=== PATIENT | female | born 1945 ===

== ENCOUNTER 2016-12-24 11:11 | Emergency (ER) | payer MEDICARE, OTHER ==
[2016-12-24 11:11] VITALS: BMI 33.9
[2016-12-24 11:44] VITALS: O2SAT 98
--- NOTE | 2016-12-24 12:55 | C.PDOC ---
History Of Present Illness 71 yr old female with PMHx of HTN, End Stage Renal Disease and is on dialysis, presents to the ER with complaints of right upper extremity pain. Patient states she fell few weeks ago but has been seen in the ED for similar complaints in October. On examination, patient is agitated and defensive resisting the exam. Patient refuses to let anyone touch her arm and is requesting XRay of the arm. Patient denies fever, chest pain, SOB, nausea, vomiting, abdominal pain, diarrhea, back pain, weakness or numbness. Time Seen by Provider: 12/24/16 12:07 Chief Complaint (Nursing): Upper Extremity Problem/Injury History Per: Patient History/Exam Limitations: no limitations Onset/Duration Of Symptoms: Days Current Symptoms Are (Timing): Still Present Past Medical History Reviewed: Historical Data, Nursing Documentation, Vital Signs Vital Signs: Last Vital Signs Temp 99.1 F 12/24/16 14:49 Pulse 75 12/24/16 14:49 Resp 18 12/24/16 14:49 BP 134/75 12/24/16 14:49 Pulse Ox 98 12/24/16 14:49 - Medical History PMH: Back Problems, CHF, Diabetes, Gastritis, HTN, Hypothyroidism, End Stage Renal Disease, Chronic Kidney Disease Surgical History: Cholecystectomy - [facility] Procedures CORONAR ARTERIOGR-2 CATH (05/28/13) HEMODIALYSIS (05/28/13) LEFT HEART CARDIAC CATH (05/28/13) LT HEART ANGIOCARDIOGRAM (05/28/13) PACKED CELL TRANSFUSION (05/28/13) VENOUS CATHETERIZATION FOR RENAL DIALYSIS (05/28/13) Family History: States: No Known Family Hx - Social History Hx Tobacco Use: No Hx Alcohol Use: No Hx Substance Use: No - Immunization History Hx Tetanus Toxoid Vaccination: Yes Hx Influenza Vaccination: Yes Hx Pneumococcal Vaccination: Yes Review Of Systems Except As Marked, All Systems Reviewed And Found Negative. Constitutional: Negative for: Fever Cardiovascular: Negative for: Chest Pain Respiratory: Negative for: Shortness of Breath Gastrointestinal: Negative for: Nausea, Vomiting, Abdominal Pain, Diarrhea Musculoskeletal: Positive for: Arm Pain (Right upper arm). Negative for: Back Pain Neurological: Negative for: Weakness, Numbness Physical Exam - Physical Exam Appears: Non-toxic, Combative, Agitated Skin: Warm, Dry, No Rash Head: Atraumatic, Normacephalic Eye(s): bilateral: Normal Inspection, PERRL, EOMI Oral Mucosa: Moist Chest: Symmetrical, No Tenderness Cardiovascular: Rhythm Regular, No Murmur Respiratory: Normal Breath Sounds, No Rales, No Rhonchi, No Stridor, No Wheezing Extremity: Tenderness (Right arm), No Deformity, No Swelling Neurological/Psych: Oriented x3, Normal Speech, Normal Motor ED Course And Treatment O2 Sat by Pulse Oximetry: 98 - Other Rad X-Ray - Right Humerus X-Ray: Viewed By Me, Read By Radiologist Interpretation: PROCEDURE: Right humerus radiographs. Right forearm radiographs. HISTORY: fall. COMPARISON: None available. FINDINGS: BONES: No acute displaced fracture or dislocation. Evidence of calcific tendinitis adjacent to the right humeral head. Acromioclavicular arthropathy. SOFT TISSUES : Unremarkable. No evidence of radiopaque foreign body. OTHER FINDINGS: None. IMPRESSION: Evidence of calcific tendinitis adjacent to the right humeral head. No acute displaced fracture, dislocation, or significant joint effusion identified. If symptoms persist, or if there is continued clinical concern, x-ray follow-up in 7-10 days should be considered. X-Ray - Right Forearm X-Ray: Viewed By Me, Read By Radiologist Interpretation: PROCEDURE: Right humerus radiographs. Right forearm radiographs. HISTORY: fall. COMPARISON: None available. FINDINGS: BONES: No acute displaced fracture or dislocation. Evidence of calcific tendinitis adjacent to the right humeral head. Acromioclavicular arthropathy. SOFT TISSUES : Unremarkable. No evidence of radiopaque foreign body. OTHER FINDINGS: None. IMPRESSION: Evidence of calcific tendinitis adjacent to the right humeral head. No acute displaced fracture, dislocation, or significant joint effusion identified. If symptoms persist, or if there is continued clinical concern, x-ray follow-up in 7-10 days should be considered. Medical Decision Making Medical Decision Making: PLAN: * X-Ray - Right Forearm, Right Humerus Disposition Counseled Patient/Family Regarding: Studies Performed, Diagnosis, Need For Followup, Rx Given - Disposition Referrals: Hugo Leija Jr., MD [Medical Doctor] - Disposition: HOME/ ROUTINE Disposition Time: 14:35 Condition: STABLE Prescriptions: traMADol/Acetaminophen [Ultracet 37.5/325 mg] 1 tab PO BID PRN #10 tab PRN Reason: pain Instructions: Musculoskeletal Pain (ED) Forms: Gen Discharge Inst Sinhala - POA Present On Arrival: None - Clinical Impression Clinical Impression: Musculoskeletal pain - Scribe Statement The provider has reviewed the documentation as recorded by the Tayaibe Odilia Petersen Provider Attestation: All medical record entries made by the Tayaibe were at my direction and personally dictated by me. I have reviewed the chart and agree that the record accurately reflects my personal performance of the history, physical exam, medical decision making, and the department course for this patient. I have also personally directed, reviewed, and agree with the discharge instructions and disposition.
--- NOTE | 2016-12-24 14:29 | RAD ---
PROCEDURE: Right humerus radiographs Right forearm radiographs HISTORY: fall COMPARISON: None available. FINDINGS: BONES: No acute displaced fracture or dislocation. Evidence of calcific tendinitis adjacent to the right humeral head. Acromioclavicular arthropathy. SOFT TISSUES: Unremarkable. No evidence of radiopaque foreign body. OTHER FINDINGS: None. IMPRESSION: Evidence of calcific tendinitis adjacent to the right humeral head. No acute displaced fracture, dislocation, or significant joint effusion identified. If symptoms persist, or if there is continued clinical concern, x-ray follow-up in 7-10 days should be considered.
[2016-12-24 14:50] VITALS: BP 134/75; PULSE 75; RESP 18; TEMP 99.1
== END 2016-12-24 14:51 | disposition home or self-care (01) ==
LOC: C.ER 11:11
DX: M79.621 Pain in right upper arm (principal)
CPT/HCPCS: 73060; 73090; 96372; 99284; J1885

== ENCOUNTER 2018-02-04 14:50 | Inpatient (IN) | payer MEDICARE, MEDICAID ==
[2018-02-04 14:50] VITALS: BMI 33.9
[2018-02-04 16:01] LABS: BASO # 0.1 K/uL (0.0-0.2); BASO % 0.6 % (0.0-2.0); EOS # 0.4 K/uL (0.0-0.7); EOS % 4.2 % (0.0-4.0); LYMPH # 0.5 K/uL (1.0-4.3); LYMPH % 4.9 % (20.0-40.0); MEAN CELL VOLUME 99.2 fL (81.0-99.0); MEAN CORPUSCULAR HEMOGLOBIN 33.9 pg (27.0-31.0); MEAN CORPUSCULAR HGB CONC 34.2 g/dL (33.0-37.0); MEAN PLATELET VOLUME 10.6 fL (7.2-11.7); MONO # 0.7 K/uL (0.0-0.8); MONO % 7.1 % (0.0-10.0); NEUT # 8.4 K/uL (1.8-7.0); NEUT % 83.2 % (50.0-75.0); NRBC % 0.1 % (0.0-2.0); RED CELL DISTRIBUTION WIDTH 17.1 % (11.5-14.5)
[2018-02-04 16:07] LABS: INR 1.3; PLATELET COUNT 69 K/uL (130-400); PROTHROMBIN TIME 14.1 SECONDS (9.7-12.2)
[2018-02-04 16:09] LABS: HEMOGLOBIN 7.8 g/dL (11.0-16.0)
[2018-02-04 16:15] LABS: ALB/GLOB RATIO 0.7 (1.0-2.1); ALBUMIN 2.6 g/dL (3.5-5.0)
[2018-02-04 16:23] LABS: CK-MB 4.34 ng/mL (0.0-3.38)
--- NOTE | 2018-02-04 16:50 | CT ---
PROCEDURE: CT brain dated by . HISTORY: AMS COMPARISON: None available. TECHNIQUE: Axial computed tomography images were obtained through the head/brain without intravenous contrast. Radiation dose: Total exam DLP = 1057.97 mGy-cm. This CT exam was performed using one or more of the following dose reduction techniques: Automated exposure control, adjustment of the mA and/or kV according to patient size, and/or use of iterative reconstruction technique. FINDINGS: HEMORRHAGE: No acute parenchymal, subarachnoid or extra-axial hemorrhage. BRAIN: Mild chronic periventricular white matter ischemic changes seen extending peripherally into the deep and subcortical white matter both cerebral hemispheres. No evidence of large acute infarct however note that the possibility of a small hyperacute infarct cannot be excluded on this exam. Mild generalized volume loss. VENTRICLES: No obstructive hydrocephalus. CALVARIUM: Unremarkable. PARANASAL SINUSES: Unremarkable as visualized. No significant inflammatory changes. MASTOID AIR CELLS: Unremarkable as visualized. No inflammatory changes. OTHER FINDINGS: Changes of bilateral cataract surgery IMPRESSION: No acute intracranial hemorrhage. Mild chronic white matter ischemic changes. Mild generalized volume loss.
--- NOTE | 2018-02-04 16:58 | RAD ---
PROCEDURE: CHEST RADIOGRAPH, 1 VIEW HISTORY: AMS COMPARISON: Portable chest 11/18/2016. FINDINGS: LUNGS: No acute pulmonary disease appreciated bilaterally. PLEURA: No pneumothorax or pleural fluid seen. CARDIOVASCULAR: Stable cardiomegaly. No pulmonary vascular congestion. A tunneled left central venous dialysis catheter and deployed terminating at the cavoatrial junction. OSSEOUS STRUCTURES: No significant abnormalities. VISUALIZED UPPER ABDOMEN: Normal. OTHER FINDINGS: None. IMPRESSION: Status post deployment of permanent left central venous dialysis catheter. Stable cardiomegaly. Exam otherwise unremarkable.
[2018-02-04 17:13] LABS: EOSINOPHIL 1 % (0-4); LYMPHOCYTE 4 % (20-40); MONOCYTE 5 % (0-10); NEUTROPHIL 90 % (50-75); TOTAL CELLS COUNTED 100
[2018-02-04 17:14] LABS: ANISOCYTOSIS SLIGHT; HYPOCHROMIC SLIGHT; PLATELET ESTIMATE DECREASED (NORMAL)
[2018-02-04 17:15] LABS: POLYCHROMIC SLIGHT
--- NOTE | 2018-02-04 17:28 | C.PDOC ---
History Of Present Illness 72-year-old female, sent from detention with complaints of restlessness and altered mental status. Upon arrival, patient is awake and alert. Patient c/o generalized weakness. Time Seen by Provider: 02/04/18 15:23 Chief Complaint (Nursing): Altered Mental Status History Per: Patient History/Exam Limitations: None Past Medical History Reviewed: Historical Data, Nursing Documentation, Vital Signs Vital Signs: Last Vital Signs Temp 98.4 F 02/04/18 15:02 Pulse 56 L 02/04/18 16:33 Resp 17 02/04/18 16:33 BP 115/57 L 02/04/18 16:33 Pulse Ox 97 02/04/18 18:07 - Medical History PMH: Back Problems, CHF, Diabetes, Gastritis, HTN, Hypothyroidism, End Stage Renal Disease, Chronic Kidney Disease Surgical History: Cholecystectomy - [facility] Procedures CORONAR ARTERIOGR-2 CATH (05/28/13) HEMODIALYSIS (05/28/13) LEFT HEART CARDIAC CATH (05/28/13) LT HEART ANGIOCARDIOGRAM (05/28/13) PACKED CELL TRANSFUSION (05/28/13) VENOUS CATHETERIZATION FOR RENAL DIALYSIS (05/28/13) Family History: States: No Known Family Hx - Social History Hx Tobacco Use: No Hx Alcohol Use: No Hx Substance Use: No - Immunization History Hx Tetanus Toxoid Vaccination: Yes Hx Influenza Vaccination: Yes Hx Pneumococcal Vaccination: Yes Review Of Systems Constitutional: Negative for: Fever, Chills, Weakness Cardiovascular: Negative for: Chest Pain, Palpitations Respiratory: Negative for: Shortness of Breath Gastrointestinal: Negative for: Nausea, Vomiting Neurological: Positive for: Altered Mental Status (as per [facility] transfer papers). Negative for: Headache, Dizziness Physical Exam - Physical Exam Appears: Non-toxic, No Acute Distress Skin: Normal Color, Warm, Dry, No Rash Head: Normacephalic Eye(s): bilateral: Normal Inspection, PERRL, EOMI Nose: Normal Oral Mucosa: Moist Lips: Normal Appearing Neck: Normal ROM Chest: Symmetrical Cardiovascular: Rhythm Regular, No Murmur Respiratory: Normal Breath Sounds, No Accessory Muscle Use Gastrointestinal/Abdominal: Soft, No Tenderness Extremity: Normal ROM, No Deformity Neurological/Psych: Oriented x3, Normal Speech ED Course And Treatment - Laboratory Results Result Diagrams: 02/04/18 15:52 02/04/18 15:52 O2 Sat by Pulse Oximetry: 97 (RA) Pulse Ox Interpretation: Normal - Other Rad CXR X-Ray: Viewed By Me, Read By Radiologist Interpretation: Accession No. : [id number]. Patient Name / ID : PAVITHRA REES / [id number]. Exam Date : 02/04/2018 15:54:15 ( Approved ). Study Comment : Sex / Age : F / 72Y. Creator : Abhishek Wade MD. Dictator : Abhishek Wade MD. Individual Pension Adviser : [employer] : Abhishek Wade MD. Approver2 : Report Date : 02/04/2018 16:57:05. My Comment : . PROCEDURE: CHEST RADIOGRAPH, 1 VIEW. HISTORY: AMS. COMPARISON: Portable chest 2016. FINDINGS: LUNGS: No acute pulmonary disease appreciated bilaterally. PLEURA: No pneumothorax or pleural fluid seen. CARDIOVASCULAR: Stable cardiomegaly. No pulmonary vascular congestion. A tunneled left central venous dialysis catheter and deployed terminating at the cavoatrial junction. OSSEOUS STRUCTURES: No significant abnormalities. VISUALIZED UPPER ABDOMEN: Normal. OTHER FINDINGS: None. IMPRESSION: Status post deployment of permanent left central venous dialysis catheter. Stable cardiomegaly. Exam otherwise unremarkable. - CT Scan/US Head CT Other Rad Studies (CT/US): Read By Radiologist, Radiology Report Reviewed CT/US Interpretation: Accession No. : [id number]. Patient Name / ID : PAVITHRA REES / [id number]. Exam Date : 02/04/2018 16:06:35 ( Approved ). Study Comment : Sex / Age : F / 72Y. Creator : Treva Mills. Dictator : Individual Pension Adviser : [employer]visor [employer] : Don Sanders MD. Approver2 : Report Date : 16:24:36. My Comment : . PROCEDURE: CT brain dated by . HISTORY: AMS. COMPARISON: None available. TECHNIQUE: Axial computed tomography images were obtained through the head/brain without intravenous contrast. Radiation dose: Total exam DLP = 1057.97 mGy-cm. This CT exam was performed using one or more of the following dose reduction techniques: Automated exposure control, adjustment of the mA and/or kV according to patient size, and/or use of iterative reconstruction technique. FINDINGS: HEMORRHAGE: No acute parenchymal, subarachnoid or extra-axial hemorrhage. BRAIN: Mild chronic periventricular white matter ischemic changes seen extending peripherally into the deep and subcortical white matter both cerebral hemispheres. No evidence of large acute infarct however note that the possibility of a small hyperacute infarct cannot be excluded on this exam. Mild generalized volume loss. VENTRICLES: No obstructive hydrocephalus. CALVARIUM: Unremarkable. PARANASAL SINUSES: Unremarkable as visualized. No significant inflammatory changes. MASTOID AIR CELLS: Unremarkable as visualized. No inflammatory changes. OTHER FINDINGS: Changes of bilateral cataract surgery. IMPRESSION: No acute intracranial hemorrhage. Mild chronic white matter ischemic changes. Mild generalized volume loss. Progress Note: CT Head, bloodwork and Chest XR ordered and reviewed. Patient evaluated by Dr Toledo in ER, will admit patient to his service for observation. Disposition - Disposition Disposition: HOSPITALIZED Disposition Time: 17:30 Condition: FAIR - Clinical Impression Clinical Impression: ESRD (end stage renal disease) on dialysis, Altered mental status - Scribe Statement The provider has reviewed the documentation as recorded by the Scribe (Bradley Weathers) All medical record entries made by the Scribe were at my direction and personally dictated by me. I have reviewed the chart and agree that the record accurately reflects my personal performance of the history, physical exam, medical decision making, and the department course for this patient. I have also personally directed, reviewed, and agree with the discharge instructions and disposition. Decision To Admit - Pt Status Changed To: Hospital Disposition Of: Observation - . Bed Request Type: Telemetry Admitting Physician: Sonny Toledo Patient Diagnosis: ESRD (end stage renal disease) on dialysis, Altered mental status
[2018-02-04] MEDS ORDERED: Benzocaine/Menthol (Cepacol) Lozenge PO PRN (18:53)
[2018-02-04] MEDS ORDERED: Albuterol HFA 90 mcg/actuation (8 g) IH PRN (18:53)
[2018-02-04] MEDS ORDERED: Ergocalciferol 50,000 Intl Units Cap PO SCH (19:00)
--- NOTE | 2018-02-04 19:43 | CP.PCM.HP ---
Present on Admission - Present on Admission Any Indicators Present on Admission: No Past Patient History - Past Social History Smoking Status: Never Smoked - CARDIAC Hx Congestive Heart Failure: Yes Hx Hypertension: Yes - RENAL Hx Chronic Kidney Disease: Yes - ENDOCRINE/METABOLIC Hx Hypothyroidism: Yes - GASTROINTESTINAL Hx Gastritis: Yes - PSYCHIATRIC Hx Substance Use: No - SURGICAL HISTORY Hx Cholecystectomy: Yes - ANESTHESIA Hx Anesthesia: Yes Hx Anesthesia Reactions: No Meds Allergies/Adverse Reactions: Allergies Allergy/AdvReac Type Severity Reaction Status Date / Time No Known Allergies Allergy Verified 12/24/16 11:40 Physical Exam - Constitutional Appears: Well - Head Exam Head Exam: ATRAUMATIC, NORMAL INSPECTION - Eye Exam Eye Exam: Normal appearance - ENT Exam ENT Exam: Mucous Membranes Moist - Neck Exam Neck exam: Positive for: Normal Inspection - Respiratory Exam Respiratory Exam: Decreased Breath Sounds - Cardiovascular Exam Cardiovascular Exam: REGULAR RHYTHM, +S1, +S2 - GI/Abdominal Exam GI & Abdominal Exam: Diminished Bowel Sounds - Rectal Exam Rectal Exam: Deferred Results - Vital Signs Recent Vital Signs: Last Vital Signs Temp 98.4 F 02/04/18 15:02 Pulse 55 L 02/04/18 19:35 Resp 17 02/04/18 19:35 BP 103/43 L 02/04/18 19:35 Pulse Ox 97 02/04/18 19:35 - Labs Result Diagrams: 02/04/18 15:52 02/04/18 15:52 Labs: Laboratory Results - last 24 hr 02/04/18 02/04/18 02/04/18 15:52 15:52 15:52 WBC 10.0 D RBC 2.30 L Hgb 7.8 L D Hct 22.8 L MCV 99.2 H D MCH 33.9 H MCHC 34.2 RDW 17.1 H Plt Count 69 L D MPV 10.6 Neut % (Auto) 83.2 H Lymph % (Auto) 4.9 L [place] % (Auto) 7.1 Eos % (Auto) 4.2 H Baso % (Auto) 0.6 Neut # (Auto) 8.4 H Lymph # (Auto) 0.5 L [place] # (Auto) 0.7 Eos # (Auto) 0.4 Baso # (Auto) 0.1 Neutrophils % (Manual) 90 H Lymphocytes % (Manual) 4 L Monocytes % (Manual) 5 Eosinophils % (Manual) 1 Platelet Estimate Decreased L Polychromasia Slight Hypochromasia (manual) Slight Anisocytosis (manual) Slight Macrocytosis (manual) Slight PT 14.1 H INR 1.3 APTT 34 Sodium 139 Potassium 3.7 Chloride 98 Carbon Dioxide 27 Anion Gap 18 BUN 44 H Creatinine 5.4 H Est GFR ( Amer) 9 Est GFR (Non-Af Amer) 8 Random Glucose 172 H Calcium 9.0 Total Bilirubin 1.7 H AST 51 H ALT 40 Alkaline Phosphatase 274 H Total Creatine Kinase 83 CK-MB (Mass) 4.34 H Total Protein 6.4 Albumin 2.6 L D Globulin 3.8 Albumin/Globulin Ratio 0.7 L Assessment & Plan (1) Altered mental status Status: Acute (2) ESRD (end stage renal disease) on dialysis Status: Acute (3) Gastritis Status: Acute (4) Musculoskeletal pain Status: Acute (5) Rib contusion Status: Acute
[2018-02-04] MEDS: Pantoprazole 40 mg EC Tab PO SCH (22:19)
[2018-02-04] MEDS ORDERED: Pantoprazole 40 mg EC Tab PO ONE (22:21)
[2018-02-04] MEDS ORDERED: DiphenhydrAMINE 50 mg/ml Inj ONE (22:49)
[2018-02-04] MEDS ORDERED: DiphenhydrAMINE 50 mg/ml Inj IVP STA (22:49)
[2018-02-05] MEDS: Levothyroxine 200 MCG TAB PO SCH (06:45)
[2018-02-05] MEDS ORDERED: Enoxaparin 40 mg Syringe SC SCH (10:00)
--- NOTE | 2018-02-05 11:11 | MRI ---
PROCEDURE: MRI BRAIN WITHOUT CONTRAST HISTORY: change of mental status COMPARISON: None. TECHNIQUE: Multiplanar, multisequence MR images of the brain were obtained without intravenous contrast enhancement. FINDINGS: There is excessive motion artifact across all sequences severely limiting this examination. No mass effect, prominent intracranial hemorrhage or definite acute or subacute brain infarction is identified. Diffuse cerebral atrophy chronic microangiopathy are appreciated. No prominent cortical edema is identified with posterior fossa contents grossly unremarkable appearing. Left basal ganglia chronic lacune is are in question. OTHER FINDINGS: None. IMPRESSION: Limited exam due to excessive motion artifacts throughout all sequences. No mass effect, intracranial hemorrhage or acute/subacute brain infarction identified. Age-related neuro degenerative findings are appreciated as discussed above. Repeat MRI is available as clinically required the patient is able to properly position.
[2018-02-05] MEDS: Epoetin Alfa 10,000 unit/ml Dialysis IV SCH (11:50)
[2018-02-05] MEDS: Bacitracin Ointment 30 GM TUBE TOP SCH (12:09)
[2018-02-05] MEDS: Omega-3-Acid Ethyl Esters 1 GM Cap PO SCH ×2 (12:09→18:06)
--- NOTE | 2018-02-05 13:33 | CP.PCM.PN ---
Subjective - Date & Time of Evaluation Date of Evaluation: 02/05/18 Time of Evaluation: 12:40 - Subjective Subjective: clinically same Objective - Vital Signs/Intake and Output Vital Signs (last 24 hours): Temp Pulse Resp BP Pulse Ox 97.3 F L 55 L 17 116/41 L 96 02/05/18 11:10 02/05/18 13:23 02/05/18 13:23 02/05/18 13:23 02/05/18 11:10 Intake and Output: 02/05/18 02/05/18 06:59 18:59 Intake Total 120 Output Total 0 Balance 120 - Medications Medications: Current Medications Acetaminophen (Tylenol 325mg Tab) 650 mg PO Q6 PRN PRN Reason: Pain, moderate (4-7) Albuterol (Ventolin Hfa 90 Mcg/Actuation (8 G)) 90 puff IH RQ4 PRN PRN Reason: sob Amlodipine Besylate (Norvasc) 10 mg PO DAILY [facility] Aspirin (Ecotrin) 81 mg PO DAILY [facility] Last Admin: 02/05/18 09:56 Dose: 81 mg Bacitracin (Bacitracin) 0 gm TOP DAILY [facility] Last Admin: 02/05/18 12:09 Dose: 1 applic Benzocaine/Menthol (Cepacol Sore Throat) 1 naomi PO Q2 PRN PRN Reason: Sore Throat Carvedilol (Coreg) 25 mg PO Q12 [facility] Last Admin: 02/04/18 22:26 Dose: 25 mg Docusate Sodium (Colace) 100 mg PO DAILY [facility] Last Admin: 02/05/18 09:56 Dose: 100 mg Epoetin Yvon (Procrit) 10,000 unit IV MWF [facility] Last Admin: 02/05/18 11:50 Dose: 10,000 unit Ergocalciferol (Drisdol 50,000 Intl Units Cap) 1 cap PO QD7 [facility] Heparin Sodium (Porcine) (Heparin) 5,000 units SC Q12H [facility] Hydralazine HCl (Apresoline) 50 mg PO TID [facility] Last Admin: 02/05/18 09:47 Dose: Not Given Lactulose (Enulose) 20 gm PO DAILY PRN PRN Reason: constipation Levothyroxine Sodium (Synthroid) 200 mcg PO DAILY@0630 [facility] Last Admin: 02/05/18 06:45 Dose: 200 mcg Losartan Potassium (Cozaar) 100 mg PO DAILY [facility] Pbygm-5-Rhek Ethyl Esters (Lovaza) 2 gm PO BID [facility] Last Admin: 02/05/18 12:09 Dose: 2 gm Pantoprazole Sodium (Protonix Ec Tab) 40 mg PO HS [facility] Last Admin: 02/04/18 22:19 Dose: 40 mg - Labs Labs: 02/04/18 15:52 02/04/18 15:52 PT 14.1 SECONDS (9.7-12.2) H 02/04/18 15:52 INR 1.3 02/04/18 15:52 APTT 34 SECONDS (21-34) 02/04/18 15:52 - Constitutional Appears: Well - Head Exam Head Exam: ATRAUMATIC, NORMAL INSPECTION, NORMOCEPHALIC - Eye Exam Eye Exam: EOMI, Normal appearance, PERRL Pupil Exam: NORMAL ACCOMODATION, PERRL - ENT Exam ENT Exam: Mucous Membranes Moist, Normal Exam - Neck Exam Neck Exam: Full ROM, Normal Inspection. absent: Lymphadenopathy - Respiratory Exam Respiratory Exam: Decreased Breath Sounds - Cardiovascular Exam Cardiovascular Exam: REGULAR RHYTHM, +S1, +S2 - GI/Abdominal Exam GI & Abdominal Exam: Soft, Diminished Bowel Sounds - Rectal Exam Rectal Exam: Deferred Assessment and Plan (1) Altered mental status Status: Acute (2) ESRD (end stage renal disease) on dialysis Status: Acute (3) Gastritis Status: Acute (4) Musculoskeletal pain Status: Acute (5) Rib contusion Status: Acute (6) Toxic metabolic encephalopathy Status: Acute
--- NOTE | 2018-02-05 17:37 | CP.PCM.CON ---
History of Present Illness - History of Present Illness History of Present Illness: 72 yr old patient who is here from halfway, who presented with confusion , and change in mental status for several hours. 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 He is a poor historian so history is obtained from the chart. PMH/PSH: as per chart FH/SH:lives in halfway All: nkda. on exam: neurological exam is only significant for decreased memory, does not know year or date, and can identify simple objects poor attention, but follows commands 2/3 cannot do calculations motor: normal strength sensory exam is not accurate gait not tested, with symmetric reflexes Past Patient History - Past Medical History & Family History Past Medical History?: Yes - Past Social History Smoking Status: Unknown If Ever Smoked - CARDIAC Hx Congestive Heart Failure: Yes Hx Hypertension: Yes - PULMONARY Hx Respiratory Disorders: No - NEUROLOGICAL Hx Neurological Disorder: No - HEENT Hx HEENT Problems: No - RENAL Hx Chronic Kidney Disease: Yes Type of Dialysis Access: Lt subclavian HD cath Date of Last Dialysis Treatment: 02/03/18 - ENDOCRINE/METABOLIC Hx Endocrine Disorders: Yes Hx Hypothyroidism: Yes - HEMATOLOGICAL/ONCOLOGICAL Hx Blood Disorders: No - INTEGUMENTARY Hx Dermatological Problems: No - MUSCULOSKELETAL/RHEUMATOLOGICAL Hx Musculoskeletal Disorders: Yes Hx Falls: Yes - GASTROINTESTINAL Hx Gastrointestinal Disorders: Yes Hx Gastritis: Yes - GENITOURINARY/GYNECOLOGICAL Hx Genitourinary Disorders: No - PSYCHIATRIC Hx Psychophysiologic Disorder: No Hx Substance Use: No - SURGICAL HISTORY Hx Surgeries: Yes Hx Cholecystectomy: Yes - ANESTHESIA Hx Anesthesia: Yes Hx Anesthesia Reactions: No Hx Malignant Hyperthermia: No Has any member of the family had a problem w/ anesthesia?: No Meds Allergies/Adverse Reactions: Allergies Allergy/AdvReac Type Severity Reaction Status Date / Time No Known Allergies Allergy Verified 12/24/16 11:40 - Medications Medications: Current Medications Acetaminophen (Tylenol 325mg Tab) 650 mg PO Q6 PRN PRN Reason: Pain, moderate (4-7) Last Admin: 02/05/18 16:18 Dose: 650 mg Albuterol (Ventolin Hfa 90 Mcg/Actuation (8 G)) 90 puff IH RQ4 PRN PRN Reason: sob Amlodipine Besylate (Norvasc) 10 mg PO DAILY [facility] Last Admin: 02/05/18 16:17 Dose: 10 mg Aspirin (Ecotrin) 81 mg PO DAILY [facility] Last Admin: 02/05/18 09:56 Dose: 81 mg Bacitracin (Bacitracin) 0 gm TOP DAILY [facility] Last Admin: 02/05/18 12:09 Dose: 1 applic Benzocaine/Menthol (Cepacol Sore Throat) 1 naomi PO Q2 PRN PRN Reason: Sore Throat Carvedilol (Coreg) 25 mg PO Q12 [facility] Last Admin: 02/05/18 10:00 Dose: Not Given Docusate Sodium (Colace) 100 mg PO DAILY [facility] Last Admin: 02/05/18 09:56 Dose: 100 mg Epoetin Yvon (Procrit) 10,000 unit IV MWF [facility] Last Admin: 02/05/18 11:50 Dose: 10,000 unit Ergocalciferol (Drisdol 50,000 Intl Units Cap) 1 cap PO QD7 [facility] Heparin Sodium (Porcine) (Heparin) 5,000 units SC Q12H [facility] Hydralazine HCl (Apresoline) 50 mg PO TID [facility] Last Admin: 02/05/18 13:45 Dose: Not Given Lactulose (Enulose) 20 gm PO DAILY PRN PRN Reason: constipation Levothyroxine Sodium (Synthroid) 200 mcg PO DAILY@0630 [facility] Last Admin: 02/05/18 06:45 Dose: 200 mcg Losartan Potassium (Cozaar) 100 mg PO DAILY [facility] Last Admin: 02/05/18 16:18 Dose: 100 mg [id number]-[id number] Ethyl Esters (Lovaza) 2 gm PO BID [facility] Last Admin: 02/05/18 12:09 Dose: 2 gm Pantoprazole Sodium (Protonix Ec Tab) 40 mg PO HS [facility] Last Admin: 02/04/18 22:19 Dose: 40 mg Results - Vital Signs Recent Vital Signs: Last Vital Signs Temp 96.7 F L 02/05/18 14:10 Pulse 57 L 02/05/18 14:10 Resp 16 02/05/18 14:10 BP 119/38 L 02/05/18 14:10 Pulse Ox 96 02/05/18 14:10 - Labs Result Diagrams: 02/04/18 15:52 02/04/18 15:52 - Imaging and Cardiology CT scan - head Status: Image reviewed by me, Report reviewed by me (normal ct head age related atrophy) Assessment & Plan - Assessment and Plan (Free Text) Assessment: MRI Brain normal A/P: 72 yr old male with dementia, and confusion that may be seizure or more likely encephalopathy due to renal disease and anemia. Plan: 1. EEG am 2. ammonia level 3. blood cultures 4. b12, tsh Thank you our team will follow dr dasilva
[2018-02-05] MEDS: Pantoprazole 40 mg EC Tab PO SCH (21:48)
[2018-02-06] MEDS: Levothyroxine 200 MCG TAB PO SCH (06:18)
[2018-02-06 06:36] LABS: ABG ALLEN TEST POS; ARTERIAL BLOOD GAS HCO3 28.5 mmol/L (21-28); ARTERIAL BLOOD GAS HEMOGLOBIN 8.9 g/dL (11.7-17.4); ARTERIAL BLOOD GAS O2 SAT 98.8 % (95-98); ARTERIAL BLOOD GAS PCO2 43 mm/Hg (35-45); ARTERIAL BLOOD GAS PH 7.44 (7.35-7.45); ARTERIAL BLOOD GAS PO2 156 mm/Hg (80-100); ARTERIAL BLOOD GAS TCO2 30.5 mmol/L (22-28)
--- NOTE | 2018-02-06 06:39 | CP.PCM.PN ---
Subjective - Date & Time of Evaluation Date of Evaluation: 02/06/18 Time of Evaluation: 06:34 - Subjective Subjective: Ms. Dorsey was seen and examined at the bedside in ICU. She is confused, unable to answer any questions but keeps on yelling "agua". Her eyes are sluggishly reactive but with downpointing to the right. She had an episode of agitation or restlessness last night which ativan was given which resulted with the desaturation and non-rebreathing mask was applied. She was not able to follow any commands with bilateral hand mittens on, moves all extremities. She is not able to swallow her morning medications with episodes of coughing. Objective - Vital Signs/Intake and Output Vital Signs (last 24 hours): Temp Pulse Resp BP Pulse Ox 96.7 F L 55 L 16 98/38 L 96 02/05/18 14:10 02/06/18 01:00 02/05/18 14:10 02/05/18 21:50 02/05/18 14:10 Intake and Output: 02/05/18 02/06/18 18:59 06:59 Intake Total 480 Output Total 0 Balance 480 - Medications Medications: Current Medications Acetaminophen (Tylenol 325mg Tab) 650 mg PO Q6 PRN PRN Reason: Pain, moderate (4-7) Last Admin: 02/05/18 16:18 Dose: 650 mg Albuterol (Ventolin Hfa 90 Mcg/Actuation (8 G)) 90 puff IH RQ4 PRN PRN Reason: sob Amlodipine Besylate (Norvasc) 10 mg PO DAILY [facility] Last Admin: 02/05/18 16:17 Dose: 10 mg Aspirin (Aspirin Supp) 300 mg SC DAILY [facility] Bacitracin (Bacitracin) 0 gm TOP DAILY [facility] Last Admin: 02/05/18 12:09 Dose: 1 applic Benzocaine/Menthol (Cepacol Sore Throat) 1 naomi PO Q2 PRN PRN Reason: Sore Throat Carvedilol (Coreg) 25 mg PO Q12 [facility] Last Admin: 02/05/18 21:50 Dose: Not Given Docusate Sodium (Colace) 100 mg PO DAILY [facility] Last Admin: 02/05/18 09:56 Dose: 100 mg Epoetin Yvon (Procrit) 10,000 unit IV MWF [facility] Last Admin: 02/05/18 11:50 Dose: 10,000 unit Ergocalciferol (Drisdol 50,000 Intl Units Cap) 1 cap PO QD7 [facility] Heparin Sodium (Porcine) (Heparin) 5,000 units SC Q12H [facility] Hydralazine HCl (Apresoline) 50 mg PO TID [facility] Last Admin: 02/05/18 18:13 Dose: Not Given Lactulose (Enulose) 20 gm PO DAILY PRN PRN Reason: constipation Levothyroxine Sodium (Synthroid) 200 mcg PO DAILY@0630 [facility] Last Admin: 02/06/18 06:18 Dose: Not Given Losartan Potassium (Cozaar) 100 mg PO DAILY [facility] Last Admin: 02/05/18 16:18 Dose: 100 mg [id number] Ethyl Esters (Lovaza) 2 gm PO BID [facility] Last Admin: 02/05/18 18:06 Dose: 2 gm Pantoprazole Sodium (Protonix Ec Tab) 40 mg PO HS [facility] Last Admin: 02/05/18 21:48 Dose: 40 mg - Labs Labs: 02/04/18 15:52 02/04/18 15:52 PT 14.1 SECONDS (9.7-12.2) H 02/04/18 15:52 INR 1.3 02/04/18 15:52 APTT 34 SECONDS (21-34) 02/04/18 15:52 - Constitutional Appears: No Acute Distress, Confused - Head Exam Head Exam: NORMAL INSPECTION - Eye Exam Pupil Exam: PERRL Additional comments: bilateral eyes downpointing to the right. - Neurological Exam Neuro motor strength exam: Left Upper Extremity: 3, Right Upper Extremity: 3, Left Lower Extremity: 2/1, Right Lower Extremity: 2/1 Additional comments: confused unable to do ROS. - Psychiatric Exam Psychiatric exam: Agitated Assessment and Plan (1) Altered mental status Assessment & Plan: Case discussed with Dr. Angela, continue all current medical regimen. Recommend to repeat CT scan of the head, EEG, CMP, ammonia, ABG, vitamin b 12, TSH. Please call the primary team if condition deteriorate. Sppech therapy to do swallowing , if recommend NGT for nutrition and medication administration. Will order depakote 500 mg IVPB to assist with patient's restlessness. Status: Acute
[2018-02-06 07:38] LABS: ALB/GLOB RATIO 0.7 (1.0-2.1); ALBUMIN 2.6 g/dL (3.5-5.0); ALT/SGPT 29 U/L (9-52); AST/SGOT 56 U/L (14-36); BLOOD UREA NITROGEN 38 mg/dL (7-17); CALCIUM 8.9 mg/dl (8.6-10.4); GFR AFRICAN-AMERICAN 13; GFR NON-AFRICAN AMERICAN 11
--- NOTE | 2018-02-06 09:47 | PCM.RRT ---
[employer] Nurses Assessment - Situation Date: 02/06/18 Time [employer] was called: 09:30 [employer] Responder Arrival Time:: 09:35 [employer] Location:: 9I ICU [employer] Reason for Call: Change in Mental Status [employer] Called By: RN - Constitutional Appears: Confused - Head Head Exam: ATRAUMATIC, NORMAL INSPECTION - Eyes Eye Exam: EOMI, Normal appearance - Respiratory Exam Respiratory Exam: NORMAL BREATHING PATTERN - Cardiovascular Exam Cardiovascular Exam: REGULAR RHYTHM, +S1, +S2 - Neurological Exam Neurological Exam: Awake. absent: Alert, Oriented x3 Additional exam: Patient did not respond to open eyes on command Plan - Assessment of Findings&Treatment Plan [employer] was called by RN for change in altered mental status. Patient was admitted for AMS however the nurse stated yesterday she was much more alert. Patient was given Ativan .5mg IV at 2am for agitation. Patient's initial vitals: B/P 118/33, HR 73; RR 12; 89% RA; Glucose 114. Patient was awake. Patient was not alert. Patient would not respond to open eyes on command. ABG shock was ordered which showed pH 7.44, CO2 43, HCO3 28.5. Lactic Acid 1.7. Pulmonology Dr. Morse was consulted. Patient was placed on a venti mask 50%. EKG was ordered CBC was ordered which showed WBC 13.4 and bands (20). Patient was given Vanco and Zosyn at renal doses. ID Dr. Adam was contacted. CT of the head was read which showed acute ischemic changes. Neurology Dr. Angela was contact and a bed side EEG was ordered stat. MRI of the head could not be done at this time due to the patient's condition. ICU consult was placed with Dr. Ludwig Toledo and he was notified of the patient's condition. A nursing communication and an adverse reaction notice was placed to not give the patient benzodiazepines. Patient's primary physician Dr. Yeison Toledo was notified.
--- NOTE | 2018-02-06 09:54 | CT ---
PROCEDURE: CT HEAD WITHOUT CONTRAST. HISTORY: change of mental status COMPARISON: CT dated 02/04/2018 TECHNIQUE: Axial computed tomography images were obtained through the head/brain without intravenous contrast. Radiation dose: Total exam DLP = 1083 mGy-cm. This CT exam was performed using one or more of the following dose reduction techniques: Automated exposure control, adjustment of the mA and/or kV according to patient size, and/or use of iterative reconstruction technique. FINDINGS: HEMORRHAGE: No intracranial hemorrhage. BRAIN: No mass effect or edema. Scattered focal lucencies in the subcortical and periventricular white matter suggestive for chronic microvascular ischemic change. . Mild generalized volume loss. Punctate hypodensity in the left basal ganglia may represent a prominent perivascular space versus punctate lacunar infarct. VENTRICLES: Unremarkable. No hydrocephalus. CALVARIUM: Unremarkable. PARANASAL SINUSES: Mucosal thickening of the ethmoid air cells. MASTOID AIR CELLS: Unremarkable as visualized. No inflammatory changes. OTHER FINDINGS: Bilateral cataract surgery. Intracranial arterial calcifications. IMPRESSION: Chronic microvascular ischemic change. Mild generalized volume loss. Punctate hypodensity in the left basal ganglia may represent a prominent perivascular space versus punctate lacunar infarct. Sinus mucosal disease. If there is persistent concern for acute ischemic change, consider further evaluation with MRI.
[2018-02-06] MEDS ORDERED: Valproate 500 MG in Sodium Chloride 0.9% 100 ML IVPB SCH (10:00)
[2018-02-06 10:49] LABS: BASO % 0.3 % (0.0-2.0); EOS # 0.6 K/uL (0.0-0.7); EOS % 4.6 % (0.0-4.0); HEMOGLOBIN 8.3 g/dL (11.0-16.0); LYMPH # 1.3 K/uL (1.0-4.3); LYMPH % 9.5 % (20.0-40.0); MEAN CELL VOLUME 98.6 fL (81.0-99.0); MEAN CORPUSCULAR HEMOGLOBIN 32.9 pg (27.0-31.0); MEAN CORPUSCULAR HGB CONC 33.4 g/dL (33.0-37.0); MEAN PLATELET VOLUME 11.2 fL (7.2-11.7); MONO # 0.4 K/uL (0.0-0.8); MONO % 3.2 % (0.0-10.0); NEUT # 11.1 K/uL (1.8-7.0); NEUT % 82.4 % (50.0-75.0); NRBC % 0.1 % (0.0-2.0); PLATELET COUNT 53 K/uL (130-400); RBC 2.53 Mil/uL (3.80-5.20); RED CELL DISTRIBUTION WIDTH 16.9 % (11.5-14.5); WHITE BLOOD COUNT 13.4 K/uL (4.8-10.8)
[2018-02-06 10:58] LABS: ALB/GLOB RATIO 0.7 (1.0-2.1); ALBUMIN 2.8 g/dL (3.5-5.0); CALCIUM 8.8 mg/dl (8.6-10.4)
[2018-02-06] MEDS ORDERED: Vancomycin 1 GM in Sodium Chloride 0.9% 200 ML IVPB ONE (11:00)
[2018-02-06] MEDS: Omega-3-Acid Ethyl Esters 1 GM Cap PO SCH ×2 (11:05→17:36)
[2018-02-06 11:32] LABS: ANISOCYTOSIS SLIGHT; BANDS 20 % (0-2); LYMPHOCYTE 2 % (20-40); MONOCYTE 3 % (0-10); NEUTROPHIL 75 % (50-75); OVALOCYTES SLIGHT; PLATELET ESTIMATE DECREASED (NORMAL); TARGET CELLS SLIGHT; TOTAL CELLS COUNTED 100
--- NOTE | 2018-02-06 11:33 | CP.PCM.CON ---
Past Patient History - Past Medical History & Family History Past Medical History?: Yes - Past Social History Smoking Status: Unknown If Ever Smoked - CARDIAC Hx Congestive Heart Failure: Yes Hx Hypertension: Yes - PULMONARY Hx Respiratory Disorders: No - NEUROLOGICAL Hx Neurological Disorder: No - HEENT Hx HEENT Problems: No - RENAL Hx Chronic Kidney Disease: Yes Type of Dialysis Access: Lt subclavian HD cath Date of Last Dialysis Treatment: 02/03/18 - ENDOCRINE/METABOLIC Hx Endocrine Disorders: Yes Hx Hypothyroidism: Yes - HEMATOLOGICAL/ONCOLOGICAL Hx Blood Disorders: No - INTEGUMENTARY Hx Dermatological Problems: No - MUSCULOSKELETAL/RHEUMATOLOGICAL Hx Musculoskeletal Disorders: Yes Hx Falls: Yes - GASTROINTESTINAL Hx Gastrointestinal Disorders: Yes Hx Gastritis: Yes - GENITOURINARY/GYNECOLOGICAL Hx Genitourinary Disorders: No - PSYCHIATRIC Hx Psychophysiologic Disorder: No Hx Substance Use: No - SURGICAL HISTORY Hx Surgeries: Yes Hx Cholecystectomy: Yes - ANESTHESIA Hx Anesthesia: Yes Hx Anesthesia Reactions: No Hx Malignant Hyperthermia: No Has any member of the family had a problem w/ anesthesia?: No Meds Allergies/Adverse Reactions: Allergies Allergy/AdvReac Type Severity Reaction Status Date / Time lorazepam [From Ativan] AdvReac SHORTNESS Verified 02/06/18 09:42 OF BREATH - Medications Medications: Current Medications Acetaminophen (Tylenol 325mg Tab) 650 mg PO Q6 PRN PRN Reason: Pain, moderate (4-7) Last Admin: 02/05/18 16:18 Dose: 650 mg Albuterol (Ventolin Hfa 90 Mcg/Actuation (8 G)) 90 puff IH RQ4 PRN PRN Reason: sob Amlodipine Besylate (Norvasc) 10 mg PO DAILY [facility] Last Admin: 02/06/18 11:06 Dose: Not Given Aspirin (Aspirin Supp) 300 mg AL DAILY [facility] Last Admin: 02/06/18 11:05 Dose: Not Given Bacitracin (Bacitracin) 0 gm TOP DAILY [facility] Last Admin: 02/05/18 12:09 Dose: 1 applic Benzocaine/Menthol (Cepacol Sore Throat) 1 naomi PO Q2 PRN PRN Reason: Sore Throat Carvedilol (Coreg) 25 mg PO Q12 [facility] Last Admin: 02/06/18 11:05 Dose: Not Given Docusate Sodium (Colace) 100 mg PO DAILY [facility] Last Admin: 05/17/18 11:05 Dose: Not Given Epoetin Yvon (Procrit) 10,000 unit IV MWF [facility] Last Admin: 02/05/18 11:50 Dose: 10,000 unit Ergocalciferol (Drisdol 50,000 Intl Units Cap) 1 cap PO QD7 [facility] Heparin Sodium (Porcine) (Heparin) 5,000 units SC Q12H [facility] Hydralazine HCl (Apresoline) 50 mg PO TID [facility] Last Admin: 02/06/18 11:05 Dose: Not Given Valproate Sodium 500 mg/ (Sodium Chloride) 105 mls @ 105 mls/hr IVPB Q12 [facility] Vancomycin HCl 1 gm/ Sodium (Chloride) 200 mls @ 166.7 mls/hr IVPB ONCE ONE PRN Reason: Protocol Stop: 02/06/18 12:11 Lactulose (Enulose) 20 gm PO DAILY PRN PRN Reason: constipation Levothyroxine Sodium (Synthroid) 200 mcg PO DAILY@0630 [facility] Last Admin: 02/06/18 06:18 Dose: Not Given Losartan Potassium (Cozaar) 100 mg PO DAILY [facility] Last Admin: 02/06/18 11:05 Dose: Not Given Pdatq-7-Doeo Ethyl Esters (Lovaza) 2 gm PO BID [facility] Last Admin: 02/06/18 11:05 Dose: Not Given Pantoprazole Sodium (Protonix Ec Tab) 40 mg PO HS [facility] Last Admin: 02/05/18 21:48 Dose: 40 mg Results - Vital Signs Recent Vital Signs: Last Vital Signs Temp 97.9 F 02/06/18 04:00 Pulse 58 L 02/06/18 10:00 Resp 16 02/06/18 00:00 BP 86/34 L 02/06/18 04:00 Pulse Ox 100 02/06/18 04:00 - Labs Result Diagrams: 02/06/18 10:35 02/06/18 10:35 Labs: Laboratory Results - last 24 hr 02/06/18 02/06/18 02/06/18 06:31 06:32 07:16 WBC RBC Hgb Hct MCV MCH MCHC RDW Plt Count MPV Neut % (Auto) Lymph % (Auto) [place] % (Auto) Eos % (Auto) Baso % (Auto) Neut # (Auto) Lymph # (Auto) [place] # (Auto) Eos # (Auto) Baso # (Auto) Neutrophils % (Manual) Band Neutrophils % Lymphocytes % (Manual) Monocytes % (Manual) Platelet Estimate Anisocytosis (manual) Target Cells Ovalocytes Puncture Site Rr pCO2 43 pO2 156 H HCO3 28.5 H ABG pH 7.44 ABG Total CO2 30.5 H ABG O2 Saturation 98.8 H ABG Base Excess 4.6 H ABG Hemoglobin 8.9 L ABG Carboxyhemoglobin 1.3 POC ABG HHb (Measured) 1.2 ABG Methemoglobin 0.4 Yrn Test Pos A-a O2 Difference 503.0 Respiratory Index 3.2 Hgb O2 Saturation 97.1 FiO2 100.0 Sodium 139 Potassium 3.9 Chloride 97 L Carbon Dioxide 29 Anion Gap 18 BUN 38 H Creatinine 4.1 H Est GFR ( Amer) 13 Est GFR (Non-Af Amer) 11 POC Glucose (mg/dL) Random Glucose 101 Lactic Acid 1.8 Calcium 8.9 Total Bilirubin 2.5 H AST 56 H ALT 29 Alkaline Phosphatase 292 H Ammonia Total Protein 6.4 Albumin 2.6 L Globulin 3.8 Albumin/Globulin Ratio 0.7 L Vitamin B12 > 1000 H TSH 3rd Generation 2.70 02/06/18 02/06/18 02/06/18 07:16 09:40 10:35 WBC 13.4 H RBC 2.53 L Hgb 8.3 L Hct 25.0 L MCV 98.6 MCH 32.9 H MCHC 33.4 RDW 16.9 H Plt Count 53 L MPV 11.2 Neut % (Auto) 82.4 H Lymph % (Auto) 9.5 L [place] % (Auto) 3.2 Eos % (Auto) 4.6 H Baso % (Auto) 0.3 Neut # (Auto) 11.1 H Lymph # (Auto) 1.3 [place] # (Auto) 0.4 Eos # (Auto) 0.6 Baso # (Auto) 0.0 Neutrophils % (Manual) 75 Band Neutrophils % 20 H* Lymphocytes % (Manual) 2 L Monocytes % (Manual) 3 Platelet Estimate Decreased L Anisocytosis (manual) Slight Target Cells Slight Ovalocytes Slight Puncture Site pCO2 pO2 HCO3 ABG pH ABG Total CO2 ABG O2 Saturation ABG Base Excess ABG Hemoglobin ABG Carboxyhemoglobin POC ABG HHb (Measured) ABG Methemoglobin Yrn Test A-a O2 Difference Respiratory Index Hgb O2 Saturation FiO2 Sodium Potassium Chloride Carbon Dioxide Anion Gap BUN Creatinine Est GFR ( Amer) Est GFR (Non-Af Amer) POC Glucose (mg/dL) 114 H Random Glucose Lactic Acid Calcium Total Bilirubin AST ALT Alkaline Phosphatase Ammonia 13 Total Protein Albumin Globulin Albumin/Globulin Ratio Vitamin B12 TSH 3rd Generation 02/06/18 02/06/18 10:35 10:35 WBC RBC Hgb Hct MCV MCH MCHC RDW Plt Count MPV Neut % (Auto) Lymph % (Auto) [place] % (Auto) Eos % (Auto) Baso % (Auto) Neut # (Auto) Lymph # (Auto) [place] # (Auto) Eos # (Auto) Baso # (Auto) Neutrophils % (Manual) Band Neutrophils % Lymphocytes % (Manual) Monocytes % (Manual) Platelet Estimate Anisocytosis (manual) Target Cells Ovalocytes Puncture Site pCO2 pO2 HCO3 ABG pH ABG Total CO2 ABG O2 Saturation ABG Base Excess ABG Hemoglobin ABG Carboxyhemoglobin POC ABG HHb (Measured) ABG Methemoglobin Yrn Test A-a O2 Difference Respiratory Index Hgb O2 Saturation FiO2 Sodium 138 Potassium 4.0 Chloride 97 L Carbon Dioxide 28 Anion Gap 17 BUN 38 H Creatinine 4.5 H Est GFR ( Amer) 12 Est GFR (Non-Af Amer) 10 POC Glucose (mg/dL) Random Glucose 101 Lactic Acid 1.7 Calcium 8.8 Total Bilirubin 2.4 H AST 54 H ALT 35 Alkaline Phosphatase 312 H Ammonia Total Protein 6.5 Albumin 2.8 L Globulin 3.7 Albumin/Globulin Ratio 0.7 L Vitamin B12 TSH 3rd Generation
[2018-02-06] MEDS: Bacitracin Ointment 30 GM TUBE TOP SCH (12:00)
[2018-02-06] MEDS ORDERED: Piperacill/Tazo 2.25gm in Dex 2.25 GM/50 ML BAG IVPB ONE (13:00)
--- NOTE | 2018-02-06 13:22 | CP.PCM.CON ---
History of Present Illness - History of Present Illness History of Present Illness: patient seen/examined. full consutl to follow currently undergoing EEG Past Patient History - Past Medical History & Family History Past Medical History?: Yes - Past Social History Smoking Status: Unknown If Ever Smoked - CARDIAC Hx Congestive Heart Failure: Yes Hx Hypertension: Yes - PULMONARY Hx Respiratory Disorders: No - NEUROLOGICAL Hx Neurological Disorder: No - HEENT Hx HEENT Problems: No - RENAL Hx Chronic Kidney Disease: Yes Type of Dialysis Access: Lt subclavian HD cath Date of Last Dialysis Treatment: 02/03/18 - ENDOCRINE/METABOLIC Hx Endocrine Disorders: Yes Hx Hypothyroidism: Yes - HEMATOLOGICAL/ONCOLOGICAL Hx Blood Disorders: No - INTEGUMENTARY Hx Dermatological Problems: No - MUSCULOSKELETAL/RHEUMATOLOGICAL Hx Musculoskeletal Disorders: Yes Hx Falls: Yes - GASTROINTESTINAL Hx Gastrointestinal Disorders: Yes Hx Gastritis: Yes - GENITOURINARY/GYNECOLOGICAL Hx Genitourinary Disorders: No - PSYCHIATRIC Hx Psychophysiologic Disorder: No Hx Substance Use: No - SURGICAL HISTORY Hx Surgeries: Yes Hx Cholecystectomy: Yes - ANESTHESIA Hx Anesthesia: Yes Hx Anesthesia Reactions: No Hx Malignant Hyperthermia: No Has any member of the family had a problem w/ anesthesia?: No Meds Allergies/Adverse Reactions: Allergies Allergy/AdvReac Type Severity Reaction Status Date / Time lorazepam [From Ativan] AdvReac SHORTNESS Verified 02/06/18 09:42 OF BREATH - Medications Medications: Current Medications Acetaminophen (Tylenol 325mg Tab) 650 mg PO Q6 PRN PRN Reason: Pain, moderate (4-7) Last Admin: 02/05/18 16:18 Dose: 650 mg Albuterol (Ventolin Hfa 90 Mcg/Actuation (8 G)) 90 puff IH RQ4 PRN PRN Reason: sob Amlodipine Besylate (Norvasc) 10 mg PO DAILY [facility] Last Admin: 02/06/18 11:06 Dose: Not Given Aspirin (Aspirin Supp) 300 mg DE DAILY [facility] Last Admin: 02/06/18 13:11 Dose: 300 mg Bacitracin (Bacitracin) 0 gm TOP DAILY [facility] Last Admin: 02/05/18 12:09 Dose: 1 applic Benzocaine/Menthol (Cepacol Sore Throat) 1 naomi PO Q2 PRN PRN Reason: Sore Throat Carvedilol (Coreg) 25 mg PO Q12 [facility] Last Admin: 05/17/18 11:05 Dose: Not Given Docusate Sodium (Colace) 100 mg PO DAILY [facility] Last Admin: 02/06/18 11:05 Dose: Not Given Epoetin Yvon (Procrit) 10,000 unit IV MWF [facility] Last Admin: 02/05/18 11:50 Dose: 10,000 unit Ergocalciferol (Drisdol 50,000 Intl Units Cap) 1 cap PO QD7 [facility] Heparin Sodium (Porcine) (Heparin) 5,000 units SC Q12H [facility] Last Admin: 02/06/18 11:59 Dose: Not Given Hydralazine HCl (Apresoline) 50 mg PO TID [facility] Last Admin: 02/06/18 11:05 Dose: Not Given Valproate Sodium 500 mg/ (Sodium Chloride) 105 mls @ 105 mls/hr IVPB Q12 [facility] Last Admin: 02/06/18 11:58 Dose: 105 mls/hr Piperacillin Sod/Tazobactam Sod (Zosyn 2.25 Gm Iv Premix) 2.25 gm in 50 mls @ 100 mls/hr IVPB ONCE ONE PRN Reason: Protocol Stop: 02/06/18 13:29 Last Admin: 02/06/18 13:00 Dose: 100 mls/hr Lactulose (Enulose) 20 gm PO DAILY PRN PRN Reason: constipation Levothyroxine Sodium (Synthroid) 200 mcg PO DAILY@0630 [facility] Last Admin: 02/06/18 06:18 Dose: Not Given Losartan Potassium (Cozaar) 100 mg PO DAILY [facility] Last Admin: 02/06/18 11:05 Dose: Not Given Anqcm-[id number] Ethyl Esters (Lovaza) 2 gm PO BID [facility] Last Admin: 02/06/18 11:05 Dose: Not Given Pantoprazole Sodium (Protonix Ec Tab) 40 mg PO HS [facility] Last Admin: 02/05/18 21:48 Dose: 40 mg Results - Vital Signs Recent Vital Signs: Last Vital Signs Temp 97.9 F 02/06/18 04:00 Pulse 58 L 02/06/18 10:00 Resp 16 02/06/18 00:00 BP 86/34 L 02/06/18 04:00 Pulse Ox 100 02/06/18 04:00 - Labs Result Diagrams: 02/06/18 10:35 02/06/18 10:35 Labs: Laboratory Results - last 24 hr 02/06/18 02/06/18 02/06/18 06:31 06:32 07:16 WBC RBC Hgb Hct MCV MCH MCHC RDW Plt Count MPV Neut % (Auto) Lymph % (Auto) [place] % (Auto) Eos % (Auto) Baso % (Auto) Neut # (Auto) Lymph # (Auto) [place] # (Auto) Eos # (Auto) Baso # (Auto) Neutrophils % (Manual) Band Neutrophils % Lymphocytes % (Manual) Monocytes % (Manual) Platelet Estimate Anisocytosis (manual) Target Cells Ovalocytes Puncture Site Rr pCO2 43 pO2 156 H HCO3 28.5 H ABG pH 7.44 ABG Total CO2 30.5 H ABG O2 Saturation 98.8 H ABG Base Excess 4.6 H ABG Hemoglobin 8.9 L ABG Carboxyhemoglobin 1.3 POC ABG HHb (Measured) 1.2 ABG Methemoglobin 0.4 Yrn Test Pos A-a O2 Difference 503.0 Respiratory Index 3.2 Hgb O2 Saturation 97.1 FiO2 100.0 Sodium 139 Potassium 3.9 Chloride 97 L Carbon Dioxide 29 Anion Gap 18 BUN 38 H Creatinine 4.1 H Est GFR ( Amer) 13 Est GFR (Non-Af Amer) 11 POC Glucose (mg/dL) Random Glucose 101 Lactic Acid 1.8 Calcium 8.9 Total Bilirubin 2.5 H AST 56 H ALT 29 Alkaline Phosphatase 292 H Ammonia Total Protein 6.4 Albumin 2.6 L Globulin 3.8 Albumin/Globulin Ratio 0.7 L Vitamin B12 > 1000 H TSH 3rd Generation 2.70 02/06/18 02/06/18 02/06/18 07:16 09:40 10:35 WBC 13.4 H RBC 2.53 L Hgb 8.3 L Hct 25.0 L MCV 98.6 MCH 32.9 H MCHC 33.4 RDW 16.9 H Plt Count 53 L MPV 11.2 Neut % (Auto) 82.4 H Lymph % (Auto) 9.5 L [place] % (Auto) 3.2 Eos % (Auto) 4.6 H Baso % (Auto) 0.3 Neut # (Auto) 11.1 H Lymph # (Auto) 1.3 [place] # (Auto) 0.4 Eos # (Auto) 0.6 Baso # (Auto) 0.0 Neutrophils % (Manual) 75 Band Neutrophils % 20 H* Lymphocytes % (Manual) 2 L Monocytes % (Manual) 3 Platelet Estimate Decreased L Anisocytosis (manual) Slight Target Cells Slight Ovalocytes Slight Puncture Site pCO2 pO2 HCO3 ABG pH ABG Total CO2 ABG O2 Saturation ABG Base Excess ABG Hemoglobin ABG Carboxyhemoglobin POC ABG HHb (Measured) ABG Methemoglobin Yrn Test A-a O2 Difference Respiratory Index Hgb O2 Saturation FiO2 Sodium Potassium Chloride Carbon Dioxide Anion Gap BUN Creatinine Est GFR ( Amer) Est GFR (Non-Af Amer) POC Glucose (mg/dL) 114 H Random Glucose Lactic Acid Calcium Total Bilirubin AST ALT Alkaline Phosphatase Ammonia 13 Total Protein Albumin Globulin Albumin/Globulin Ratio Vitamin B12 TSH 3rd Generation 02/06/18 02/06/18 10:35 10:35 WBC RBC Hgb Hct MCV MCH MCHC RDW Plt Count MPV Neut % (Auto) Lymph % (Auto) [place] % (Auto) Eos % (Auto) Baso % (Auto) Neut # (Auto) Lymph # (Auto) [place] # (Auto) Eos # (Auto) Baso # (Auto) Neutrophils % (Manual) Band Neutrophils % Lymphocytes % (Manual) Monocytes % (Manual) Platelet Estimate Anisocytosis (manual) Target Cells Ovalocytes Puncture Site pCO2 pO2 HCO3 ABG pH ABG Total CO2 ABG O2 Saturation ABG Base Excess ABG Hemoglobin ABG Carboxyhemoglobin POC ABG HHb (Measured) ABG Methemoglobin Yrn Test A-a O2 Difference Respiratory Index Hgb O2 Saturation FiO2 Sodium 138 Potassium 4.0 Chloride 97 L Carbon Dioxide 28 Anion Gap 17 BUN 38 H Creatinine 4.5 H Est GFR ( Amer) 12 Est GFR (Non-Af Amer) 10 POC Glucose (mg/dL) Random Glucose 101 Lactic Acid 1.7 Calcium 8.8 Total Bilirubin 2.4 H AST 54 H ALT 35 Alkaline Phosphatase 312 H Ammonia Total Protein 6.5 Albumin 2.8 L Globulin 3.7 Albumin/Globulin Ratio 0.7 L Vitamin B12 TSH 3rd Generation
--- NOTE | 2018-02-06 16:04 | CP.PCM.PN ---
Subjective - Date & Time of Evaluation Date of Evaluation: 02/06/18 Time of Evaluation: 12:20 - Subjective Subjective: clinically same Objective - Vital Signs/Intake and Output Vital Signs (last 24 hours): Temp Pulse Resp BP Pulse Ox 98.6 F 58 L 16 86/34 L 100 02/06/18 12:00 02/06/18 10:00 02/06/18 00:00 02/06/18 04:00 02/06/18 04:00 Intake and Output: 02/06/18 02/06/18 06:59 18:59 Intake Total 250 Balance 250 - Medications Medications: Current Medications Acetaminophen (Tylenol 325mg Tab) 650 mg PO Q6 PRN PRN Reason: Pain, moderate (4-7) Last Admin: 02/05/18 16:18 Dose: 650 mg Albuterol (Ventolin Hfa 90 Mcg/Actuation (8 G)) 90 puff IH RQ4 PRN PRN Reason: sob Amlodipine Besylate (Norvasc) 10 mg PO DAILY [facility] Last Admin: 02/06/18 11:06 Dose: Not Given Aspirin (Aspirin Supp) 300 mg ID DAILY [facility] Last Admin: 02/06/18 13:11 Dose: 300 mg Bacitracin (Bacitracin) 0 gm TOP DAILY [facility] Last Admin: 02/05/18 12:09 Dose: 1 applic Benzocaine/Menthol (Cepacol Sore Throat) 1 naomi PO Q2 PRN PRN Reason: Sore Throat Carvedilol (Coreg) 25 mg PO Q12 [facility] Last Admin: 02/06/18 11:05 Dose: Not Given Docusate Sodium (Colace) 100 mg PO DAILY [facility] Last Admin: 02/06/18 11:05 Dose: Not Given Epoetin Yvon (Procrit) 10,000 unit IV MWF [facility] Last Admin: 02/05/18 11:50 Dose: 10,000 unit Ergocalciferol (Drisdol 50,000 Intl Units Cap) 1 cap PO QD7 [facility] Heparin Sodium (Porcine) (Heparin) 5,000 units SC Q12H [facility] Last Admin: 02/06/18 11:59 Dose: Not Given Hydralazine HCl (Apresoline) 50 mg PO TID [facility] Last Admin: 02/06/18 13:28 Dose: Not Given Valproate Sodium 500 mg/ (Sodium Chloride) 105 mls @ 105 mls/hr IVPB Q12 [facility] Last Admin: 02/06/18 11:58 Dose: 105 mls/hr Lactulose (Enulose) 20 gm PO DAILY PRN PRN Reason: constipation Levothyroxine Sodium (Synthroid) 200 mcg PO DAILY@0630 [facility] Last Admin: 02/06/18 06:18 Dose: Not Given Losartan Potassium (Cozaar) 100 mg PO DAILY [facility] Last Admin: 02/06/18 11:05 Dose: Not Given Nnnlm-5-Oghe Ethyl Esters (Lovaza) 2 gm PO BID [facility] Last Admin: 02/06/18 11:05 Dose: Not Given Pantoprazole Sodium (Protonix Ec Tab) 40 mg PO HS [facility] Last Admin: 02/05/18 21:48 Dose: 40 mg - Labs Labs: 02/06/18 10:35 02/06/18 10:35 PT 14.1 SECONDS (9.7-12.2) H 02/04/18 15:52 INR 1.3 02/04/18 15:52 APTT 34 SECONDS (21-34) 02/04/18 15:52 - Constitutional Appears: Well - Head Exam Head Exam: ATRAUMATIC, NORMAL INSPECTION, NORMOCEPHALIC - Eye Exam Eye Exam: EOMI, Normal appearance, PERRL Pupil Exam: NORMAL ACCOMODATION, PERRL - ENT Exam ENT Exam: Mucous Membranes Moist, Normal Exam - Neck Exam Neck Exam: Full ROM, Normal Inspection. absent: Lymphadenopathy - Respiratory Exam Respiratory Exam: Decreased Breath Sounds - Cardiovascular Exam Cardiovascular Exam: REGULAR RHYTHM, +S1, +S2 - GI/Abdominal Exam GI & Abdominal Exam: Soft, Diminished Bowel Sounds - Rectal Exam Rectal Exam: Deferred Assessment and Plan (1) Altered mental status Status: Acute (2) ESRD (end stage renal disease) on dialysis Status: Acute (3) Gastritis Status: Acute (4) Musculoskeletal pain Status: Acute (5) Rib contusion Status: Acute (6) Toxic metabolic encephalopathy Status: Acute
--- NOTE | 2018-02-06 16:55 | CP.PCM.CON ---
History of Present Illness - History of Present Illness History of Present Illness: reason for consultation: shortness of breath 72-year-old female was transferred from sn[facility] for confusion and change in mental status. Overnight patient received Ativan for restlessness and has placed on nonrebreather mask for shortness of breath. Unable to get information as patient obtunded. Review of Systems - Review of Systems Systems not reviewed;Unavailable: Altered Mental Status Past Patient History - Past Medical History & Family History Past Medical History?: Yes - Past Social History Smoking Status: Unknown If Ever Smoked - CARDIAC Hx Congestive Heart Failure: Yes Hx Hypertension: Yes - PULMONARY Hx Respiratory Disorders: No - NEUROLOGICAL Hx Neurological Disorder: No - HEENT Hx HEENT Problems: No - RENAL Hx Chronic Kidney Disease: Yes Type of Dialysis Access: Lt subclavian HD cath Date of Last Dialysis Treatment: 02/03/18 - ENDOCRINE/METABOLIC Hx Endocrine Disorders: Yes Hx Hypothyroidism: Yes - HEMATOLOGICAL/ONCOLOGICAL Hx Blood Disorders: No - INTEGUMENTARY Hx Dermatological Problems: No - MUSCULOSKELETAL/RHEUMATOLOGICAL Hx Musculoskeletal Disorders: Yes Hx Falls: Yes - GASTROINTESTINAL Hx Gastrointestinal Disorders: Yes Hx Gastritis: Yes - GENITOURINARY/GYNECOLOGICAL Hx Genitourinary Disorders: No - PSYCHIATRIC Hx Psychophysiologic Disorder: No Hx Substance Use: No - SURGICAL HISTORY Hx Surgeries: Yes Hx Cholecystectomy: Yes - ANESTHESIA Hx Anesthesia: Yes Hx Anesthesia Reactions: No Hx Malignant Hyperthermia: No Has any member of the family had a problem w/ anesthesia?: No Meds Allergies/Adverse Reactions: Allergies Allergy/AdvReac Type Severity Reaction Status Date / Time lorazepam [From Ativan] AdvReac SHORTNESS Verified 02/06/18 09:42 OF BREATH - Medications Medications: Current Medications Acetaminophen (Tylenol 325mg Tab) 650 mg PO Q6 PRN PRN Reason: Pain, moderate (4-7) Last Admin: 02/05/18 16:18 Dose: 650 mg Albuterol (Ventolin Hfa 90 Mcg/Actuation (8 G)) 90 puff IH RQ4 PRN PRN Reason: sob Amlodipine Besylate (Norvasc) 10 mg PO DAILY [facility] Last Admin: 02/06/18 11:06 Dose: Not Given Aspirin (Aspirin Supp) 300 mg ID DAILY [facility] Last Admin: 02/06/18 13:11 Dose: 300 mg Bacitracin (Bacitracin) 0 gm TOP DAILY [facility] Last Admin: 02/05/18 12:09 Dose: 1 applic Benzocaine/Menthol (Cepacol Sore Throat) 1 naomi PO Q2 PRN PRN Reason: Sore Throat Carvedilol (Coreg) 25 mg PO Q12 [facility] Last Admin: 02/06/18 11:05 Dose: Not Given Docusate Sodium (Colace) 100 mg PO DAILY [facility] Last Admin: 02/06/18 11:05 Dose: Not Given Epoetin Yvon (Procrit) 10,000 unit IV MWF [facility] Last Admin: 02/05/18 11:50 Dose: 10,000 unit Ergocalciferol (Drisdol 50,000 Intl Units Cap) 1 cap PO QD7 [facility] Heparin Sodium (Porcine) (Heparin) 5,000 units SC Q12H [facility] Last Admin: 02/06/18 11:59 Dose: Not Given Hydralazine HCl (Apresoline) 50 mg PO TID [facility] Last Admin: 02/06/18 13:28 Dose: Not Given Valproate Sodium 500 mg/ (Sodium Chloride) 105 mls @ 105 mls/hr IVPB Q12 [facility] Last Admin: 02/06/18 11:58 Dose: 105 mls/hr Lactulose (Enulose) 20 gm PO DAILY PRN PRN Reason: constipation Levothyroxine Sodium (Synthroid) 200 mcg PO DAILY@0630 [facility] Last Admin: 02/06/18 06:18 Dose: Not Given Losartan Potassium (Cozaar) 100 mg PO DAILY [facility] Last Admin: 02/06/18 11:05 Dose: Not Given Peupk-5-Uscp Ethyl Esters (Lovaza) 2 gm PO BID [facility] Last Admin: 02/06/18 11:05 Dose: Not Given Pantoprazole Sodium (Protonix Ec Tab) 40 mg PO HS [facility] Last Admin: 02/05/18 21:48 Dose: 40 mg Physical Exam - Head Exam Head Exam: ATRAUMATIC, NORMOCEPHALIC - ENT Exam ENT Exam: Mucous Membranes Moist - Respiratory Exam Respiratory Exam: Clear to Auscultation Bilateral - Cardiovascular Exam Cardiovascular Exam: REGULAR RHYTHM Results - Vital Signs Recent Vital Signs: Last Vital Signs Temp 98.6 F 02/06/18 12:00 Pulse 81 02/06/18 16:14 Resp 16 02/06/18 00:00 BP 86/34 L 02/06/18 04:00 Pulse Ox 100 02/06/18 04:00 - Labs Result Diagrams: 02/06/18 10:35 02/06/18 10:35 Labs: Laboratory Results - last 24 hr 02/06/18 02/06/18 02/06/18 06:31 06:32 07:16 WBC RBC Hgb Hct MCV MCH MCHC RDW Plt Count MPV Neut % (Auto) Lymph % (Auto) [place] % (Auto) Eos % (Auto) Baso % (Auto) Neut # (Auto) Lymph # (Auto) [place] # (Auto) Eos # (Auto) Baso # (Auto) Neutrophils % (Manual) Band Neutrophils % Lymphocytes % (Manual) Monocytes % (Manual) Platelet Estimate Anisocytosis (manual) Target Cells Ovalocytes Puncture Site Rr pCO2 43 pO2 156 H HCO3 28.5 H ABG pH 7.44 ABG Total CO2 30.5 H ABG O2 Saturation 98.8 H ABG Base Excess 4.6 H ABG Hemoglobin 8.9 L ABG Carboxyhemoglobin 1.3 POC ABG HHb (Measured) 1.2 ABG Methemoglobin 0.4 Yrn Test Pos A-a O2 Difference 503.0 Respiratory Index 3.2 Hgb O2 Saturation 97.1 FiO2 100.0 Sodium 139 Potassium 3.9 Chloride 97 L Carbon Dioxide 29 Anion Gap 18 BUN 38 H Creatinine 4.1 H Est GFR ( Amer) 13 Est GFR (Non-Af Amer) 11 POC Glucose (mg/dL) Random Glucose 101 Lactic Acid 1.8 Calcium 8.9 Total Bilirubin 2.5 H AST 56 H ALT 29 Alkaline Phosphatase 292 H Ammonia Total Protein 6.4 Albumin 2.6 L Globulin 3.8 Albumin/Globulin Ratio 0.7 L Vitamin B12 > 1000 H TSH 3rd Generation 2.70 02/06/18 02/06/18 02/06/18 07:16 09:40 10:35 WBC 13.4 H RBC 2.53 L Hgb 8.3 L Hct 25.0 L MCV 98.6 MCH 32.9 H MCHC 33.4 RDW 16.9 H Plt Count 53 L MPV 11.2 Neut % (Auto) 82.4 H Lymph % (Auto) 9.5 L [place] % (Auto) 3.2 Eos % (Auto) 4.6 H Baso % (Auto) 0.3 Neut # (Auto) 11.1 H Lymph # (Auto) 1.3 [place] # (Auto) 0.4 Eos # (Auto) 0.6 Baso # (Auto) 0.0 Neutrophils % (Manual) 75 Band Neutrophils % 20 H* Lymphocytes % (Manual) 2 L Monocytes % (Manual) 3 Platelet Estimate Decreased L Anisocytosis (manual) Slight Target Cells Slight Ovalocytes Slight Puncture Site pCO2 pO2 HCO3 ABG pH ABG Total CO2 ABG O2 Saturation ABG Base Excess ABG Hemoglobin ABG Carboxyhemoglobin POC ABG HHb (Measured) ABG Methemoglobin Yrn Test A-a O2 Difference Respiratory Index Hgb O2 Saturation FiO2 Sodium Potassium Chloride Carbon Dioxide Anion Gap BUN Creatinine Est GFR ( Amer) Est GFR (Non-Af Amer) POC Glucose (mg/dL) 114 H Random Glucose Lactic Acid Calcium Total Bilirubin AST ALT Alkaline Phosphatase Ammonia 13 Total Protein Albumin Globulin Albumin/Globulin Ratio Vitamin B12 TSH 3rd Generation 02/06/18 02/06/18 10:35 10:35 WBC RBC Hgb Hct MCV MCH MCHC RDW Plt Count MPV Neut % (Auto) Lymph % (Auto) [place] % (Auto) Eos % (Auto) Baso % (Auto) Neut # (Auto) Lymph # (Auto) [place] # (Auto) Eos # (Auto) Baso # (Auto) Neutrophils % (Manual) Band Neutrophils % Lymphocytes % (Manual) Monocytes % (Manual) Platelet Estimate Anisocytosis (manual) Target Cells Ovalocytes Puncture Site pCO2 pO2 HCO3 ABG pH ABG Total CO2 ABG O2 Saturation ABG Base Excess ABG Hemoglobin ABG Carboxyhemoglobin POC ABG HHb (Measured) ABG Methemoglobin Yrn Test A-a O2 Difference Respiratory Index Hgb O2 Saturation FiO2 Sodium 138 Potassium 4.0 Chloride 97 L Carbon Dioxide 28 Anion Gap 17 BUN 38 H Creatinine 4.5 H Est GFR ( Amer) 12 Est GFR (Non-Af Amer) 10 POC Glucose (mg/dL) Random Glucose 101 Lactic Acid 1.7 Calcium 8.8 Total Bilirubin 2.4 H AST 54 H ALT 35 Alkaline Phosphatase 312 H Ammonia Total Protein 6.5 Albumin 2.8 L Globulin 3.7 Albumin/Globulin Ratio 0.7 L Vitamin B12 TSH 3rd Generation Assessment & Plan (1) Dyspnea Status: Acute Comment: etiology of dyspnea not clear. Patient on nonrebreather mask with no hypercapnia. Neurology workup. 50% Ventimask. Continue nebulizer (2) Altered mental status Status: Acute (3) ESRD (end stage renal disease) on dialysis Status: Acute
[2018-02-06] MEDS ORDERED: Naloxone 0.4 mg/ml Inj (Adult) IVP ONE (16:59)
[2018-02-06] MEDS ORDERED: Naloxone 0.4 mg/ml Inj (Adult) ONE (17:04)
--- NOTE | 2018-02-06 17:28 | CP.PCM.CON ---
<Ludwig Toledo Francisco - Last Filed: 02/06/18 17:23> History of Present Illness - History of Present Illness History of Present Illness: 72 y/o female with pmx of Dm, HTN, ESRD on HD, ? h/o osteomyelitits presents to [facility] with AMS. Patient is confused arousable to verbal stimuli c/o pain, but does not specify site of pain. Patient limited ROS long-term records not available. Review of Systems - Review of Systems Review of Systems: unable to obtain ROS 2nd AMS Past Patient History - Past Medical History & Family History Past Medical History?: Yes - Past Social History Smoking Status: Unknown If Ever Smoked - CARDIAC Hx Congestive Heart Failure: Yes Hx Hypertension: Yes - PULMONARY Hx Respiratory Disorders: No - NEUROLOGICAL Hx Neurological Disorder: No - HEENT Hx HEENT Problems: No - RENAL Hx Chronic Kidney Disease: Yes Type of Dialysis Access: Lt subclavian HD cath Date of Last Dialysis Treatment: 02/03/18 - ENDOCRINE/METABOLIC Hx Endocrine Disorders: Yes Hx Hypothyroidism: Yes - HEMATOLOGICAL/ONCOLOGICAL Hx Blood Disorders: No - INTEGUMENTARY Hx Dermatological Problems: No - MUSCULOSKELETAL/RHEUMATOLOGICAL Hx Musculoskeletal Disorders: Yes Hx Falls: Yes - GASTROINTESTINAL Hx Gastrointestinal Disorders: Yes Hx Gastritis: Yes - GENITOURINARY/GYNECOLOGICAL Hx Genitourinary Disorders: No - PSYCHIATRIC Hx Psychophysiologic Disorder: No Hx Substance Use: No - SURGICAL HISTORY Hx Surgeries: Yes Hx Cholecystectomy: Yes - ANESTHESIA Hx Anesthesia: Yes Hx Anesthesia Reactions: No Hx Malignant Hyperthermia: No Has any member of the family had a problem w/ anesthesia?: No Meds Allergies/Adverse Reactions: Allergies Allergy/AdvReac Type Severity Reaction Status Date / Time lorazepam [From Ativan] AdvReac SHORTNESS Verified 02/06/18 09:42 OF BREATH - Medications Medications: Current Medications Acetaminophen (Tylenol 325mg Tab) 650 mg PO Q6 PRN PRN Reason: Pain, moderate (4-7) Last Admin: 02/05/18 16:18 Dose: 650 mg Albuterol/Ipratropium (Duoneb 3 Mg/0.5 Mg (3 Ml) Ud) 3 ml INH RQ6 [facility] Amlodipine Besylate (Norvasc) 10 mg PO DAILY [facility] Last Admin: 02/06/18 11:06 Dose: Not Given Aspirin (Aspirin Supp) 300 mg NM DAILY [facility] Last Admin: 02/06/18 13:11 Dose: 300 mg Bacitracin (Bacitracin) 0 gm TOP DAILY [facility] Last Admin: 02/05/18 12:09 Dose: 1 applic Benzocaine/Menthol (Cepacol Sore Throat) 1 naomi PO Q2 PRN PRN Reason: Sore Throat Carvedilol (Coreg) 25 mg PO Q12 [facility] Last Admin: 02/06/18 11:05 Dose: Not Given Docusate Sodium (Colace) 100 mg PO DAILY [facility] Last Admin: 02/06/18 11:05 Dose: Not Given Epoetin Yvon (Procrit) 10,000 unit IV MWF [facility] Last Admin: 02/05/18 11:50 Dose: 10,000 unit Ergocalciferol (Drisdol 50,000 Intl Units Cap) 1 cap PO QD7 [facility] Heparin Sodium (Porcine) (Heparin) 5,000 units SC Q12H [facility] Last Admin: 02/06/18 11:59 Dose: Not Given Hydralazine HCl (Apresoline) 50 mg PO TID [facility] Last Admin: 02/06/18 13:28 Dose: Not Given Valproate Sodium 500 mg/ (Sodium Chloride) 105 mls @ 105 mls/hr IVPB Q12 [facility] Last Admin: 02/06/18 11:58 Dose: 105 mls/hr Lactulose (Enulose) 20 gm PO DAILY PRN PRN Reason: constipation Levothyroxine Sodium (Synthroid) 200 mcg PO DAILY@0630 [facility] Last Admin: 02/06/18 06:18 Dose: Not Given Losartan Potassium (Cozaar) 100 mg PO DAILY [facility] Last Admin: 02/06/18 11:05 Dose: Not Given Beazh-4-Txle Ethyl Esters (Lovaza) 2 gm PO BID [facility] Last Admin: 02/06/18 11:05 Dose: Not Given Pantoprazole Sodium (Protonix Ec Tab) 40 mg PO HS [facility] Last Admin: 02/05/18 21:48 Dose: 40 mg Physical Exam - Constitutional Appears: Non-toxic - Head Exam Head Exam: ATRAUMATIC, NORMAL INSPECTION, NORMOCEPHALIC - Eye Exam Eye Exam: Normal appearance Pupil Exam: PERRL - ENT Exam ENT Exam: Mucous Membranes Dry - Respiratory Exam Respiratory Exam: NORMAL BREATHING PATTERN. absent: Rales, Rhonchi, Wheezes - Cardiovascular Exam Cardiovascular Exam: REGULAR RHYTHM, +S1, +S2, Systolic Murmur - GI/Abdominal Exam GI & Abdominal Exam: Normal Bowel Sounds, Soft. absent: Rebound, Rigid - Extremities Exam Extremities exam: Positive for: normal inspection - Neurological Exam Neurological exam: Alert Results - Vital Signs Recent Vital Signs: Last Vital Signs Temp 98.6 F 02/06/18 12:00 Pulse 81 02/06/18 16:14 Resp 16 02/06/18 00:00 BP 86/34 L 02/06/18 04:00 Pulse Ox 100 02/06/18 04:00 - Labs Result Diagrams: 02/06/18 10:35 02/06/18 10:35 Labs: Laboratory Results - last 24 hr 02/06/18 02/06/18 02/06/18 06:31 06:32 07:16 WBC RBC Hgb Hct MCV MCH MCHC RDW Plt Count MPV Neut % (Auto) Lymph % (Auto) [place] % (Auto) Eos % (Auto) Baso % (Auto) Neut # (Auto) Lymph # (Auto) [place] # (Auto) Eos # (Auto) Baso # (Auto) Neutrophils % (Manual) Band Neutrophils % Lymphocytes % (Manual) Monocytes % (Manual) Platelet Estimate Anisocytosis (manual) Target Cells Ovalocytes Puncture Site Rr pCO2 43 pO2 156 H HCO3 28.5 H ABG pH 7.44 ABG Total CO2 30.5 H ABG O2 Saturation 98.8 H ABG Base Excess 4.6 H ABG Hemoglobin 8.9 L ABG Carboxyhemoglobin 1.3 POC ABG HHb (Measured) 1.2 ABG Methemoglobin 0.4 Yrn Test Pos A-a O2 Difference 503.0 Respiratory Index 3.2 Hgb O2 Saturation 97.1 FiO2 100.0 Sodium 139 Potassium 3.9 Chloride 97 L Carbon Dioxide 29 Anion Gap 18 BUN 38 H Creatinine 4.1 H Est GFR ( Amer) 13 Est GFR (Non-Af Amer) 11 POC Glucose (mg/dL) Random Glucose 101 Lactic Acid 1.8 Calcium 8.9 Total Bilirubin 2.5 H AST 56 H ALT 29 Alkaline Phosphatase 292 H Ammonia Total Protein 6.4 Albumin 2.6 L Globulin 3.8 Albumin/Globulin Ratio 0.7 L Vitamin B12 > 1000 H TSH 3rd Generation 2.70 02/06/18 02/06/18 02/06/18 07:16 09:40 10:35 WBC 13.4 H RBC 2.53 L Hgb 8.3 L Hct 25.0 L MCV 98.6 MCH 32.9 H MCHC 33.4 RDW 16.9 H Plt Count 53 L MPV 11.2 Neut % (Auto) 82.4 H Lymph % (Auto) 9.5 L [place] % (Auto) 3.2 Eos % (Auto) 4.6 H Baso % (Auto) 0.3 Neut # (Auto) 11.1 H Lymph # (Auto) 1.3 [place] # (Auto) 0.4 Eos # (Auto) 0.6 Baso # (Auto) 0.0 Neutrophils % (Manual) 75 Band Neutrophils % 20 H* Lymphocytes % (Manual) 2 L Monocytes % (Manual) 3 Platelet Estimate Decreased L Anisocytosis (manual) Slight Target Cells Slight Ovalocytes Slight Puncture Site pCO2 pO2 HCO3 ABG pH ABG Total CO2 ABG O2 Saturation ABG Base Excess ABG Hemoglobin ABG Carboxyhemoglobin POC ABG HHb (Measured) ABG Methemoglobin Yrn Test A-a O2 Difference Respiratory Index Hgb O2 Saturation FiO2 Sodium Potassium Chloride Carbon Dioxide Anion Gap BUN Creatinine Est GFR ( Amer) Est GFR (Non-Af Amer) POC Glucose (mg/dL) 114 H Random Glucose Lactic Acid Calcium Total Bilirubin AST ALT Alkaline Phosphatase Ammonia 13 Total Protein Albumin Globulin Albumin/Globulin Ratio Vitamin B12 TSH 3rd Generation 18 02/06/18 10:35 10:35 WBC RBC Hgb Hct MCV MCH MCHC RDW Plt Count MPV Neut % (Auto) Lymph % (Auto) [place] % (Auto) Eos % (Auto) Baso % (Auto) Neut # (Auto) Lymph # (Auto) [place] # (Auto) Eos # (Auto) Baso # (Auto) Neutrophils % (Manual) Band Neutrophils % Lymphocytes % (Manual) Monocytes % (Manual) Platelet Estimate Anisocytosis (manual) Target Cells Ovalocytes Puncture Site pCO2 pO2 HCO3 ABG pH ABG Total CO2 ABG O2 Saturation ABG Base Excess ABG Hemoglobin ABG Carboxyhemoglobin POC ABG HHb (Measured) ABG Methemoglobin Yrn Test A-a O2 Difference Respiratory Index Hgb O2 Saturation FiO2 Sodium 138 Potassium 4.0 Chloride 97 L Carbon Dioxide 28 Anion Gap 17 BUN 38 H Creatinine 4.5 H Est GFR ( Amer) 12 Est GFR (Non-Af Amer) 10 POC Glucose (mg/dL) Random Glucose 101 Lactic Acid 1.7 Calcium 8.8 Total Bilirubin 2.4 H AST 54 H ALT 35 Alkaline Phosphatase 312 H Ammonia Total Protein 6.5 Albumin 2.8 L Globulin 3.7 Albumin/Globulin Ratio 0.7 L Vitamin B12 TSH 3rd Generation Assessment & Plan - Assessment and Plan (Free Text) Assessment: AMS: exact cause unknown, obtain neurology input regarding etiology, medications versus metabolic, check valproic acid level, ammonia 13, drug serum test -Hypoxia: able to protect airway, avoid benzo -Bp stable -Leukocytosis: empriically on ABX continue dvt/pud ppx If no seziures, consider holding valproic acid and other opoids and benzos to avoid enterohepatic circualtion. -BGM q6hrs, ISS lispro cc time 35 minutes <Mathieu Purcell - Last Filed: 02/06/18 22:51> Meds - Medications Medications: Current Medications Acetaminophen (Tylenol 325mg Tab) 650 mg PO Q6 PRN PRN Reason: Pain, moderate (4-7) Last Admin: 02/05/18 16:18 Dose: 650 mg Albuterol/Ipratropium (Duoneb 3 Mg/0.5 Mg (3 Ml) Ud) 3 ml INH RQ6 [facility] Amlodipine Besylate (Norvasc) 10 mg PO DAILY [facility] Last Admin: 02/06/18 11:06 Dose: Not Given Aspirin (Aspirin Supp) 300 mg NM DAILY [facility] Last Admin: 02/06/18 13:11 Dose: 300 mg Bacitracin (Bacitracin) 0 gm TOP DAILY [facility] Last Admin: 02/06/18 12:00 Dose: 1 applic Benzocaine/Menthol (Cepacol Sore Throat) 1 naomi PO Q2 PRN PRN Reason: Sore Throat Carvedilol (Coreg) 25 mg PO Q12 [facility] Last Admin: 02/06/18 11:05 Dose: Not Given Docusate Sodium (Colace) 100 mg PO DAILY [facility] Last Admin: 02/06/18 11:05 Dose: Not Given Epoetin Yvon (Procrit) 10,000 unit IV MWF [facility] Last Admin: 02/05/18 11:50 Dose: 10,000 unit Ergocalciferol (Drisdol 50,000 Intl Units Cap) 1 cap PO QD7 [facility] Heparin Sodium (Porcine) (Heparin) 5,000 units SC Q12H [facility] Last Admin: 02/06/18 11:59 Dose: Not Given Hydralazine HCl (Apresoline) 50 mg PO TID [facility] Last Admin: 02/06/18 17:36 Dose: Not Given Vancomycin/Sodium Chloride (Vancomycin 1 Gm/Ns 200 Ml) 1 gm in 200 mls @ 133 mls/hr IVPB MWF [facility] PRN Reason: Protocol Stop: 02/12/18 09:01 Cefepime HCl (Maxipime Iv 1 Gm Premix) 1 gm in 50 mls @ 100 mls/hr IVPB Q24H [facility] PRN Reason: Protocol Last Admin: 02/06/18 22:00 Dose: 100 mls/hr Lactulose (Enulose) 20 gm PO DAILY PRN PRN Reason: constipation Levothyroxine Sodium (Synthroid) 200 mcg PO DAILY@0630 [facility] Last Admin: 02/06/18 06:18 Dose: Not Given Losartan Potassium (Cozaar) 100 mg PO DAILY [facility] Last Admin: 02/06/18 11:05 Dose: Not Given Xrtjn-[id number] Ethyl Esters (Lovaza) 2 gm PO BID [facility] Last Admin: 02/06/18 17:36 Dose: Not Given Pantoprazole Sodium (Protonix Ec Tab) 40 mg PO HS [facility] Last Admin: 02/05/18 21:48 Dose: 40 mg Results - Vital Signs Recent Vital Signs: Last Vital Signs Temp 98.6 F 02/06/18 12:00 Pulse 58 L 02/06/18 10:00 Resp 16 02/06/18 00:00 BP 86/34 L 02/06/18 04:00 Pulse Ox 100 02/06/18 04:00 - Labs Result Diagrams: 02/06/18 10:35 02/06/18 10:35 Labs: Laboratory Results - last 24 hr 02/06/18 02/06/18 02/06/18 06:31 06:32 07:16 WBC RBC Hgb Hct MCV MCH MCHC RDW Plt Count MPV Neut % (Auto) Lymph % (Auto) [place] % (Auto) Eos % (Auto) Baso % (Auto) Neut # (Auto) Lymph # (Auto) [place] # (Auto) Eos # (Auto) Baso # (Auto) Neutrophils % (Manual) Band Neutrophils % Lymphocytes % (Manual) Monocytes % (Manual) Platelet Estimate Anisocytosis (manual) Target Cells Ovalocytes Puncture Site Rr pCO2 43 pO2 156 H HCO3 28.5 H ABG pH 7.44 ABG Total CO2 30.5 H ABG O2 Saturation 98.8 H ABG Base Excess 4.6 H ABG Hemoglobin 8.9 L ABG Carboxyhemoglobin 1.3 POC ABG HHb (Measured) 1.2 ABG Methemoglobin 0.4 Yrn Test Pos A-a O2 Difference 503.0 Respiratory Index 3.2 Hgb O2 Saturation 97.1 FiO2 100.0 Sodium 139 Potassium 3.9 Chloride 97 L Carbon Dioxide 29 Anion Gap 18 BUN 38 H Creatinine 4.1 H Est GFR ( Amer) 13 Est GFR (Non-Af Amer) 11 POC Glucose (mg/dL) Random Glucose 101 Lactic Acid 1.8 Calcium 8.9 Total Bilirubin 2.5 H AST 56 H ALT 29 Alkaline Phosphatase 292 H Ammonia Total Protein 6.4 Albumin 2.6 L Globulin 3.8 Albumin/Globulin Ratio 0.7 L Vitamin B12 > 1000 H TSH 3rd Generation 2.70 Valproic Acid 02/06/18 02/06/18 02/06/18 07:16 09:40 10:35 WBC 13.4 H RBC 2.53 L Hgb 8.3 L Hct 25.0 L MCV 98.6 MCH 32.9 H MCHC 33.4 RDW 16.9 H Plt Count 53 L MPV 11.2 Neut % (Auto) 82.4 H Lymph % (Auto) 9.5 L [place] % (Auto) 3.2 Eos % (Auto) 4.6 H Baso % (Auto) 0.3 Neut # (Auto) 11.1 H Lymph # (Auto) 1.3 [place] # (Auto) 0.4 Eos # (Auto) 0.6 Baso # (Auto) 0.0 Neutrophils % (Manual) 75 Band Neutrophils % 20 H* Lymphocytes % (Manual) 2 L Monocytes % (Manual) 3 Platelet Estimate Decreased L Anisocytosis (manual) Slight Target Cells Slight Ovalocytes Slight Puncture Site pCO2 pO2 HCO3 ABG pH ABG Total CO2 ABG O2 Saturation ABG Base Excess ABG Hemoglobin ABG Carboxyhemoglobin POC ABG HHb (Measured) ABG Methemoglobin Yrn Test A-a O2 Difference Respiratory Index Hgb O2 Saturation FiO2 Sodium Potassium Chloride Carbon Dioxide Anion Gap BUN Creatinine Est GFR ( Amer) Est GFR (Non-Af Amer) POC Glucose (mg/dL) 114 H Random Glucose Lactic Acid Calcium Total Bilirubin AST ALT Alkaline Phosphatase Ammonia 13 Total Protein Albumin Globulin Albumin/Globulin Ratio Vitamin B12 TSH 3rd Generation Valproic Acid 02/06/18 02/06/18 02/06/18 10:35 10:35 17:24 WBC RBC Hgb Hct MCV MCH MCHC RDW Plt Count MPV Neut % (Auto) Lymph % (Auto) [place] % (Auto) Eos % (Auto) Baso % (Auto) Neut # (Auto) Lymph # (Auto) [place] # (Auto) Eos # (Auto) Baso # (Auto) Neutrophils % (Manual) Band Neutrophils % Lymphocytes % (Manual) Monocytes % (Manual) Platelet Estimate Anisocytosis (manual) Target Cells Ovalocytes Puncture Site pCO2 pO2 HCO3 ABG pH ABG Total CO2 ABG O2 Saturation ABG Base Excess ABG Hemoglobin ABG Carboxyhemoglobin POC ABG HHb (Measured) ABG Methemoglobin Yrn Test A-a O2 Difference Respiratory Index Hgb O2 Saturation FiO2 Sodium 138 Potassium 4.0 Chloride 97 L Carbon Dioxide 28 Anion Gap 17 BUN 38 H Creatinine 4.5 H Est GFR ( Amer) 12 Est GFR (Non-Af Amer) 10 POC Glucose (mg/dL) Random Glucose 101 Lactic Acid 1.7 Calcium 8.8 Total Bilirubin 2.4 H AST 54 H ALT 35 Alkaline Phosphatase 312 H Ammonia Total Protein 6.5 Albumin 2.8 L Globulin 3.7 Albumin/Globulin Ratio 0.7 L Vitamin B12 TSH 3rd Generation Valproic Acid 16.2 L
--- NOTE | 2018-02-06 18:28 | CARD ---
APPROVED REPORT EXAM: Two-dimensional and M-mode echocardiogram with Doppler and color Doppler. Other Information Quality : [employer] : INDICATION Congestive Heart Failure ESRD RISK FACTORS Hypertension 2D DIMENSIONS IVSd1.3 (0.7-1.1cm)LVDd4.8 (3.9-5.9cm) PWd1.3 (0.7-1.1cm)LVDs2.7 (2.5-4.0cm) FS (%) 44.5 %LVEF (%)75.7 (>50%) M-Mode DIMENSIONS Left Atrium (MM)4.39 (2.5-4.0cm)Aortic Root3.20 (2.2-3.7cm) Aortic Cusp Exc.2.13 (1.5-2.0cm) Mitral Valve MV E Pyrmbjxv67.8cm/sMV A Ooznjhkw89.2cm/sE/A ratio1.0 TDI E/Lateral E'0.0E/Medial E'0.0 Tricuspid Valve TR Peak [id number]/sTR Peak [id number] LEFT VENTRICLE The Left Ventricle is mildly dilated. There is mild to moderate concentric left ventricular hypertrophy. The left ventricular systolic function is normal. The left ventricular ejection fraction is within the normal range. There is normal LV segmental wall motion. Moderate diastolic dysfunction. Transmitral Doppler flow pattern is Grade II-pseudonormal filling dynamics. Valsalva not available. RIGHT VENTRICLE The right ventricle is mildly dilated. The right ventricular systolic function is normal. ATRIA The left atrium is moderately dilated. The right atrium is moderately dilated. AORTIC VALVE The aortic valve is normal in structure. No aortic regurgitation is present. MITRAL VALVE The mitral valve is normal in structure. There is no mitral valve regurgitation noted. TRICUSPID VALVE The tricuspid valve is normal in structure. There is moderate tricuspid regurgitation. Right ventricular systolic pressure is estimated at - 52 mmHg. There is moderate-severe pulmonary hypertension. PULMONIC VALVE The pulmonary valve is normal in structure. There is mild pulmonic valvular regurgitation. GREAT VESSELS The aortic root is normal in size. The IVC is normal in size and collapses >50% with inspiration. PERICARDIAL EFFUSION There is a trace pericardial effusion. <Conclusion> There is mild to moderate concentric left ventricular hypertrophy. The left ventricular systolic function is normal. Moderate diastolic dysfunction. Transmitral Doppler flow pattern is Grade II-pseudonormal filling dynamics. Valsalva not available. The right ventricular systolic function is normal. Moderate bi-atrial dilatation. There is moderate tricuspid regurgitation. Right ventricular systolic pressure is estimated at - 52 mmHg compatible with moderate-severe pulmonary hypertension. There is a trace pericardial effusion.
--- NOTE | 2018-02-06 18:54 | CP.PCM.CON ---
History of Present Illness - History of Present Illness History of Present Illness: 72 yr old patient who is here from assisted, who presented with confusion, and change in mental status for several hours. 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 He is a poor historian so history is obtained from the chart. PMH/PSH: as per chart FH/SH:lives in assisted All: nkda. on exam: neurological exam is only significant for decreased memory, does not know year or date, and can identify simple objects poor attention, but follows commands 2/3 cannot do calculations motor: normal strength sensory exam is not accurate gait not tested, with symmetric reflexes Review of Systems - Review of Systems Systems not reviewed;Unavailable: Altered Mental Status All systems: reviewed and no additional remarkable complaints except - Constitutional Constitutional: As Per HPI - EENT Eyes: As Per HPI Ears: As Per HPI Nose/Mouth/Throat: absent: As Per HPI, Epistaxis, Nasal Congestion, Nasal Discharge, Nasal Obstruction, Nasal Trauma, Nose Pain, Post Nasal Drip, Sinus Pain, Sinus Pressure, Bleeding Gums, Change in Voice, Dental Pain, Dry Mouth, Dysphagia, Halitosis, Hoarsness, Lip Swelling, Mouth Lesions, Mouth Pain, Odynophagia, Sore Throat, Throat Swelling, Tongue Swelling, Facial Pain, Neck Pain, Neck Mass, Other - Breasts Breasts: absent: As Per HPI, Change in Shape, Mass, Pain, Nipple Discharge, Nipple Inversion, Skin Changes, Swelling, Other - Cardiovascular Cardiovascular: As Per HPI - Respiratory Respiratory: As Per HPI - Gastrointestinal Gastrointestinal: absent: As Per HPI, Abdominal Pain, Belching, Bloating, Change in Bowel Habits, Change in Stool Character, Coffee Ground Emesis, Constipation, Cramping, Diarrhea, Dyspepsia, Dysphagia, Early Satiety, Excessive Flatus, Fecal Incontinence, Heartburn, Hematemesis, Hematochezia, Loose Stools, Melena, Nausea, Odynophagia, Temesmus, Vomiting, Other - Genitourinary Genitourinary: absent: As Per HPI, Change in Urinary Stream, Difficulty Urinating, Dysuria, Flank Pain, Hematuria, Pyuria, Nocturia, Urinary Incontinence, Urinary Frequency, Urinary Hesitance, Urinary Urgency, Voiding Freq/Small Amts, Freq UTI, Hx Renal/Bladder Calculi, Hx /Renal Surgery, Bladder Distension, Other - Reproductive: Female Reproductive:Female: absent: As Per HPI, Amenorrhea, Amenorrhea/ Control, Currently Menstual, Cycle <21 Days, Cycle >35 Days, Cycle Variable, Menses 1-7 Days, Menses >/= 8 Days, Menses Variable, Cycle > 4 Weeks Between, No Menses for 6 Months, Heavy Menses, Light Menses, Normal Menses, Spotting Between Cycles , S/P Hysterectomy, Menopausal, Post Menopausal, Premenarche, Abnormal Vaginal Bleeding, Dysmenorrhea, Dyspareunia, Genital Lesions, Genital Pruritis, Pelvic Pain, Prolapse Symptoms, Sexual Dysfunction, Vaginal Discharge, Vaginal Dryness , Vaginal Odor, Vaginal Pruritis, Other - Menstruation Menstruation: absent: As Per HPI, Amenorrhea, Amenorrhea/ Control, Currently Menstual, Cycle <21 Days, Cycle >35 Days, Cycle Variable, Menses 1-7 Days, Menses >/= 8 Days, Menses Variable, Cycle > 4 Weeks Between, No Menses for 6 Months, Heavy Menses, Light Menses, Normal Menses, Spotting Between Cycles , S/P Hysterectomy, Menopausal, Post Menopausal, Premenarche, Abnormal Vaginal Bleeding, Dysmenorrhea, Other - Musculoskeletal Musculoskeletal: absent: As Per HPI, Abnormal Gait, Arthralgias, Atrophy, Back Pain, Deformity, Joint Swelling, Limited Range of Motion, Loss of Height, Muscle Cramps, Muscle Weakness, Myalgias, Neck Pain, Numbness, Radiating Pain into Limb, Stiffness, Tingling, Other - Integumentary Integumentary: absent: As Per HPI, Acne, Alopecia, Bleeding Lesions, Change in Hair, Change in Nails, Change in Pigmentation, Changing Lesions, Dry Skin, Erythema, Furuncle, Hirsutism, Lesions, New Lesions, Non-Healing Lesions, Photosensitivity, Pruritus, Rash, Skin Pain, Skin Ulcer, Sores, Striae, Swelling , Unusual Bruising, Wounds, Jaundice, Other - Neurological Neurological: absent: As Per HPI, Abnormal Gait, Abnormal Hearing, Abnormal Movements, Abnormal Speech, Behavioral Changes, Burning Sensations, Confusion, Convulsions, Disequilibrium, Dizziness, Numbness, Focal Weakness, Frequent Falls , Headaches, Lack of Coordination, Loss of Vision, Memory Loss, Paresthesias, Radicular Pain, Restless Legs, Sensory Deficit, Syncope, Tingling, Tremor, Vertigo, Weakness, Other Visual Disturbances, Other - Psychiatric Psychiatric: absent: As Per HPI, Abnormal Sleep Pattern, Anhedonia, Anxiety, Auditory Hallucinations, Behavioral Changes, Change in Appetite, Change in Libido, Confusion, Depression, Difficulty Concentrating, Hallucinations, Homicidal Ideation, Hopelessness, Irritability, Memory Loss, Mood Swings, Panic Attacks, Paranoia, Suicidal Ideation, Visual Hallucinations, Tactile Hallucinations, Other - Endocrine Endocrine: absent: As Per HPI, Change in Body Appearance, Change in Libido, Cold Intolorance, Deepening of Voice, Excessive Sweating, Fatigue, Flushing, Heat Intolorance, Increase in Ring/Shoe/Hat Size, Palpitations, Polydipsia, Polyphagia, Polyuria, Other - Hematologic/Lymphatic Hematologic: absent: As Per HPI, Easy Bleeding, Easy Bruising, Lymphadenopathy, Other Past Patient History - Past Medical History & Family History Past Medical History?: Yes - Past Social History Smoking Status: Unknown If Ever Smoked - CARDIAC Hx Congestive Heart Failure: Yes Hx Hypertension: Yes - PULMONARY Hx Respiratory Disorders: No - NEUROLOGICAL Hx Neurological Disorder: No - HEENT Hx HEENT Problems: No - RENAL Hx Chronic Kidney Disease: Yes Type of Dialysis Access: Lt subclavian HD cath Date of Last Dialysis Treatment: 02/03/18 - ENDOCRINE/METABOLIC Hx Endocrine Disorders: Yes Hx Hypothyroidism: Yes - HEMATOLOGICAL/ONCOLOGICAL Hx Blood Disorders: No - INTEGUMENTARY Hx Dermatological Problems: No - MUSCULOSKELETAL/RHEUMATOLOGICAL Hx Musculoskeletal Disorders: Yes Hx Falls: Yes - GASTROINTESTINAL Hx Gastrointestinal Disorders: Yes Hx Gastritis: Yes - GENITOURINARY/GYNECOLOGICAL Hx Genitourinary Disorders: No - PSYCHIATRIC Hx Psychophysiologic Disorder: No Hx Substance Use: No - SURGICAL HISTORY Hx Surgeries: Yes Hx Cholecystectomy: Yes - ANESTHESIA Hx Anesthesia: Yes Hx Anesthesia Reactions: No Hx Malignant Hyperthermia: No Has any member of the family had a problem w/ anesthesia?: No Meds Allergies/Adverse Reactions: Allergies Allergy/AdvReac Type Severity Reaction Status Date / Time lorazepam [From Ativan] AdvReac SHORTNESS Verified 02/06/18 09:42 OF BREATH - Medications Medications: Current Medications Acetaminophen (Tylenol 325mg Tab) 650 mg PO Q6 PRN PRN Reason: Pain, moderate (4-7) Last Admin: 02/05/18 16:18 Dose: 650 mg Albuterol/Ipratropium (Duoneb 3 Mg/0.5 Mg (3 Ml) Ud) 3 ml INH RQ6 [facility] Amlodipine Besylate (Norvasc) 10 mg PO DAILY [facility] Last Admin: 02/06/18 11:06 Dose: Not Given Aspirin (Aspirin Supp) 300 mg MD DAILY [facility] Last Admin: 02/06/18 13:11 Dose: 300 mg Bacitracin (Bacitracin) 0 gm TOP DAILY [facility] Last Admin: 02/06/18 12:00 Dose: 1 applic Benzocaine/Menthol (Cepacol Sore Throat) 1 naomi PO Q2 PRN PRN Reason: Sore Throat Carvedilol (Coreg) 25 mg PO Q12 [facility] Last Admin: 02/06/18 11:05 Dose: Not Given Docusate Sodium (Colace) 100 mg PO DAILY [facility] Last Admin: 02/06/18 11:05 Dose: Not Given Epoetin Yvon (Procrit) 10,000 unit IV MWF [facility] Last Admin: 02/05/18 11:50 Dose: 10,000 unit Ergocalciferol (Drisdol 50,000 Intl Units Cap) 1 cap PO QD7 [facility] Heparin Sodium (Porcine) (Heparin) 5,000 units SC Q12H [facility] Last Admin: 02/06/18 11:59 Dose: Not Given Hydralazine HCl (Apresoline) 50 mg PO TID [facility] Last Admin: 02/06/18 17:36 Dose: Not Given Valproate Sodium 500 mg/ (Sodium Chloride) 105 mls @ 105 mls/hr IVPB Q12 [facility] Last Admin: 02/06/18 11:58 Dose: 105 mls/hr Lactulose (Enulose) 20 gm PO DAILY PRN PRN Reason: constipation Levothyroxine Sodium (Synthroid) 200 mcg PO DAILY@0630 [facility] Last Admin: 02/06/18 06:18 Dose: Not Given Losartan Potassium (Cozaar) 100 mg PO DAILY [facility] Last Admin: 02/06/18 11:05 Dose: Not Given [id number] Ethyl Esters (Lovaza) 2 gm PO BID [facility] Last Admin: 02/06/18 17:36 Dose: Not Given Pantoprazole Sodium (Protonix Ec Tab) 40 mg PO [facility] Last Admin: 02/05/18 21:48 Dose: 40 mg Physical Exam - Constitutional Appears: Confused, Chronically Ill - Head Exam Head Exam: NORMOCEPHALIC - Eye Exam Eye Exam: PERRL. absent: Scleral icterus - ENT Exam ENT Exam: Mucous Membranes Dry - Neck Exam Neck exam: Negative for: Lymphadenopathy - Respiratory Exam Respiratory Exam: Decreased Breath Sounds - Cardiovascular Exam Cardiovascular Exam: REGULAR RHYTHM, +S1, +S2 - GI/Abdominal Exam GI & Abdominal Exam: Diminished Bowel Sounds, Soft. absent: Tenderness - Rectal Exam Rectal Exam: Deferred - Exam Exam: NORMAL INSPECTION - Extremities Exam Extremities exam: Positive for: pedal pulses present. Negative for: calf tenderness, pedal edema, tenderness - Back Exam Back exam: absent: CVA tenderness (L), CVA tenderness (R) - Neurological Exam Neurological exam: Altered, CN II-XII Intact - Psychiatric Exam Psychiatric exam: Normal Mood - Skin Skin Exam: Dry Results - Vital Signs Recent Vital Signs: Last Vital Signs Temp 98.6 F 02/06/18 12:00 Pulse 81 02/06/18 16:14 Resp 16 02/06/18 00:00 BP 86/34 L 02/06/18 04:00 Pulse Ox 100 02/06/18 04:00 - Labs Result Diagrams: 02/11/18 05:54 02/11/18 05:55 Labs: Laboratory Results - last 24 hr 02/06/18 02/06/18 02/06/18 06:31 06:32 07:16 WBC RBC Hgb Hct MCV MCH MCHC RDW Plt Count MPV Neut % (Auto) Lymph % (Auto) [place] % (Auto) Eos % (Auto) Baso % (Auto) Neut # (Auto) Lymph # (Auto) [place] # (Auto) Eos # (Auto) Baso # (Auto) Neutrophils % (Manual) Band Neutrophils % Lymphocytes % (Manual) Monocytes % (Manual) Platelet Estimate Anisocytosis (manual) Target Cells Ovalocytes Puncture Site Rr pCO2 43 pO2 156 H HCO3 28.5 H ABG pH 7.44 ABG Total CO2 30.5 H ABG O2 Saturation 98.8 H ABG Base Excess 4.6 H ABG Hemoglobin 8.9 L ABG Carboxyhemoglobin 1.3 POC ABG HHb (Measured) 1.2 ABG Methemoglobin 0.4 Yrn Test Pos A-a O2 Difference 503.0 Respiratory Index 3.2 Hgb O2 Saturation 97.1 FiO2 100.0 Sodium 139 Potassium 3.9 Chloride 97 L Carbon Dioxide 29 Anion Gap 18 BUN 38 H Creatinine 4.1 H Est GFR ( Amer) 13 Est GFR (Non-Af Amer) 11 POC Glucose (mg/dL) Random Glucose 101 Lactic Acid 1.8 Calcium 8.9 Total Bilirubin 2.5 H AST 56 H ALT 29 Alkaline Phosphatase 292 H Ammonia Total Protein 6.4 Albumin 2.6 L Globulin 3.8 Albumin/Globulin Ratio 0.7 L Vitamin B12 > 1000 H TSH 3rd Generation 2.70 Valproic Acid 02/06/18 02/06/18 02/06/18 07:16 09:40 10:35 WBC 13.4 H RBC 2.53 L Hgb 8.3 L Hct 25.0 L MCV 98.6 MCH 32.9 H MCHC 33.4 RDW 16.9 H Plt Count 53 L MPV 11.2 Neut % (Auto) 82.4 H Lymph % (Auto) 9.5 L [place] % (Auto) 3.2 Eos % (Auto) 4.6 H Baso % (Auto) 0.3 Neut # (Auto) 11.1 H Lymph # (Auto) 1.3 [place] # (Auto) 0.4 Eos # (Auto) 0.6 Baso # (Auto) 0.0 Neutrophils % (Manual) 75 Band Neutrophils % 20 H* Lymphocytes % (Manual) 2 L Monocytes % (Manual) 3 Platelet Estimate Decreased L Anisocytosis (manual) Slight Target Cells Slight Ovalocytes Slight Puncture Site pCO2 pO2 HCO3 ABG pH ABG Total CO2 ABG O2 Saturation ABG Base Excess ABG Hemoglobin ABG Carboxyhemoglobin POC ABG HHb (Measured) ABG Methemoglobin Yrn Test A-a O2 Difference Respiratory Index Hgb O2 Saturation FiO2 Sodium Potassium Chloride Carbon Dioxide Anion Gap BUN Creatinine Est GFR ( Amer) Est GFR (Non-Af Amer) POC Glucose (mg/dL) 114 H Random Glucose Lactic Acid Calcium Total Bilirubin AST ALT Alkaline Phosphatase Ammonia 13 Total Protein Albumin Globulin Albumin/Globulin Ratio Vitamin B12 TSH 3rd Generation Valproic Acid 02/06/18 02/06/18 02/06/18 10:35 10:35 17:24 WBC RBC Hgb Hct MCV MCH MCHC RDW Plt Count MPV Neut % (Auto) Lymph % (Auto) [place] % (Auto) Eos % (Auto) Baso % (Auto) Neut # (Auto) Lymph # (Auto) [place] # (Auto) Eos # (Auto) Baso # (Auto) Neutrophils % (Manual) Band Neutrophils % Lymphocytes % (Manual) Monocytes % (Manual) Platelet Estimate Anisocytosis (manual) Target Cells Ovalocytes Puncture Site pCO2 pO2 HCO3 ABG pH ABG Total CO2 ABG O2 Saturation ABG Base Excess ABG Hemoglobin ABG Carboxyhemoglobin POC ABG HHb (Measured) ABG Methemoglobin Yrn Test A-a O2 Difference Respiratory Index Hgb O2 Saturation FiO2 Sodium 138 Potassium 4.0 Chloride 97 L Carbon Dioxide 28 Anion Gap 17 BUN 38 H Creatinine 4.5 H Est GFR ( Amer) 12 Est GFR (Non-Af Amer) 10 POC Glucose (mg/dL) Random Glucose 101 Lactic Acid 1.7 Calcium 8.8 Total Bilirubin 2.4 H AST 54 H ALT 35 Alkaline Phosphatase 312 H Ammonia Total Protein 6.5 Albumin 2.8 L Globulin 3.7 Albumin/Globulin Ratio 0.7 L Vitamin B12 TSH 3rd Generation Valproic Acid 16.2 L Assessment & Plan (1) Altered mental status Status: Acute (2) Dyspnea Status: Acute (3) ESRD (end stage renal disease) on dialysis Status: Acute (4) Lacunar infarction Status: Acute (5) MRSA bacteremia Status: Acute (6) Sepsis Status: Acute (7) Sepsis Status: Acute (8) Staphylococcus aureus bacteremia Status: Acute (9) Toxic metabolic encephalopathy Status: Acute - Assessment and Plan (Free Text) Assessment: await cultures cont empiric rx may need removal of lines/ devices
[2018-02-06] MEDS: Cefepime IV 1 gm in Dextrose 1 GM/50 ML BAG IVPB SCH (22:00)
[2018-02-06] MEDS: Pantoprazole 40 mg EC Tab PO SCH (22:51)
[2018-02-07] MEDS: Albuterol-Ipratrop 3 mg / 0.5 (3 ml) UD INH SCH ×4 (01:24→19:49)
[2018-02-07 06:14] LABS: HEMOGLOBIN 7.9 g/dL (11.0-16.0); WHITE BLOOD COUNT 12.2 K/uL (4.8-10.8)
[2018-02-07 06:26] LABS: MEAN CELL VOLUME 98.5 fL (81.0-99.0); MEAN CORPUSCULAR HEMOGLOBIN 33.6 pg (27.0-31.0); MEAN CORPUSCULAR HGB CONC 34.1 g/dL (33.0-37.0); RBC 2.35 Mil/uL (3.80-5.20); RED CELL DISTRIBUTION WIDTH 16.6 % (11.5-14.5)
[2018-02-07 06:30] LABS: PLATELET COUNT 37 K/uL (130-400)
[2018-02-07 06:37] LABS: ALB/GLOB RATIO 0.7 (1.0-2.1); ALBUMIN 2.4 g/dL (3.5-5.0); CALCIUM 8.8 mg/dl (8.6-10.4)
--- NOTE | 2018-02-07 07:14 | CP.PCM.PN ---
Subjective - Date & Time of Evaluation Date of Evaluation: 02/07/18 Time of Evaluation: 07:14 - Subjective Subjective: Ms. Dorsey was seen and examined at the bedside in ICU. She is confused, unable to answer any questions but keeps on yelling "agua". Her eyes are sluggishly reactive. She remains with restlessness. She was not able to follow any commands with bilateral hand mittens on, moves all extremities. 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 CT scan of the head showed chronic microvascular ischemic change. Mild generalized volume loss. Punctate hypodensity in the left basal ganglia may represent a prominent perivascular space versus punctuate lacunar infarct. Sinus mucosal disease. Objective - Vital Signs/Intake and Output Vital Signs (last 24 hours): Temp Pulse Resp BP Pulse Ox 98.6 F 55 L 16 80/35 L 100 02/06/18 12:00 02/07/18 01:25 02/06/18 00:00 02/06/18 22:48 02/06/18 04:00 Intake and Output: 02/07/18 02/07/18 06:59 18:59 Intake Total 50 Output Total 0 Balance 50 - Medications Medications: Current Medications Acetaminophen (Tylenol 325mg Tab) 650 mg PO Q6 PRN PRN Reason: Pain, moderate (4-7) Last Admin: 02/05/18 16:18 Dose: 650 mg Albuterol/Ipratropium (Duoneb 3 Mg/0.5 Mg (3 Ml) Ud) 3 ml INH RQ6 [facility] Last Admin: 02/07/18 01:24 Dose: 3 ml Amlodipine Besylate (Norvasc) 10 mg PO DAILY [facility] Last Admin: 02/06/18 11:06 Dose: Not Given Aspirin (Aspirin Supp) 300 mg MT DAILY [facility] Last Admin: 02/06/18 13:11 Dose: 300 mg Bacitracin (Bacitracin) 0 gm TOP DAILY [facility] Last Admin: 02/06/18 12:00 Dose: 1 applic Benzocaine/Menthol (Cepacol Sore Throat) 1 naomi PO Q2 PRN PRN Reason: Sore Throat Carvedilol (Coreg) 25 mg PO Q12 [facility] Last Admin: 02/06/18 22:48 Dose: Not Given Docusate Sodium (Colace) 100 mg PO DAILY [facility] Last Admin: 02/06/18 11:05 Dose: Not Given Epoetin Yvon (Procrit) 10,000 unit IV MWF [facility] Last Admin: 02/05/18 11:50 Dose: 10,000 unit Ergocalciferol (Drisdol 50,000 Intl Units Cap) 1 cap PO QD7 [facility] Heparin Sodium (Porcine) (Heparin) 5,000 units SC Q12H [facility] Last Admin: 02/06/18 22:51 Dose: Not Given Hydralazine HCl (Apresoline) 50 mg PO TID [facility] Last Admin: 02/06/18 17:36 Dose: Not Given Vancomycin/Sodium Chloride (Vancomycin 1 Gm/Ns 200 Ml) 1 gm in 200 mls @ 133 mls/hr IVPB MWF [facility] PRN Reason: Protocol Stop: 02/12/18 09:01 Cefepime HCl (Maxipime Iv 1 Gm Premix) 1 gm in 50 mls @ 100 mls/hr IVPB Q24H [facility] PRN Reason: Protocol Last Admin: 02/06/18 22:00 Dose: 100 mls/hr Valproate Sodium 1,000 mg/ (Sodium Chloride) 110 mls @ 0 mls/hr IVPB ONCE ONE PRN Reason: Per Protocol Stop: 02/07/18 07:13 Lactulose (Enulose) 20 gm PO DAILY PRN PRN Reason: constipation Levothyroxine Sodium (Synthroid) 200 mcg PO DAILY@0630 [facility] Last Admin: 02/06/18 06:18 Dose: Not Given Losartan Potassium (Cozaar) 100 mg PO DAILY [facility] Last Admin: 02/06/18 11:05 Dose: Not Given [id number] Ethyl Esters (Lovaza) 2 gm PO BID [facility] Last Admin: 02/06/18 17:36 Dose: Not Given Pantoprazole Sodium (Protonix Ec Tab) 40 mg PO HS [facility] Last Admin: 02/06/18 22:51 Dose: Not Given - Labs Labs: 02/07/18 05:59 02/07/18 06:02 PT 14.1 SECONDS (9.7-12.2) H 02/04/18 15:52 INR 1.3 02/04/18 15:52 APTT 34 SECONDS (21-34) 02/04/18 15:52 - Constitutional Appears: No Acute Distress, Confused - Head Exam Head Exam: NORMAL INSPECTION - Eye Exam Pupil Exam: PERRL - Neurological Exam Neuro motor strength exam: Left Upper Extremity: 3, Right Upper Extremity: 3, Left Lower Extremity: 3, Right Lower Extremity: 3 Additional comments: patient is confused unable to follow simple commands. Assessment and Plan (1) Altered mental status Assessment & Plan: Case discussed with Dr. Angela, continue all current medical regimen. Recommend depakote 1000 mg IVPB for one dose. Recommend MRI of the brain without contrast . Please refer to primary team regarding low platelet count. May give seroquel 25 mg PO or NGT prior to MRI. EEG result pending. Will repeat valproic level eusebia post loading dose. Status: Acute
[2018-02-07 07:35] LABS: BASO % 1.2 % (0.0-2.0); EOS % 2.3 % (0.0-4.0); LYMPH % 2.2 % (20.0-40.0); MONO % 10.1 % (0.0-10.0); NEUT % 84.2 % (50.0-75.0); NRBC % 0.3 % (0.0-2.0)
[2018-02-07 07:37] LABS: BASO # 0.1 K/uL (0.0-0.2); EOS # 0.3 K/uL (0.0-0.7); LYMPH # 0.2 K/uL (1.0-4.3); MONO # 1.3 K/uL (0.0-0.8); NEUT # 10.4 K/uL (1.8-7.0)
[2018-02-07] MEDS ORDERED: Valproate 1,000 MG in Sodium Chloride 0.9% 100 ML IVPB ONE (08:00)
--- NOTE | 2018-02-07 08:07 | RAD ---
Chest x-ray single frontal view History: Effusion. Comparison: 02/04/2018 Findings: Moderate venous congestion. Patchy increased markings at the left lung base with small left pleural effusion. Upper lobe granulomatous changes with scattered nodularity. Enlarged ectatic aorta. Cardiomegaly. Left-sided central venous catheter. Degenerative changes in the spine and shoulders. Impression: Moderate venous congestion. Patchy increased markings at the left lung base with small left pleural effusion. Upper lobe granulomatous changes with scattered nodularity. Enlarged ectatic aorta. Cardiomegaly. Left-sided central venous catheter.
[2018-02-07] MEDS: Vancomycin 1 gm/NS 200 ml 1 GM/200 ML BAG IVPB SCH (09:00)
[2018-02-07] MEDS: Levothyroxine 200 MCG TAB PO SCH (09:04)
[2018-02-07 09:30] LABS: BANDS 17 % (0-2); LYMPHOCYTE 3 % (20-40); METAMYELOCYTE 1 % (0-0); MONOCYTE 6 % (0-10); NEUTROPHIL 73 % (50-75); TOTAL CELLS COUNTED 100
[2018-02-07 09:31] LABS: ANISOCYTOSIS MODERATE; HYPOCHROMIC SLIGHT; OVALOCYTES SLIGHT; PLATELET ESTIMATE MARKEDLY DECREASED (NORMAL); POIKILOCYTOSIS SLIGHT; POLYCHROMIC SLIGHT
[2018-02-07 09:32] LABS: LARGE PLATELETS PRESENT; TARGET CELLS SLIGHT; TOXIC GRANULATION PRESENT
[2018-02-07] MEDS: Omega-3-Acid Ethyl Esters 1 GM Cap PO SCH ×2 (10:00→18:41)
[2018-02-07] MEDS: Bacitracin Ointment 30 GM TUBE TOP SCH (10:20)
[2018-02-07] MEDS ORDERED: Albumin Human 25% (12.5 gm/50 ml) IV ONE (10:34)
[2018-02-07] MEDS: Epoetin Alfa 10,000 unit/ml Dialysis IV SCH (11:40)
--- NOTE | 2018-02-07 12:50 | EEG ---
DATE: DESCRIPTION: This EEG was acquired with 16 electrodes placed according to 10-[employer] Electrode System. All electrodes were referenced to A1-A2, P1-P2 respectively. Continuous seizure monitoring was done using spike detection services. BACKGROUND: There is a very slow maximal 5 Hz posterior dominant rhythm that is not reactive, symmetric, or attenuating to eye opening. In general, most of the record was occupied by 3-4 Hz theta delta activity. There are no interictal or epileptiform discharges. There are no clinical or subclinical seizures. IMPRESSION: This is an abnormal awake and drowsy electroencephalogram. The presence of diffuse generalized slowing indicates severe metabolic encephalopathy. Clinical correlation is required. There are no seizures captured on this 40-minute electroencephalogram. However, epilepsy is suspected. Repeat electroencephalogram is recommended. Andrew Angela MD
--- NOTE | 2018-02-07 13:08 | CARD ---
APPROVED REPORT EKG Measurement Heart [id number] <Conclusion> Wide QRS rhythm Right bundle branch block T wave abnormality, consider inferior ischemia Abnormal ECG
--- NOTE | 2018-02-07 16:57 | CP.PCM.PN ---
Subjective - Date & Time of Evaluation Date of Evaluation: 02/07/18 Time of Evaluation: 11:20 - Subjective Subjective: clinically same Objective - Vital Signs/Intake and Output Vital Signs (last 24 hours): Temp Pulse Resp BP Pulse Ox 96.1 F L 62 22 102/36 L 92 L 02/07/18 11:30 02/07/18 14:15 02/07/18 13:30 02/07/18 13:30 02/07/18 13:30 Intake and Output: 02/07/18 02/07/18 06:59 18:59 Intake Total 50 325 Output Total 0 0 Balance 50 325 - Medications Medications: Current Medications Acetaminophen (Tylenol 325mg Tab) 650 mg PO Q6 PRN PRN Reason: Pain, moderate (4-7) Last Admin: 02/05/18 16:18 Dose: 650 mg Albuterol/Ipratropium (Duoneb 3 Mg/0.5 Mg (3 Ml) Ud) 3 ml INH RQ6 [facility] Last Admin: 02/07/18 13:41 Dose: 3 ml Amlodipine Besylate (Norvasc) 10 mg PO DAILY [facility] Last Admin: 02/07/18 11:44 Dose: Not Given Aspirin (Aspirin Supp) 300 mg MT DAILY [facility] Last Admin: 02/07/18 09:01 Dose: Not Given Bacitracin (Bacitracin) 0 gm TOP DAILY [facility] Last Admin: 02/07/18 10:20 Dose: 1 applic Benzocaine/Menthol (Cepacol Sore Throat) 1 naomi PO Q2 PRN PRN Reason: Sore Throat Carvedilol (Coreg) 25 mg PO Q12 [facility] Last Admin: 02/07/18 10:00 Dose: Not Given Docusate Sodium (Colace) 100 mg PO DAILY [facility] Last Admin: 02/07/18 09:02 Dose: Not Given Epoetin Yvon (Procrit) 10,000 unit IV MWF [facility] Last Admin: 02/07/18 11:40 Dose: 10,000 unit Ergocalciferol (Drisdol 50,000 Intl Units Cap) 1 cap PO QD7 [facility] Heparin Sodium (Porcine) (Heparin) 5,000 units SC Q12H [facility] Last Admin: 02/07/18 09:02 Dose: Not Given Hydralazine HCl (Apresoline) 50 mg PO TID [facility] Last Admin: 02/07/18 09:01 Dose: Not Given Vancomycin/Sodium Chloride (Vancomycin 1 Gm/Ns 200 Ml) 1 gm in 200 mls @ 133 mls/hr IVPB MWF [facility] PRN Reason: Protocol Stop: 02/12/18 09:01 Last Admin: 02/07/18 09:00 Dose: 133 mls/hr Cefepime HCl (Maxipime Iv 1 Gm Premix) 1 gm in 50 mls @ 100 mls/hr IVPB Q24H [facility] PRN Reason: Protocol Last Admin: 02/06/18 22:00 Dose: 100 mls/hr Lactulose (Enulose) 20 gm PO DAILY PRN PRN Reason: constipation Levothyroxine Sodium (Synthroid) 200 mcg PO DAILY@0630 [facility] Last Admin: 02/07/18 09:04 Dose: Not Given Losartan Potassium (Cozaar) 100 mg PO DAILY [facility] Last Admin: 02/07/18 09:02 Dose: Not Given [id number] Ethyl Esters (Lovaza) 2 gm PO BID [facility] Last Admin: 02/07/18 10:00 Dose: Not Given Pantoprazole Sodium (Protonix Ec Tab) 40 mg PO HS [facility] Last Admin: 02/06/18 22:51 Dose: Not Given - Labs Labs: 02/07/18 05:59 02/07/18 06:02 PT 14.1 SECONDS (9.7-12.2) H 02/04/18 15:52 INR 1.3 02/04/18 15:52 APTT 34 SECONDS (21-34) 02/04/18 15:52 - Constitutional Appears: Well - Head Exam Head Exam: ATRAUMATIC, NORMAL INSPECTION, NORMOCEPHALIC - Eye Exam Eye Exam: EOMI, Normal appearance, PERRL Pupil Exam: NORMAL ACCOMODATION, PERRL - ENT Exam ENT Exam: Mucous Membranes Moist, Normal Exam - Neck Exam Neck Exam: Full ROM, Normal Inspection. absent: Lymphadenopathy - Respiratory Exam Respiratory Exam: Decreased Breath Sounds - Cardiovascular Exam Cardiovascular Exam: REGULAR RHYTHM, +S1, +S2 - GI/Abdominal Exam GI & Abdominal Exam: Soft, Diminished Bowel Sounds - Rectal Exam Rectal Exam: Deferred Assessment and Plan (1) Altered mental status Status: Acute (2) ESRD (end stage renal disease) on dialysis Status: Acute (3) Gastritis Status: Acute (4) Musculoskeletal pain Status: Acute (5) Rib contusion Status: Acute (6) Toxic metabolic encephalopathy Status: Acute
--- NOTE | 2018-02-07 17:08 | CARD ---
APPROVED REPORT EKG Measurement Heart [id number] <Conclusion> Sinus bradycardia Right bundle branch block Abnormal ECG
--- NOTE | 2018-02-07 17:15 | CP.CCUPN ---
<Leo Larson - Last Filed: 02/07/18 17:11> CCU Subjective - Physician Review Subjective (Free Text): Patient seen and examined at bedside. patient is currently Altered. GCS Score is 11. CCU Objective - Vital Signs / Intake & Output Vital Signs (Last 4 hours): Vital Signs Pulse Pulse Resp BP Pulse Ox 02/07/18 14:15 62 02/07/18 13:30 56 L 22 102/36 L 92 L 02/07/18 13:15 55 L 23 105/34 L 92 L Intake and Output (Last 8hrs): Intake & Output 02/07/18 02/07/18 02/07/18 06:59 14:59 22:59 Intake Total 0 325 Output Total 0 0 Balance 0 325 Intake: Intake, IV Amount 0 25 Right Forearm 0 15 Right Hand 10 Oral 300 Output: Urine 0 0 Urine, Voided 0 0 Other: # Bowel Movements 1 - Physical Exam Head: Positive for: Atraumatic, Normocephalic Pupils: Positive for: PERRL Mouth: Positive for: Dry Respiratory/Chest: Positive for: Rales (BiBasilar). Negative for: Clear to Auscultation Cardiovascular: Positive for: Regular Rate and Rhythm, Normal S1, S2 Abdomen: Positive for: Normal Bowel Sounds. Negative for: Distention, Guarding Lower Extremity: Positive for: Normal Inspection Skin: Positive for: Warm, Dry, Other (Onchomycosis B/L) Psychiatric: Positive for: Alert. Negative for: Oriented x 3 - Medications Active Medications: Active Medications Generic Name Dose Route Start Last Admin Trade Name Freq PRN Reason Stop Dose Admin Acetaminophen 650 mg 02/05/18 12:44 02/05/18 16:18 Tylenol 325mg Tab PO 650 mg Q6 PRN Administration Pain, moderate (4-7) Albuterol/Ipratropium 3 ml 02/06/18 20:00 02/07/18 13:41 Duoneb 3 Mg/0.5 Mg (3 Ml) Ud INH 3 ml RQ6 [facility] Administration Amlodipine Besylate 10 mg 02/05/18 10:00 02/07/18 11:44 Norvasc PO Not Given DAILY [facility] Aspirin 300 mg 02/06/18 10:00 02/07/18 09:01 Aspirin Supp [place] Not Given DAILY [facility] Bacitracin 0 gm 02/05/18 10:00 02/07/18 10:20 Bacitracin TOP 1 applic DAILY [facility] Administration Benzocaine/Menthol 1 naomi 02/04/18 18:53 Cepacol Sore Throat PO Q2 PRN Sore Throat Carvedilol 25 mg 02/04/18 22:00 02/07/18 10:00 Coreg PO Not Given Q12 [facility] Docusate Sodium 100 mg 02/05/18 10:00 02/07/18 09:02 Colace PO Not Given DAILY [facility] Epoetin Yvon 10,000 unit 02/05/18 09:00 02/07/18 11:40 Procrit IV 10,000 unit [place] [facility] [place] Administration Ergocalciferol 1 cap 02/04/18 19:00 Drisdol 50,000 Intl Units Cap PO QD7 [facility] Heparin Sodium (Porcine) 5,000 units 02/06/18 10:00 02/07/18 09:02 Heparin SC Not Given Q12H [facility] Hydralazine HCl 50 mg 02/05/18 10:00 02/07/18 09:01 Apresoline PO Not Given TID [facility] Vancomycin/Sodium Chloride 1 gm in 200 mls @ 133 mls/hr 02/07/18 09:00 09:00 Vancomycin 1 Gm/Ns 200 Ml IVPB 02/12/18 09:01 133 mls/hr [place] [facility] [place] Administration Protocol Cefepime HCl 1 gm in 50 mls @ 100 mls/hr 02/06/18 19:00 02/06/18 22:00 Maxipime Iv 1 Gm Premix IVPB 100 mls/hr Q24H [facility] Administration Protocol Lactulose 20 gm 02/04/18 18:53 Enulose PO DAILY PRN constipation Levothyroxine Sodium 200 mcg 02/05/18 06:30 02/07/18 09:04 Synthroid PO Not Given DAILY@0630 [facility] Losartan Potassium 100 mg 02/05/18 10:00 02/07/18 09:02 Cozaar PO Not Given DAILY [facility] Ztada-3-Uiag Ethyl Esters 2 gm 02/05/18 10:00 02/07/18 10:00 Lovaza PO Not Given BID [facility] Pantoprazole Sodium 40 mg 02/04/18 22:00 02/06/18 22:51 Protonix Ec Tab PO Not Given [facility] - Patient Studies Lab Studies: Microbiology Studies 02/06/18 10:43 Blood Culture - Preliminary Blood Staphylococcus Aureus Gram Stain - Final 02/06/18 10:43 S.aureus & Coag-Neg Staph PNA FISH - Final Blood Blood Culture - Preliminary Staphylococcus Aureus Gram Stain - Final Lab Studies 02/07/18 02/07/18 02/07/18 Range/Units 10:30 06:51 06:02 WBC (4.8-10.8) K/uL RBC (3.80-5.20) Mil/uL Hgb (11.0-16.0) g/dL Hct (34.0-47.0) % MCV (81.0-99.0) fL MCH (27.0-31.0) pg MCHC (33.0-37.0) g/dL RDW (11.5-14.5) % Plt Count (130-400) K/uL MPV (7.2-11.7) fL Neut % (Auto) (50.0-75.0) % Lymph % (Auto) (20.0-40.0) % [place] % (Auto) (0.0-10.0) % Eos % (Auto) (0.0-4.0) % Baso % (Auto) (0.0-2.0) % Neut # (Auto) (1.8-7.0) K/uL Lymph # (Auto) (1.0-4.3) K/uL [place] # (Auto) (0.0-0.8) K/uL Eos # (Auto) (0.0-0.7) K/uL Baso # (Auto) (0.0-0.2) K/uL Neutrophils % (Manual) (50-75) % Band Neutrophils % (0-2) % Lymphocytes % (Manual) (20-40) % Monocytes % (Manual) (0-10) % Metamyelocytes % (0-0) % Toxic Granulation Platelet Estimate (NORMAL) Large Platelets Polychromasia Hypochromasia (manual) Poikilocytosis (manual Anisocytosis (manual) Target Cells Ovalocytes Sodium 140 (132-148) mmol/L Potassium 4.0 (3.6-5.2) mmol/L Chloride 98 (98-107) mmol/L Carbon Dioxide 26 (22-30) mmol/L Anion Gap 20 (10-20) BUN 56 H (7-17) mg/dL Creatinine 5.7 H (0.7-1.2) mg/dL Est GFR ( Amer) 9 Est GFR (Non-Af Amer) 7 Random Glucose 124 H (65-105) mg/dL Calcium 8.8 (8.6-10.4) mg/dl Phosphorus 5.5 H (2.5-4.5) mg/dL Magnesium 2.5 H (1.6-2.3) mg/dL Total Bilirubin 2.2 H (0.2-1.3) mg/dL AST 38 H D (14-36) U/L ALT 25 (9-52) U/L Alkaline Phosphatase 246 H D (38-126) U/L Ammonia 15 (9-33) umol/L Total Protein 5.9 L (6.3-8.3) g/dL Albumin 2.4 L (3.5-5.0) g/dL Globulin 3.6 (2.2-3.9) gm/dL Albumin/Globulin Ratio 0.7 L (1.0-2.1) Valproic Acid (50.0-100.0) ug/mL Blood Type B POSITIVE Antibody Screen Positive Antibody Identification Anti E Antigen Identification E Antigen - NEGATIVE 02/07/18 02/06/18 Range/Units 05:59 17:24 WBC 12.2 H (4.8-10.8) K/uL RBC 2.35 L (3.80-5.20) Mil/uL Hgb 7.9 L (11.0-16.0) g/dL Hct 23.1 L (34.0-47.0) % MCV 98.5 (81.0-99.0) fL MCH 33.6 H (27.0-31.0) pg MCHC 34.1 (33.0-37.0) g/dL RDW 16.6 H (11.5-14.5) % Plt Count 37 L (130-400) K/uL MPV 11.0 (7.2-11.7) fL Neut % (Auto) 84.2 H (50.0-75.0) % Lymph % (Auto) 2.2 L (20.0-40.0) % [place] % (Auto) 10.1 H (0.0-10.0) % Eos % (Auto) 2.3 (0.0-4.0) % Baso % (Auto) 1.2 (0.0-2.0) % Neut # (Auto) 10.4 H (1.8-7.0) K/uL Lymph # (Auto) 0.2 L (1.0-4.3) K/uL [place] # (Auto) 1.3 H (0.0-0.8) K/uL Eos # (Auto) 0.3 (0.0-0.7) K/uL Baso # (Auto) 0.1 (0.0-0.2) K/uL Neutrophils % (Manual) 73 (50-75) % Band Neutrophils % 17 H* (0-2) % Lymphocytes % (Manual) 3 L (20-40) % Monocytes % (Manual) 6 (0-10) % Metamyelocytes % 1 H (0-0) % Toxic Granulation Present Platelet Estimate Markedly decreased L (NORMAL) Large Platelets Present Polychromasia Slight Hypochromasia (manual) Slight Poikilocytosis (manual Slight Anisocytosis (manual) Moderate Target Cells Slight Ovalocytes Slight Sodium (132-148) mmol/L Potassium (3.6-5.2) mmol/L Chloride (98-107) mmol/L Carbon Dioxide (22-30) mmol/L Anion Gap (10-20) BUN (7-17) mg/dL Creatinine (0.7-1.2) mg/dL Est GFR ( Amer) Est GFR (Non-Af Amer) Random Glucose (65-105) mg/dL Calcium (8.6-10.4) mg/dl Phosphorus (2.5-4.5) mg/dL Magnesium (1.6-2.3) mg/dL Total Bilirubin (0.2-1.3) mg/dL AST (14-36) U/L ALT (9-52) U/L Alkaline Phosphatase (38-126) U/L Ammonia (9-33) umol/L Total Protein (6.3-8.3) g/dL Albumin (3.5-5.0) g/dL Globulin (2.2-3.9) gm/dL Albumin/Globulin Ratio (1.0-2.1) Valproic Acid 16.2 L (50.0-100.0) ug/mL Blood Type Antibody Screen Antibody Identification Antigen Identification Laboratory Results - last 24 hr 02/06/18 02/07/18 02/07/18 17:24 05:59 06:02 WBC 12.2 H RBC 2.35 L Hgb 7.9 L Hct 23.1 L MCV 98.5 MCH 33.6 H MCHC 34.1 RDW 16.6 H Plt Count 37 L MPV 11.0 Neut % (Auto) 84.2 H Lymph % (Auto) 2.2 L [place] % (Auto) 10.1 H Eos % (Auto) 2.3 Baso % (Auto) 1.2 Neut # (Auto) 10.4 H Lymph # (Auto) 0.2 L [place] # (Auto) 1.3 H Eos # (Auto) 0.3 Baso # (Auto) 0.1 Neutrophils % (Manual) 73 Band Neutrophils % 17 H* Lymphocytes % (Manual) 3 L Monocytes % (Manual) 6 Metamyelocytes % 1 H Toxic Granulation Present Platelet Estimate Markedly decreased L Large Platelets Present Polychromasia Slight Hypochromasia (manual) Slight Poikilocytosis (manual Slight Anisocytosis (manual) Moderate Target Cells Slight Ovalocytes Slight Sodium 140 Potassium 4.0 Chloride 98 Carbon Dioxide 26 Anion Gap 20 BUN 56 H Creatinine 5.7 H Est GFR ( Amer) 9 Est GFR (Non-Af Amer) 7 Random Glucose 124 H Calcium 8.8 Phosphorus 5.5 H Magnesium 2.5 H Total Bilirubin 2.2 H AST 38 H D ALT 25 Alkaline Phosphatase 246 H D Ammonia Total Protein 5.9 L Albumin 2.4 L Globulin 3.6 Albumin/Globulin Ratio 0.7 L Valproic Acid 16.2 L Blood Type Antibody Screen Antibody Identification Antigen Identification 02/07/18 02/07/18 06:51 10:30 WBC RBC Hgb Hct MCV MCH MCHC RDW Plt Count MPV Neut % (Auto) Lymph % (Auto) [place] % (Auto) Eos % (Auto) Baso % (Auto) Neut # (Auto) Lymph # (Auto) [place] # (Auto) Eos # (Auto) Baso # (Auto) Neutrophils % (Manual) Band Neutrophils % Lymphocytes % (Manual) Monocytes % (Manual) Metamyelocytes % Toxic Granulation Platelet Estimate Large Platelets Polychromasia Hypochromasia (manual) Poikilocytosis (manual Anisocytosis (manual) Target Cells Ovalocytes Sodium Potassium Chloride Carbon Dioxide Anion Gap BUN Creatinine Est GFR ( Amer) Est GFR (Non-Af Amer) Random Glucose Calcium Phosphorus Magnesium Total Bilirubin AST ALT Alkaline Phosphatase Ammonia 15 Total Protein Albumin Globulin Albumin/Globulin Ratio Valproic Acid Blood Type B POSITIVE Antibody Screen Positive Antibody Identification Anti E Antigen Identification E Antigen - NEGATIVE Review of Systems - Review of Systems Systems not reviewed;Unavailable: Altered Mental Status - Constitutional Constitutional: absent: Chills Critical Care Progress Note - Nutrition Nutrition: Nutrition Category Date Time Status Pureed [Dysphagia/Modified Consistency Diet] [DIET] Diets 02/07/18 Dinner Active Assessment/Plan - Assessment and Plan (Free Text) Assessment: 72 y/o female with pmx of Dm, HTN, ESRD on HD, h/o osteomyelitits presents to [facility] with AMS. Patient is confused but arousable to verbal stimuli. Plan: Neuro A: AMS GCS: 11 Sedation: None Head CT (02/06): Shows chronic microvascular ischemic change, mild generalized volume loss. Punctate hypodensity in the left basal ganglia may represent a prominent perivascular space versus punctate lacunar infarct. Sinus mucosal disease. Consider MRI Brain MRI (02/05): Limited exam due to excessive motion artifacts throughout all sequences. No mass effect, intracranial hemorrhage or acute/subacute brain infarction identified. Age-related neuro degenerative findings are appreciated as discussed above. Repeat MRI is available as clinically required the patient is able to properly position. Repeat CT for today cancelled due to Agitation. Patient had rapid response when given 0.5 Ativan due to hypotenion. Will go for Head CT tomorrow. Cardio: A: HTN ECHO shows normal EF and Grade II pseudonormal relaxation pattern Cardiology on Consult, Recs Appreciated Continue Coreg 25 PO Q12H, ASA supp, Hyralazine, Losartain 100 Daily, Lovaza 2gm BID, Norvasc. Pulm: A: Hypoxic Res. failure Tolerating BIPAP DuoNeb Q6H GI: A: Constipation Colace, Lactulose Renal A: ESRD, Anemia, Hypothyroidism HD - MWF Cont. Procrit. ID A: Bacteremia (Staph Aureus) Cont. Vancomycin, Cefepime Endo: A: DM, Vitamin D Def. ISS, BGM q6H Ergocalciferol 50,000 IU Q7days. Cont. Levothyroxine 200mcg PO Proph Protonix Heparin Patient discussed with ICU Attending Leo Larson, PGY- 1 <Jake Morse - Last Filed: 02/07/18 18:30> CCU Objective - Vital Signs / Intake & Output Vital Signs (Last 4 hours): Vital Signs Pulse Resp BP Pulse Ox 02/07/18 18:10 62 22 99 02/07/18 18:00 67 18 93 L 02/07/18 17:57 69 17 113/58 L 02/07/18 17:50 69 14 02/07/18 17:40 61 23 100 02/07/18 17:30 65 22 97 02/07/18 17:20 64 20 100 02/07/18 17:10 66 15 02/07/18 17:00 66 20 02/07/18 16:54 62 31 H 108/33 L 100 02/07/18 16:50 62 30 H 97 02/07/18 16:49 63 33 H 97 02/07/18 16:30 66 12 02/07/18 16:28 96/36 L 02/07/18 16:25 75 18 02/07/18 16:12 65 22 02/07/18 16:00 60 27 H 100 02/07/18 15:56 59 L 32 H 96/36 L 100 02/07/18 15:50 60 22 100 02/07/18 15:42 59 L 29 H 100 Intake and Output (Last 8hrs): Intake & Output 02/07/18 02/07/18 02/07/18 06:59 14:59 22:59 Intake Total 0 325 130 Output Total 0 0 Balance 0 325 130 Intake: Intake, IV Amount 0 25 10 Right Forearm 0 15 Right Hand 10 10 Oral 300 120 Output: Urine 0 0 Urine, Voided 0 0 Other: # Bowel Movements 1 1 - Medications Active Medications: Active Medications Generic Name Dose Route Start Last Admin Trade Name Freq PRN Reason Stop Dose Admin Acetaminophen 650 mg 02/05/18 12:44 02/05/18 16:18 Tylenol 325mg Tab PO 650 mg Q6 PRN Administration Pain, moderate (4-7) Albuterol/Ipratropium 3 ml 02/06/18 20:00 02/07/18 13:41 Duoneb 3 Mg/0.5 Mg (3 Ml) Ud INH 3 ml RQ6 [facility] Administration Amlodipine Besylate 10 mg 02/05/18 10:00 02/07/18 11:44 Norvasc PO Not Given DAILY [facility] Aspirin 300 mg 02/06/18 10:00 02/07/18 09:01 Aspirin Supp [place] Not Given DAILY [facility] Bacitracin 0 gm 02/05/18 10:00 02/07/18 10:20 Bacitracin TOP 1 applic DAILY [facility] Administration Benzocaine/Menthol 1 naomi 02/04/18 18:53 Cepacol Sore Throat PO Q2 PRN Sore Throat Carvedilol 25 mg 02/04/18 22:00 02/07/18 10:00 Coreg PO Not Given Q12 [facility] Docusate Sodium 100 mg 02/05/18 10:00 02/07/18 09:02 Colace PO Not Given DAILY [facility] Epoetin Yvon 10,000 unit 02/05/18 09:00 02/07/18 11:40 Procrit IV 10,000 unit [place] [facility] [place] Administration Ergocalciferol 1 cap 02/04/18 19:00 Drisdol 50,000 Intl Units Cap PO QD7 [facility] Heparin Sodium (Porcine) 5,000 units 02/06/18 10:00 02/07/18 09:02 Heparin SC Not Given Q12H [facility] Hydralazine HCl 50 mg 02/05/18 10:00 02/07/18 09:01 Apresoline PO Not Given TID [facility] Vancomycin/Sodium Chloride 1 gm in 200 mls @ 133 mls/hr 02/07/18 09:00 09:00 Vancomycin 1 Gm/Ns 200 Ml IVPB 02/12/18 09:01 133 mls/hr F [facility] Administration Protocol Cefepime HCl 1 gm in 50 mls @ 100 mls/hr 02/06/18 19:00 02/06/18 22:00 Maxipime Iv 1 Gm Premix IVPB 100 mls/hr Q24H [facility] Administration Protocol Lactulose 20 gm 02/04/18 18:53 Enulose PO DAILY PRN constipation Levothyroxine Sodium 200 mcg 02/05/18 06:30 02/07/18 09:04 Synthroid PO Not Given DAILY@0630 [facility] Losartan Potassium 100 mg 02/05/18 10:00 02/07/18 09:02 Cozaar PO Not Given DAILY [facility] Gjsrk-[id number] Ethyl Esters 2 gm 02/05/18 10:00 02/07/18 10:00 Lovaza PO Not Given BID [facility] Pantoprazole Sodium 40 mg 02/04/18 22:00 02/06/18 22:51 Protonix Ec Tab PO Not Given HS [facility] - Patient Studies Lab Studies: Microbiology Studies 02/06/18 10:43 Blood Culture - Preliminary Blood Staphylococcus Aureus Gram Stain - Final 02/06/18 10:43 S.aureus & Coag-Neg Staph PNA FISH - Final Blood Blood Culture - Preliminary Staphylococcus Aureus Gram Stain - Final Lab Studies 02/07/18 02/07/18 02/07/18 Range/Units 10:30 06:51 06:02 WBC (4.8-10.8) K/uL RBC (3.80-5.20) Mil/uL Hgb (11.0-16.0) g/dL Hct (34.0-47.0) % MCV (81.0-99.0) fL MCH (27.0-31.0) pg MCHC (33.0-37.0) g/dL RDW (11.5-14.5) % Plt Count (130-400) K/uL MPV (7.2-11.7) fL Neut % (Auto) (50.0-75.0) % Lymph % (Auto) (20.0-40.0) % [place] % (Auto) (0.0-10.0) % Eos % (Auto) (0.0-4.0) % Baso % (Auto) (0.0-2.0) % Neut # (Auto) (1.8-7.0) K/uL Lymph # (Auto) (1.0-4.3) K/uL [place] # (Auto) (0.0-0.8) K/uL Eos # (Auto) (0.0-0.7) K/uL Baso # (Auto) (0.0-0.2) K/uL Neutrophils % (Manual) (50-75) % Band Neutrophils % (0-2) % Lymphocytes % (Manual) (20-40) % Monocytes % (Manual) (0-10) % Metamyelocytes % (0-0) % Toxic Granulation Platelet Estimate (NORMAL) Large Platelets Polychromasia Hypochromasia (manual) Poikilocytosis (manual Anisocytosis (manual) Target Cells Ovalocytes Sodium 140 (132-148) mmol/L Potassium 4.0 (3.6-5.2) mmol/L Chloride 98 (98-107) mmol/L Carbon Dioxide 26 (22-30) mmol/L Anion Gap 20 (10-20) BUN 56 H (7-17) mg/dL Creatinine 5.7 H (0.7-1.2) mg/dL Est GFR ( Amer) 9 Est GFR (Non-Af Amer) 7 Random Glucose 124 H (65-105) mg/dL Calcium 8.8 (8.6-10.4) mg/dl Phosphorus 5.5 H (2.5-4.5) mg/dL Magnesium 2.5 H (1.6-2.3) mg/dL Total Bilirubin 2.2 H (0.2-1.3) mg/dL AST 38 H D (14-36) U/L ALT 25 (9-52) U/L Alkaline Phosphatase 246 H D (38-126) U/L Ammonia 15 (9-33) umol/L Total Protein 5.9 L (6.3-8.3) g/dL Albumin 2.4 L (3.5-5.0) g/dL Globulin 3.6 (2.2-3.9) gm/dL Albumin/Globulin Ratio 0.7 L (1.0-2.1) Blood Type B POSITIVE Antibody Screen Positive Antibody Identification Anti E Antigen Identification E Antigen - NEGATIVE 02/07/18 Range/Units 05:59 WBC 12.2 H (4.8-10.8) K/uL RBC 2.35 L (3.80-5.20) Mil/uL Hgb 7.9 L (11.0-16.0) g/dL Hct 23.1 L (34.0-47.0) % MCV 98.5 (81.0-99.0) fL MCH 33.6 H (27.0-31.0) pg MCHC 34.1 (33.0-37.0) g/dL RDW 16.6 H (11.5-14.5) % Plt Count 37 L (130-400) K/uL MPV 11.0 (7.2-11.7) fL Neut % (Auto) 84.2 H (50.0-75.0) % Lymph % (Auto) 2.2 L (20.0-40.0) % [place] % (Auto) 10.1 H (0.0-10.0) % Eos % (Auto) 2.3 (0.0-4.0) % Baso % (Auto) 1.2 (0.0-2.0) % Neut # (Auto) 10.4 H (1.8-7.0) K/uL Lymph # (Auto) 0.2 L (1.0-4.3) K/uL [place] # (Auto) 1.3 H (0.0-0.8) K/uL Eos # (Auto) 0.3 (0.0-0.7) K/uL Baso # (Auto) 0.1 (0.0-0.2) K/uL Neutrophils % (Manual) 73 (50-75) % Band Neutrophils % 17 H* (0-2) % Lymphocytes % (Manual) 3 L (20-40) % Monocytes % (Manual) 6 (0-10) % Metamyelocytes % 1 H (0-0) % Toxic Granulation Present Platelet Estimate Markedly decreased L (NORMAL) Large Platelets Present Polychromasia Slight Hypochromasia (manual) Slight Poikilocytosis (manual Slight Anisocytosis (manual) Moderate Target Cells Slight Ovalocytes Slight Sodium (132-148) mmol/L Potassium (3.6-5.2) mmol/L Chloride (98-107) mmol/L Carbon Dioxide (22-30) mmol/L Anion Gap (10-20) BUN (7-17) mg/dL Creatinine (0.7-1.2) mg/dL Est GFR ( Amer) Est GFR (Non-Af Amer) Random Glucose (65-105) mg/dL Calcium (8.6-10.4) mg/dl Phosphorus (2.5-4.5) mg/dL Magnesium (1.6-2.3) mg/dL Total Bilirubin (0.2-1.3) mg/dL AST (14-36) U/L ALT (9-52) U/L Alkaline Phosphatase (38-126) U/L Ammonia (9-33) umol/L Total Protein (6.3-8.3) g/dL Albumin (3.5-5.0) g/dL Globulin (2.2-3.9) gm/dL Albumin/Globulin Ratio (1.0-2.1) Blood Type Antibody Screen Antibody Identification Antigen Identification Laboratory Results - last 24 hr 02/07/18 02/07/18 02/07/18 05:59 06:02 06:51 WBC 12.2 H RBC 2.35 L Hgb 7.9 L Hct 23.1 L MCV 98.5 MCH 33.6 H MCHC 34.1 RDW 16.6 H Plt Count 37 L MPV 11.0 Neut % (Auto) 84.2 H Lymph % (Auto) 2.2 L [place] % (Auto) 10.1 H Eos % (Auto) 2.3 Baso % (Auto) 1.2 Neut # (Auto) 10.4 H Lymph # (Auto) 0.2 L [place] # (Auto) 1.3 H Eos # (Auto) 0.3 Baso # (Auto) 0.1 Neutrophils % (Manual) 73 Band Neutrophils % 17 H* Lymphocytes % (Manual) 3 L Monocytes % (Manual) 6 Metamyelocytes % 1 H Toxic Granulation Present Platelet Estimate Markedly decreased L Large Platelets Present Polychromasia Slight Hypochromasia (manual) Slight Poikilocytosis (manual Slight Anisocytosis (manual) Moderate Target Cells Slight Ovalocytes Slight Sodium 140 Potassium 4.0 Chloride 98 Carbon Dioxide 26 Anion Gap 20 BUN 56 H Creatinine 5.7 H Est GFR ( Amer) 9 Est GFR (Non-Af Amer) 7 Random Glucose 124 H Calcium 8.8 Phosphorus 5.5 H Magnesium 2.5 H Total Bilirubin 2.2 H AST 38 H D ALT 25 Alkaline Phosphatase 246 H D Ammonia 15 Total Protein 5.9 L Albumin 2.4 L Globulin 3.6 Albumin/Globulin Ratio 0.7 L Blood Type Antibody Screen Antibody Identification Antigen Identification 02/07/18 10:30 WBC RBC Hgb Hct MCV MCH MCHC RDW Plt Count MPV Neut % (Auto) Lymph % (Auto) [place] % (Auto) Eos % (Auto) Baso % (Auto) Neut # (Auto) Lymph # (Auto) [place] # (Auto) Eos # (Auto) Baso # (Auto) Neutrophils % (Manual) Band Neutrophils % Lymphocytes % (Manual) Monocytes % (Manual) Metamyelocytes % Toxic Granulation Platelet Estimate Large Platelets Polychromasia Hypochromasia (manual) Poikilocytosis (manual Anisocytosis (manual) Target Cells Ovalocytes Sodium Potassium Chloride Carbon Dioxide Anion Gap BUN Creatinine Est GFR ( Amer) Est GFR (Non-Af Amer) Random Glucose Calcium Phosphorus Magnesium Total Bilirubin AST ALT Alkaline Phosphatase Ammonia Total Protein Albumin Globulin Albumin/Globulin Ratio Blood Type B POSITIVE Antibody Screen Positive Antibody Identification Anti E Antigen Identification E Antigen - NEGATIVE Assessment/Plan (1) Dyspnea Current Visit: Yes Status: Acute (2) Altered mental status Current Visit: Yes Status: Acute (3) ESRD (end stage renal disease) on dialysis Current Visit: Yes Status: Acute Attending/Attestation - Attestation I have personally seen and examined this patient.: Yes I have fully participated in the care of the patient.: Yes I have reviewed all pertinent clinical information: Yes Notes (Text): 02/07/18 18:26 patient seen and examined in the intensive care unit. Postdialysis patient became more short of breath and placed on BiPAP patient is confused and open eyes to stimuli Repeat CT of head in the a.m. Continue ICU observation Blood culture positive for gram-positive cocci/staph aureus catheter related blood stream infection and change dialysis catheter continue IV antibiotics
--- NOTE | 2018-02-07 18:46 | CP.PCM.PN ---
Subjective - Date & Time of Evaluation Date of Evaluation: 02/07/18 Time of Evaluation: 18:30 - Subjective Subjective: more awake today. on BiPAP. Objective - Vital Signs/Intake and Output Vital Signs (last 24 hours): Temp Pulse Resp BP Pulse Ox 96.1 F L 62 22 113/58 L 99 02/07/18 11:30 02/07/18 18:10 02/07/18 18:10 02/07/18 17:57 02/07/18 18:10 Intake and Output: 02/07/18 02/07/18 06:59 18:59 Intake Total 50 455 Output Total 0 0 Balance 50 455 - Medications Medications: Current Medications Acetaminophen (Tylenol 325mg Tab) 650 mg PO Q6 PRN PRN Reason: Pain, moderate (4-7) Last Admin: 02/05/18 16:18 Dose: 650 mg Albuterol/Ipratropium (Duoneb 3 Mg/0.5 Mg (3 Ml) Ud) 3 ml INH RQ6 [facility] Last Admin: 02/07/18 13:41 Dose: 3 ml Amlodipine Besylate (Norvasc) 10 mg PO DAILY [facility] Last Admin: 02/07/18 11:44 Dose: Not Given Aspirin (Aspirin Supp) 300 mg [place] DAILY [facility] Last Admin: 02/07/18 09:01 Dose: Not Given Bacitracin (Bacitracin) 0 gm TOP DAILY [facility] Last Admin: 02/07/18 10:20 Dose: 1 applic Benzocaine/Menthol (Cepacol Sore Throat) 1 naomi PO Q2 PRN PRN Reason: Sore Throat Carvedilol (Coreg) 25 mg PO Q12 [facility] Last Admin: 02/07/18 10:00 Dose: Not Given Docusate Sodium (Colace) 100 mg PO DAILY [facility] Last Admin: 02/07/18 09:02 Dose: Not Given Epoetin Yvon (Procrit) 10,000 unit IV MWF [facility] Last Admin: 02/07/18 11:40 Dose: 10,000 unit Ergocalciferol (Drisdol 50,000 Intl Units Cap) 1 cap PO QD7 [facility] Heparin Sodium (Porcine) (Heparin) 5,000 units SC Q12H [facility] Last Admin: 02/07/18 09:02 Dose: Not Given Hydralazine HCl (Apresoline) 50 mg PO TID [facility] Last Admin: 02/07/18 18:40 Dose: Not Given Vancomycin/Sodium Chloride (Vancomycin 1 Gm/Ns 200 Ml) 1 gm in 200 mls @ 133 mls/hr IVPB MWF [facility] PRN Reason: Protocol Stop: 02/12/18 09:01 Last Admin: 02/07/18 09:00 Dose: 133 mls/hr Cefepime HCl (Maxipime Iv 1 Gm Premix) 1 gm in 50 mls @ 100 mls/hr IVPB Q24H [facility] PRN Reason: Protocol Last Admin: 02/06/18 22:00 Dose: 100 mls/hr Lactulose (Enulose) 20 gm PO DAILY PRN PRN Reason: constipation Levothyroxine Sodium (Synthroid) 200 mcg PO DAILY@0630 [facility] Last Admin: 02/07/18 09:04 Dose: Not Given Losartan Potassium (Cozaar) 100 mg PO DAILY [facility] Last Admin: 02/07/18 09:02 Dose: Not Given Nsbhw-[id number] Ethyl Esters (Lovaza) 2 gm PO BID [facility] Last Admin: 02/07/18 18:41 Dose: Not Given Pantoprazole Sodium (Protonix Ec Tab) 40 mg PO HS [facility] Last Admin: 02/06/18 22:51 Dose: Not Given - Labs Labs: 02/07/18 05:59 02/07/18 06:02 PT 14.1 SECONDS (9.7-12.2) H 02/04/18 15:52 INR 1.3 02/04/18 15:52 APTT 34 SECONDS (21-34) 02/04/18 15:52 - Constitutional Appears: Non-toxic - Head Exam Head Exam: NORMAL INSPECTION - Eye Exam Eye Exam: Normal appearance - ENT Exam ENT Exam: Mucous Membranes Moist - Neck Exam Neck Exam: Normal Inspection - Respiratory Exam Respiratory Exam: NORMAL BREATHING PATTERN - Cardiovascular Exam Cardiovascular Exam: REGULAR RHYTHM - GI/Abdominal Exam GI & Abdominal Exam: Normal Bowel Sounds - Rectal Exam Rectal Exam: absent: Deferred - Extremities Exam Extremities Exam: absent: Pedal Edema - Back Exam Back Exam: NORMAL INSPECTION - Neurological Exam Neurological Exam: Alert - Psychiatric Exam Psychiatric exam: Normal Affect - Skin Skin Exam: Normal Color Assessment and Plan (1) Altered mental status Assessment & Plan: unclear etiology. echocardiogram reveasl perserved LV function. will continue medical therapy Status: Acute
[2018-02-07] MEDS: Cefepime IV 1 gm in Dextrose 1 GM/50 ML BAG IVPB SCH (18:47)
[2018-02-07] MEDS: Pantoprazole 40 mg EC Tab PO SCH (21:04)
--- NOTE | 2018-02-07 21:27 | CP.PCM.PN ---
Subjective - Date & Time of Evaluation Date of Evaluation: 02/07/18 Time of Evaluation: 09:00 - Subjective Subjective: sepsis with Staph in blood source unclear may need LUIZ cont iv antibiotics if OK with Dr Yeison golden Objective - Vital Signs/Intake and Output Vital Signs (last 24 hours): Temp Pulse Resp BP Pulse Ox 96.1 F L 67 13 96/56 L 96 02/07/18 11:30 02/07/18 19:57 02/07/18 19:57 02/07/18 19:57 02/07/18 19:57 Intake and Output: 02/07/18 02/08/18 18:59 06:59 Intake Total 455 Output Total 0 Balance 455 - Medications Medications: Current Medications Acetaminophen (Tylenol 325mg Tab) 650 mg PO Q6 PRN PRN Reason: Pain, moderate (4-7) Last Admin: 02/05/18 16:18 Dose: 650 mg Albuterol/Ipratropium (Duoneb 3 Mg/0.5 Mg (3 Ml) Ud) 3 ml INH RQ6 [facility] Last Admin: 02/07/18 19:49 Dose: 3 ml Amlodipine Besylate (Norvasc) 10 mg PO DAILY [facility] Last Admin: 02/07/18 11:44 Dose: Not Given Aspirin (Aspirin Supp) [address] DAILY [facility] Last Admin: 02/07/18 09:01 Dose: Not Given Bacitracin (Bacitracin) 0 gm TOP DAILY [facility] Last Admin: 02/07/18 10:20 Dose: 1 applic Benzocaine/Menthol (Cepacol Sore Throat) 1 naomi PO Q2 PRN PRN Reason: Sore Throat Carvedilol (Coreg) 25 mg PO Q12 [facility] Last Admin: 02/07/18 21:03 Dose: Not Given Docusate Sodium (Colace) 100 mg PO DAILY [facility] Last Admin: 02/07/18 09:02 Dose: Not Given Epoetin Yvon (Procrit) 10,000 unit IV MWF [facility] Last Admin: 02/07/18 11:40 Dose: 10,000 unit Ergocalciferol (Drisdol 50,000 Intl Units Cap) 1 cap PO QD7 [facility] Heparin Sodium (Porcine) (Heparin) 5,000 units SC Q12H [facility] Last Admin: 02/07/18 21:03 Dose: Not Given Hydralazine HCl (Apresoline) 50 mg PO TID [facility] Last Admin: 02/07/18 18:40 Dose: Not Given Vancomycin/Sodium Chloride (Vancomycin 1 Gm/Ns 200 Ml) 1 gm in 200 mls @ 133 mls/hr IVPB MWF [facility] PRN Reason: Protocol Stop: 02/12/18 09:01 Last Admin: 02/07/18 09:00 Dose: 133 mls/hr Cefepime HCl (Maxipime Iv 1 Gm Premix) 1 gm in 50 mls @ 100 mls/hr IVPB Q24H [facility] PRN Reason: Protocol Last Admin: 02/07/18 18:47 Dose: 100 mls/hr Lactulose (Enulose) 20 gm PO DAILY PRN PRN Reason: constipation Levothyroxine Sodium (Synthroid) 200 mcg PO DAILY@0630 [facility] Last Admin: 02/07/18 09:04 Dose: Not Given Losartan Potassium (Cozaar) 100 mg PO DAILY [facility] Last Admin: 02/07/18 09:02 Dose: Not Given Gephz-0-Flvp Ethyl Esters (Lovaza) 2 gm PO BID [facility] Last Admin: 02/07/18 18:41 Dose: Not Given Pantoprazole Sodium (Protonix Ec Tab) 40 mg PO HS [facility] Last Admin: 02/07/18 21:04 Dose: Not Given - Labs Labs: 02/07/18 05:59 02/07/18 06:02 PT 14.1 SECONDS (9.7-12.2) H 02/04/18 15:52 INR 1.3 02/04/18 15:52 APTT 34 SECONDS (21-34) 02/04/18 15:52 - Constitutional Appears: Confused, Chronically Ill - Head Exam Head Exam: NORMOCEPHALIC - Eye Exam Eye Exam: PERRL. absent: Scleral icterus - ENT Exam ENT Exam: Mucous Membranes Dry - Neck Exam Neck Exam: absent: Lymphadenopathy - Respiratory Exam Respiratory Exam: Decreased Breath Sounds - Cardiovascular Exam Cardiovascular Exam: REGULAR RHYTHM - GI/Abdominal Exam GI & Abdominal Exam: Distended, Soft - Rectal Exam Rectal Exam: Deferred - Exam Exam: NORMAL INSPECTION - Extremities Exam Extremities Exam: Pedal Edema - Back Exam Back Exam: absent: CVA tenderness (L), CVA tenderness (R) Assessment and Plan (1) Sepsis Status: Acute (2) Sepsis Status: Acute (3) ESRD (end stage renal disease) on dialysis Status: Acute - Assessment and Plan (Free Text) Assessment: cont iv rx follow up cultures Consider LUIZ
[2018-02-07] MEDS: Piperacill/Tazo 2.25gm in Dex 2.25 GM/50 ML BAG IVPB SCH (22:22)
[2018-02-08] MEDS: Albuterol-Ipratrop 3 mg / 0.5 (3 ml) UD INH SCH ×4 (01:35→19:50)
[2018-02-08] MEDS: Piperacill/Tazo 2.25gm in Dex 2.25 GM/50 ML BAG IVPB SCH ×3 (05:30→21:43)
[2018-02-08] MEDS: Levothyroxine 200 MCG TAB PO SCH (06:30)
[2018-02-08 07:18] LABS: HEMOGLOBIN 7.4 g/dL (11.0-16.0); MEAN CELL VOLUME 101.3 fL (81.0-99.0); MEAN CORPUSCULAR HEMOGLOBIN 33.5 pg (27.0-31.0); MEAN PLATELET VOLUME 12.5 fL (7.2-11.7); PLATELET COUNT 38 K/uL (130-400); RBC 2.21 Mil/uL (3.80-5.20); RED CELL DISTRIBUTION WIDTH 17.3 % (11.5-14.5); WHITE BLOOD COUNT 11.1 K/uL (4.8-10.8)
--- NOTE | 2018-02-08 07:26 | CP.PCM.PN ---
Subjective - Date & Time of Evaluation Date of Evaluation: 02/08/18 Time of Evaluation: 07:00 - Subjective Subjective: remains on BiPAP. not communicating. Objective - Vital Signs/Intake and Output Vital Signs (last 24 hours): Temp Pulse Resp BP Pulse Ox 96.1 F L 57 L 34 H 106/37 L 97 02/07/18 11:30 02/08/18 06:07 02/08/18 03:11 02/08/18 03:11 02/08/18 03:11 Intake and Output: 02/08/18 02/08/18 06:59 18:59 Intake Total 160 Balance 160 - Medications Medications: Current Medications Acetaminophen (Tylenol 325mg Tab) 650 mg PO Q6 PRN PRN Reason: Pain, moderate (4-7) Last Admin: 02/05/18 16:18 Dose: 650 mg Albuterol/Ipratropium (Duoneb 3 Mg/0.5 Mg (3 Ml) Ud) 3 ml INH RQ6 [facility] Last Admin: 02/08/18 01:35 Dose: 3 ml Amlodipine Besylate (Norvasc) 10 mg PO DAILY [facility] Last Admin: 02/07/18 11:44 Dose: Not Given Aspirin (Aspirin Supp) 300 mg [place] DAILY [facility] Last Admin: 02/07/18 09:01 Dose: Not Given Bacitracin (Bacitracin) 0 gm TOP DAILY [facility] Last Admin: 02/07/18 10:20 Dose: 1 applic Benzocaine/Menthol (Cepacol Sore Throat) 1 naomi PO Q2 PRN PRN Reason: Sore Throat Carvedilol (Coreg) 25 mg PO Q12 [facility] Last Admin: 02/07/18 21:03 Dose: Not Given Docusate Sodium (Colace) 100 mg PO DAILY [facility] Last Admin: 02/07/18 09:02 Dose: Not Given Epoetin Yvon (Procrit) 10,000 unit IV MWF [facility] Last Admin: 02/07/18 11:40 Dose: 10,000 unit Ergocalciferol (Drisdol 50,000 Intl Units Cap) 1 cap PO QD7 [facility] Heparin Sodium (Porcine) (Heparin) 5,000 units SC Q12H [facility] Last Admin: 02/07/18 21:03 Dose: Not Given Hydralazine HCl (Apresoline) 50 mg PO TID [facility] Last Admin: 02/07/18 18:40 Dose: Not Given Vancomycin/Sodium Chloride (Vancomycin 1 Gm/Ns 200 Ml) 1 gm in 200 mls @ 133 mls/hr IVPB MWF [facility] PRN Reason: Protocol Stop: 02/12/18 09:01 Last Admin: 02/07/18 09:00 Dose: 133 mls/hr Piperacillin Sod/Tazobactam Sod (Zosyn 2.25 Gm Iv Premix) 2.25 gm in 50 mls @ 100 mls/hr IVPB Q8H [facility] PRN Reason: Protocol Last Admin: 02/07/18 22:22 Dose: 100 mls/hr Lactulose (Enulose) 20 gm PO DAILY PRN PRN Reason: constipation Levothyroxine Sodium (Synthroid) 200 mcg PO DAILY@0630 [facility] Last Admin: 02/07/18 09:04 Dose: Not Given Losartan Potassium (Cozaar) 100 mg PO DAILY [facility] Last Admin: 02/07/18 09:02 Dose: Not Given Paiek-3-Tyng Ethyl Esters (Lovaza) 2 gm PO BID [facility] Last Admin: 02/07/18 18:41 Dose: Not Given Pantoprazole Sodium (Protonix Ec Tab) 40 mg PO HS [facility] Last Admin: 02/07/18 21:04 Dose: Not Given - Labs Labs: 02/07/18 05:59 02/07/18 06:02 PT 14.1 SECONDS (9.7-12.2) H 02/04/18 15:52 INR 1.3 02/04/18 15:52 APTT 34 SECONDS (21-34) 02/04/18 15:52 - Constitutional Appears: Toxic - Head Exam Head Exam: NORMAL INSPECTION - Eye Exam Eye Exam: Normal appearance - ENT Exam ENT Exam: Mucous Membranes Dry - Neck Exam Neck Exam: Normal Inspection - Respiratory Exam Respiratory Exam: Decreased Breath Sounds - Cardiovascular Exam Cardiovascular Exam: REGULAR RHYTHM - GI/Abdominal Exam GI & Abdominal Exam: Normal Bowel Sounds - Rectal Exam Rectal Exam: Deferred - Extremities Exam Extremities Exam: Pedal Edema - Back Exam Back Exam: NORMAL INSPECTION - Skin Skin Exam: Normal Color Assessment and Plan (1) Altered mental status Assessment & Plan: unclear etiology Status: Acute (2) Sepsis Assessment & Plan: staph aureus in the blood. will follow culture. Dr sanders's note seen will await improvement in respiratory status. repeat blood culture Status: Acute
[2018-02-08 07:32] LABS: ALB/GLOB RATIO 0.6 (1.0-2.1); ALBUMIN 2.4 g/dL (3.5-5.0)
[2018-02-08] MEDS: Bacitracin Ointment 30 GM TUBE TOP SCH (10:30)
[2018-02-08 10:36] LABS: LYMPH # 0.4 K/uL (1.0-4.3); MONO # 0.4 K/uL (0.0-0.8)
[2018-02-08 10:38] LABS: ANISOCYTOSIS SLIGHT; LYMPHOCYTE 4 % (20-40); MONOCYTE 5 % (0-10); NEUTROPHIL 91 % (50-75); PLATELET ESTIMATE DECREASED (NORMAL); TOTAL CELLS COUNTED 100
[2018-02-08 10:39] LABS: HYPOCHROMIC SLIGHT; POLYCHROMIC SLIGHT; TARGET CELLS SLIGHT
[2018-02-08] MEDS: Omega-3-Acid Ethyl Esters 1 GM Cap PO SCH ×2 (11:01→17:05)
--- NOTE | 2018-02-08 11:41 | CP.PCM.PN ---
Subjective - Date & Time of Evaluation Date of Evaluation: 02/08/18 Time of Evaluation: 13:20 - Subjective Subjective: clinically same Objective - Vital Signs/Intake and Output Vital Signs (last 24 hours): Temp Pulse Resp BP Pulse Ox 97.0 F L 52 L 21 101/26 L 99 02/08/18 07:00 02/08/18 08:24 02/08/18 08:24 02/08/18 08:24 02/08/18 08:24 Intake and Output: 02/08/18 02/08/18 06:59 18:59 Intake Total 210 0 Output Total 0 Balance 210 0 - Medications Medications: Current Medications Acetaminophen (Tylenol 325mg Tab) 650 mg PO Q6 PRN PRN Reason: Pain, moderate (4-7) Last Admin: 02/05/18 16:18 Dose: 650 mg Albuterol/Ipratropium (Duoneb 3 Mg/0.5 Mg (3 Ml) Ud) 3 ml INH RQ6 [facility] Last Admin: 02/08/18 08:12 Dose: 3 ml Amlodipine Besylate (Norvasc) 10 mg PO DAILY [facility] Last Admin: 02/08/18 11:01 Dose: Not Given Aspirin (Aspirin Supp) 300 mg [place] DAILY [facility] Last Admin: 02/08/18 10:50 Dose: 300 mg Bacitracin (Bacitracin) 0 gm TOP DAILY [facility] Last Admin: 02/08/18 10:30 Dose: 1 applic Benzocaine/Menthol (Cepacol Sore Throat) 1 naomi PO Q2 PRN PRN Reason: Sore Throat Carvedilol (Coreg) 25 mg PO Q12 [facility] Last Admin: 02/08/18 11:00 Dose: Not Given Docusate Sodium (Colace) 100 mg PO DAILY [facility] Last Admin: 02/08/18 11:00 Dose: Not Given Epoetin Yvon (Procrit) 10,000 unit IV MWF [facility] Last Admin: 02/07/18 11:40 Dose: 10,000 unit Ergocalciferol (Drisdol 50,000 Intl Units Cap) 1 cap PO QD7 [facility] Heparin Sodium (Porcine) (Heparin) 5,000 units SC Q12H [facility] Last Admin: 02/08/18 11:01 Dose: Not Given Hydralazine HCl (Apresoline) 50 mg PO TID [facility] Last Admin: 02/08/18 11:00 Dose: Not Given Vancomycin/Sodium Chloride (Vancomycin 1 Gm/Ns 200 Ml) 1 gm in 200 mls @ 133 mls/hr IVPB MWF [facility] PRN Reason: Protocol Stop: 02/12/18 09:01 Last Admin: 02/07/18 09:00 Dose: 133 mls/hr Piperacillin Sod/Tazobactam Sod (Zosyn 2.25 Gm Iv Premix) 2.25 gm in 50 mls @ 100 mls/hr IVPB Q8H [facility] PRN Reason: Protocol Last Admin: 02/08/18 05:30 Dose: 100 mls/hr Multivitamins/Vitamin C 10 ml/ (Amino Acids) 1,010 mls @ 42 mls/hr IV .Q24H [facility] Stop: 02/09/18 17:59 Lactulose (Enulose) 20 gm PO DAILY PRN PRN Reason: constipation Levothyroxine Sodium (Synthroid) 200 mcg PO DAILY@0630 [facility] Last Admin: 02/08/18 06:30 Dose: Not Given Losartan Potassium (Cozaar) 100 mg PO DAILY [facility] Last Admin: 02/08/18 11:00 Dose: Not Given Jsyfk-5-Yrym Ethyl Esters (Lovaza) 2 gm PO BID [facility] Last Admin: 02/08/18 11:01 Dose: Not Given Pantoprazole Sodium (Protonix Ec Tab) 40 mg PO HS [facility] Last Admin: 02/07/18 21:04 Dose: Not Given - Labs Labs: 02/08/18 07:04 02/08/18 07:01 PT 14.1 SECONDS (9.7-12.2) H 02/04/18 15:52 INR 1.3 02/04/18 15:52 APTT 34 SECONDS (21-34) 02/04/18 15:52 - Constitutional Appears: Well - Head Exam Head Exam: ATRAUMATIC, NORMAL INSPECTION, NORMOCEPHALIC - Eye Exam Eye Exam: EOMI, Normal appearance, PERRL Pupil Exam: NORMAL ACCOMODATION, PERRL - ENT Exam ENT Exam: Mucous Membranes Moist, Normal Exam - Neck Exam Neck Exam: Full ROM, Normal Inspection. absent: Lymphadenopathy - Respiratory Exam Respiratory Exam: Decreased Breath Sounds - Cardiovascular Exam Cardiovascular Exam: REGULAR RHYTHM, +S1, +S2 - GI/Abdominal Exam GI & Abdominal Exam: Soft, Diminished Bowel Sounds - Rectal Exam Rectal Exam: Deferred Assessment and Plan (1) Altered mental status Status: Acute (2) ESRD (end stage renal disease) on dialysis Status: Acute (3) Gastritis Status: Acute (4) Musculoskeletal pain Status: Acute (5) Rib contusion Status: Acute (6) Toxic metabolic encephalopathy Status: Acute
--- NOTE | 2018-02-08 13:09 | CP.PCM.PN ---
Subjective - Date & Time of Evaluation Date of Evaluation: 02/08/18 Time of Evaluation: 10:45 - Subjective Subjective: the patient seen and examined Remains on BiPAP Lethargic Open eyes to stimuli Afebrile Being treated for staph bacteremia Objective - Vital Signs/Intake and Output Vital Signs (last 24 hours): Temp Pulse Resp BP Pulse Ox 97.0 F L 68 21 101/26 L 99 02/08/18 07:00 02/08/18 11:46 02/08/18 08:24 02/08/18 08:24 02/08/18 08:24 Intake and Output: 02/08/18 02/08/18 06:59 18:59 Intake Total 210 0 Output Total 0 Balance 210 0 - Medications Medications: Current Medications Acetaminophen (Tylenol 325mg Tab) 650 mg PO Q6 PRN PRN Reason: Pain, moderate (4-7) Last Admin: 02/05/18 16:18 Dose: 650 mg Albuterol/Ipratropium (Duoneb 3 Mg/0.5 Mg (3 Ml) Ud) 3 ml INH RQ6 [facility] Last Admin: 02/08/18 08:12 Dose: 3 ml Amlodipine Besylate (Norvasc) 10 mg PO DAILY [facility] Last Admin: 02/08/18 11:01 Dose: Not Given Aspirin (Aspirin Supp) 300 mg [place] DAILY [facility] Last Admin: 02/08/18 10:50 Dose: 300 mg Bacitracin (Bacitracin) 0 gm TOP DAILY [facility] Last Admin: 02/08/18 10:30 Dose: 1 applic Benzocaine/Menthol (Cepacol Sore Throat) 1 naomi PO Q2 PRN PRN Reason: Sore Throat Carvedilol (Coreg) 25 mg PO Q12 [facility] Last Admin: 02/08/18 11:00 Dose: Not Given Docusate Sodium (Colace) 100 mg PO DAILY [facility] Last Admin: 02/08/18 11:00 Dose: Not Given Epoetin Yvon (Procrit) 10,000 unit IV MWF [facility] Last Admin: 02/07/18 11:40 Dose: 10,000 unit Ergocalciferol (Drisdol 50,000 Intl Units Cap) 1 cap PO QD7 [facility] Heparin Sodium (Porcine) (Heparin) 5,000 units SC Q12H [facility] Last Admin: 02/08/18 11:01 Dose: Not Given Hydralazine HCl (Apresoline) 50 mg PO TID [facility] Last Admin: 02/08/18 11:00 Dose: Not Given Vancomycin/Sodium Chloride (Vancomycin 1 Gm/Ns 200 Ml) 1 gm in 200 mls @ 133 mls/hr IVPB MWF [facility] PRN Reason: Protocol Stop: 02/12/18 09:01 Last Admin: 02/07/18 09:00 Dose: 133 mls/hr Piperacillin Sod/Tazobactam Sod (Zosyn 2.25 Gm Iv Premix) 2.25 gm in 50 mls @ 100 mls/hr IVPB Q8H [facility] PRN Reason: Protocol Last Admin: 02/08/18 05:30 Dose: 100 mls/hr Multivitamins/Vitamin C 10 ml/ (Amino Acids) 1,010 mls @ 42 mls/hr IV .Q24H [facility] Stop: 02/09/18 17:59 Lactulose (Enulose) 20 gm PO DAILY PRN PRN Reason: constipation Levothyroxine Sodium (Synthroid) 200 mcg PO DAILY@0630 [facility] Last Admin: 02/08/18 06:30 Dose: Not Given Losartan Potassium (Cozaar) 100 mg PO DAILY [facility] Last Admin: 02/08/18 11:00 Dose: Not Given Kmurv-2-Hybi Ethyl Esters (Lovaza) 2 gm PO BID [facility] Last Admin: 02/08/18 11:01 Dose: Not Given Pantoprazole Sodium (Protonix Ec Tab) 40 mg PO HS [facility] Last Admin: 02/07/18 21:04 Dose: Not Given - Labs Labs: 02/08/18 07:04 02/08/18 07:01 PT 14.1 SECONDS (9.7-12.2) H 02/04/18 15:52 INR 1.3 02/04/18 15:52 APTT 34 SECONDS (21-34) 02/04/18 15:52 - Head Exam Head Exam: ATRAUMATIC, NORMOCEPHALIC - ENT Exam ENT Exam: Mucous Membranes Moist - Respiratory Exam Respiratory Exam: Rales - Cardiovascular Exam Cardiovascular Exam: REGULAR RHYTHM - Extremities Exam Extremities Exam: Normal Inspection Assessment and Plan (1) Staphylococcus aureus bacteremia Assessment & Plan: most likely catheter -related bloodstream infection Patient has left arm fistula 3 weeks ago Continue IV antibiotics BiPAP and followup ABG Repeat CAT scan of head Status: Acute (2) Dyspnea Status: Acute (3) Altered mental status Status: Acute (4) ESRD (end stage renal disease) on dialysis Status: Acute
[2018-02-08] MEDS ORDERED: PPN#1 IV ONE (18:00)
[2018-02-08] MEDS: Pantoprazole 40 mg EC Tab PO SCH (21:17)
--- NOTE | 2018-02-09 01:54 | PCM.PROC ---
Procedures Attestation:: I certify that I have explained the specified Operation(s) or Procedure(s), risks, benefits and reasonable alternatives to the Patient and/or other person responsible. The opportunity was given to ask questions and all questions answered - Intubation Time Out Performed: Yes Sedative: Etomidate Laryngoscope: Arnoldo ET Tube Size: 7.5 ET Tube Uncuffed: No ET Tube Secured Locarion: Lips ET Tube Placement Confirmation: Visualized Passing Through Cords, Breath Sounds Equal Bilaterally, No Breath Sounds Over Epigastrum, Confirmation w/Capnometry Patient Tolerated Procedure: No Complications Procedure Immediate Complications: None
--- NOTE | 2018-02-09 01:54 | CP.PCM.PN ---
Subjective - Date & Time of Evaluation Date of Evaluation: 02/09/18 Time of Evaluation: 01:54 - Subjective Subjective: CODE NOTE Code was called after the patient went into severe Bradycardia and no peripheral pulses were felt and no respiration. Full ACLS protocol began for PEA, with Chest compressions, Epinephrine and positive pressure ventilation with bag valve mask. Pulse was felt with only the one Epinephrine and chest compressions and PPV. The patient was then Intubated with a 7.5mm ET tube and a #4 Mackintosh blade. Post intubation CXR and ABG ordered. Eitan Hernandez MD Objective - Vital Signs/Intake and Output Vital Signs (last 24 hours): Temp Pulse Resp BP Pulse Ox 97.0 F L 50 L 21 92/50 L 95 02/08/18 07:00 02/09/18 01:00 02/09/18 01:00 02/09/18 00:56 02/09/18 01:00 Intake and Output: 02/08/18 02/09/18 18:59 06:59 Intake Total 184 252 Output Total 0 0 Balance 184 252 - Medications Medications: Current Medications Acetaminophen (Tylenol 325mg Tab) 650 mg PO Q6 PRN PRN Reason: Pain, moderate (4-7) Last Admin: 02/05/18 16:18 Dose: 650 mg Albuterol/Ipratropium (Duoneb 3 Mg/0.5 Mg (3 Ml) Ud) 3 ml INH RQ6 [facility] Last Admin: 02/08/18 19:50 Dose: 3 ml Amlodipine Besylate (Norvasc) 10 mg PO DAILY [facility] Last Admin: 02/08/18 11:01 Dose: Not Given Aspirin (Aspirin Supp) 300 mg [place] DAILY [facility] Last Admin: 02/08/18 10:50 Dose: 300 mg Bacitracin (Bacitracin) 0 gm TOP DAILY [facility] Last Admin: 02/08/18 10:30 Dose: 1 applic Benzocaine/Menthol (Cepacol Sore Throat) 1 naomi PO Q2 PRN PRN Reason: Sore Throat Carvedilol (Coreg) 25 mg PO Q12 [facility] Last Admin: 02/08/18 21:14 Dose: Not Given Docusate Sodium (Colace) 100 mg PO DAILY [facility] Last Admin: 02/08/18 11:00 Dose: Not Given Epoetin Yvon (Procrit) 10,000 unit IV MWF [facility] Last Admin: 02/07/18 11:40 Dose: 10,000 unit Ergocalciferol (Drisdol 50,000 Intl Units Cap) 1 cap PO QD7 [facility] Heparin Sodium (Porcine) (Heparin) 5,000 units SC Q12H [facility] Last Admin: 02/08/18 21:14 Dose: Not Given Hydralazine HCl (Apresoline) 50 mg PO TID [facility] Last Admin: 02/08/18 17:05 Dose: Not Given Vancomycin/Sodium Chloride (Vancomycin 1 Gm/Ns 200 Ml) 1 gm in 200 mls @ 133 mls/hr IVPB MWF [facility] PRN Reason: Protocol Stop: 02/12/18 09:01 Last Admin: 02/07/18 09:00 Dose: 133 mls/hr Piperacillin Sod/Tazobactam Sod (Zosyn 2.25 Gm Iv Premix) 2.25 gm in 50 mls @ 100 mls/hr IVPB Q8H [facility] PRN Reason: Protocol Last Admin: 02/08/18 21:43 Dose: 100 mls/hr Multivitamins/Vitamin C 10 ml/ (Amino Acids) 1,010 mls @ 42 mls/hr IV .Q24H [facility] Stop: 02/09/18 17:59 Last Admin: 02/08/18 17:11 Dose: 42 mls/hr Lactulose (Enulose) 20 gm PO DAILY PRN PRN Reason: constipation Levothyroxine Sodium (Synthroid) 200 mcg PO DAILY@0630 [facility] Last Admin: 02/08/18 06:30 Dose: Not Given Losartan Potassium (Cozaar) 100 mg PO DAILY [facility] Last Admin: 02/08/18 11:00 Dose: Not Given Wrbag-0-Izns Ethyl Esters (Lovaza) 2 gm PO BID [facility] Last Admin: 02/08/18 17:05 Dose: Not Given Pantoprazole Sodium (Protonix Ec Tab) 40 mg PO HS [facility] Last Admin: 02/08/18 21:17 Dose: Not Given - Labs Labs: 02/08/18 07:04 02/08/18 07:01 PT 14.1 SECONDS (9.7-12.2) H 02/04/18 15:52 INR 1.3 02/04/18 15:52 APTT 34 SECONDS (21-34) 02/04/18 15:52
[2018-02-09 02:16] LABS: ABG ALLEN TEST POS; ARTERIAL BLOOD GAS HCO3 19.4 mmol/L (21-28); ARTERIAL BLOOD GAS O2 SAT 96.2 % (95-98); ARTERIAL BLOOD GAS PCO2 40 mm/Hg (35-45); ARTERIAL BLOOD GAS PH 7.29 (7.35-7.45); ARTERIAL BLOOD GAS PO2 79 mm/Hg (80-100); ARTERIAL BLOOD GAS TCO2 20.4 mmol/L (22-28)
[2018-02-09] MEDS ORDERED: Sodium Chloride 0.9% 500 ML IV SCH (04:30)
[2018-02-09] MEDS ORDERED: Sodium Chloride 0.9% 500 ML IV ONE (04:50)
[2018-02-09] MEDS: Piperacill/Tazo 2.25gm in Dex 2.25 GM/50 ML BAG IVPB SCH ×3 (05:26→21:36)
[2018-02-09 06:13] LABS: ABG ALLEN TEST POS; ARTERIAL BLOOD GAS HCO3 21.2 mmol/L (21-28); ARTERIAL BLOOD GAS O2 SAT 98.4 % (95-98); ARTERIAL BLOOD GAS PCO2 38 mm/Hg (35-45); ARTERIAL BLOOD GAS PH 7.34 (7.35-7.45); ARTERIAL BLOOD GAS PO2 110 mm/Hg (80-100); ARTERIAL BLOOD GAS TCO2 21.7 mmol/L (22-28)
[2018-02-09 06:48] LABS: HEMOGLOBIN 7.3 g/dL (11.0-16.0); MEAN CELL VOLUME 99.8 fL (81.0-99.0); MEAN CORPUSCULAR HEMOGLOBIN 33.9 pg (27.0-31.0); MEAN PLATELET VOLUME 11.9 fL (7.2-11.7); RBC 2.15 Mil/uL (3.80-5.20); RED CELL DISTRIBUTION WIDTH 17.2 % (11.5-14.5); WHITE BLOOD COUNT 6.6 K/uL (4.8-10.8)
[2018-02-09 06:59] LABS: PLATELET COUNT 26 K/uL (130-400)
[2018-02-09 07:07] LABS: ALB/GLOB RATIO 0.7 (1.0-2.1); ALBUMIN 2.7 g/dL (3.5-5.0); CALCIUM 8.5 mg/dl (8.6-10.4)
[2018-02-09] MEDS: Albuterol-Ipratrop 3 mg / 0.5 (3 ml) UD INH SCH ×3 (08:39→19:45)
[2018-02-09] MEDS: Bacitracin Ointment 30 GM TUBE TOP SCH (09:49)
[2018-02-09] MEDS: DOPamine 400mg/250ml D5W 400 MG/250 ML BAG IV PRN (10:11)
--- NOTE | 2018-02-09 10:25 | RAD ---
HISTORY: Post Intubation COMPARISON: Comparison is made with 02/06/2018 FINDINGS: LUNGS: The patient is status post intubation. The ET tube is seen at appropriate position. [id number] pulmonary vascular congestion is again noted. PLEURA: Blunting of the left costophrenic angle is again noted suspicious for small pleural effusion. CARDIOVASCULAR: Cardiomegaly is again noted. OSSEOUS STRUCTURES: No significant abnormalities. VISUALIZED UPPER ABDOMEN: Normal. OTHER FINDINGS: Interval removal of the left central venous catheter since the previous exam. IMPRESSION: Re- demonstration of [id number] venous congestion and cardiomegaly. Appropriate position of the ETT.
--- NOTE | 2018-02-09 11:08 | CP.PCM.PN ---
Subjective - Date & Time of Evaluation Date of Evaluation: 02/09/18 Time of Evaluation: 11:03 - Subjective Subjective: Ms. Dorsey was seen and examined at the bedside in ICU. She is on mechanical ventilator on PRVC mode. She had an episode of cardiac arrest with ROSC after 4 minutes. She remains og dopamine as a vasopressor. Her latest blood pressure 90/ 61. Her pupils are sluggishly reactive 4 mm. She moves her upper and lower extremities spontaneously but unable to follow any commands. withdraws from pain. Objective - Vital Signs/Intake and Output Vital Signs (last 24 hours): Temp Pulse Resp BP Pulse Ox 96.8 F L 67 19 97/30 L 100 02/09/18 07:00 02/09/18 10:11 02/09/18 10:11 02/09/18 10:11 02/09/18 10:11 Intake and Output: 02/09/18 02/09/18 06:59 18:59 Intake Total 804 284 Output Total 0 0 Balance 804 284 - Medications Medications: Current Medications Acetaminophen (Tylenol 325mg Tab) 650 mg PO Q6 PRN PRN Reason: Pain, moderate (4-7) Last Admin: 02/05/18 16:18 Dose: 650 mg Albuterol/Ipratropium (Duoneb 3 Mg/0.5 Mg (3 Ml) Ud) 3 ml INH RQ6 [facility] Last Admin: 02/09/18 08:39 Dose: 3 ml Bacitracin (Bacitracin) 0 gm TOP DAILY [facility] Last Admin: 02/08/18 10:30 Dose: 1 applic Benzocaine/Menthol (Cepacol Sore Throat) 1 naomi PO Q2 PRN PRN Reason: Sore Throat Docusate Sodium (Colace) 100 mg PO DAILY [facility] Last Admin: 02/08/18 11:00 Dose: Not Given Epoetin Yvon (Procrit) 10,000 unit IV MWF [facility] Last Admin: 02/07/18 11:40 Dose: 10,000 unit Ergocalciferol (Drisdol 50,000 Intl Units Cap) 1 cap PO QD7 [facility] Vancomycin/Sodium Chloride (Vancomycin 1 Gm/Ns 200 Ml) 1 gm in 200 mls @ 133 mls/hr IVPB MWF [facility] PRN Reason: Protocol Stop: 02/12/18 09:01 Last Admin: 02/07/18 09:00 Dose: 133 mls/hr Piperacillin Sod/Tazobactam Sod (Zosyn 2.25 Gm Iv Premix) 2.25 gm in 50 mls @ 100 mls/hr IVPB Q8H [facility] PRN Reason: Protocol Last Admin: 02/09/18 05:26 Dose: 100 mls/hr Dopamine HCl/Dextrose (Dopamine 400mg/250ml D5w) 400 mg in 250 mls @ 4.627 mls/ hr IV .Q24H PRN; Protocol; 2 MCG/KG/MIN PRN Reason: TITRATE PER MD ORDER Last Admin: 02/09/18 10:11 Dose: 2 mcg/kg/min, 4.627 mls/hr Lactulose (Enulose) 20 gm PO DAILY PRN PRN Reason: constipation Levothyroxine Sodium (Synthroid) 200 mcg PO DAILY@0630 [facility] Last Admin: 02/08/18 06:30 Dose: Not Given Multivitamins/Vitamin C (Multi-Delyn Liquid) 5 ml PO DAILY [facility] [id number] Ethyl Esters (Lovaza) 2 gm PO BID [facility] Last Admin: 02/08/18 17:05 Dose: Not Given Pantoprazole Sodium (Protonix Ec Tab) 40 mg PO HS [facility] Last Admin: 02/08/18 21:17 Dose: Not Given Thiamine HCl (Vitamin B1 Inj) 200 mg IV Q8H [facility] - Labs Labs: 02/09/18 06:33 02/09/18 06:35 PT 14.1 SECONDS (9.7-12.2) H 02/04/18 15:52 INR 1.3 02/04/18 15:52 APTT 34 SECONDS (21-34) 02/04/18 15:52 - Constitutional Appears: No Acute Distress - Head Exam Head Exam: NORMAL INSPECTION - Eye Exam Pupil Exam: Mydriatic Additional comments: 4 mm sluggish. - Neurological Exam Neuro motor strength exam: Left Upper Extremity: 0, Right Upper Extremity: 0, Left Lower Extremity: 0, Right Lower Extremity: 0 Additional comments: GCS-4T Assessment and Plan (1) Altered mental status Assessment & Plan: Case discussed with Dr. Angela, continue all current medical regimen. Recommend to repeat CT scan of the head. Status: Acute
[2018-02-09 11:51] LABS: NEUT # 5.4 K/uL (1.8-7.0)
[2018-02-09 11:52] LABS: EOS # 0.1 K/uL (0.0-0.7); LYMPH # 0.9 K/uL (1.0-4.3); MONO # 0.2 K/uL (0.0-0.8)
--- NOTE | 2018-02-09 11:55 | PCM.PROC ---
Procedures Attestation:: I certify that I have explained the specified Operation(s) or Procedure(s), risks, benefits and reasonable alternatives to the Patient and/or other person responsible. The opportunity was given to ask questions and all questions answered - Central Line Placement Right Femoral Triple Lumen Catheter Aseptic technique was employed throughout the procedure: Full sterile barriers ( mask, hair cover, sterile gown, sterile gloves), Chloraprep Antiseptic: 2 minute prep for Femoral CVP Time Out Performed: Yes Pt. Placed on Pulse Ox Monitor: Yes Central Line Prep: Chlorhexidine-Alcohol Combination Local Anesthesia Used: Lidocaine 1% Amount of Anesthesia Used (mls): 8 Ultrasound Used for Placement: Yes Central Line Lumen Inserted: triple Central Line Length: 20 cm Post Procedure: Sutured in Place, Good Blood Return, All Ports Aspirated, Flushed, Capped Secured by: Suture Post procedure dressing: Clear vapor permeable, Chlorhexidine disc (Biopatch) Post Procedure X-Ray: No Patient Tolerated Procedure: Well Immediate Complications: None
[2018-02-09] MEDS: Thiamine 100 mg/ml Inj IV SCH ×2 (12:47→17:41)
[2018-02-09] MEDS: Omega-3-Acid Ethyl Esters 1 GM Cap PO SCH ×2 (12:48→17:41)
[2018-02-09] MEDS: Levothyroxine 200 MCG TAB PO SCH (12:48)
[2018-02-09] MEDS: Multiple Vitamins Oral Solution PO SCH (12:48)
--- NOTE | 2018-02-09 14:31 | CP.CCUPN ---
CCU Subjective - Physician Review Subjective (Free Text): Patient seen and examined at bedside. Patient noted to have bradycardia at night and was intubated with ?cardaic arrest. SOn at bedside. informed of event overnight, son agreed to central line placement Critical Care Time Spent (in minutes): 45 CCU Objective - Vital Signs / Intake & Output Intake and Output (Last 8hrs): Intake & Output 02/08/18 02/09/18 02/09/18 22:59 06:59 14:59 Intake Total 352 636 284 Output Total 0 0 0 Balance 352 636 284 Weight 136 lb Intake: Intake, IV Amount 352 636 284 Right Hand 352 636 284 Oral 0 0 0 Output: Urine 0 0 0 Urine, Voided 0 0 0 Stool 0 0 0 Emesis 0 - Physical Exam Head: Positive for: Atraumatic, Normocephalic Pupils: Positive for: PERRL Mouth: Positive for: Dry Respiratory/Chest: Positive for: Rales (BiBasilar). Negative for: Clear to Auscultation Cardiovascular: Positive for: Regular Rate and Rhythm, Normal S1, S2 Abdomen: Positive for: Normal Bowel Sounds. Negative for: Distention, Guarding Lower Extremity: Positive for: Normal Inspection Skin: Positive for: Warm, Dry, Other (Onchomycosis B/L) Psychiatric: Positive for: Alert. Negative for: Oriented x 3 - Medications Active Medications: Active Medications Generic Name Dose Route Start Last Admin Trade Name Freq PRN Reason Stop Dose Admin Acetaminophen 650 mg 02/05/18 12:44 02/05/18 16:18 Tylenol 325mg Tab PO 650 mg Q6 PRN Administration Pain, moderate (4-7) Albuterol/Ipratropium 3 ml 02/06/18 20:00 02/09/18 13:25 Duoneb 3 Mg/0.5 Mg (3 Ml) Ud INH 3 ml RQ6 [facility] Administration Bacitracin 0 gm 02/05/18 10:00 02/09/18 09:49 Bacitracin TOP 1 applic DAILY [facility] Administration Benzocaine/Menthol 1 naomi 02/04/18 18:53 Cepacol Sore Throat PO Q2 PRN Sore Throat Docusate Sodium 100 mg 02/05/18 10:00 02/09/18 12:47 Colace PO 100 mg DAILY [facility] Administration Epoetin Yvon 10,000 unit 02/05/18 09:00 02/07/18 11:40 [place] 10,000 unit [facility] [place] Ergocalciferol 1 cap 02/04/18 19:00 Drisdol 50,000 Intl Units Cap PO QD7 [facility] Vancomycin/Sodium Chloride 1 gm in 200 mls @ 133 mls/hr 02/07/18 09:00 09:00 Vancomycin 1 Gm/Ns 200 Ml IVPB 02/12/18 09:01 133 mls/hr [facility] Administration Protocol Piperacillin Sod/Tazobactam Sod 2.25 gm in 50 mls @ 100 mls/hr 02/07/18 21:30 02/09/18 12:50 Zosyn 2.25 Gm Iv Premix IVPB 100 mls/hr Q8H [facility] Administration Protocol Dopamine HCl/Dextrose 400 mg in 250 mls @ 4.627 mls/hr 02/09/18 09:15 10:11 Dopamine 400mg/250ml D5w IV 2 mcg/kg/min .Q24H PRN 4.627 mls/hr TITRATE PER MD ORDER Administration Protocol 2 MCG/KG/MIN Lactulose 20 gm 02/04/18 18:53 Enulose PO DAILY PRN constipation Levothyroxine Sodium 200 mcg 02/05/18 06:30 02/09/18 12:48 Synthroid PO 200 mcg DAILY@0630 [facility] Administration Multivitamins/Vitamin C 5 ml 02/09/18 10:00 02/09/18 12:48 Multi-Delyn Liquid PO 5 ml DAILY [facility] Administration [id number] Ethyl Esters 2 gm 02/05/18 10:00 02/09/18 12:48 Lovaza PO 2 gm BID [facility] Administration Pantoprazole Sodium 40 mg 02/04/18 22:00 02/08/18 21:17 Protonix Ec Tab PO Not Given HS [facility] Thiamine HCl 200 mg 02/09/18 10:00 02/09/18 12:47 Vitamin B1 Inj IV 200 mg Q8H [facility] Administration - Patient Studies Lab Studies: Lab Studies 02/09/18 02/09/18 02/09/18 Range/Units 12:00 06:35 06:33 WBC 6.6 (4.8-10.8) K/uL RBC 2.15 L (3.80-5.20) Mil/uL Hgb 7.3 L (11.0-16.0) g/dL Hct 21.5 L (34.0-47.0) % MCV 99.8 H (81.0-99.0) fL MCH 33.9 H (27.0-31.0) pg MCHC 34.0 (33.0-37.0) g/dL RDW 17.2 H (11.5-14.5) % Plt Count 26 L* D (130-400) K/uL MPV 11.9 H (7.2-11.7) fL Neut % (Auto) 82.0 H (50.0-75.0) % Lymph % (Auto) 13.0 L (20.0-40.0) % Meriwether % (Auto) 4.0 (0.0-10.0) % Eos % (Auto) 1.0 (0.0-4.0) % Baso % (Auto) 0.0 (0.0-2.0) % Neut # (Auto) 5.4 (1.8-7.0) K/uL Lymph # (Auto) 0.9 L (1.0-4.3) K/uL Meriwether # (Auto) 0.2 (0.0-0.8) K/uL Eos # (Auto) 0.1 (0.0-0.7) K/uL Baso # (Auto) 0.0 (0.0-0.2) K/uL Differential Comment Pltcon Puncture Site pCO2 (35-45) mm/Hg pO2 (80-100) mm/Hg HCO3 (21-28) mmol/L ABG pH (7.35-7.45) ABG Total CO2 (22-28) mmol/L ABG O2 Saturation (95-98) % ABG Base Excess (-2.0-3.0) mmol/L Yrn Test ABG Potassium (3.6-5.2) mmol/L A-a O2 Difference mm/Hg Respiratory Index Sodium 140 (132-148) mmol/l Chloride 107 (98-107) mmol/L Glucose (65-105) mg/dl Lactate (0.7-2.1) mmol/L Vent Mode Mechanical Rate FiO2 % Tidal Volume PEEP Potassium 3.9 (3.6-5.2) mmol/L Carbon Dioxide 22 (22-30) mmol/L Anion Gap 15 (10-20) BUN 51 H (7-17) mg/dL Creatinine 5.0 H (0.7-1.2) mg/dL Est GFR ( Amer) 10 Est GFR (Non-Af Amer) 8 Random Glucose 191 H (65-105) mg/dL Calcium 8.5 L (8.6-10.4) mg/dl Total Bilirubin 3.0 H (0.2-1.3) mg/dL AST 31 (14-36) U/L ALT 22 (9-52) U/L Alkaline Phosphatase 192 H (38-126) U/L Total Protein 6.5 (6.3-8.3) g/dL Albumin 2.7 L (3.5-5.0) g/dL Globulin 3.8 (2.2-3.9) gm/dL Albumin/Globulin Ratio 0.7 L (1.0-2.1) Arterial Blood Potassium (3.6-5.2) mmol/L Random Vancomycin 11.5 ug/mL 02/09/18 02/09/18 Range/Units 05:40 02:05 WBC (4.8-10.8) K/uL RBC (3.80-5.20) Mil/uL Hgb (11.0-16.0) g/dL Hct (34.0-47.0) % MCV (81.0-99.0) fL MCH (27.0-31.0) pg MCHC (33.0-37.0) g/dL RDW (11.5-14.5) % Plt Count (130-400) K/uL MPV (7.2-11.7) fL Neut % (Auto) (50.0-75.0) % Lymph % (Auto) (20.0-40.0) % Meriwether % (Auto) (0.0-10.0) % Eos % (Auto) (0.0-4.0) % Baso % (Auto) (0.0-2.0) % Neut # (Auto) (1.8-7.0) K/uL Lymph # (Auto) (1.0-4.3) K/uL Meriwether # (Auto) (0.0-0.8) K/uL Eos # (Auto) (0.0-0.7) K/uL Baso # (Auto) (0.0-0.2) K/uL Differential Comment Puncture Site Rradial Rradial pCO2 38 40 (35-45) mm/Hg pO2 110 H 79 L (80-100) mm/Hg HCO3 21.2 19.4 L (21-28) mmol/L ABG pH 7.34 L 7.29 L (7.35-7.45) ABG Total CO2 21.7 L 20.4 L (22-28) mmol/L ABG O2 Saturation 98.4 H 96.2 (95-98) % ABG Base Excess -4.8 L -7.0 L (-2.0-3.0) mmol/L Yrn Test Pos Pos ABG Potassium 3.5 L 3.7 (3.6-5.2) mmol/L A-a O2 Difference 270.0 299.0 mm/Hg Respiratory Index 2.5 3.8 Sodium 141.0 140.0 (132-148) mmol/l Chloride 111.0 H 109.0 H (98-107) mmol/L Glucose 205 H 208 H (65-105) mg/dl Lactate 1.2 2.4 H (0.7-2.1) mmol/L Vent Mode Prvc Prvc Mechanical Rate 16 12 FiO2 60.0 60.0 % Tidal Volume 500 500 PEEP 5 5 Potassium (3.6-5.2) mmol/L Carbon Dioxide (22-30) mmol/L Anion Gap (10-20) BUN (7-17) mg/dL Creatinine (0.7-1.2) mg/dL Est GFR ( Amer) Est GFR (Non-Af Amer) Random Glucose (65-105) mg/dL Calcium (8.6-10.4) mg/dl Total Bilirubin (0.2-1.3) mg/dL AST (14-36) U/L ALT (9-52) U/L Alkaline Phosphatase (38-126) U/L Total Protein (6.3-8.3) g/dL Albumin (3.5-5.0) g/dL Globulin (2.2-3.9) gm/dL Albumin/Globulin Ratio (1.0-2.1) Arterial Blood Potassium 3.5 L 3.7 (3.6-5.2) mmol/L Random Vancomycin ug/mL Laboratory Results - last 24 hr 02/09/18 02/09/18 02/09/18 02:05 05:40 06:33 WBC 6.6 RBC 2.15 L Hgb 7.3 L Hct 21.5 L MCV 99.8 H MCH 33.9 H MCHC 34.0 RDW 17.2 H Plt Count 26 L* D MPV 11.9 H Neut % (Auto) 82.0 H Lymph % (Auto) 13.0 L Meriwether % (Auto) 4.0 Eos % (Auto) 1.0 Baso % (Auto) 0.0 Neut # (Auto) 5.4 Lymph # (Auto) 0.9 L Meriwether # (Auto) 0.2 Eos # (Auto) 0.1 Baso # (Auto) 0.0 Differential Comment Pltcon Puncture Site Rradial Rradial pCO2 40 38 pO2 79 L 110 H HCO3 19.4 L 21.2 ABG pH 7.29 L 7.34 L ABG Total CO2 20.4 L 21.7 L ABG O2 Saturation 96.2 98.4 H ABG Base Excess -7.0 L -4.8 L Yrn Test Pos Pos ABG Potassium 3.7 3.5 L A-a O2 Difference 299.0 270.0 Respiratory Index 3.8 2.5 Sodium 140.0 141.0 Chloride 109.0 H 111.0 H Glucose 208 H 205 H Lactate 2.4 H 1.2 Vent Mode Prvc Prvc Mechanical Rate 12 16 FiO2 60.0 60.0 Tidal Volume 500 500 PEEP 5 5 Potassium Carbon Dioxide Anion Gap BUN Creatinine Est GFR ( Amer) Est GFR (Non-Af Amer) Random Glucose Calcium Total Bilirubin AST ALT Alkaline Phosphatase Total Protein Albumin Globulin Albumin/Globulin Ratio Arterial Blood Potassium 3.7 3.5 L Random Vancomycin 02/09/18 02/09/18 06:35 12:00 WBC RBC Hgb Hct MCV MCH MCHC RDW Plt Count MPV Neut % (Auto) Lymph % (Auto) Meriwether % (Auto) Eos % (Auto) Baso % (Auto) Neut # (Auto) Lymph # (Auto) Meriwether # (Auto) Eos # (Auto) Baso # (Auto) Differential Comment Puncture Site pCO2 pO2 HCO3 ABG pH ABG Total CO2 ABG O2 Saturation ABG Base Excess Yrn Test ABG Potassium A-a O2 Difference Respiratory Index Sodium 140 Chloride 107 Glucose Lactate Vent Mode Mechanical Rate FiO2 Tidal Volume PEEP Potassium 3.9 Carbon Dioxide 22 Anion Gap 15 BUN 51 H Creatinine 5.0 H Est GFR ( Amer) 10 Est GFR (Non-Af Amer) 8 Random Glucose 191 H Calcium 8.5 L Total Bilirubin 3.0 H AST 31 ALT 22 Alkaline Phosphatase 192 H Total Protein 6.5 Albumin 2.7 L Globulin 3.8 Albumin/Globulin Ratio 0.7 L Arterial Blood Potassium Random Vancomycin 11.5 Review of Systems - Review of Systems Review of Systems: limited ROS 2nd intubation Assessment/Plan - Assessment and Plan (Free Text) Assessment: Acute respiratory failure:continue ventilation to keep spo2 >92 and Ph b/w 7.35- 7.45, continue bronchodialtors -AMS: obtain CT head, EEG and neurology eval -Sepsis: GPC, HD cath removed, check vanoc level -ESRD on HD; HD as per renal -shock/bradycardai:start pressors to keep MAP >65 -THrombocytopenia: d/c heparin check HIT,suspect hypersleenism -place ng tube and start tube feeds -continue DVT/PUD ppx Patient remains still confused. cc time 45 minutes - Date & Time Date: 02/09/18 Time: 08:25
--- NOTE | 2018-02-09 15:06 | CP.PCM.PN ---
Subjective - Date & Time of Evaluation Date of Evaluation: 02/09/18 Time of Evaluation: 09:00 - Subjective Subjective: events noted lines removed new TLC placed in groin IV rx in progress repeat cultures pendinng lethargic confused on vent Objective - Vital Signs/Intake and Output Vital Signs (last 24 hours): Temp Pulse Resp BP Pulse Ox 96.8 F L 67 19 97/30 L 100 02/09/18 07:00 02/09/18 10:11 02/09/18 10:11 02/09/18 10:11 02/09/18 10:11 Intake and Output: 02/09/18 02/09/18 06:59 18:59 Intake Total 804 284 Output Total 0 0 Balance 804 284 - Medications Medications: Current Medications Acetaminophen (Tylenol 325mg Tab) 650 mg PO Q6 PRN PRN Reason: Pain, moderate (4-7) Last Admin: 02/05/18 16:18 Dose: 650 mg Albuterol/Ipratropium (Duoneb 3 Mg/0.5 Mg (3 Ml) Ud) 3 ml INH RQ6 [facility] Last Admin: 02/09/18 13:25 Dose: 3 ml Bacitracin (Bacitracin) 0 gm TOP DAILY [facility] Last Admin: 02/09/18 09:49 Dose: 1 applic Benzocaine/Menthol (Cepacol Sore Throat) 1 naomi PO Q2 PRN PRN Reason: Sore Throat Docusate Sodium (Colace) 100 mg PO DAILY [facility] Last Admin: 02/09/18 12:47 Dose: 100 mg Epoetin Yvon (Procrit) 10,000 unit IV MWF [facility] Last Admin: 02/07/18 11:40 Dose: 10,000 unit Ergocalciferol (Drisdol 50,000 Intl Units Cap) 1 cap PO QD7 [facility] Vancomycin/Sodium Chloride (Vancomycin 1 Gm/Ns 200 Ml) 1 gm in 200 mls @ 133 mls/hr IVPB MWF [facility] PRN Reason: Protocol Stop: 02/12/18 09:01 Last Admin: 02/07/18 09:00 Dose: 133 mls/hr Piperacillin Sod/Tazobactam Sod (Zosyn 2.25 Gm Iv Premix) 2.25 gm in 50 mls @ 100 mls/hr IVPB Q8H [facility] PRN Reason: Protocol Last Admin: 02/09/18 12:50 Dose: 100 mls/hr Dopamine HCl/Dextrose (Dopamine 400mg/250ml D5w) 400 mg in 250 mls @ 4.627 mls/ hr IV .Q24H PRN; Protocol; 2 MCG/KG/MIN PRN Reason: TITRATE PER MD ORDER Last Admin: 02/09/18 10:11 Dose: 2 mcg/kg/min, 4.627 mls/hr Lactulose (Enulose) 20 gm PO DAILY PRN PRN Reason: constipation Levothyroxine Sodium (Synthroid) 200 mcg PO DAILY@0630 [facility] Last Admin: 02/09/18 12:48 Dose: 200 mcg Multivitamins/Vitamin C (Multi-Delyn Liquid) 5 ml PO DAILY [facility] Last Admin: 02/09/18 12:48 Dose: 5 ml [id number] Ethyl Esters (Lovaza) 2 gm PO BID [facility] Last Admin: 02/09/18 12:48 Dose: 2 gm Pantoprazole Sodium (Protonix Ec Tab) 40 mg PO HS [facility] Last Admin: 02/08/18 21:17 Dose: Not Given Thiamine HCl (Vitamin B1 Inj) 200 mg IV Q8H [facility] Last Admin: 02/09/18 12:47 Dose: 200 mg - Labs Labs: 02/09/18 06:33 02/09/18 06:35 PT 14.1 SECONDS (9.7-12.2) H 02/04/18 15:52 INR 1.3 02/04/18 15:52 APTT 34 SECONDS (21-34) 02/04/18 15:52 - Constitutional Appears: No Acute Distress - Head Exam Head Exam: NORMOCEPHALIC - Eye Exam Eye Exam: absent: Scleral icterus - ENT Exam ENT Exam: Mucous Membranes Dry - Neck Exam Neck Exam: absent: Lymphadenopathy - Respiratory Exam Respiratory Exam: Decreased Breath Sounds - Cardiovascular Exam Cardiovascular Exam: REGULAR RHYTHM - GI/Abdominal Exam GI & Abdominal Exam: Distended - Rectal Exam Rectal Exam: Deferred - Exam Exam: NORMAL INSPECTION - Extremities Exam Extremities Exam: Pedal Edema - Back Exam Back Exam: absent: CVA tenderness (L), CVA tenderness (R) Assessment and Plan (1) Sepsis Status: Acute (2) Sepsis Status: Acute (3) ESRD (end stage renal disease) on dialysis Status: Acute (4) MRSA bacteremia Status: Acute - Assessment and Plan (Free Text) Assessment: cont iv rx repeat c/s sent lines changed
--- NOTE | 2018-02-09 15:40 | CP.PCM.PN ---
Subjective - Date & Time of Evaluation Date of Evaluation: 02/09/18 Time of Evaluation: 12:00 - Subjective Subjective: clinically same Objective - Vital Signs/Intake and Output Vital Signs (last 24 hours): Temp Pulse Resp BP Pulse Ox 96.8 F L 67 19 97/30 L 100 02/09/18 07:00 02/09/18 10:11 02/09/18 10:11 02/09/18 10:11 02/09/18 10:11 Intake and Output: 02/09/18 02/09/18 06:59 18:59 Intake Total 804 284 Output Total 0 0 Balance 804 284 - Medications Medications: Current Medications Acetaminophen (Tylenol 325mg Tab) 650 mg PO Q6 PRN PRN Reason: Pain, moderate (4-7) Last Admin: 02/05/18 16:18 Dose: 650 mg Albuterol/Ipratropium (Duoneb 3 Mg/0.5 Mg (3 Ml) Ud) 3 ml INH RQ6 [facility] Last Admin: 02/09/18 13:25 Dose: 3 ml Bacitracin (Bacitracin) 0 gm TOP DAILY [facility] Last Admin: 02/09/18 09:49 Dose: 1 applic Benzocaine/Menthol (Cepacol Sore Throat) 1 naomi PO Q2 PRN PRN Reason: Sore Throat Docusate Sodium (Colace) 100 mg PO DAILY [facility] Last Admin: 02/09/18 12:47 Dose: 100 mg Epoetin Yvon (Procrit) 10,000 unit IV MWF [facility] Last Admin: 02/07/18 11:40 Dose: 10,000 unit Ergocalciferol (Drisdol 50,000 Intl Units Cap) 1 cap PO QD7 [facility] Vancomycin/Sodium Chloride (Vancomycin 1 Gm/Ns 200 Ml) 1 gm in 200 mls @ 133 mls/hr IVPB MWF [facility] PRN Reason: Protocol Stop: 02/12/18 09:01 Last Admin: 02/07/18 09:00 Dose: 133 mls/hr Piperacillin Sod/Tazobactam Sod (Zosyn 2.25 Gm Iv Premix) 2.25 gm in 50 mls @ 100 mls/hr IVPB Q8H [facility] PRN Reason: Protocol Last Admin: 02/09/18 12:50 Dose: 100 mls/hr Dopamine HCl/Dextrose (Dopamine 400mg/250ml D5w) 400 mg in 250 mls @ 4.627 mls/ hr IV .Q24H PRN; Protocol; 2 MCG/KG/MIN PRN Reason: TITRATE PER MD ORDER Last Admin: 02/09/18 10:11 Dose: 2 mcg/kg/min, 4.627 mls/hr Lactulose (Enulose) 20 gm PO DAILY PRN PRN Reason: constipation Levothyroxine Sodium (Synthroid) 200 mcg PO DAILY@0630 [facility] Last Admin: 02/09/18 12:48 Dose: 200 mcg Multivitamins/Vitamin C (Multi-Delyn Liquid) 5 ml PO DAILY [facility] Last Admin: 02/09/18 12:48 Dose: 5 ml [id number] Ethyl Esters (Lovaza) 2 gm PO BID [facility] Last Admin: 02/09/18 12:48 Dose: 2 gm Pantoprazole Sodium (Protonix Ec Tab) 40 mg PO HS [facility] Last Admin: 02/08/18 21:17 Dose: Not Given Thiamine HCl (Vitamin B1 Inj) 200 mg IV Q8H [facility] Last Admin: 02/09/18 12:47 Dose: 200 mg - Labs Labs: 02/09/18 06:33 02/09/18 06:35 PT 14.1 SECONDS (9.7-12.2) H 02/04/18 15:52 INR 1.3 02/04/18 15:52 APTT 34 SECONDS (21-34) 02/04/18 15:52 - Constitutional Appears: Well - Head Exam Head Exam: ATRAUMATIC, NORMAL INSPECTION, NORMOCEPHALIC - Eye Exam Eye Exam: EOMI, Normal appearance, PERRL Pupil Exam: NORMAL ACCOMODATION, PERRL - ENT Exam ENT Exam: Mucous Membranes Moist, Normal Exam - Neck Exam Neck Exam: Full ROM, Normal Inspection. absent: Lymphadenopathy - Respiratory Exam Respiratory Exam: Decreased Breath Sounds - Cardiovascular Exam Cardiovascular Exam: REGULAR RHYTHM, +S1, +S2 - GI/Abdominal Exam GI & Abdominal Exam: Soft, Diminished Bowel Sounds - Rectal Exam Rectal Exam: Deferred Assessment and Plan (1) Altered mental status Status: Acute (2) ESRD (end stage renal disease) on dialysis Status: Acute (3) Gastritis Status: Acute (4) Musculoskeletal pain Status: Acute (5) Rib contusion Status: Acute (6) Toxic metabolic encephalopathy Status: Acute
--- NOTE | 2018-02-09 16:31 | CP.PCM.PN ---
Subjective - Date & Time of Evaluation Date of Evaluation: 02/09/18 Time of Evaluation: 14:00 - Subjective Subjective: the patient seen and examined Previous events noted Patient intubated last night after she had cardiac arrest/resuscitation Now on ventilatory support/sedated dialysis catheter removed Afebrile On IV antibiotics Continue hemodialysis Objective - Vital Signs/Intake and Output Vital Signs (last 24 hours): Temp Pulse Resp BP Pulse Ox 96.8 F L 60 9 L 105/43 L 100 02/09/18 07:00 02/09/18 16:00 02/09/18 16:00 02/09/18 15:20 02/09/18 16:00 Intake and Output: 02/09/18 02/09/18 06:59 18:59 Intake Total 804 320.8 Output Total 0 0 Balance 804 320.8 - Medications Medications: Current Medications Acetaminophen (Tylenol 325mg Tab) 650 mg PO Q6 PRN PRN Reason: Pain, moderate (4-7) Last Admin: 02/05/18 16:18 Dose: 650 mg Albuterol/Ipratropium (Duoneb 3 Mg/0.5 Mg (3 Ml) Ud) 3 ml INH RQ6 [facility] Last Admin: 02/09/18 13:25 Dose: 3 ml Bacitracin (Bacitracin) 0 gm TOP DAILY [facility] Last Admin: 02/09/18 09:49 Dose: 1 applic Benzocaine/Menthol (Cepacol Sore Throat) 1 naomi PO Q2 PRN PRN Reason: Sore Throat Docusate Sodium (Colace) 100 mg PO DAILY [facility] Last Admin: 02/09/18 12:47 Dose: 100 mg Epoetin Yvon (Procrit) 10,000 unit IV F [facility] Last Admin: 02/07/18 11:40 Dose: 10,000 unit Ergocalciferol (Drisdol 50,000 Intl Units Cap) 1 cap PO QD7 [facility] Vancomycin/Sodium Chloride (Vancomycin 1 Gm/Ns 200 Ml) 1 gm in 200 mls @ 133 mls/hr IVPB MWF [facility] PRN Reason: Protocol Stop: 02/12/18 09:01 Last Admin: 02/07/18 09:00 Dose: 133 mls/hr Piperacillin Sod/Tazobactam Sod (Zosyn 2.25 Gm Iv Premix) 2.25 gm in 50 mls @ 100 mls/hr IVPB Q8H [facility] PRN Reason: Protocol Last Admin: 02/09/18 12:50 Dose: 100 mls/hr Dopamine HCl/Dextrose (Dopamine 400mg/250ml D5w) 400 mg in 250 mls @ 4.627 mls/ hr IV .Q24H PRN; Protocol; 2 MCG/KG/MIN PRN Reason: TITRATE PER MD ORDER Last Admin: 02/09/18 10:11 Dose: 2 mcg/kg/min, 4.627 mls/hr Lactulose (Enulose) 20 gm PO DAILY PRN PRN Reason: constipation Levothyroxine Sodium (Synthroid) 200 mcg PO DAILY@0630 [facility] Last Admin: 02/09/18 12:48 Dose: 200 mcg Multivitamins/Vitamin C (Multi-Delyn Liquid) 5 ml PO DAILY [facility] Last Admin: 02/09/18 12:48 Dose: 5 ml [id number] Ethyl Esters (Lovaza) 2 gm PO BID [facility] Last Admin: 02/09/18 12:48 Dose: 2 gm Pantoprazole Sodium (Protonix Ec Tab) 40 mg PO HS [facility] Last Admin: 02/08/18 21:17 Dose: Not Given Thiamine HCl (Vitamin B1 Inj) 200 mg IV Q8H [facility] Last Admin: 02/09/18 12:47 Dose: 200 mg - Labs Labs: 02/09/18 06:33 02/09/18 06:35 PT 14.1 SECONDS (9.7-12.2) H 02/04/18 15:52 INR 1.3 02/04/18 15:52 APTT 34 SECONDS (21-34) 02/04/18 15:52 Assessment and Plan (1) Staphylococcus aureus bacteremia Status: Acute (2) Dyspnea Status: Acute (3) Altered mental status Status: Acute (4) ESRD (end stage renal disease) on dialysis Status: Acute
[2018-02-09] MEDS ORDERED: VANCOMYCIN IVPB STA (20:20)
[2018-02-09] MEDS ORDERED: SODIUM CHLORIDE 0.9% IVPB STA (20:20)
[2018-02-09] MEDS ORDERED: Vancomycin 0.75 GM in Sodium Chloride 0.9% 150 ML IVPB STA (20:28)
[2018-02-09] MEDS: Pantoprazole 40 mg EC Tab PO SCH (21:36)
[2018-02-10] MEDS: Albuterol-Ipratrop 3 mg / 0.5 (3 ml) UD INH SCH ×4 (01:16→20:22)
[2018-02-10] MEDS: Thiamine 100 mg/ml Inj IV SCH ×3 (02:55→17:03)
[2018-02-10 04:40] LABS: ARTERIAL BLOOD GAS HCO3 19.8 mmol/L (21-28); ARTERIAL BLOOD GAS O2 SAT 98.6 % (95-98); ARTERIAL BLOOD GAS PCO2 21 mm/Hg (35-45); ARTERIAL BLOOD GAS PH 7.46 (7.35-7.45); ARTERIAL BLOOD GAS PO2 155 mm/Hg (80-100); ARTERIAL BLOOD GAS TCO2 15.5 mmol/L (22-28)
[2018-02-10] MEDS: Piperacill/Tazo 2.25gm in Dex 2.25 GM/50 ML BAG IVPB SCH ×3 (04:47→21:21)
[2018-02-10 06:09] LABS: BASO % 0.2 % (0.0-2.0); EOS # 0.1 K/uL (0.0-0.7); EOS % 1.3 % (0.0-4.0); HEMOGLOBIN 7.1 g/dL (11.0-16.0); LYMPH # 1.1 K/uL (1.0-4.3); LYMPH % 16.2 % (20.0-40.0); MEAN CELL VOLUME 98.9 fL (81.0-99.0); MEAN CORPUSCULAR HEMOGLOBIN 33.9 pg (27.0-31.0); MEAN CORPUSCULAR HGB CONC 34.3 g/dL (33.0-37.0); MEAN PLATELET VOLUME 11.7 fL (7.2-11.7); MONO # 0.6 K/uL (0.0-0.8); MONO % 8.6 % (0.0-10.0); NEUT # 4.8 K/uL (1.8-7.0); NEUT % 73.7 % (50.0-75.0); NRBC % 0.4 % (0.0-2.0); RBC 2.1 Mil/uL (3.80-5.20); RED CELL DISTRIBUTION WIDTH 16.9 % (11.5-14.5); WHITE BLOOD COUNT 6.6 K/uL (4.8-10.8)
[2018-02-10 06:22] LABS: ALB/GLOB RATIO 0.6 (1.0-2.1); ALBUMIN 2.4 g/dL (3.5-5.0)
--- NOTE | 2018-02-10 06:46 | CP.PCM.PN ---
Subjective - Date & Time of Evaluation Date of Evaluation: 02/10/18 Time of Evaluation: 06:46 - Subjective Subjective: Ms. Dorsey was seen and examined at the bedside in ICU. She is on mechanical ventilator on PRVC mode with pupils are sluggishly reactive 4 mm. She moves her upper and lower extremities spontaneously but unable to follow any commands. withdraws from pain. She opens her eyes as a response to stimuli. She is able to follow one command such as opening her mouth. Her blood pressure has been labile overnight, this morning on dopamine drip for blood pressure support. She remains with bilateral hand mittens. Objective - Vital Signs/Intake and Output Vital Signs (last 24 hours): Temp Pulse Resp BP Pulse Ox 96.8 F L 60 19 44/21 L 100 02/09/18 07:00 02/10/18 05:07 02/10/18 05:07 02/10/18 05:07 02/10/18 05:07 Intake and Output: 02/09/18 02/10/18 18:59 06:59 Intake Total 470.0 527.2 Output Total 0 Balance 470.0 527.2 - Medications Medications: Current Medications Acetaminophen (Tylenol 325mg Tab) 650 mg PO Q6 PRN PRN Reason: Pain, moderate (4-7) Last Admin: 02/05/18 16:18 Dose: 650 mg Albuterol/Ipratropium (Duoneb 3 Mg/0.5 Mg (3 Ml) Ud) 3 ml INH RQ6 [facility] Last Admin: 02/10/18 01:16 Dose: 3 ml Bacitracin (Bacitracin) 0 gm TOP DAILY [facility] Last Admin: 02/09/18 09:49 Dose: 1 applic Benzocaine/Menthol (Cepacol Sore Throat) 1 naomi PO Q2 PRN PRN Reason: Sore Throat Docusate Sodium (Colace) 100 mg PO DAILY [facility] Last Admin: 02/09/18 12:47 Dose: 100 mg Epoetin Yvon (Procrit) 10,000 unit IV MWF [facility] Last Admin: 02/07/18 11:40 Dose: 10,000 unit Ergocalciferol (Drisdol 50,000 Intl Units Cap) 1 cap PO QD7 [facility] Vancomycin/Sodium Chloride (Vancomycin 1 Gm/Ns 200 Ml) 1 gm in 200 mls @ 133 mls/hr IVPB MWF [facility] PRN Reason: Protocol Stop: 02/12/18 09:01 Last Admin: 02/07/18 09:00 Dose: 133 mls/hr Piperacillin Sod/Tazobactam Sod (Zosyn 2.25 Gm Iv Premix) 2.25 gm in 50 mls @ 100 mls/hr IVPB Q8H [facility] PRN Reason: Protocol Last Admin: 02/10/18 04:47 Dose: 100 mls/hr Dopamine HCl/Dextrose (Dopamine 400mg/250ml D5w) 400 mg in 250 mls @ 4.627 mls/ hr IV .Q24H PRN; Protocol; 2 MCG/KG/MIN PRN Reason: TITRATE PER MD ORDER Last Admin: 02/09/18 10:11 Dose: 2 mcg/kg/min, 4.627 mls/hr Lactulose (Enulose) 20 gm PO DAILY PRN PRN Reason: constipation Levothyroxine Sodium (Synthroid) 200 mcg PO DAILY@0630 [facility] Last Admin: 02/09/18 12:48 Dose: 200 mcg Multivitamins/Vitamin C (Multi-Delyn Liquid) 5 ml PO DAILY [facility] Last Admin: 02/09/18 12:48 Dose: 5 ml Sbhka-[id number] Ethyl Esters (Lovaza) 2 gm PO BID [facility] Last Admin: 02/09/18 17:41 Dose: 2 gm Pantoprazole Sodium (Protonix Ec Tab) 40 mg PO HS [facility] Last Admin: 02/09/18 21:36 Dose: 40 mg Thiamine HCl (Vitamin B1 Inj) 200 mg IV Q8H [facility] Last Admin: 02/10/18 02:55 Dose: 200 mg - Labs Labs: 02/10/18 06:00 02/10/18 06:00 PT 14.1 SECONDS (9.7-12.2) H 02/04/18 15:52 INR 1.3 02/04/18 15:52 APTT 34 SECONDS (21-34) 02/04/18 15:52 - Constitutional Appears: No Acute Distress - Head Exam Head Exam: NORMAL INSPECTION - Eye Exam Pupil Exam: PERRL Additional comments: sluggish 4 mm bilateral - Neurological Exam Neurological Exam: Awake Neuro motor strength exam: Left Upper Extremity: 3, Right Upper Extremity: 3, Left Lower Extremity: 3, Right Lower Extremity: 3 Additional comments: She is on mechanical ventilator, opens hers eyes spontaneously, moves all extremities and episode of restlessness. Assessment and Plan (1) Lacunar infarction Assessment & Plan: Case discussed with Dr. Gutierres, continue all current medical regimen. Recommend repeat CT scan of the head without contrast, treat any electrolyte abnormalities , underlying infection, and blood pressure control. Status: Acute
[2018-02-10] MEDS: Levothyroxine 200 MCG TAB PO SCH (07:24)
[2018-02-10] MEDS: Vancomycin 1 gm/NS 200 ml 1 GM/200 ML BAG IVPB SCH (08:31)
--- NOTE | 2018-02-10 09:48 | RAD ---
HISTORY: eval et tube COMPARISON: Chest radiograph dated 02/09/2018. FINDINGS: LUNGS: Similar pulmonary vascular congestion. Left basilar atelectasis. PLEURA: Will small left pleural effusion no pneumothorax apparent. CARDIOVASCULAR: Atherosclerotic aortic calcifications. Cardiomediastinal silhouette stably enlarged. OSSEOUS STRUCTURES: Unchanged. VISUALIZED UPPER ABDOMEN: Normal. OTHER FINDINGS: Endotracheal, enteric tubes, unchanged. IMPRESSION: Stable tubes and lines. Grossly stable pulmonary vascular congestion and small left pleural effusion.
[2018-02-10] MEDS: Multiple Vitamins Oral Solution PO SCH (10:46)
[2018-02-10] MEDS: Bacitracin Ointment 30 GM TUBE TOP SCH (10:47)
--- NOTE | 2018-02-10 13:03 | CP.PCM.PN ---
Subjective - Date & Time of Evaluation Date of Evaluation: 02/10/18 Time of Evaluation: 08:00 - Subjective Subjective: tessio out pus from left arm av fistula + needs removal/ revvision dr casanova on board Objective - Vital Signs/Intake and Output Vital Signs (last 24 hours): Temp Pulse Resp BP Pulse Ox 97.3 F L 62 14 97/37 L 100 02/10/18 07:00 02/10/18 12:22 02/10/18 12:22 02/10/18 12:22 02/10/18 12:22 Intake and Output: 02/10/18 02/10/18 06:59 18:59 Intake Total 572.9 495.2 Balance 572.9 495.2 - Medications Medications: Current Medications Acetaminophen (Tylenol 325mg Tab) 650 mg PO Q6 PRN PRN Reason: Pain, moderate (4-7) Last Admin: 02/05/18 16:18 Dose: 650 mg Albuterol/Ipratropium (Duoneb 3 Mg/0.5 Mg (3 Ml) Ud) 3 ml INH RQ6 [facility] Last Admin: 02/10/18 08:16 Dose: 3 ml Bacitracin (Bacitracin) 0 gm TOP DAILY [facility] Last Admin: 02/10/18 10:47 Dose: 1 applic Benzocaine/Menthol (Cepacol Sore Throat) 1 naomi PO Q2 PRN PRN Reason: Sore Throat Docusate Sodium (Colace) 100 mg PO DAILY [facility] Last Admin: 02/10/18 11:01 Dose: 100 mg Epoetin Yvon (Procrit) [facility] Last Admin: 02/07/18 11:40 Dose: 10,000 unit Ergocalciferol (Drisdol 50,000 Intl Units Cap) 1 cap PO QD7 [facility] Vancomycin/Sodium Chloride (Vancomycin 1 Gm/Ns 200 Ml) 1 gm in 200 mls @ 133 mls/hr IVPB MWF [facility] PRN Reason: Protocol Stop: 02/12/18 09:01 Last Admin: 02/10/18 08:31 Dose: 133 mls/hr Piperacillin Sod/Tazobactam Sod (Zosyn 2.25 Gm Iv Premix) 2.25 gm in 50 mls @ 100 mls/hr IVPB Q8H [facility] PRN Reason: Protocol Last Admin: 02/10/18 04:47 Dose: 100 mls/hr Dopamine HCl/Dextrose (Dopamine 400mg/250ml D5w) 400 mg in 250 mls @ 4.627 mls/ hr IV .Q24H PRN; Protocol; 2 MCG/KG/MIN PRN Reason: TITRATE PER MD ORDER Last Titration: 02/10/18 12:00 Dose: 6 mcg/kg/min, 13.88 mls/hr Lactulose (Enulose) 20 gm PO DAILY PRN PRN Reason: constipation Levothyroxine Sodium (Synthroid) 200 mcg PO DAILY@0630 [facility] Last Admin: 02/10/18 07:24 Dose: 200 mcg Multivitamins/Vitamin C (Multi-Delyn Liquid) 5 ml PO DAILY [facility] Last Admin: 02/10/18 10:46 Dose: 5 ml Pantoprazole Sodium (Protonix Ec Tab) 40 mg PO HS [facility] Last Admin: 02/09/18 21:36 Dose: 40 mg Thiamine HCl (Vitamin B1 Inj) 200 mg IV Q8H [facility] Last Admin: 02/10/18 10:46 Dose: 200 mg - Labs Labs: 02/10/18 06:00 02/10/18 06:00 PT 14.1 SECONDS (9.7-12.2) H 02/04/18 15:52 INR 1.3 02/04/18 15:52 APTT 34 SECONDS (21-34) 02/04/18 15:52 - Constitutional Appears: Chronically Ill - Head Exam Head Exam: NORMAL INSPECTION - Eye Exam Eye Exam: PERRL - ENT Exam ENT Exam: Mucous Membranes Dry - Neck Exam Neck Exam: absent: Lymphadenopathy - Respiratory Exam Respiratory Exam: Decreased Breath Sounds - Cardiovascular Exam Cardiovascular Exam: REGULAR RHYTHM - GI/Abdominal Exam GI & Abdominal Exam: Distended - Rectal Exam Rectal Exam: Deferred - Exam Exam: NORMAL INSPECTION - Extremities Exam Extremities Exam: absent: Pedal Edema - Back Exam Back Exam: absent: CVA tenderness (L), CVA tenderness (R) - Neurological Exam Neurological Exam: Alert, Altered, Awake - Psychiatric Exam Psychiatric exam: Depressed - Skin Skin Exam: Dry Additional comments: drainage left av dfistula Assessment and Plan (1) Sepsis Status: Acute (2) Sepsis Status: Acute (3) ESRD (end stage renal disease) on dialysis Status: Acute (4) MRSA bacteremia Status: Acute - Assessment and Plan (Free Text) Plan: needs removal of fistula cont iv rx
--- NOTE | 2018-02-10 13:40 | CP.PCM.CON ---
History of Present Illness - History of Present Illness History of Present Illness: Vascular Surgery- Dr. Barahona 72F pmhx significant for ESRD on HD, DM HTN, in ICU w/ acute respiratory failure , ?cardiac arrest, intubated unable to provide HPI and ROS. Awakes w/ noxious stimuli. HPI received from computer. Surgery was consulted for temporary dialysis catheter placement. Pt had fistula and [place]ac[place] [facility] [place] PMH: stated above, ?OM PSH: permacath, LUE AVF ALL: Lorazepam Review of Systems - Review of Systems All systems: reviewed and no additional remarkable complaints except - Constitutional Constitutional: As Per HPI Past Patient History - Past Medical History & Family History Past Medical History?: Yes - Past Social History Smoking Status: Unknown If Ever Smoked - CARDIAC Hx Congestive Heart Failure: Yes Hx Hypertension: Yes - PULMONARY Hx Respiratory Disorders: No - NEUROLOGICAL Hx Neurological Disorder: No - HEENT Hx HEENT Problems: No - RENAL Hx Chronic Kidney Disease: Yes Type of Dialysis Access: Lt subclavian HD cath Date of Last Dialysis Treatment: 02/03/18 - ENDOCRINE/METABOLIC Hx Diabetes Mellitus Type 2: Yes - HEMATOLOGICAL/ONCOLOGICAL Hx Blood Disorders: No - INTEGUMENTARY Hx Dermatological Problems: No - MUSCULOSKELETAL/RHEUMATOLOGICAL Hx Musculoskeletal Disorders: Yes Hx Falls: Yes - GASTROINTESTINAL Hx Gastrointestinal Disorders: Yes Hx Gastritis: Yes - GENITOURINARY/GYNECOLOGICAL Hx Genitourinary Disorders: No - PSYCHIATRIC Hx Psychophysiologic Disorder: No Hx Substance Use: No - SURGICAL HISTORY Hx Surgeries: Yes Hx Cholecystectomy: Yes - ANESTHESIA Hx Anesthesia: Yes Hx Anesthesia Reactions: No Hx Malignant Hyperthermia: No Has any member of the family had a problem w/ anesthesia?: No Meds Allergies/Adverse Reactions: Allergies Allergy/AdvReac Type Severity Reaction Status Date / Time lorazepam [From Ativan] AdvReac SHORTNESS Verified 02/06/18 09:42 OF BREATH - Medications Medications: Current Medications Acetaminophen (Tylenol 325mg Tab) 650 mg PO Q6 PRN PRN Reason: Pain, moderate (4-7) Last Admin: 02/05/18 16:18 Dose: 650 mg Albuterol/Ipratropium (Duoneb 3 Mg/0.5 Mg (3 Ml) Ud) 3 ml INH RQ6 [facility] Last Admin: 02/10/18 08:16 Dose: 3 ml Bacitracin (Bacitracin) 0 gm TOP DAILY [facility] Last Admin: 02/10/18 10:47 Dose: 1 applic Benzocaine/Menthol (Cepacol Sore Throat) 1 naomi PO Q2 PRN PRN Reason: Sore Throat Docusate Sodium (Colace) 100 mg PO DAILY [facility] Last Admin: 02/10/18 11:01 Dose: 100 mg Epoetin Yvon (Procrit) 10,000 unit IV MWF [facility] Last Admin: 02/07/18 11:40 Dose: 10,000 unit Ergocalciferol (Drisdol 50,000 Intl Units Cap) 1 cap PO QD7 [facility] Vancomycin/Sodium Chloride (Vancomycin 1 Gm/Ns 200 Ml) 1 gm in 200 mls @ 133 mls/hr IVPB MWF [facility] PRN Reason: Protocol Stop: 02/12/18 09:01 Last Admin: 02/10/18 08:31 Dose: 133 mls/hr Piperacillin Sod/Tazobactam Sod (Zosyn 2.25 Gm Iv Premix) 2.25 gm in 50 mls @ 100 mls/hr IVPB Q8H [facility] PRN Reason: Protocol Last Admin: 02/10/18 04:47 Dose: 100 mls/hr Dopamine HCl/Dextrose (Dopamine 400mg/250ml D5w) 400 mg in 250 mls @ 4.627 mls/ hr IV .Q24H PRN; Protocol; 2 MCG/KG/MIN PRN Reason: TITRATE PER MD ORDER Last Titration: 02/10/18 12:00 Dose: 6 mcg/kg/min, 13.88 mls/hr Lactulose (Enulose) 20 gm PO DAILY PRN PRN Reason: constipation Levothyroxine Sodium (Synthroid) 200 mcg PO DAILY@0630 [facility] Last Admin: 02/10/18 07:24 Dose: 200 mcg Multivitamins/Vitamin C (Multi-Delyn Liquid) 5 ml PO DAILY [facility] Last Admin: 02/10/18 10:46 Dose: 5 ml Pantoprazole Sodium (Protonix Ec Tab) 40 mg PO HS [facility] Last Admin: 02/09/18 21:36 Dose: 40 mg Thiamine HCl (Vitamin B1 Inj) 200 mg IV Q8H [facility] Last Admin: 02/10/18 10:46 Dose: 200 mg Physical Exam - Constitutional Appears: Non-toxic, No Acute Distress, Chronically Ill - Head Exam Head Exam: ATRAUMATIC - Eye Exam Eye Exam: absent: Scleral icterus - Respiratory Exam Respiratory Exam: absent: Accessory Muscle Use, Respiratory Distress Additional comments: Intubated on PRVC - Cardiovascular Exam Cardiovascular Exam: +S1, +S2. absent: Bradycardia, Tachycardia - GI/Abdominal Exam GI & Abdominal Exam: Soft. absent: Distended, Firm, Guarding, Tenderness - Extremities Exam Extremities exam: Positive for: normal inspection. Negative for: calf tenderness - Back Exam Back exam: absent: CVA tenderness (L), CVA tenderness (R) - Skin Skin Exam: Intact, Normal Color Results - Vital Signs Recent Vital Signs: Last Vital Signs Temp 97.3 F L 02/10/18 07:00 Pulse 62 02/10/18 12:22 Resp 14 02/10/18 12:22 BP 97/37 L 02/10/18 12:22 Pulse Ox 100 02/10/18 12:22 - Labs Result Diagrams: 02/10/18 06:00 02/10/18 06:00 Labs: Laboratory Results - last 24 hr 02/10/18 02/10/18 02/10/18 04:35 06:00 06:00 WBC 6.6 RBC 2.10 L Hgb 7.1 L Hct 20.8 L MCV 98.9 MCH 33.9 H MCHC 34.3 RDW 16.9 H Plt Count 24 L* MPV 11.7 Neut % (Auto) 73.7 Lymph % (Auto) 16.2 L Andrews % (Auto) 8.6 Eos % (Auto) 1.3 Baso % (Auto) 0.2 Neut # (Auto) 4.8 Lymph # (Auto) 1.1 Andrews # (Auto) 0.6 Eos # (Auto) 0.1 Baso # (Auto) 0.0 Puncture Site Rb pCO2 21 L pO2 155 H HCO3 19.8 L ABG pH 7.46 H ABG Total CO2 15.5 L ABG O2 Saturation 98.6 H ABG Base Excess -6.7 L Yrn Test Na ABG Potassium 3.4 L A-a O2 Difference 247.0 Respiratory Index 1.6 Sodium 143.0 Chloride 117.0 H Glucose 110 H Lactate 1.2 Vent Mode Prvc Mechanical Rate 16 FiO2 60.0 Tidal Volume 500 PEEP 5 Potassium Carbon Dioxide Anion Gap BUN Creatinine Est GFR ( Amer) Est GFR (Non-Af Amer) Random Glucose Calcium Phosphorus Magnesium Total Bilirubin AST ALT Alkaline Phosphatase Total Protein Albumin Globulin Albumin/Globulin Ratio Arterial Blood Potassium 3.4 L Random Vancomycin 22.4 Blood Type Antibody Screen Antibody Identification 02/10/18 02/10/18 06:00 11:03 WBC RBC Hgb Hct MCV MCH MCHC RDW Plt Count MPV Neut % (Auto) Lymph % (Auto) Andrews % (Auto) Eos % (Auto) Baso % (Auto) Neut # (Auto) Lymph # (Auto) Andrews # (Auto) Eos # (Auto) Baso # (Auto) Puncture Site pCO2 pO2 HCO3 ABG pH ABG Total CO2 ABG O2 Saturation ABG Base Excess Yrn Test ABG Potassium A-a O2 Difference Respiratory Index Sodium 141 Chloride 108 H Glucose Lactate Vent Mode Mechanical Rate FiO2 Tidal Volume PEEP Potassium 4.4 Carbon Dioxide 18 L Anion Gap 20 BUN 64 H Creatinine 6.3 H Est GFR ( Amer) 8 Est GFR (Non-Af Amer) 6 Random Glucose 139 H Calcium 9.0 Phosphorus 4.7 H Magnesium 2.5 H Total Bilirubin 2.5 H AST 58 H D ALT 39 Alkaline Phosphatase 254 H D Total Protein 6.5 Albumin 2.4 L Globulin 4.1 H Albumin/Globulin Ratio 0.6 L Arterial Blood Potassium Random Vancomycin Blood Type B POSITIVE Antibody Screen Positive Antibody Identification Cancelled Assessment & Plan - Assessment and Plan (Free Text) Assessment: 72F ESRD on HD Plan: - Plan for Permacath placement in the OR today - NPO - consent recieved from son over telephone - d/w Dr. Barahona Surgical attending PGY1
--- NOTE | 2018-02-10 14:04 | CT ---
PROCEDURE: CT HEAD WITHOUT CONTRAST. HISTORY: r/o anoxic brain injury COMPARISON: CT head dated 02/06/2018. TECHNIQUE: Axial computed tomography images were obtained through the head/brain without intravenous contrast. Radiation dose: Total exam DLP = 2106.8 mGy-cm. This CT exam was performed using one or more of the following dose reduction techniques: Automated exposure control, adjustment of the mA and/or kV according to patient size, and/or use of iterative reconstruction technique. FINDINGS: HEMORRHAGE: No intracranial hemorrhage. BRAIN: No mass effect or edema. Foster-white matter differentiation maintained. Mild atrophy. Chronic microvascular ischemic changes. Left basilar ganglia lacunar infarction versus prominent perivascular space redemonstrated. VENTRICLES: Unremarkable. No hydrocephalus. CALVARIUM: Unremarkable. PARANASAL SINUSES: Maxillary sinus mucosal thickening. All MASTOID AIR CELLS: Unremarkable as visualized. No inflammatory changes. OTHER FINDINGS: Partially imaged endotracheal and orogastric tubes. IMPRESSION: No acute intracranial pathology. No significant interval change.
--- NOTE | 2018-02-10 14:35 | CP.PCM.PN ---
Subjective - Date & Time of Evaluation Date of Evaluation: 02/10/18 Time of Evaluation: 12:00 - Subjective Subjective: clinically same Objective - Vital Signs/Intake and Output Vital Signs (last 24 hours): Temp Pulse Resp BP Pulse Ox 97.3 F L 62 18 101/41 L 100 02/10/18 07:00 02/10/18 14:00 02/10/18 14:00 02/10/18 13:57 02/10/18 14:00 Intake and Output: 02/10/18 02/10/18 06:59 18:59 Intake Total 572.9 603.3 Balance 572.9 603.3 - Medications Medications: Current Medications Acetaminophen (Tylenol 325mg Tab) 650 mg PO Q6 PRN PRN Reason: Pain, moderate (4-7) Last Admin: 02/05/18 16:18 Dose: 650 mg Albuterol/Ipratropium (Duoneb 3 Mg/0.5 Mg (3 Ml) Ud) 3 ml INH RQ6 [facility] Last Admin: 02/10/18 14:23 Dose: 3 ml Bacitracin (Bacitracin) 0 gm TOP DAILY [facility] Last Admin: 02/10/18 10:47 Dose: 1 applic Benzocaine/Menthol (Cepacol Sore Throat) 1 naomi PO Q2 PRN PRN Reason: Sore Throat Docusate Sodium (Colace) 100 mg PO DAILY [facility] Last Admin: 02/10/18 11:01 Dose: 100 mg Epoetin Yvon (Procrit) 10,000 unit IV MWF [facility] Last Admin: 02/07/18 11:40 Dose: 10,000 unit Ergocalciferol (Drisdol 50,000 Intl Units Cap) 1 cap PO QD7 [facility] Vancomycin/Sodium Chloride (Vancomycin 1 Gm/Ns 200 Ml) 1 gm in 200 mls @ 133 mls/hr IVPB MWF [facility] PRN Reason: Protocol Stop: 02/12/18 09:01 Last Admin: 02/10/18 08:31 Dose: 133 mls/hr Piperacillin Sod/Tazobactam Sod (Zosyn 2.25 Gm Iv Premix) 2.25 gm in 50 mls @ 100 mls/hr IVPB Q8H [facility] PRN Reason: Protocol Last Admin: 02/10/18 14:02 Dose: 100 mls/hr Dopamine HCl/Dextrose (Dopamine 400mg/250ml D5w) 400 mg in 250 mls @ 4.627 mls/ hr IV .Q24H PRN; Protocol; 2 MCG/KG/MIN PRN Reason: TITRATE PER MD ORDER Last Titration: 02/10/18 12:00 Dose: 6 mcg/kg/min, 13.88 mls/hr Lactulose (Enulose) 20 gm PO DAILY PRN PRN Reason: constipation Levothyroxine Sodium (Synthroid) 200 mcg PO DAILY@0630 [facility] Last Admin: 02/10/18 07:24 Dose: 200 mcg Multivitamins/Vitamin C (Multi-Delyn Liquid) 5 ml PO DAILY [facility] Last Admin: 02/10/18 10:46 Dose: 5 ml Pantoprazole Sodium (Protonix Ec Tab) 40 mg PO HS [facility] Last Admin: 02/09/18 21:36 Dose: 40 mg Thiamine HCl (Vitamin B1 Inj) 200 mg IV Q8H [facility] Last Admin: 02/10/18 10:46 Dose: 200 mg - Labs Labs: 02/10/18 06:00 02/10/18 06:00 PT 14.1 SECONDS (9.7-12.2) H 02/04/18 15:52 INR 1.3 02/04/18 15:52 APTT 34 SECONDS (21-34) 02/04/18 15:52 - Constitutional Appears: Well - Head Exam Head Exam: ATRAUMATIC, NORMAL INSPECTION, NORMOCEPHALIC - Eye Exam Eye Exam: EOMI, Normal appearance, PERRL Pupil Exam: NORMAL ACCOMODATION, PERRL - ENT Exam ENT Exam: Mucous Membranes Moist, Normal Exam - Neck Exam Neck Exam: Full ROM, Normal Inspection. absent: Lymphadenopathy - Respiratory Exam Respiratory Exam: Decreased Breath Sounds - Cardiovascular Exam Cardiovascular Exam: REGULAR RHYTHM, +S1, +S2 - GI/Abdominal Exam GI & Abdominal Exam: Soft, Diminished Bowel Sounds - Rectal Exam Rectal Exam: Deferred Assessment and Plan (1) Altered mental status Status: Acute (2) ESRD (end stage renal disease) on dialysis Status: Acute (3) Gastritis Status: Acute (4) Musculoskeletal pain Status: Acute (5) Rib contusion Status: Acute (6) Toxic metabolic encephalopathy Status: Acute
--- NOTE | 2018-02-10 15:31 | CP.CCUPN ---
CCU Subjective - Physician Review Subjective (Free Text): Patient seen and examined at bedside. Intubated on mechanical Ventilation. GCS 11T. CCU Objective - Vital Signs / Intake & Output Vital Signs (Last 4 hours): Vital Signs Pulse Resp BP Pulse Ox 02/10/18 15:08 106/32 L 02/10/18 15:07 62 13 100 02/10/18 15:00 61 12 100 02/10/18 14:57 61 11 L 85/35 L 97 02/10/18 14:00 62 18 100 02/10/18 13:57 61 17 101/41 L 98 02/10/18 13:00 63 17 100 02/10/18 12:22 62 14 97/37 L 100 02/10/18 12:00 61 18 100 Intake and Output (Last 8hrs): Intake & Output 02/10/18 02/10/18 02/10/18 06:59 14:59 22:59 Intake Total 224.5 603.3 53.8 Balance 224.5 603.3 53.8 Intake: IV 132 Intake, IV Amount 44.5 81.3 13.8 Right Proximal Port 44.5 81.3 13.8 Femoral Tube Feeding 180 290 40 Other 100 Other: # Bowel Movements 0 0 - Physical Exam Head: Positive for: Atraumatic, Normocephalic Pupils: Positive for: PERRL Mouth: Positive for: Dry Respiratory/Chest: Positive for: Rales (BiBasilar). Negative for: Clear to Auscultation Cardiovascular: Positive for: Regular Rate and Rhythm, Normal S1, S2 Abdomen: Positive for: Normal Bowel Sounds. Negative for: Distention, Guarding Lower Extremity: Positive for: Normal Inspection Skin: Positive for: Warm, Dry, Other (Onchomycosis B/L) Psychiatric: Positive for: Alert. Negative for: Oriented x 3 - Medications Active Medications: Active Medications Generic Name Dose Route Start Last Admin Trade Name Freq PRN Reason Stop Dose Admin Acetaminophen 650 mg 02/05/18 12:44 02/05/18 16:18 Tylenol 325mg Tab PO 650 mg Q6 PRN Administration Pain, moderate (4-7) Albuterol/Ipratropium 3 ml 02/06/18 20:00 02/10/18 14:23 Duoneb 3 Mg/0.5 Mg (3 Ml) Ud INH 3 ml RQ6 [facility] Administration Bacitracin 0 gm 02/05/18 10:00 02/10/18 10:47 Bacitracin TOP 1 applic DAILY [facility] Administration Benzocaine/Menthol 1 naomi 02/04/18 18:53 Cepacol Sore Throat PO Q2 PRN Sore Throat Docusate Sodium 100 mg 02/05/18 10:00 02/10/18 11:01 Colace PO 100 mg DAILY [facility] Administration Epoetin Yvon 10,000 unit 02/05/18 09:00 02/07/18 11:40 Procrit IV 10,000 unit [facility] Administration Ergocalciferol 1 cap 02/04/18 19:00 Drisdol 50,000 Intl Units Cap PO QD7 [facility] Vancomycin/Sodium Chloride 1 gm in 200 mls @ 133 mls/hr 02/07/18 09:00 08:31 Vancomycin 1 Gm/Ns 200 Ml IVPB 02/12/18 09:01 133 mls/hr [facility] Administration Protocol Piperacillin Sod/Tazobactam Sod 2.25 gm in 50 mls @ 100 mls/hr 02/07/18 21:30 02/10/18 14:02 Zosyn 2.25 Gm Iv Premix IVPB 100 mls/hr Q8H [facility] Administration Protocol Dopamine HCl/Dextrose 400 mg in 250 mls @ 4.627 mls/hr 02/09/18 09:15 12:00 Dopamine 400mg/250ml D5w IV 6 mcg/kg/min .Q24H PRN 13.88 mls/hr TITRATE PER MD ORDER Titration Protocol 2 MCG/KG/MIN Lactulose 20 gm 02/04/18 18:53 Enulose PO DAILY PRN constipation Levothyroxine Sodium 200 mcg 02/05/18 06:30 02/10/18 07:24 Synthroid PO 200 mcg DAILY@0630 [facility] Administration Multivitamins/Vitamin C 5 ml 02/09/18 10:00 02/10/18 10:46 Multi-Delyn Liquid PO 5 ml DAILY [facility] Administration Pantoprazole Sodium 40 mg 02/04/18 22:00 02/09/18 21:36 Protonix Ec Tab PO 40 mg HS [facility] Administration Thiamine HCl 200 mg 02/09/18 10:00 02/10/18 10:46 Vitamin B1 Inj IV 200 mg Q8H [facility] Administration - Patient Studies Lab Studies: Microbiology Studies 02/09/18 14:11 Blood Culture - Preliminary Blood-Venous Gram Positive Cocci Gram Stain - Final 02/09/18 11:30 S.aureus & Coag-Neg Staph PNA FISH - Final Blood-Venous Blood Culture - Preliminary Gram Positive Cocci Gram Stain - Final Lab Studies 02/10/18 02/10/18 02/10/18 Range/Units 11:03 06:00 06:00 WBC 6.6 (4.8-10.8) K/uL RBC 2.10 L (3.80-5.20) Mil/uL Hgb 7.1 L (11.0-16.0) g/dL Hct 20.8 L (34.0-47.0) % MCV 98.9 (81.0-99.0) fL MCH 33.9 H (27.0-31.0) pg MCHC 34.3 (33.0-37.0) g/dL RDW 16.9 H (11.5-14.5) % Plt Count 24 L* (130-400) K/uL MPV 11.7 (7.2-11.7) fL Neut % (Auto) 73.7 (50.0-75.0) % Lymph % (Auto) 16.2 L (20.0-40.0) % Dale % (Auto) 8.6 (0.0-10.0) % Eos % (Auto) 1.3 (0.0-4.0) % Baso % (Auto) 0.2 (0.0-2.0) % Neut # (Auto) 4.8 (1.8-7.0) K/uL Lymph # (Auto) 1.1 (1.0-4.3) K/uL Dale # (Auto) 0.6 (0.0-0.8) K/uL Eos # (Auto) 0.1 (0.0-0.7) K/uL Baso # (Auto) 0.0 (0.0-0.2) K/uL Puncture Site pCO2 (35-45) mm/Hg pO2 (80-100) mm/Hg HCO3 (21-28) mmol/L ABG pH (7.35-7.45) ABG Total CO2 (22-28) mmol/L ABG O2 Saturation (95-98) % ABG Base Excess (-2.0-3.0) mmol/L Yrn Test ABG Potassium (3.6-5.2) mmol/L A-a O2 Difference mm/Hg Respiratory Index Sodium 141 (132-148) mmol/l Chloride 108 H (98-107) mmol/L Glucose (65-105) mg/dl Lactate (0.7-2.1) mmol/L Vent Mode Mechanical Rate FiO2 % Tidal Volume PEEP Potassium 4.4 (3.6-5.2) mmol/L Carbon Dioxide 18 L (22-30) mmol/L Anion Gap 20 (10-20) BUN 64 H (7-17) mg/dL Creatinine 6.3 H (0.7-1.2) mg/dL Est GFR ( Amer) 8 Est GFR (Non-Af Amer) 6 Random Glucose 139 H (65-105) mg/dL Calcium 9.0 (8.6-10.4) mg/dl Phosphorus 4.7 H (2.5-4.5) mg/dL Magnesium 2.5 H (1.6-2.3) mg/dL Total Bilirubin 2.5 H (0.2-1.3) mg/dL AST 58 H D (14-36) U/L ALT 39 (9-52) U/L Alkaline Phosphatase 254 H D (38-126) U/L Total Protein 6.5 (6.3-8.3) g/dL Albumin 2.4 L (3.5-5.0) g/dL Globulin 4.1 H (2.2-3.9) gm/dL Albumin/Globulin Ratio 0.6 L (1.0-2.1) Arterial Blood Potassium (3.6-5.2) mmol/L Random Vancomycin ug/mL Blood Type B POSITIVE Antibody Screen Positive Antibody Identification Cancelled 02/10/18 02/10/18 Range/Units 06:00 04:35 WBC (4.8-10.8) K/uL RBC (3.80-5.20) Mil/uL Hgb (11.0-16.0) g/dL Hct (34.0-47.0) % MCV (81.0-99.0) fL MCH (27.0-31.0) pg MCHC (33.0-37.0) g/dL RDW (11.5-14.5) % Plt Count (130-400) K/uL MPV (7.2-11.7) fL Neut % (Auto) (50.0-75.0) % Lymph % (Auto) (20.0-40.0) % Dale % (Auto) (0.0-10.0) % Eos % (Auto) (0.0-4.0) % Baso % (Auto) (0.0-2.0) % Neut # (Auto) (1.8-7.0) K/uL Lymph # (Auto) (1.0-4.3) K/uL Dale # (Auto) (0.0-0.8) K/uL Eos # (Auto) (0.0-0.7) K/uL Baso # (Auto) (0.0-0.2) K/uL Puncture Site Rb pCO2 21 L (35-45) mm/Hg pO2 155 H (80-100) mm/Hg HCO3 19.8 L (21-28) mmol/L ABG pH 7.46 H (7.35-7.45) ABG Total CO2 15.5 L (22-28) mmol/L ABG O2 Saturation 98.6 H (95-98) % ABG Base Excess -6.7 L (-2.0-3.0) mmol/L Yrn Test Na ABG Potassium 3.4 L (3.6-5.2) mmol/L A-a O2 Difference 247.0 mm/Hg Respiratory Index 1.6 Sodium 143.0 (132-148) mmol/l Chloride 117.0 H (98-107) mmol/L Glucose 110 H (65-105) mg/dl Lactate 1.2 (0.7-2.1) mmol/L Vent Mode Prvc Mechanical Rate 16 FiO2 60.0 % Tidal Volume 500 PEEP 5 Potassium (3.6-5.2) mmol/L Carbon Dioxide (22-30) mmol/L Anion Gap (10-20) BUN (7-17) mg/dL Creatinine (0.7-1.2) mg/dL Est GFR ( Amer) Est GFR (Non-Af Amer) Random Glucose (65-105) mg/dL Calcium (8.6-10.4) mg/dl Phosphorus (2.5-4.5) mg/dL Magnesium (1.6-2.3) mg/dL Total Bilirubin (0.2-1.3) mg/dL AST (14-36) U/L ALT (9-52) U/L Alkaline Phosphatase (38-126) U/L Total Protein (6.3-8.3) g/dL Albumin (3.5-5.0) g/dL Globulin (2.2-3.9) gm/dL Albumin/Globulin Ratio (1.0-2.1) Arterial Blood Potassium 3.4 L (3.6-5.2) mmol/L Random Vancomycin 22.4 ug/mL Blood Type Antibody Screen Antibody Identification Laboratory Results - last 24 hr 02/10/18 02/10/18 02/10/18 04:35 06:00 06:00 WBC 6.6 RBC 2.10 L Hgb 7.1 L Hct 20.8 L MCV 98.9 MCH 33.9 H MCHC 34.3 RDW 16.9 H Plt Count 24 L* MPV 11.7 Neut % (Auto) 73.7 Lymph % (Auto) 16.2 L Dale % (Auto) 8.6 Eos % (Auto) 1.3 Baso % (Auto) 0.2 Neut # (Auto) 4.8 Lymph # (Auto) 1.1 Dale # (Auto) 0.6 Eos # (Auto) 0.1 Baso # (Auto) 0.0 Puncture Site Rb pCO2 21 L pO2 155 H HCO3 19.8 L ABG pH 7.46 H ABG Total CO2 15.5 L ABG O2 Saturation 98.6 H ABG Base Excess -6.7 L Yrn Test Na ABG Potassium 3.4 L A-a O2 Difference 247.0 Respiratory Index 1.6 Sodium 143.0 Chloride 117.0 H Glucose 110 H Lactate 1.2 Vent Mode Prvc Mechanical Rate 16 FiO2 60.0 Tidal Volume 500 PEEP 5 Potassium Carbon Dioxide Anion Gap BUN Creatinine Est GFR ( Amer) Est GFR (Non-Af Amer) Random Glucose Calcium Phosphorus Magnesium Total Bilirubin AST ALT Alkaline Phosphatase Total Protein Albumin Globulin Albumin/Globulin Ratio Arterial Blood Potassium 3.4 L Random Vancomycin 22.4 Blood Type Antibody Screen Antibody Identification 02/10/18 02/10/18 06:00 11:03 WBC RBC Hgb Hct MCV MCH MCHC RDW Plt Count MPV Neut % (Auto) Lymph % (Auto) Dale % (Auto) Eos % (Auto) Baso % (Auto) Neut # (Auto) Lymph # (Auto) Dale # (Auto) Eos # (Auto) Baso # (Auto) Puncture Site pCO2 pO2 HCO3 ABG pH ABG Total CO2 ABG O2 Saturation ABG Base Excess Yrn Test ABG Potassium A-a O2 Difference Respiratory Index Sodium 141 Chloride 108 H Glucose Lactate Vent Mode Mechanical Rate FiO2 Tidal Volume PEEP Potassium 4.4 Carbon Dioxide 18 L Anion Gap 20 BUN 64 H Creatinine 6.3 H Est GFR ( Amer) 8 Est GFR (Non-Af Amer) 6 Random Glucose 139 H Calcium 9.0 Phosphorus 4.7 H Magnesium 2.5 H Total Bilirubin 2.5 H AST 58 H D ALT 39 Alkaline Phosphatase 254 H D Total Protein 6.5 Albumin 2.4 L Globulin 4.1 H Albumin/Globulin Ratio 0.6 L Arterial Blood Potassium Random Vancomycin Blood Type B POSITIVE Antibody Screen Positive Antibody Identification Cancelled Review of Systems - Review of Systems Systems not reviewed;Unavailable: Altered Mental Status Assessment/Plan - Assessment and Plan (Free Text) Assessment: 72 y/o female with PMHx of DM, HTN, ESRD on HD, h/o osteomyelitits presented to [facility] with AMS. IN ICU for evaluation and treatment of AMS. 02/09: Patient was noted to have bradycardia and Cardiac Arrest? Was intubated. Plan: Neuro A: AMS GCS: 11T Sedation: None Head CT (02/06): Shows chronic microvascular ischemic change, mild generalized volume loss. Punctate hypodensity in the left basal ganglia may represent a prominent perivascular space versus punctate lacunar infarct. Sinus mucosal disease. Consider MRI Brain MRI (02/05): Limited exam due to excessive motion artifacts throughout all sequences. No mass effect, intracranial hemorrhage or acute/subacute brain infarction identified. Age-related neuro degenerative findings are appreciated as discussed above. Repeat MRI is available as clinically required the patient is able to properly position. Head CT (02/09): No Acute intracranial pathology, No significant interval change. Cardio: A: HTN, Hypotension Pressors: Dopamine PRN ECHO shows normal EF and Grade II pseudonormal relaxation pattern Cardiology on Consult, Recs Appreciated Continue Coreg 25 PO Q12H, ASA supp, Hyralazine, Losartan 100 Daily, Lovaza 2gm BID, Norvasc. Pulm: A: Hypoxic Res. failure Intubated on Mechanical Vent. PRVC Mode - 50%,5 PEEP, 16RR, 500 TV DuoNeb Q6H GI: A: Constipation Lactulose PRN, Colace 100 [facility] Renal A: ESRD, Anemia, Hypothyroidism HD - MWF HD Catheter to be placed after Blood/Plt transfusion. Cont. Procrit, Drisdol, Heme/Onc A: Anemia, Thrombycytomenia 1 Unit of Blood to be given with Hemodyaliss 10 Units of Plts ordered todya. ID A: Bacteremia (Staph Aureus) Afebrile, No Leukocytosis Cont. Vancomycin 1gm (M,W, F) Cont. Zosyn 2.25gm Q8H IVP. Endo: A: DM, Vitamin D Def. Hypothyrodism ISS, BGM q6H Ergocalciferol 50,000 IU Q7days. Cont. Levothyroxine 200mcg PO Proph Protonix Heparin Patient discussed with ICU Attending Leo Larson, PGY- 1
--- NOTE | 2018-02-10 16:20 | CP.PCM.PN ---
Subjective - Date & Time of Evaluation Date of Evaluation: 02/10/18 Time of Evaluation: 16:18 - Subjective Subjective: Vascular Surgery- Dr. Barahona Pt examined w/ ultraound of LUE shunt. Good flow. OK to use for dialysis. Will cancel surgery for today d/w Dr. Barahona surgical attending [facility] PGY1 Objective - Vital Signs/Intake and Output Vital Signs (last 24 hours): Temp Pulse Resp BP Pulse Ox 97.3 F L 62 13 106/32 L 100 02/10/18 07:00 02/10/18 15:07 02/10/18 15:07 02/10/18 15:08 02/10/18 15:07 Intake and Output: 02/10/18 02/10/18 06:59 18:59 Intake Total 572.9 657.1 Balance 572.9 657.1 - Medications Medications: Current Medications Acetaminophen (Tylenol 325mg Tab) 650 mg PO Q6 PRN PRN Reason: Pain, moderate (4-7) Last Admin: 02/05/18 16:18 Dose: 650 mg Albuterol/Ipratropium (Duoneb 3 Mg/0.5 Mg (3 Ml) Ud) 3 ml INH RQ6 [facility] Last Admin: 02/10/18 14:23 Dose: 3 ml Bacitracin (Bacitracin) 0 gm TOP DAILY [facility] Last Admin: 02/10/18 10:47 Dose: 1 applic Benzocaine/Menthol (Cepacol Sore Throat) 1 naomi PO Q2 PRN PRN Reason: Sore Throat Docusate Sodium (Colace) 100 mg PO DAILY [facility] Last Admin: 02/10/18 11:01 Dose: 100 mg Epoetin Yvon (Procrit) 10,000 unit IV MWF [facility] Last Admin: 02/07/18 11:40 Dose: 10,000 unit Ergocalciferol (Drisdol 50,000 Intl Units Cap) 1 cap PO QD7 [facility] Vancomycin/Sodium Chloride (Vancomycin 1 Gm/Ns 200 Ml) 1 gm in 200 mls @ 133 mls/hr IVPB MWF [facility] PRN Reason: Protocol Stop: 02/12/18 09:01 Last Admin: 02/10/18 08:31 Dose: 133 mls/hr Piperacillin Sod/Tazobactam Sod (Zosyn 2.25 Gm Iv Premix) 2.25 gm in 50 mls @ 100 mls/hr IVPB Q8H [facility] PRN Reason: Protocol Last Admin: 02/10/18 14:02 Dose: 100 mls/hr Dopamine HCl/Dextrose (Dopamine 400mg/250ml D5w) 400 mg in 250 mls @ 4.627 mls/ hr IV .Q24H PRN; Protocol; 2 MCG/KG/MIN PRN Reason: TITRATE PER MD ORDER Last Titration: 02/10/18 12:00 Dose: 6 mcg/kg/min, 13.88 mls/hr Lactulose (Enulose) 20 gm PO DAILY PRN PRN Reason: constipation Levothyroxine Sodium (Synthroid) 200 mcg PO DAILY@0630 [facility] Last Admin: 02/10/18 07:24 Dose: 200 mcg Multivitamins/Vitamin C (Multi-Delyn Liquid) 5 ml PO DAILY [facility] Last Admin: 02/10/18 10:46 Dose: 5 ml Pantoprazole Sodium (Protonix Ec Tab) 40 mg PO HS [facility] Last Admin: 02/09/18 21:36 Dose: 40 mg Thiamine HCl (Vitamin B1 Inj) 200 mg IV Q8H [facility] Last Admin: 02/10/18 10:46 Dose: 200 mg - Labs Labs: 02/10/18 06:00 02/10/18 06:00 PT 14.1 SECONDS (9.7-12.2) H 02/04/18 15:52 INR 1.3 02/04/18 15:52 APTT 34 SECONDS (21-34) 02/04/18 15:52
--- NOTE | 2018-02-10 17:21 | CP.PCM.PN ---
Subjective - Date & Time of Evaluation Date of Evaluation: 02/10/18 Time of Evaluation: 09:45 - Subjective Subjective: Patient seen and examined Remains intubated on ventilatory support Being treated for staph bacteremia For hemodialysis today Continue IV antibiotics wean as tolerated Objective - Vital Signs/Intake and Output Vital Signs (last 24 hours): Temp Pulse Resp BP Pulse Ox 97.3 F L 60 14 113/30 L 99 02/10/18 07:00 02/10/18 16:08 02/10/18 16:08 02/10/18 16:08 02/10/18 16:08 Intake and Output: 02/10/18 02/10/18 06:59 18:59 Intake Total 572.9 833.9 Balance 572.9 833.9 - Medications Medications: Current Medications Acetaminophen (Tylenol 325mg Tab) 650 mg PO Q6 PRN PRN Reason: Pain, moderate (4-7) Last Admin: 02/05/18 16:18 Dose: 650 mg Albuterol/Ipratropium (Duoneb 3 Mg/0.5 Mg (3 Ml) Ud) 3 ml INH RQ6 [facility] Last Admin: 02/10/18 14:23 Dose: 3 ml Bacitracin (Bacitracin) 0 gm TOP DAILY [facility] Last Admin: 02/10/18 10:47 Dose: 1 applic Benzocaine/Menthol (Cepacol Sore Throat) 1 naomi PO Q2 PRN PRN Reason: Sore Throat Docusate Sodium (Colace) 100 mg PO DAILY [facility] Last Admin: 02/10/18 11:01 Dose: 100 mg Epoetin Yvon (Procrit) 10,000 unit IV [facility] Last Admin: 02/07/18 11:40 Dose: 10,000 unit Ergocalciferol (Drisdol 50,000 Intl Units Cap) 1 cap PO QD7 [facility] Vancomycin/Sodium Chloride (Vancomycin 1 Gm/Ns 200 Ml) 1 gm in 200 mls @ 133 mls/hr [facility] PRN Reason: Protocol Stop: 02/12/18 09:01 Last Admin: 02/10/18 08:31 Dose: 133 mls/hr Piperacillin Sod/Tazobactam Sod (Zosyn 2.25 Gm Iv Premix) 2.25 gm in 50 mls @ 100 mls/hr IVPB Q8H [facility] PRN Reason: Protocol Last Admin: 02/10/18 14:02 Dose: 100 mls/hr Dopamine HCl/Dextrose (Dopamine 400mg/250ml D5w) 400 mg in 250 mls @ 4.627 mls/ hr IV .Q24H PRN; Protocol; 2 MCG/KG/MIN PRN Reason: TITRATE PER MD ORDER Last Titration: 02/10/18 17:19 Dose: 5 mcg/kg/min, 11.567 mls/hr Lactulose (Enulose) 20 gm PO DAILY PRN PRN Reason: constipation Levothyroxine Sodium (Synthroid) 200 mcg PO DAILY@0630 [facility] Last Admin: 02/10/18 07:24 Dose: 200 mcg Multivitamins/Vitamin C (Multi-Delyn Liquid) 5 ml PO DAILY [facility] Last Admin: 02/10/18 10:46 Dose: 5 ml Pantoprazole Sodium (Protonix Ec Tab) 40 mg PO HS [facility] Last Admin: 02/09/18 21:36 Dose: 40 mg Thiamine HCl (Vitamin B1 Inj) 200 mg IV Q8H [facility] Last Admin: 02/10/18 17:03 Dose: 200 mg - Labs Labs: 02/10/18 06:00 02/10/18 06:00 PT 14.1 SECONDS (9.7-12.2) H 02/04/18 15:52 INR 1.3 02/04/18 15:52 APTT 34 SECONDS (21-34) 02/04/18 15:52 Assessment and Plan (1) Staphylococcus aureus bacteremia Status: Acute (2) Dyspnea Status: Acute (3) Altered mental status Status: Acute (4) ESRD (end stage renal disease) on dialysis Status: Acute
[2018-02-10] MEDS: Pantoprazole 40 mg EC Tab PO SCH (21:21)
[2018-02-10] MEDS: Epoetin Alfa 10,000 unit/ml Dialysis IV SCH (22:15)
[2018-02-10] MEDS: DOPamine 400mg/250ml D5W 400 MG/250 ML BAG IV PRN (22:42)
[2018-02-11] MEDS: Ipratropium 0.02% Inhal Soln (0.5 mg/2.5 ml) UD IH SCH ×3 (01:13→13:47)
[2018-02-11] MEDS ORDERED: Albuterol 0.083% Inhal Sol (2.5 mg/3 mL) UD INH SCH ×2 (02:00→08:00)
[2018-02-11] MEDS: Thiamine 100 mg/ml Inj IV SCH ×3 (02:01→18:12)
[2018-02-11] MEDS: Piperacill/Tazo 2.25gm in Dex 2.25 GM/50 ML BAG IVPB SCH ×3 (05:03→21:58)
[2018-02-11 05:50] LABS: ABG ALLEN TEST POS; ARTERIAL BLOOD GAS HEMOGLOBIN 8.7 g/dL (11.7-17.4); ARTERIAL BLOOD GAS O2 SAT 98.2 % (95-98); ARTERIAL BLOOD GAS PCO2 36 mm/Hg (35-45); ARTERIAL BLOOD GAS PH 7.49 (7.35-7.45); ARTERIAL BLOOD GAS PO2 108 mm/Hg (80-100); ARTERIAL BLOOD GAS TCO2 28.5 mmol/L (22-28)
[2018-02-11] MEDS: Levothyroxine 200 MCG TAB PO SCH (06:12)
[2018-02-11 06:13] LABS: BASO % 0.5 % (0.0-2.0); EOS # 0.1 K/uL (0.0-0.7); EOS % 0.8 % (0.0-4.0); HEMOGLOBIN 8.5 g/dL (11.0-16.0); LYMPH # 0.8 K/uL (1.0-4.3); LYMPH % 9.2 % (20.0-40.0); MEAN CELL VOLUME 95.7 fL (81.0-99.0); MEAN CORPUSCULAR HEMOGLOBIN 33.5 pg (27.0-31.0); MONO # 0.5 K/uL (0.0-0.8); MONO % 5.6 % (0.0-10.0); NEUT # 7.2 K/uL (1.8-7.0); NEUT % 83.9 % (50.0-75.0); NRBC % 0.4 % (0.0-2.0); PLATELET COUNT 33 K/uL (130-400); RBC 2.53 Mil/uL (3.80-5.20); RED CELL DISTRIBUTION WIDTH 19.3 % (11.5-14.5); WHITE BLOOD COUNT 8.6 K/uL (4.8-10.8)
[2018-02-11 06:30] LABS: ALB/GLOB RATIO 0.7 (1.0-2.1); ALBUMIN 3.1 g/dL (3.5-5.0); CALCIUM 8.5 mg/dl (8.6-10.4)
[2018-02-11 08:29] LABS: EOSINOPHIL 1 % (0-4); LYMPHOCYTE 8 % (20-40); MONOCYTE 5 % (0-10); NEUTROPHIL 86 % (50-75); PLATELET ESTIMATE DECREASED (NORMAL); TOTAL CELLS COUNTED 100
[2018-02-11 08:30] LABS: ANISOCYTOSIS SLIGHT; HYPOCHROMIC SLIGHT; POLYCHROMIC SLIGHT; TARGET CELLS SLIGHT
--- NOTE | 2018-02-11 08:42 | RAD ---
HISTORY: intubated COMPARISON: 02/10/2018 FINDINGS: LUNGS: No active pulmonary disease. PLEURA: No significant pleural effusion identified, no pneumothorax apparent. CARDIOVASCULAR: Normal heart size. ET tube and NG tube unchanged. ET tube tip is approximately 1.7 cm above the tracheal maira. Consider withdrawing slightly. OSSEOUS STRUCTURES: No significant abnormalities. VISUALIZED UPPER ABDOMEN: Normal. OTHER FINDINGS: None. IMPRESSION: No infiltrate. ET tube tip 1.7 cm above tracheal maira. Consider withdrawn slightly. Otherwise unremarkable.
[2018-02-11] MEDS: Multiple Vitamins Oral Solution PO SCH (09:29)
[2018-02-11] MEDS: Bacitracin Ointment 30 GM TUBE TOP SCH (09:30)
--- NOTE | 2018-02-11 11:35 | CP.CCUPN ---
<Leo Larson - Last Filed: 02/11/18 11:20> CCU Subjective - Physician Review Subjective (Free Text): Patient seen and examined at bedside. Intubated on mechanical Ventilation. GCS 8T. CCU Objective - Vital Signs / Intake & Output Vital Signs (Last 4 hours): Vital Signs Temp Pulse Resp BP Pulse Ox 02/11/18 10:03 66 19 91/41 L 02/11/18 10:00 71 17 100 02/11/18 09:03 69 19 133/47 L 99 02/11/18 09:00 68 18 100 02/11/18 08:58 69 18 139/49 L 92 L 02/11/18 08:00 99.1 F 70 13 100 Intake and Output (Last 8hrs): Intake & Output 02/10/18 02/11/18 02/11/18 22:59 06:59 14:59 Intake Total 959.0 456.7 149.7 Balance 959.0 456.7 149.7 Weight 161 lb 9 oz Intake: IV 118 Intake, IV Amount 146.0 136.7 29.7 Right Medial Port Femoral 50 50 Right Proximal Port 96.0 86.7 29.7 Femoral Tube Feeding 320 320 120 Blood Product 325 Red Blood Cells Cpd As1 325 Lr Unit [id number] Other 50 Other: # Bowel Movements 0 0 1 - Physical Exam Head: Positive for: Atraumatic, Normocephalic Pupils: Positive for: PERRL Mouth: Positive for: Dry Respiratory/Chest: Positive for: Rales (BiBasilar). Negative for: Clear to Auscultation Cardiovascular: Positive for: Regular Rate and Rhythm, Normal S1, S2 Abdomen: Positive for: Normal Bowel Sounds. Negative for: Distention, Guarding Lower Extremity: Positive for: Normal Inspection Skin: Positive for: Warm, Dry, Other (Onchomycosis B/L) Psychiatric: Positive for: Alert. Negative for: Oriented x 3 - Medications Active Medications: Active Medications Generic Name Dose Route Start Last Admin Trade Name Freq PRN Reason Stop Dose Admin Acetaminophen 650 mg 02/05/18 12:44 02/05/18 16:18 Tylenol 325mg Tab PO 650 mg Q6 PRN Administration Pain, moderate (4-7) Albuterol Sulfate 2.5 mg 02/11/18 08:00 02/11/18 08:10 Albuterol 0.083% Inhal Flavia (2.5 Mg/3 Ml) Ud INH 2.5 mg RQ6 [facility] Administration Bacitracin 0 gm 02/05/18 10:00 02/11/18 09:30 Bacitracin TOP 1 applic DAILY [facility] Administration Benzocaine/Menthol 1 naomi 02/04/18 18:53 Cepacol Sore Throat PO Q2 PRN Sore Throat Docusate Sodium 100 mg 02/05/18 10:00 02/10/18 11:01 Colace PO 100 mg DAILY [facility] Administration Epoetin Yvon 10,000 unit 02/05/18 09:00 02/10/18 22:15 [place] IV 10,000 unit [facility] [place] Ergocalciferol 1 cap 02/04/18 19:00 Drisdol 50,000 Intl Units Cap PO QD7 [facility] Vancomycin/Sodium Chloride 1 gm in 200 mls @ 133 mls/hr 02/07/18 09:00 08:31 Vancomycin 1 Gm/Ns 200 Ml IVPB 02/12/18 09:01 133 mls/hr [facility] Administration Protocol Piperacillin Sod/Tazobactam Sod 2.25 gm in 50 mls @ 100 mls/hr 02/07/18 21:30 02/11/18 05:03 Zosyn 2.25 Gm Iv Premix IVPB 100 mls/hr Q8H [facility] Administration Protocol Dopamine HCl/Dextrose 400 mg in 250 mls @ 4.627 mls/hr 02/09/18 09:15 22:42 Dopamine 400mg/250ml D5w IV 5 mcg/kg/min .Q24H PRN 11.567 mls/hr TITRATE PER MD ORDER Administration Protocol 2 MCG/KG/MIN Ipratropium [place] 0.5 mg 02/11/18 02:00 02/11/18 08:10 Atrovent IH 0.5 mg RQ6 [facility] Administration Lactulose 20 gm 02/04/18 18:53 Enulose PO DAILY PRN constipation Levothyroxine Sodium 200 mcg 02/05/18 06:30 02/11/18 06:12 Synthroid PO 200 mcg DAILY@0630 [facility] Administration Multivitamins/Vitamin C 5 ml 02/09/18 10:00 02/11/18 09:29 Multi-Delyn Liquid PO 5 ml DAILY [facility] Administration Pantoprazole Sodium 40 mg 02/04/18 22:00 02/10/18 21:21 Protonix Ec Tab PO 40 mg HS [facility] Administration Thiamine HCl 200 mg 02/09/18 10:00 02/11/18 09:29 Vitamin B1 Inj IV 200 mg Q8H [facility] Administration - Patient Studies Lab Studies: Microbiology Studies 02/09/18 11:30 S.aureus & Coag-Neg Staph PNA FISH - Final Blood-Venous Blood Culture - Preliminary Staphylococcus Aureus Gram Stain - Final 02/09/18 14:11 Blood Culture - Preliminary Blood-Venous Staphylococcus Aureus Gram Stain - Final Lab Studies 02/11/18 02/11/18 02/11/18 Range/Units 05:55 05:54 05:28 WBC 8.6 (4.8-10.8) K/uL RBC 2.53 L (3.80-5.20) Mil/uL Hgb 8.5 L (11.0-16.0) g/dL Hct 24.2 L (34.0-47.0) % MCV 95.7 D (81.0-99.0) fL MCH 33.5 H (27.0-31.0) pg MCHC 35.0 (33.0-37.0) g/dL RDW 19.3 H (11.5-14.5) % Plt Count 33 L (130-400) K/uL MPV 11.0 (7.2-11.7) fL Neut % (Auto) 83.9 H (50.0-75.0) % Lymph % (Auto) 9.2 L (20.0-40.0) % Gregg % (Auto) 5.6 (0.0-10.0) % Eos % (Auto) 0.8 (0.0-4.0) % Baso % (Auto) 0.5 (0.0-2.0) % Neut # (Auto) 7.2 H (1.8-7.0) K/uL Lymph # (Auto) 0.8 L (1.0-4.3) K/uL Gregg # (Auto) 0.5 (0.0-0.8) K/uL Eos # (Auto) 0.1 (0.0-0.7) K/uL Baso # (Auto) 0.0 (0.0-0.2) K/uL Neutrophils % (Manual) 86 H (50-75) % Lymphocytes % (Manual) 8 L (20-40) % Monocytes % (Manual) 5 (0-10) % Eosinophils % (Manual) 1 (0-4) % Platelet Estimate Decreased L (NORMAL) Polychromasia Slight Hypochromasia (manual) Slight Anisocytosis (manual) Slight Target Cells Slight Puncture Site Rr pCO2 36 (35-45) mm/Hg pO2 108 H (80-100) mm/Hg HCO3 28.0 (21-28) mmol/L ABG pH 7.49 H (7.35-7.45) ABG Total CO2 28.5 H (22-28) mmol/L ABG O2 Saturation 98.2 H (95-98) % ABG Base Excess 3.9 H (-2.0-3.0) mmol/L ABG Hemoglobin 8.7 L (11.7-17.4) g/dL ABG Carboxyhemoglobin 1.5 (0.5-1.5) % POC ABG HHb (Measured) 1.8 (0.0-5.0) % ABG Methemoglobin 1.0 (0.0-3.0) % Yrn Test Pos A-a O2 Difference 204.0 mm/Hg Respiratory Index 1.9 Hgb O2 Saturation 95.8 (95.0-98.0) % Vent Mode Prvc Mechanical Rate 16 FiO2 50.0 % Tidal Volume 500 PEEP 5 Sodium 139 (132-148) mmol/L Potassium 4.1 (3.6-5.2) mmol/L Chloride 100 (98-107) mmol/L Carbon Dioxide 27 (22-30) mmol/L Anion Gap 16 (10-20) BUN 35 H (7-17) mg/dL Creatinine 3.9 H (0.7-1.2) mg/dL Est GFR ( Amer) 14 Est GFR (Non-Af Amer) 11 Random Glucose 157 H (65-105) mg/dL Calcium 8.5 L (8.6-10.4) mg/dl Phosphorus 3.2 (2.5-4.5) mg/dL Magnesium 2.1 (1.6-2.3) mg/dL Total Bilirubin 2.9 H (0.2-1.3) mg/dL AST 69 H (14-36) U/L ALT 36 (9-52) U/L Alkaline Phosphatase 290 H (38-126) U/L Total Protein 7.6 (6.3-8.3) g/dL Albumin 3.1 L D (3.5-5.0) g/dL Globulin 4.5 H (2.2-3.9) gm/dL Albumin/Globulin Ratio 0.7 L (1.0-2.1) Blood Type Antibody Screen Antibody Identification 02/10/18 Range/Units 11:03 WBC (4.8-10.8) K/uL RBC (3.80-5.20) Mil/uL Hgb (11.0-16.0) g/dL Hct (34.0-47.0) % MCV (81.0-99.0) fL MCH (27.0-31.0) pg MCHC (33.0-37.0) g/dL RDW (11.5-14.5) % Plt Count (130-400) K/uL MPV (7.2-11.7) fL Neut % (Auto) (50.0-75.0) % Lymph % (Auto) (20.0-40.0) % Gregg % (Auto) (0.0-10.0) % Eos % (Auto) (0.0-4.0) % Baso % (Auto) (0.0-2.0) % Neut # (Auto) (1.8-7.0) K/uL Lymph # (Auto) (1.0-4.3) K/uL Gregg # (Auto) (0.0-0.8) K/uL Eos # (Auto) (0.0-0.7) K/uL Baso # (Auto) (0.0-0.2) K/uL Neutrophils % (Manual) (50-75) % Lymphocytes % (Manual) (20-40) % Monocytes % (Manual) (0-10) % Eosinophils % (Manual) (0-4) % Platelet Estimate (NORMAL) Polychromasia Hypochromasia (manual) Anisocytosis (manual) Target Cells Puncture Site pCO2 (35-45) mm/Hg pO2 (80-100) mm/Hg HCO3 (21-28) mmol/L ABG pH (7.35-7.45) ABG Total CO2 (22-28) mmol/L ABG O2 Saturation (95-98) % ABG Base Excess (-2.0-3.0) mmol/L ABG Hemoglobin (11.7-17.4) g/dL ABG Carboxyhemoglobin (0.5-1.5) % POC ABG HHb (Measured) (0.0-5.0) % ABG Methemoglobin (0.0-3.0) % Yrn Test A-a O2 Difference mm/Hg Respiratory Index Hgb O2 Saturation (95.0-98.0) % Vent Mode Mechanical Rate FiO2 % Tidal Volume PEEP Sodium (132-148) mmol/L Potassium (3.6-5.2) mmol/L Chloride (98-107) mmol/L Carbon Dioxide (22-30) mmol/L Anion Gap (10-20) BUN (7-17) mg/dL Creatinine (0.7-1.2) mg/dL Est GFR ( Amer) Est GFR (Non-Af Amer) Random Glucose (65-105) mg/dL Calcium (8.6-10.4) mg/dl Phosphorus (2.5-4.5) mg/dL Magnesium (1.6-2.3) mg/dL Total Bilirubin (0.2-1.3) mg/dL AST (14-36) U/L ALT (9-52) U/L Alkaline Phosphatase (38-126) U/L Total Protein (6.3-8.3) g/dL Albumin (3.5-5.0) g/dL Globulin (2.2-3.9) gm/dL Albumin/Globulin Ratio (1.0-2.1) Blood Type B POSITIVE Antibody Screen Positive Antibody Identification Cancelled Laboratory Results - last 24 hr 02/10/18 02/11/18 02/11/18 11:03 05:28 05:54 WBC 8.6 RBC 2.53 L Hgb 8.5 L Hct 24.2 L MCV 95.7 D MCH 33.5 H MCHC 35.0 RDW 19.3 H Plt Count 33 L MPV 11.0 Neut % (Auto) 83.9 H Lymph % (Auto) 9.2 L Gregg % (Auto) 5.6 Eos % (Auto) 0.8 Baso % (Auto) 0.5 Neut # (Auto) 7.2 H Lymph # (Auto) 0.8 L Gregg # (Auto) 0.5 Eos # (Auto) 0.1 Baso # (Auto) 0.0 Neutrophils % (Manual) 86 H Lymphocytes % (Manual) 8 L Monocytes % (Manual) 5 Eosinophils % (Manual) 1 Platelet Estimate Decreased L Polychromasia Slight Hypochromasia (manual) Slight Anisocytosis (manual) Slight Target Cells Slight Puncture Site Rr pCO2 36 pO2 108 H HCO3 28.0 ABG pH 7.49 H ABG Total CO2 28.5 H ABG O2 Saturation 98.2 H ABG Base Excess 3.9 H ABG Hemoglobin 8.7 L ABG Carboxyhemoglobin 1.5 POC ABG HHb (Measured) 1.8 ABG Methemoglobin 1.0 Yrn Test Pos A-a O2 Difference 204.0 Respiratory Index 1.9 Hgb O2 Saturation 95.8 Vent Mode Prvc Mechanical Rate 16 FiO2 50.0 Tidal Volume 500 PEEP 5 Sodium Potassium Chloride Carbon Dioxide Anion Gap BUN Creatinine Est GFR ( Amer) Est GFR (Non-Af Amer) Random Glucose Calcium Phosphorus Magnesium Total Bilirubin AST ALT Alkaline Phosphatase Total Protein Albumin Globulin Albumin/Globulin Ratio Blood Type B POSITIVE Antibody Screen Positive Antibody Identification Cancelled 02/11/18 05:55 WBC RBC Hgb Hct MCV MCH MCHC RDW Plt Count MPV Neut % (Auto) Lymph % (Auto) Gregg % (Auto) Eos % (Auto) Baso % (Auto) Neut # (Auto) Lymph # (Auto) Gregg # (Auto) Eos # (Auto) Baso # (Auto) Neutrophils % (Manual) Lymphocytes % (Manual) Monocytes % (Manual) Eosinophils % (Manual) Platelet Estimate Polychromasia Hypochromasia (manual) Anisocytosis (manual) Target Cells Puncture Site pCO2 pO2 HCO3 ABG pH ABG Total CO2 ABG O2 Saturation ABG Base Excess ABG Hemoglobin ABG Carboxyhemoglobin POC ABG HHb (Measured) ABG Methemoglobin Yrn Test A-a O2 Difference Respiratory Index Hgb O2 Saturation Vent Mode Mechanical Rate FiO2 Tidal Volume PEEP Sodium 139 Potassium 4.1 Chloride 100 Carbon Dioxide 27 Anion Gap 16 BUN 35 H Creatinine 3.9 H Est GFR ( Amer) 14 Est GFR (Non-Af Amer) 11 Random Glucose 157 H Calcium 8.5 L Phosphorus 3.2 Magnesium 2.1 Total Bilirubin 2.9 H AST 69 H ALT 36 Alkaline Phosphatase 290 H Total Protein 7.6 Albumin 3.1 L D Globulin 4.5 H Albumin/Globulin Ratio 0.7 L Blood Type Antibody Screen Antibody Identification Review of Systems - Review of Systems Systems not reviewed;Unavailable: Intubated Assessment/Plan - Assessment and Plan (Free Text) Assessment: 72 y/o female with PMHx of DM, HTN, ESRD on HD, h/o osteomyelitits presented to [facility] with AMS. IN ICU for evaluation and treatment of AMS. 02/09: Patient was noted to have bradycardia and Cardiac Arrest. Was intubated. Plan: Neuro A: AMS GCS: 8T Sedation: None Head CT (02/06): Shows chronic microvascular ischemic change, mild generalized volume loss. Punctate hypodensity in the left basal ganglia may represent a prominent perivascular space versus punctate lacunar infarct. Sinus mucosal disease. Consider MRI Brain MRI (02/05): Limited exam due to excessive motion artifacts throughout all sequences. No mass effect, intracranial hemorrhage or acute/subacute brain infarction identified. Age-related neuro degenerative findings are appreciated as discussed above. Repeat MRI is available as clinically required the patient is able to properly position. Head CT (02/09): No Acute intracranial pathology, No significant interval change. Cardio: A: HTN, Hypotension Pressors: Dopamine PRN ECHO shows normal EF and Grade II pseudonormal relaxation pattern Cardiology on Consult, Recs Appreciated Continue Coreg 25 PO Q12H, ASA supp, Hyralazine, Losartan 100 Daily, Lovaza 2gm BID, Norvasc. Pulm: A: Hypoxic Res. failure CXR (02/11/18): No infiltrate. ET tube tip 1.7 cm above tracheal maira. Consider withdrawn slightly. Otherwise unremarkable. Intubated on Mechanical Vent. PRVC Mode - 50%,5 PEEP, 16RR, 500 TV. Will plan to wean. DuoNeb Q6H GI: A: Constipation Lactulose PRN, Colace 100 [facility] Renal A: ESRD, Anemia, Hypothyroidism HD - MWF Per Vascular Surgery LUE shunt is okay to use for dialysis. Cont. Procrit, Drisdol, Heme/Onc A: Anemia (Improving), Thrombycytomenia (Improving) 1 Unit of Blood to be given with Hemodyaliss 10 Units of Plts ordered yesterday. ID A: Bacteremia (Staph Aureus) Afebrile, No Leukocytosis Cont. Vancomycin 1gm (M,W, F) Cont. Zosyn 2.25gm Q8H IVP. Endo: A: DM, Vitamin D Def. Hypothyrodism ISS, BGM q6H Ergocalciferol 50,000 IU Q7days. Cont. Levothyroxine 200mcg PO Proph Protonix Heparin Patient discussed with ICU Attending Leo Larson, PGY- 1 <Jake Morse S - Last Filed: 02/11/18 17:24> CCU Objective - Vital Signs / Intake & Output Vital Signs (Last 4 hours): Vital Signs Temp Pulse Resp BP Pulse Ox 02/11/18 16:03 65 17 111/42 L 99 02/11/18 16:00 99.6 F 65 17 99 02/11/18 15:03 65 16 108/43 L 97 02/11/18 15:00 66 17 99 02/11/18 14:00 68 15 100 Intake and Output (Last 8hrs): Intake & Output 02/11/18 02/11/18 02/11/18 06:59 14:59 22:59 Intake Total 456.7 377.3 93.8 Balance 456.7 377.3 93.8 Weight 161 lb 9 oz Intake: Intake, IV Amount 136.7 57.3 13.8 Right Medial Port Femoral 50 Right Proximal Port 86.7 57.3 13.8 Femoral Tube Feeding 320 320 80 Other: # Bowel Movements 0 1 - Medications Active Medications: Active Medications Generic Name Dose Route Start Last Admin Trade Name Freq PRN Reason Stop Dose Admin Acetaminophen 650 mg 02/05/18 12:44 02/05/18 16:18 Tylenol 325mg Tab PO 650 mg Q6 PRN Administration Pain, moderate (4-7) Albuterol/Ipratropium 3 ml 02/11/18 08:00 02/11/18 13:46 Duoneb 3 Mg/0.5 Mg (3 Ml) Ud INH 3 ml RQ6 [facility] Administration Bacitracin 0 gm 02/05/18 10:00 02/11/18 09:30 Bacitracin TOP 1 applic DAILY [facility] Administration Benzocaine/Menthol 1 naomi 02/04/18 18:53 Cepacol Sore Throat PO Q2 PRN Sore Throat Docusate Sodium 100 mg 02/05/18 10:00 02/11/18 12:55 Colace PO Not Given DAILY [facility] Epoetin Yvon 10,000 unit 02/05/18 09:00 02/10/18 22:15 [facility] Administration Ergocalciferol 1 cap 02/04/18 19:00 Drisdol 50,000 Intl Units Cap PO QD7 [facility] Vancomycin/Sodium Chloride 1 gm in 200 mls @ 133 mls/hr 02/07/18 09:00 08:31 Vancomycin 1 Gm/Ns 200 Ml IVPB 02/12/18 09:01 133 mls/hr [facility] [place] Protocol Piperacillin Sod/Tazobactam Sod 2.25 gm in 50 mls @ 100 mls/hr 02/07/18 21:30 02/11/18 13:29 Zosyn 2.25 Gm Iv Premix IVPB 100 mls/hr Q8H [facility] Administration Protocol Dopamine HCl/Dextrose 400 mg in 250 mls @ 4.627 mls/hr 02/09/18 09:15 22:42 Dopamine 400mg/250ml D5w IV 5 mcg/kg/min .Q24H PRN 11.567 mls/hr TITRATE PER MD ORDER Administration Protocol 2 MCG/KG/MIN Ipratropium [place] 0.5 mg 02/11/18 02:00 02/11/18 13:47 Atrovent IH Not Given RQ6 [facility] Lactulose 20 gm 02/04/18 18:53 Enulose PO DAILY PRN constipation Levothyroxine Sodium 200 mcg 02/05/18 06:30 02/11/18 06:12 Synthroid PO 200 mcg DAILY@0630 [facility] Administration Multivitamins/Vitamin C 5 ml 02/09/18 10:00 02/11/18 09:29 Multi-Delyn Liquid PO 5 ml DAILY [facility] Administration Pantoprazole Sodium 40 mg 02/04/18 22:00 02/10/18 21:21 Protonix Ec Tab PO 40 mg HS [facility] Administration Thiamine HCl 200 mg 02/09/18 10:00 02/11/18 09:29 Vitamin B1 Inj IV 200 mg Q8H [facility] Administration - Patient Studies Lab Studies: Microbiology Studies 02/09/18 11:30 S.aureus & Coag-Neg Staph PNA FISH - Final Blood-Venous Blood Culture - Preliminary Staphylococcus Aureus Gram Stain - Final 02/09/18 14:11 Blood Culture - Preliminary Blood-Venous Staphylococcus Aureus Gram Stain - Final Lab Studies 02/11/18 02/11/18 02/11/18 Range/Units 05:55 05:54 05:28 WBC 8.6 (4.8-10.8) K/uL RBC 2.53 L (3.80-5.20) Mil/uL Hgb 8.5 L (11.0-16.0) g/dL Hct 24.2 L (34.0-47.0) % MCV 95.7 D (81.0-99.0) fL MCH 33.5 H (27.0-31.0) pg MCHC 35.0 (33.0-37.0) g/dL RDW 19.3 H (11.5-14.5) % Plt Count 33 L (130-400) K/uL MPV 11.0 (7.2-11.7) fL Neut % (Auto) 83.9 H (50.0-75.0) % Lymph % (Auto) 9.2 L (20.0-40.0) % Gregg % (Auto) 5.6 (0.0-10.0) % Eos % (Auto) 0.8 (0.0-4.0) % Baso % (Auto) 0.5 (0.0-2.0) % Neut # (Auto) 7.2 H (1.8-7.0) K/uL Lymph # (Auto) 0.8 L (1.0-4.3) K/uL [place]gg # (Auto) 0.5 (0.0-0.8) K/uL Eos # (Auto) 0.1 (0.0-0.7) K/uL Baso # (Auto) 0.0 (0.0-0.2) K/uL Neutrophils % (Manual) 86 H (50-75) % Lymphocytes % (Manual) 8 L (20-40) % Monocytes % (Manual) 5 (0-10) % Eosinophils % (Manual) 1 (0-4) % Platelet Estimate Decreased L (NORMAL) Polychromasia Slight Hypochromasia (manual) Slight Anisocytosis (manual) Slight Target Cells Slight Puncture Site Rr pCO2 36 (35-45) mm/Hg pO2 108 H (80-100) mm/Hg HCO3 28.0 (21-28) mmol/L ABG pH 7.49 H (7.35-7.45) ABG Total CO2 28.5 H (22-28) mmol/L ABG O2 Saturation 98.2 H (95-98) % ABG Base Excess 3.9 H (-2.0-3.0) mmol/L ABG Hemoglobin 8.7 L (11.7-17.4) g/dL ABG Carboxyhemoglobin 1.5 (0.5-1.5) % POC ABG HHb (Measured) 1.8 (0.0-5.0) % ABG Methemoglobin 1.0 (0.0-3.0) % Yrn Test Pos A-a O2 Difference 204.0 mm/Hg Respiratory Index 1.9 Hgb O2 Saturation 95.8 (95.0-98.0) % Vent Mode Prvc Mechanical Rate 16 FiO2 50.0 % Tidal Volume 500 PEEP 5 Sodium 139 (132-148) mmol/L Potassium 4.1 (3.6-5.2) mmol/L Chloride 100 (98-107) mmol/L Carbon Dioxide 27 (22-30) mmol/L Anion Gap 16 (10-20) BUN 35 H (7-17) mg/dL Creatinine 3.9 H (0.7-1.2) mg/dL Est GFR ( Amer) 14 Est GFR (Non-Af Amer) 11 Random Glucose 157 H (65-105) mg/dL Calcium 8.5 L (8.6-10.4) mg/dl Phosphorus 3.2 (2.5-4.5) mg/dL Magnesium 2.1 (1.6-2.3) mg/dL Total Bilirubin 2.9 H (0.2-1.3) mg/dL AST 69 H (14-36) U/L ALT 36 (9-52) U/L Alkaline Phosphatase 290 H (38-126) U/L Total Protein 7.6 (6.3-8.3) g/dL Albumin 3.1 L D (3.5-5.0) g/dL Globulin 4.5 H (2.2-3.9) gm/dL Albumin/Globulin Ratio 0.7 L (1.0-2.1) Blood Type Antibody Screen Antibody Identification 02/10/18 Range/Units 11:03 WBC (4.8-10.8) K/uL RBC (3.80-5.20) Mil/uL Hgb (11.0-16.0) g/dL Hct (34.0-47.0) % MCV (81.0-99.0) fL MCH (27.0-31.0) pg MCHC (33.0-37.0) g/dL RDW (11.5-14.5) % Plt Count (130-400) K/uL MPV (7.2-11.7) fL Neut % (Auto) (50.0-75.0) % Lymph % (Auto) (20.0-40.0) % Gregg % (Auto) (0.0-10.0) % Eos % (Auto) (0.0-4.0) % Baso % (Auto) (0.0-2.0) % Neut # (Auto) (1.8-7.0) K/uL Lymph # (Auto) (1.0-4.3) K/uL Gregg # (Auto) (0.0-0.8) K/uL Eos # (Auto) (0.0-0.7) K/uL Baso # (Auto) (0.0-0.2) K/uL Neutrophils % (Manual) (50-75) % Lymphocytes % (Manual) (20-40) % Monocytes % (Manual) (0-10) % Eosinophils % (Manual) (0-4) % Platelet Estimate (NORMAL) Polychromasia Hypochromasia (manual) Anisocytosis (manual) Target Cells Puncture Site pCO2 (35-45) mm/Hg pO2 (80-100) mm/Hg HCO3 (21-28) mmol/L ABG pH (7.35-7.45) ABG Total CO2 (22-28) mmol/L ABG O2 Saturation (95-98) % ABG Base Excess (-2.0-3.0) mmol/L ABG Hemoglobin (11.7-17.4) g/dL ABG Carboxyhemoglobin (0.5-1.5) % POC ABG HHb (Measured) (0.0-5.0) % ABG Methemoglobin (0.0-3.0) % Yrn Test A-a O2 Difference mm/Hg Respiratory Index Hgb O2 Saturation (95.0-98.0) % Vent Mode Mechanical Rate FiO2 % Tidal Volume PEEP Sodium (132-148) mmol/L Potassium (3.6-5.2) mmol/L Chloride (98-107) mmol/L Carbon Dioxide (22-30) mmol/L Anion Gap (10-20) BUN (7-17) mg/dL Creatinine (0.7-1.2) mg/dL Est GFR ( Amer) Est GFR (Non-Af Amer) Random Glucose (65-105) mg/dL Calcium (8.6-10.4) mg/dl Phosphorus (2.5-4.5) mg/dL Magnesium (1.6-2.3) mg/dL Total Bilirubin (0.2-1.3) mg/dL AST (14-36) U/L ALT (9-52) U/L Alkaline Phosphatase (38-126) U/L Total Protein (6.3-8.3) g/dL Albumin (3.5-5.0) g/dL Globulin (2.2-3.9) gm/dL Albumin/Globulin Ratio (1.0-2.1) Blood Type B POSITIVE Antibody Screen Positive Antibody Identification Cancelled Laboratory Results - last 24 hr 02/10/18 02/11/18 02/11/18 11:03 05:28 05:54 WBC 8.6 RBC 2.53 L Hgb 8.5 L Hct 24.2 L MCV 95.7 D MCH 33.5 H MCHC 35.0 RDW 19.3 H Plt Count 33 L MPV 11.0 Neut % (Auto) 83.9 H Lymph % (Auto) 9.2 L Gregg % (Auto) 5.6 Eos % (Auto) 0.8 Baso % (Auto) 0.5 Neut # (Auto) 7.2 H Lymph # (Auto) 0.8 L Gregg # (Auto) 0.5 Eos # (Auto) 0.1 Baso # (Auto) 0.0 Neutrophils % (Manual) 86 H Lymphocytes % (Manual) 8 L Monocytes % (Manual) 5 Eosinophils % (Manual) 1 Platelet Estimate Decreased L Polychromasia Slight Hypochromasia (manual) Slight Anisocytosis (manual) Slight Target Cells Slight Puncture Site Rr pCO2 36 pO2 108 H HCO3 28.0 ABG pH 7.49 H ABG Total CO2 28.5 H ABG O2 Saturation 98.2 H ABG Base Excess 3.9 H ABG Hemoglobin 8.7 L ABG Carboxyhemoglobin 1.5 POC ABG HHb (Measured) 1.8 ABG Methemoglobin 1.0 Yrn Test Pos A-a O2 Difference 204.0 Respiratory Index 1.9 Hgb O2 Saturation 95.8 Vent Mode Prvc Mechanical Rate 16 FiO2 50.0 Tidal Volume 500 PEEP 5 Sodium Potassium Chloride Carbon Dioxide Anion Gap BUN Creatinine Est GFR ( Amer) Est GFR (Non-Af Amer) Random Glucose Calcium Phosphorus Magnesium Total Bilirubin AST ALT Alkaline Phosphatase Total Protein Albumin Globulin Albumin/Globulin Ratio Blood Type B POSITIVE Antibody Screen Positive Antibody Identification Cancelled 02/11/18 05:55 WBC RBC Hgb Hct MCV MCH MCHC RDW Plt Count MPV Neut % (Auto) Lymph % (Auto) Gregg % (Auto) Eos % (Auto) Baso % (Auto) Neut # (Auto) Lymph # (Auto) [place]gg # (Auto) Eos # (Auto) Baso # (Auto) Neutrophils % (Manual) Lymphocytes % (Manual) Monocytes % (Manual) Eosinophils % (Manual) Platelet Estimate Polychromasia Hypochromasia (manual) Anisocytosis (manual) Target Cells Puncture Site pCO2 pO2 HCO3 ABG pH ABG Total CO2 ABG O2 Saturation ABG Base Excess ABG Hemoglobin ABG Carboxyhemoglobin POC ABG HHb (Measured) ABG Methemoglobin Yrn Test A-a O2 Difference Respiratory Index Hgb O2 Saturation Vent Mode Mechanical Rate FiO2 Tidal Volume PEEP Sodium 139 Potassium 4.1 Chloride 100 Carbon Dioxide 27 Anion Gap 16 BUN 35 H Creatinine 3.9 H Est GFR ( Amer) 14 Est GFR (Non-Af Amer) 11 Random Glucose 157 H Calcium 8.5 L Phosphorus 3.2 Magnesium 2.1 Total Bilirubin 2.9 H AST 69 H ALT 36 Alkaline Phosphatase 290 H Total Protein 7.6 Albumin 3.1 L D Globulin 4.5 H Albumin/Globulin Ratio 0.7 L Blood Type Antibody Screen Antibody Identification Assessment/Plan (1) Staphylococcus aureus bacteremia Current Visit: Yes Status: Acute (2) Dyspnea Current Visit: Yes Status: Acute (3) Altered mental status Current Visit: Yes Status: Acute (4) ESRD (end stage renal disease) on dialysis Current Visit: Yes Status: Acute Attending/Attestation - Attestation I have personally seen and examined this patient.: Yes I have fully participated in the care of the patient.: Yes I have reviewed all pertinent clinical information: Yes Notes (Text): 02/11/18 17:23 patient seen and examined in the intensive care unit. Remains intubated on ventilatory support tolerating CPAP trial Open eyes to stimuli Status post hemodialysis thru shunt Continue antibiotics for staph bacteremia Seen by hematology for thrombocytopenia
--- NOTE | 2018-02-11 13:17 | CP.PCM.PN ---
Subjective - Date & Time of Evaluation Date of Evaluation: 02/11/18 Time of Evaluation: 10:00 - Subjective Subjective: Patient seen and examined Remains intubated on ventilatory support Being treated for staph bacteremia For hemodialysis today Continue IV antibiotics wean as tolerated Objective - Vital Signs/Intake and Output Vital Signs (last 24 hours): Temp Pulse Resp BP Pulse Ox 99.6 F 68 14 109/37 L 96 02/11/18 12:00 02/11/18 13:00 02/11/18 13:00 02/11/18 13:00 02/11/18 13:00 Intake and Output: 02/11/18 02/11/18 06:59 18:59 Intake Total 1132.3 330.4 Balance 1132.3 330.4 - Medications Medications: Current Medications Acetaminophen (Tylenol 325mg Tab) 650 mg PO Q6 PRN PRN Reason: Pain, moderate (4-7) Last Admin: 02/05/18 16:18 Dose: 650 mg Albuterol/Ipratropium (Duoneb 3 Mg/0.5 Mg (3 Ml) Ud) 3 ml INH RQ6 [facility] Bacitracin (Bacitracin) 0 gm TOP DAILY [facility] Last Admin: 02/11/18 09:30 Dose: 1 applic Benzocaine/Menthol (Cepacol Sore Throat) 1 naomi PO Q2 PRN PRN Reason: Sore Throat Docusate Sodium (Colace) 100 mg PO DAILY [facility] Last Admin: 02/11/18 12:55 Dose: Not Given Epoetin Yvon (Procrit) 10,000 unit IV MWF [facility] Last Admin: 02/10/18 22:15 Dose: 10,000 unit Ergocalciferol (Drisdol 50,000 Intl Units Cap) 1 cap PO QD7 [facility] Vancomycin/Sodium Chloride (Vancomycin 1 Gm/Ns 200 Ml) 1 gm in 200 mls @ 133 mls/hr IVPB MWF [facility] PRN Reason: Protocol Stop: 02/12/18 09:01 Last Admin: 02/10/18 08:31 Dose: 133 mls/hr Piperacillin Sod/Tazobactam Sod (Zosyn 2.25 Gm Iv Premix) 2.25 gm in 50 mls @ 100 mls/hr IVPB Q8H [facility] PRN Reason: Protocol Last Admin: 02/11/18 05:03 Dose: 100 mls/hr Dopamine HCl/Dextrose (Dopamine 400mg/250ml D5w) 400 mg in 250 mls @ 4.627 mls/ hr IV .Q24H PRN; Protocol; 2 MCG/KG/MIN PRN Reason: TITRATE PER MD ORDER Last Admin: 02/10/18 22:42 Dose: 5 mcg/kg/min, 11.567 mls/hr Ipratropium [place] (Atrovent) 0.5 mg IH RQ6 [facility] Last Admin: 02/11/18 08:10 Dose: 0.5 mg Lactulose (Enulose) 20 gm PO DAILY PRN PRN Reason: constipation Levothyroxine Sodium (Synthroid) 200 mcg PO DAILY@0630 [facility] Last Admin: 02/11/18 06:12 Dose: 200 mcg Multivitamins/Vitamin C (Multi-Delyn Liquid) 5 ml PO DAILY [facility] Last Admin: 02/11/18 09:29 Dose: 5 ml Pantoprazole Sodium (Protonix Ec Tab) 40 mg PO HS [facility] Last Admin: 02/10/18 21:21 Dose: 40 mg Thiamine HCl (Vitamin B1 Inj) 200 mg IV Q8H [facility] Last Admin: 02/11/18 09:29 Dose: 200 mg - Labs Labs: 02/11/18 05:54 02/11/18 05:55 PT 14.1 SECONDS (9.7-12.2) H 02/04/18 15:52 INR 1.3 02/04/18 15:52 APTT 34 SECONDS (21-34) 02/04/18 15:52 - Constitutional Appears: Toxic, Chronically Ill - Head Exam Head Exam: NORMOCEPHALIC - Eye Exam Eye Exam: PERRL - ENT Exam ENT Exam: Mucous Membranes Dry - Neck Exam Neck Exam: absent: Lymphadenopathy - Respiratory Exam Respiratory Exam: Decreased Breath Sounds - Cardiovascular Exam Cardiovascular Exam: REGULAR RHYTHM - GI/Abdominal Exam GI & Abdominal Exam: Distended - Rectal Exam Rectal Exam: Deferred - Exam Exam: NORMAL INSPECTION Assessment and Plan (1) Altered mental status Status: Acute (2) Dyspnea Status: Acute (3) ESRD (end stage renal disease) on dialysis Status: Acute (4) Lacunar infarction Status: Acute (5) MRSA bacteremia Status: Acute (6) Sepsis Status: Acute (7) Sepsis Status: Acute (8) Staphylococcus aureus bacteremia Status: Acute (9) Toxic metabolic encephalopathy Status: Acute
[2018-02-11] MEDS: Albuterol-Ipratrop 3 mg / 0.5 (3 ml) UD INH SCH ×3 (13:39→20:13)
--- NOTE | 2018-02-11 15:38 | CP.PCM.CON ---
History of Present Illness - History of Present Illness History of Present Illness: 72 year old female with a history of HTN, DM, ESRD on HD, presenting with AMS, respiratory failure, bacteremia, with anemia, thrombocytopenia and cogulopathy. The patient is currently intuabted and I am unable to obtain a history from the patient. Review of her medical records shows a platelet antonella of 24,000 an dhgb of 7.1 The patient is currently s/p PRBC and platelet transfusion. Past medical, surgical, family, social history cannot be obtained from the patient. Allergies: Per documentation lorazepam Review of systems cannot be obtained. Past Patient History - Past Medical History & Family History Past Medical History?: Yes - Past Social History Smoking Status: Unknown If Ever Smoked - CARDIAC Hx Congestive Heart Failure: Yes Hx Hypertension: Yes - PULMONARY Hx Respiratory Disorders: No - NEUROLOGICAL Hx Neurological Disorder: No - HEENT Hx HEENT Problems: No - RENAL Hx Chronic Kidney Disease: Yes Type of Dialysis Access: Lt subclavian HD cath Date of Last Dialysis Treatment: 02/03/18 - ENDOCRINE/METABOLIC Hx Endocrine Disorders: Yes Hx Hypothyroidism: Yes - HEMATOLOGICAL/ONCOLOGICAL Hx Blood Disorders: No - INTEGUMENTARY Hx Dermatological Problems: No - MUSCULOSKELETAL/RHEUMATOLOGICAL Hx Musculoskeletal Disorders: Yes Hx Falls: Yes - GASTROINTESTINAL Hx Gastrointestinal Disorders: Yes Hx Gastritis: Yes - GENITOURINARY/GYNECOLOGICAL Hx Genitourinary Disorders: No - PSYCHIATRIC Hx Psychophysiologic Disorder: No Hx Substance Use: No - SURGICAL HISTORY Hx Surgeries: Yes Hx Cholecystectomy: Yes - ANESTHESIA Hx Anesthesia: Yes Hx Anesthesia Reactions: No Hx Malignant Hyperthermia: No Has any member of the family had a problem w/ anesthesia?: No Meds Allergies/Adverse Reactions: Allergies Allergy/AdvReac Type Severity Reaction Status Date / Time lorazepam [From Ativan] AdvReac SHORTNESS Verified 02/06/18 09:42 OF BREATH - Medications Medications: Current Medications Acetaminophen (Tylenol 325mg Tab) 650 mg PO Q6 PRN PRN Reason: Pain, moderate (4-7) Last Admin: 02/05/18 16:18 Dose: 650 mg Albuterol/Ipratropium (Duoneb 3 Mg/0.5 Mg (3 Ml) Ud) 3 ml INH RQ6 [facility] Last Admin: 02/11/18 13:46 Dose: 3 ml Bacitracin (Bacitracin) 0 gm TOP DAILY [facility] Last Admin: 02/11/18 09:30 Dose: 1 applic Benzocaine/Menthol (Cepacol Sore Throat) 1 naomi PO Q2 PRN PRN Reason: Sore Throat Docusate Sodium (Colace) 100 mg PO DAILY [facility] Last Admin: 02/11/18 12:55 Dose: Not Given Epoetin Yvon (Procrit) 10,000 unit IV MWF [facility] Last Admin: 02/10/18 22:15 Dose: 10,000 unit Ergocalciferol (Drisdol 50,000 Intl Units Cap) 1 cap PO QD7 [facility] Vancomycin/Sodium Chloride (Vancomycin 1 Gm/Ns 200 Ml) 1 gm in 200 mls @ 133 [facility]ls[facility] PRN Reason: Protocol Stop: 02/12/18 09:01 Last Admin: 02/10/18 08:31 Dose: 133 mls/hr Piperacillin Sod/Tazobactam Sod (Zosyn 2.25 Gm Iv Premix) 2.25 gm in 50 mls @ 100 mls/hr IVPB Q8H [facility] PRN Reason: Protocol Last Admin: 02/11/18 13:29 Dose: 100 mls/hr Dopamine HCl/Dextrose (Dopamine 400mg/250ml D5w) 400 mg in 250 mls @ 4.627 mls/ hr IV .Q24H PRN; Protocol; 2 MCG/KG/MIN PRN Reason: TITRATE PER MD ORDER Last Admin: 02/10/18 22:42 Dose: 5 mcg/kg/min, 11.567 mls/hr Ipratropium [place] (Atrovent) 0.5 mg IH RQ6 [facility] Last Admin: 02/11/18 13:47 Dose: Not Given Lactulose (Enulose) 20 gm PO DAILY PRN PRN Reason: constipation Levothyroxine Sodium (Synthroid) 200 mcg PO DAILY@0630 [facility] Last Admin: 02/11/18 06:12 Dose: 200 mcg Multivitamins/Vitamin C (Multi-Delyn Liquid) 5 ml PO DAILY [facility] Last Admin: 02/11/18 09:29 Dose: 5 ml Pantoprazole Sodium (Protonix Ec Tab) 40 mg PO HS [facility] Last Admin: 02/10/18 21:21 Dose: 40 mg Thiamine HCl (Vitamin B1 Inj) 200 mg IV Q8H [facility] Last Admin: 02/11/18 09:29 Dose: 200 mg Physical Exam - Head Exam Head Exam: ATRAUMATIC - Eye Exam Eye Exam: Normal appearance - ENT Exam ENT Exam: Mucous Membranes Dry - Respiratory Exam Respiratory Exam: NORMAL BREATHING PATTERN - Cardiovascular Exam Cardiovascular Exam: +S1, +S2 - GI/Abdominal Exam GI & Abdominal Exam: Normal Bowel Sounds Results - Vital Signs Recent Vital Signs: Last Vital Signs Temp 99.6 F 02/11/18 12:00 Pulse 65 02/11/18 15:03 Resp 16 02/11/18 15:03 BP 108/43 L 02/11/18 15:03 Pulse Ox 97 02/11/18 15:03 - Labs Result Diagrams: 02/11/18 05:54 02/11/18 05:55 Labs: Laboratory Results - last 24 hr 02/10/18 02/11/18 02/11/18 11:03 05:28 05:54 WBC 8.6 RBC 2.53 L Hgb 8.5 L Hct 24.2 L MCV 95.7 D MCH 33.5 H MCHC 35.0 RDW 19.3 H Plt Count 33 L MPV 11.0 Neut % (Auto) 83.9 H Lymph % (Auto) 9.2 L Josephine % (Auto) 5.6 Eos % (Auto) 0.8 Baso % (Auto) 0.5 Neut # (Auto) 7.2 H Lymph # (Auto) 0.8 L Josephine # (Auto) 0.5 Eos # (Auto) 0.1 Baso # (Auto) 0.0 Neutrophils % (Manual) 86 H Lymphocytes % (Manual) 8 L Monocytes % (Manual) 5 Eosinophils % (Manual) 1 Platelet Estimate Decreased L Polychromasia Slight Hypochromasia (manual) Slight Anisocytosis (manual) Slight Target Cells Slight Puncture Site Rr pCO2 36 pO2 108 H HCO3 28.0 ABG pH 7.49 H ABG Total CO2 28.5 H ABG O2 Saturation 98.2 H ABG Base Excess 3.9 H ABG Hemoglobin 8.7 L ABG Carboxyhemoglobin 1.5 POC ABG HHb (Measured) 1.8 ABG Methemoglobin 1.0 Yrn Test Pos A-a O2 Difference 204.0 Respiratory Index 1.9 Hgb O2 Saturation 95.8 Vent Mode Prvc Mechanical Rate 16 FiO2 50.0 Tidal Volume 500 PEEP 5 Sodium Potassium Chloride Carbon Dioxide Anion Gap BUN Creatinine Est GFR ( Amer) Est GFR (Non-Af Amer) Random Glucose Calcium Phosphorus Magnesium Total Bilirubin AST ALT Alkaline Phosphatase Total Protein Albumin Globulin Albumin/Globulin Ratio Blood Type B POSITIVE Antibody Screen Positive Antibody Identification Cancelled 02/11/18 05:55 WBC RBC Hgb Hct MCV MCH MCHC RDW Plt Count MPV Neut % (Auto) Lymph % (Auto) Josephine % (Auto) Eos % (Auto) Baso % (Auto) Neut # (Auto) Lymph # (Auto) Josephine # (Auto) Eos # (Auto) Baso # (Auto) Neutrophils % (Manual) Lymphocytes % (Manual) Monocytes % (Manual) Eosinophils % (Manual) Platelet Estimate Polychromasia Hypochromasia (manual) Anisocytosis (manual) Target Cells Puncture Site pCO2 pO2 HCO3 ABG pH ABG Total CO2 ABG O2 Saturation ABG Base Excess ABG Hemoglobin ABG Carboxyhemoglobin POC ABG HHb (Measured) ABG Methemoglobin Yrn Test A-a O2 Difference Respiratory Index Hgb O2 Saturation Vent Mode Mechanical Rate FiO2 Tidal Volume PEEP Sodium 139 Potassium 4.1 Chloride 100 Carbon Dioxide 27 Anion Gap 16 BUN 35 H Creatinine 3.9 H Est GFR ( Amer) 14 Est GFR (Non-Af Amer) 11 Random Glucose 157 H Calcium 8.5 L Phosphorus 3.2 Magnesium 2.1 Total Bilirubin 2.9 H AST 69 H ALT 36 Alkaline Phosphatase 290 H Total Protein 7.6 Albumin 3.1 L D Globulin 4.5 H Albumin/Globulin Ratio 0.7 L Blood Type Antibody Screen Antibody Identification Assessment & Plan (1) Thrombocytopenia Assessment and Plan: suspect sepsis related will check fibrinogen to rule out DIC check heparin ab s/p platelet transfusion will review peripheral smear Status: Acute (2) Anemia Assessment and Plan: likely chronic disease and anemia of CKD will check retic count, b12, folate, ferritin to further characterize Status: Acute (3) Coagulopathy Assessment and Plan: rule out DIC likely nutritional component Thank you for this interesting consult. Status: Acute
--- NOTE | 2018-02-11 18:32 | CP.PCM.PN ---
Subjective - Date & Time of Evaluation Date of Evaluation: 02/11/18 Time of Evaluation: 12:20 - Subjective Subjective: clinically same Objective - Vital Signs/Intake and Output Vital Signs (last 24 hours): Temp Pulse Resp BP Pulse Ox 99.6 F 66 18 101/40 L 99 02/11/18 16:00 02/11/18 18:06 02/11/18 18:06 02/11/18 18:06 02/11/18 18:06 Intake and Output: 02/11/18 02/11/18 06:59 18:59 Intake Total 1132.3 564.9 Balance 1132.3 564.9 - Medications Medications: Current Medications Acetaminophen (Tylenol 325mg Tab) 650 mg PO Q6 PRN PRN Reason: Pain, moderate (4-7) Last Admin: 02/05/18 16:18 Dose: 650 mg Albuterol/Ipratropium (Duoneb 3 Mg/0.5 Mg (3 Ml) Ud) 3 ml INH RQ6 [facility] Last Admin: 02/11/18 13:46 Dose: 3 ml Bacitracin (Bacitracin) 0 gm TOP DAILY [facility] Last Admin: 02/11/18 09:30 Dose: 1 applic Benzocaine/Menthol (Cepacol Sore Throat) 1 naomi PO Q2 PRN PRN Reason: Sore Throat Docusate Sodium (Colace) 100 mg PO DAILY [facility] Last Admin: 02/11/18 12:55 Dose: Not Given Epoetin Yvon (Procrit) 10,000 unit IV MWF [facility] Last Admin: 02/10/18 22:15 Dose: 10,000 unit Ergocalciferol (Drisdol 50,000 Intl Units Cap) 1 cap PO QD7 [facility] Vancomycin/Sodium Chloride (Vancomycin 1 Gm/Ns 200 Ml) 1 gm in 200 mls @ 133 mls/hr IVPB MWF [facility] PRN Reason: Protocol Stop: 02/12/18 09:01 Last Admin: 02/10/18 08:31 Dose: 133 mls/hr Piperacillin Sod/Tazobactam Sod (Zosyn 2.25 Gm Iv Premix) 2.25 gm in 50 mls @ 100 mls/hr IVPB Q8H [facility] PRN Reason: Protocol Last Admin: 02/11/18 13:29 Dose: 100 mls/hr Dopamine HCl/Dextrose (Dopamine 400mg/250ml D5w) 400 mg in 250 mls @ 4.627 mls/ hr IV .Q24H PRN; Protocol; 2 MCG/KG/MIN PRN Reason: TITRATE PER MD ORDER Last Admin: 02/10/18 22:42 Dose: 5 mcg/kg/min, 11.567 mls/hr Ipratropium [place] (Atrovent) 0.5 mg IH RQ6 [facility] Last Admin: 02/11/18 13:47 Dose: Not Given Lactulose (Enulose) 20 gm PO DAILY PRN PRN Reason: constipation Levothyroxine Sodium (Synthroid) 200 mcg PO DAILY@0630 [facility] Last Admin: 02/11/18 06:12 Dose: 200 mcg Multivitamins/Vitamin C (Multi-Delyn Liquid) 5 ml PO DAILY [facility] Last Admin: 02/11/18 09:29 Dose: 5 ml Pantoprazole Sodium (Protonix Ec Tab) 40 mg PO HS [facility] Last Admin: 02/10/18 21:21 Dose: 40 mg Thiamine HCl (Vitamin B1 Inj) 200 mg IV Q8H [facility] Last Admin: 02/11/18 18:12 Dose: 200 mg - Labs Labs: 02/11/18 05:54 02/11/18 05:55 PT 14.1 SECONDS (9.7-12.2) H 02/04/18 15:52 INR 1.3 02/04/18 15:52 APTT 34 SECONDS (21-34) 02/04/18 15:52 - Constitutional Appears: Well - Head Exam Head Exam: ATRAUMATIC, NORMAL INSPECTION, NORMOCEPHALIC - Eye Exam Eye Exam: EOMI, Normal appearance, PERRL Pupil Exam: NORMAL ACCOMODATION, PERRL - ENT Exam ENT Exam: Mucous Membranes Moist, Normal Exam - Neck Exam Neck Exam: Full ROM, Normal Inspection. absent: Lymphadenopathy - Respiratory Exam Respiratory Exam: Decreased Breath Sounds - Cardiovascular Exam Cardiovascular Exam: REGULAR RHYTHM, +S1, +S2 - GI/Abdominal Exam GI & Abdominal Exam: Soft, Diminished Bowel Sounds - Rectal Exam Rectal Exam: Deferred Assessment and Plan (1) Altered mental status Status: Acute (2) ESRD (end stage renal disease) on dialysis Status: Acute (3) Gastritis Status: Acute (4) Musculoskeletal pain Status: Acute (5) Rib contusion Status: Acute (6) Toxic metabolic encephalopathy Status: Acute
[2018-02-11] MEDS: Pantoprazole 40 mg EC Tab PO SCH (21:58)
[2018-02-12] MEDS: Ipratropium 0.02% Inhal Soln (0.5 mg/2.5 ml) UD IH SCH ×4 (01:16→20:02)
[2018-02-12] MEDS: Albuterol-Ipratrop 3 mg / 0.5 (3 ml) UD INH SCH ×4 (01:16→19:44)
[2018-02-12] MEDS: Thiamine 100 mg/ml Inj IV SCH ×3 (02:00→18:26)
[2018-02-12 05:36] LABS: ARTERIAL BLOOD GAS HCO3 26.5 mmol/L (21-28); ARTERIAL BLOOD GAS HEMOGLOBIN 6.9 g/dL (11.7-17.4); ARTERIAL BLOOD GAS O2 SAT 98.9 % (95-98); ARTERIAL BLOOD GAS PCO2 40 mm/Hg (35-45); ARTERIAL BLOOD GAS PH 7.43 (7.35-7.45); ARTERIAL BLOOD GAS PO2 111 mm/Hg (80-100); ARTERIAL BLOOD GAS TCO2 27.7 mmol/L (22-28)
[2018-02-12] MEDS: Levothyroxine 200 MCG TAB PO SCH (05:38)
[2018-02-12] MEDS: Piperacill/Tazo 2.25gm in Dex 2.25 GM/50 ML BAG IVPB SCH ×3 (05:40→22:09)
[2018-02-12 06:12] LABS: BASO % 0.6 % (0.0-2.0); EOS # 0.1 K/uL (0.0-0.7); EOS % 1.4 % (0.0-4.0); HEMOGLOBIN 8.1 g/dL (11.0-16.0); LYMPH # 1.3 K/uL (1.0-4.3); LYMPH % 15.9 % (20.0-40.0); MEAN CELL VOLUME 96.3 fL (81.0-99.0); MEAN CORPUSCULAR HEMOGLOBIN 32.7 pg (27.0-31.0); MEAN CORPUSCULAR HGB CONC 33.9 g/dL (33.0-37.0); MEAN PLATELET VOLUME 12.2 fL (7.2-11.7); MONO # 0.7 K/uL (0.0-0.8); NEUT # 5.8 K/uL (1.8-7.0); NEUT % 73.1 % (50.0-75.0); NRBC % 0.3 % (0.0-2.0); RBC 2.49 Mil/uL (3.80-5.20); RED CELL DISTRIBUTION WIDTH 19.3 % (11.5-14.5); WHITE BLOOD COUNT 7.9 K/uL (4.8-10.8)
[2018-02-12 06:34] LABS: ALB/GLOB RATIO 0.6 (1.0-2.1); ALT/SGPT 32 U/L (9-52); AST/SGOT 41 U/L (14-36); BLOOD UREA NITROGEN 52 mg/dL (7-17); CALCIUM 8.5 mg/dl (8.6-10.4); GFR AFRICAN-AMERICAN 9; GFR NON-AFRICAN AMERICAN 7
--- NOTE | 2018-02-12 06:55 | CP.PCM.PN ---
Subjective - Date & Time of Evaluation Date of Evaluation: 02/12/18 Time of Evaluation: 06:52 - Subjective Subjective: Ms. Dorsey was seen and examined at the bedside in ICU. She remains on mechanical ventilator on PRVC mode. She spontaneously moves opens her eyes in response to both verbal and tactile stimuli. She is able to follow simple commands such as opening her mouth, moving all her extremities. She has episodes of restlessness with bilateral upper hand mittens. She has bilateral SCD. CT scan of the head done 02/10/2018 showed no acute intracranial pathology. No significant interval change. There was no untoward events overnight. Objective - Vital Signs/Intake and Output Vital Signs (last 24 hours): Temp Pulse Resp BP Pulse Ox 98.9 F 57 L 16 108/42 L 100 02/12/18 04:00 02/12/18 06:03 02/12/18 06:03 02/12/18 06:03 02/12/18 06:03 Intake and Output: 02/11/18 02/12/18 18:59 06:59 Intake Total 564.9 774.9 Output Total 0 Balance 564.9 774.9 - Medications Medications: Current Medications Acetaminophen (Tylenol 325mg Tab) 650 mg PO Q6 PRN PRN Reason: Pain, moderate (4-7) Last Admin: 02/05/18 16:18 Dose: 650 mg Albuterol/Ipratropium (Duoneb 3 Mg/0.5 Mg (3 Ml) Ud) 3 ml INH RQ6 [facility] Last Admin: 02/12/18 01:16 Dose: 3 ml Bacitracin (Bacitracin) 0 gm TOP DAILY [facility] Last Admin: 02/11/18 09:30 Dose: 1 applic Benzocaine/Menthol (Cepacol Sore Throat) 1 naomi PO Q2 PRN PRN Reason: Sore Throat Docusate Sodium (Colace) 100 mg PO DAILY [facility] Last Admin: 02/11/18 12:55 Dose: Not Given Epoetin Yvon (Procrit) 10,000 unit IV MWF [facility] Last Admin: 02/10/18 22:15 Dose: 10,000 unit Ergocalciferol (Drisdol 50,000 Intl Units Cap) 1 cap PO QD7 [facility] Vancomycin/Sodium Chloride (Vancomycin 1 Gm/Ns 200 Ml) 1 gm in 200 mls @ 133 mls/hr IVPB MWF [facility] PRN Reason: Protocol Stop: 02/12/18 09:01 Last Admin: 02/10/18 08:31 Dose: 133 mls/hr Piperacillin Sod/Tazobactam Sod (Zosyn 2.25 Gm Iv Premix) 2.25 gm in 50 mls @ 100 mls/hr IVPB Q8H [facility] PRN Reason: Protocol Last Admin: 02/12/18 05:40 Dose: 100 mls/hr Dopamine HCl/Dextrose (Dopamine 400mg/250ml D5w) 400 mg in 250 mls @ 4.627 mls/ hr IV .Q24H PRN; Protocol; 2 MCG/KG/MIN PRN Reason: TITRATE PER MD ORDER Last Titration: 02/12/18 03:00 Dose: 4.92 mcg/kg/min, 11.4 mls/hr Ipratropium [place] (Atrovent) 0.5 mg IH RQ6 [facility] Last Admin: 02/12/18 01:16 Dose: Not Given Lactulose (Enulose) 20 gm PO DAILY PRN PRN Reason: constipation Levothyroxine Sodium (Synthroid) 200 mcg PO DAILY@0630 [facility] Last Admin: 02/12/18 05:38 Dose: 200 mcg Multivitamins/Vitamin C (Multi-Delyn Liquid) 5 ml PO DAILY [facility] Last Admin: 02/11/18 09:29 Dose: 5 ml Pantoprazole Sodium (Protonix Ec Tab) 40 mg PO HS [facility] Last Admin: 02/11/18 21:58 Dose: 40 mg Thiamine HCl (Vitamin B1 Inj) 200 mg IV Q8H [facility] Last Admin: 02/12/18 02:00 Dose: 200 mg - Labs Labs: 02/12/18 06:01 02/12/18 06:01 PT 14.1 SECONDS (9.7-12.2) H 02/04/18 15:52 INR 1.3 02/04/18 15:52 APTT 34 SECONDS (21-34) 02/04/18 15:52 - Constitutional Appears: No Acute Distress - Head Exam Head Exam: NORMAL INSPECTION - Eye Exam Pupil Exam: PERRL - Neurological Exam Neurological Exam: Alert, Awake Neuro motor strength exam: Left Upper Extremity: 4, Right Upper Extremity: 4, Left Lower Extremity: 4, Right Lower Extremity: 4 Additional comments: Neurological unchanged from previous examination. Assessment and Plan (1) Toxic metabolic encephalopathy Assessment & Plan: Case discussed with Dr. Gutierres, continue all current medical regimen. Recommend to treat underlying infection, electrolyte abnormalities. There is no new recommendations from neurology. Status: Acute
[2018-02-12 07:36] LABS: FOLATE > 20.0 ng/mL
[2018-02-12] MEDS: Multiple Vitamins Oral Solution PO SCH (09:12)
[2018-02-12] MEDS: Bacitracin Ointment 30 GM TUBE TOP SCH (09:12)
[2018-02-12] MEDS ORDERED: DOPamine 400mg/250ml D5W 400 MG/250 ML BAG IV PRN (15:33)
--- NOTE | 2018-02-12 15:40 | CP.CCUPN ---
<Leo Larson - Last Filed: 02/12/18 15:37> CCU Subjective - Physician Review Subjective (Free Text): Patient seen and examined at bedside. Intubated on mechanical Ventilation. GCS 11T. Mental status much improved from yesterday CCU Objective - Vital Signs / Intake & Output Vital Signs (Last 4 hours): Vital Signs Temp Pulse Resp BP Pulse Ox 02/12/18 15:17 56 L 14 106/42 L 96 02/12/18 15:02 56 L 21 111/44 L 99 02/12/18 15:00 56 L 13 100 02/12/18 14:47 57 L 16 118/45 L 97 02/12/18 14:03 58 L 17 116/42 L 97 02/12/18 14:00 59 L 17 100 02/12/18 13:03 59 L 18 131/52 L 98 02/12/18 13:00 59 L 18 100 02/12/18 12:03 53 L 17 98/37 L 99 02/12/18 12:00 97.4 F L 54 L 15 100 Intake and Output (Last 8hrs): Intake & Output 02/12/18 02/12/18 02/12/18 06:59 14:59 22:59 Intake Total 484.2 359.1 44.6 Output Total 0 0 Balance 484.2 359.1 44.6 Weight 158 lb Intake: IV 100 Intake, IV Amount 64.2 39.1 4.6 Right Proximal Port 64.2 39.1 4.6 Femoral Tube Feeding 320 320 40 Output: Urine 0 0 Urine, Voided 0 0 Other: # Bowel Movements 0 0 1 - Physical Exam Head: Positive for: Atraumatic, Normocephalic Pupils: Positive for: PERRL Mouth: Positive for: Dry Respiratory/Chest: Positive for: Rales (BiBasilar). Negative for: Clear to Auscultation Cardiovascular: Positive for: Regular Rate and Rhythm, Normal S1, S2 Abdomen: Positive for: Normal Bowel Sounds. Negative for: Distention, Guarding Lower Extremity: Positive for: Normal Inspection Skin: Positive for: Warm, Dry, Other (Onchomycosis B/L) Psychiatric: Positive for: Alert. Negative for: Oriented x 3 - Medications Active Medications: Active Medications Generic Name Dose Route Start Last Admin Trade Name Freq PRN Reason Stop Dose Admin Acetaminophen 650 mg 05/16/18 12:44 02/05/18 16:18 Tylenol 325mg Tab PO 650 mg Q6 PRN Administration Pain, moderate (4-7) Albuterol/Ipratropium 3 ml 02/11/18 08:00 02/12/18 13:04 Duoneb 3 Mg/0.5 Mg (3 Ml) Ud INH 3 ml RQ6 DEMETRIUS Administration Bacitracin 0 gm 02/05/18 10:00 02/12/18 09:12 Bacitracin TOP 1 applic DAILY DEMETRIUS Administration Benzocaine/Menthol 1 naomi 02/04/18 18:53 Cepacol Sore Throat PO Q2 PRN Sore Throat Docusate Sodium 100 mg 02/05/18 10:00 02/12/18 10:02 Colace PO Not Given DAILY DEMETRIUS Epoetin Yvon 10,000 unit 02/05/18 09:00 02/10/18 22:15 Procrit IV 10,000 unit MWF DEMETRIUS Administration Ergocalciferol 1 cap 02/04/18 19:00 Drisdol 50,000 Intl Units Cap PO QD7 [facility] Piperacillin Sod/Tazobactam Sod 2.25 gm in 50 mls @ 100 mls/hr 02/07/18 21:30 02/12/18 12:58 Zosyn 2.25 Gm Iv Premix IVPB 100 mls/hr Q8H DEMETRIUS Administration Protocol Dopamine HCl/Dextrose 400 mg in 250 mls @ 5.375 mls/hr 02/12/18 15:33 Dopamine 400mg/250ml D5w IV .Q24H PRN TITRATE PER MD ORDER Protocol 2 MCG/KG/MIN Ipratropium [place] 0.5 mg 02/11/18 02:00 02/12/18 13:05 Atrovent IH Not Given RQ6 DEMETRIUS Lactulose 20 gm 02/04/18 18:53 Enulose PO DAILY PRN constipation Levothyroxine Sodium 200 mcg 02/05/18 06:30 02/12/18 05:38 Synthroid PO 200 mcg DAILY@0630 DEMETRIUS Administration Multivitamins/Vitamin C 5 ml 02/09/18 10:00 02/12/18 09:12 Multi-Delyn Liquid PO 5 ml DAILY DEMETRIUS Administration Pantoprazole Sodium 40 mg 02/04/18 22:00 02/11/18 21:58 Protonix Ec Tab PO 40 mg HS DEMETRIUS Administration Thiamine HCl 200 mg 02/09/18 10:00 02/12/18 09:12 Vitamin B1 Inj IV 200 mg Q8H DEMETRIUS Administration - Patient Studies Lab Studies: Microbiology Studies 02/10/18 21:10 Blood Culture - Preliminary Blood-During Dialysis Gram Positive Cocci Gram Stain - Final 02/09/18 11:30 S.aureus & Coag-Neg Staph PNA FISH - Final Blood-Venous Blood Culture - Preliminary Staphylococcus Aureus Gram Stain - Final 02/09/18 14:11 Blood Culture - Preliminary Blood-Venous Staphylococcus Aureus Gram Stain - Final 02/10/18 21:30 S.aureus & Coag-Neg Staph PNA FISH - Final Blood-During Dialysis Blood Culture - Preliminary Staphylococcus Aureus Gram Stain - Final Lab Studies 02/12/18 02/12/18 02/12/18 Range/Units 06:01 06:01 06:01 WBC 7.9 (4.8-10.8) K/uL RBC 2.49 L (3.80-5.20) Mil/uL Hgb 8.1 L (11.0-16.0) g/dL Hct 24.0 L (34.0-47.0) % MCV 96.3 (81.0-99.0) fL MCH 32.7 H (27.0-31.0) pg MCHC 33.9 (33.0-37.0) g/dL RDW 19.3 H (11.5-14.5) % Plt Count 44 L (130-400) K/uL MPV 12.2 H (7.2-11.7) fL Neut % (Auto) 73.1 (50.0-75.0) % Lymph % (Auto) 15.9 L (20.0-40.0) % [place] % (Auto) 9.0 (0.0-10.0) % Eos % (Auto) 1.4 (0.0-4.0) % Baso % (Auto) 0.6 (0.0-2.0) % Neut # (Auto) 5.8 (1.8-7.0) K/uL Lymph # (Auto) 1.3 (1.0-4.3) K/uL [place] # (Auto) 0.7 (0.0-0.8) K/uL Eos # (Auto) 0.1 (0.0-0.7) K/uL Baso # (Auto) 0.0 (0.0-0.2) K/uL Retic Count 3.3 H (0.5-1.5) % Fibrinogen 263 (200-400) mg/dL Puncture Site pCO2 (35-45) mm/Hg pO2 (80-100) mm/Hg HCO3 (21-28) mmol/L ABG pH (7.35-7.45) ABG Total CO2 (22-28) mmol/L ABG O2 Saturation (95-98) % ABG Base Excess (-2.0-3.0) mmol/L ABG Hemoglobin (11.7-17.4) g/dL ABG Carboxyhemoglobin (0.5-1.5) % POC ABG HHb (Measured) (0.0-5.0) % ABG Methemoglobin (0.0-3.0) % Yrn Test A-a O2 Difference mm/Hg Respiratory Index Hgb O2 Saturation (95.0-98.0) % Vent Mode Mechanical Rate FiO2 % Tidal Volume PEEP Sodium 136 (132-148) mmol/L Potassium 4.0 (3.6-5.2) mmol/L Chloride 99 (98-107) mmol/L Carbon Dioxide 24 (22-30) mmol/L Anion Gap 17 (10-20) BUN 52 H (7-17) mg/dL Creatinine 5.6 H (0.7-1.2) mg/dL Est GFR ( Amer) 9 Est GFR (Non-Af Amer) 7 Random Glucose 245 H (65-105) mg/dL Calcium 8.5 L (8.6-10.4) mg/dl Ferritin 908.0 ng/mL Total Bilirubin 2.2 H (0.2-1.3) mg/dL AST 41 H D (14-36) U/L ALT 32 (9-52) U/L Alkaline Phosphatase 271 H (38-126) U/L Total Protein 7.7 (6.3-8.3) g/dL Albumin 3.0 L (3.5-5.0) g/dL Globulin 4.7 H (2.2-3.9) gm/dL Albumin/Globulin Ratio 0.6 L (1.0-2.1) Vitamin B12 > 1000 H (239-931) pg/mL Folate > 20.0 ng/mL Heparin-induced Plt Ab (Negative) 02/12/18 02/10/18 Range/Units 05:21 07:34 WBC (4.8-10.8) K/uL RBC (3.80-5.20) Mil/uL Hgb (11.0-16.0) g/dL Hct (34.0-47.0) % MCV (81.0-99.0) fL MCH (27.0-31.0) pg MCHC (33.0-37.0) g/dL RDW (11.5-14.5) % Plt Count (130-400) K/uL MPV (7.2-11.7) fL Neut % (Auto) (50.0-75.0) % Lymph % (Auto) (20.0-40.0) % [place] % (Auto) (0.0-10.0) % Eos % (Auto) (0.0-4.0) % Baso % (Auto) (0.0-2.0) % Neut # (Auto) (1.8-7.0) K/uL Lymph # (Auto) (1.0-4.3) K/uL [place] # (Auto) (0.0-0.8) K/uL Eos # (Auto) (0.0-0.7) K/uL Baso # (Auto) (0.0-0.2) K/uL Retic Count (0.5-1.5) % Fibrinogen (200-400) mg/dL Puncture Site Rb pCO2 40 (35-45) mm/Hg pO2 111 H (80-100) mm/Hg HCO3 26.5 (21-28) mmol/L ABG pH 7.43 (7.35-7.45) ABG Total CO2 27.7 (22-28) mmol/L ABG O2 Saturation 98.9 H (95-98) % ABG Base Excess 2.0 (-2.0-3.0) mmol/L ABG Hemoglobin 6.9 L (11.7-17.4) g/dL ABG Carboxyhemoglobin 2.0 H (0.5-1.5) % POC ABG HHb (Measured) 1.1 (0.0-5.0) % ABG Methemoglobin 0.8 (0.0-3.0) % Yrn Test Na A-a O2 Difference 196.0 mm/Hg Respiratory Index 1.8 Hgb O2 Saturation 96.2 (95.0-98.0) % Vent Mode Prvc Mechanical Rate 16 FiO2 50.0 % Tidal Volume 500 PEEP 5 Sodium (132-148) mmol/L Potassium (3.6-5.2) mmol/L Chloride (98-107) mmol/L Carbon Dioxide (22-30) mmol/L Anion Gap (10-20) BUN (7-17) mg/dL Creatinine (0.7-1.2) mg/dL Est GFR ( Amer) Est GFR (Non-Af Amer) Random Glucose (65-105) mg/dL Calcium (8.6-10.4) mg/dl Ferritin ng/mL Total Bilirubin (0.2-1.3) mg/dL AST (14-36) U/L ALT (9-52) U/L Alkaline Phosphatase (38-126) U/L Total Protein (6.3-8.3) g/dL Albumin (3.5-5.0) g/dL Globulin (2.2-3.9) gm/dL Albumin/Globulin Ratio (1.0-2.1) Vitamin B12 (239-931) pg/mL Folate ng/mL Heparin-induced Plt Ab Negative (Negative) Laboratory Results - last 24 hr 02/10/18 02/12/18 02/12/18 07:34 05:21 06:01 WBC 7.9 RBC 2.49 L Hgb 8.1 L Hct 24.0 L MCV 96.3 MCH 32.7 H MCHC 33.9 RDW 19.3 H Plt Count 44 L MPV 12.2 H Neut % (Auto) 73.1 Lymph % (Auto) 15.9 L [place] % (Auto) 9.0 Eos % (Auto) 1.4 Baso % (Auto) 0.6 Neut # (Auto) 5.8 Lymph # (Auto) 1.3 [place] # (Auto) 0.7 Eos # (Auto) 0.1 Baso # (Auto) 0.0 Retic Count 3.3 H Fibrinogen Puncture Site Rb pCO2 40 pO2 111 H HCO3 26.5 ABG pH 7.43 ABG Total CO2 27.7 ABG O2 Saturation 98.9 H ABG Base Excess 2.0 ABG Hemoglobin 6.9 L ABG Carboxyhemoglobin 2.0 H POC ABG HHb (Measured) 1.1 ABG Methemoglobin 0.8 Yrn Test Na A-a O2 Difference 196.0 Respiratory Index 1.8 Hgb O2 Saturation 96.2 Vent Mode Prvc Mechanical Rate 16 FiO2 50.0 Tidal Volume 500 PEEP 5 Sodium Potassium Chloride Carbon Dioxide Anion Gap BUN Creatinine Est GFR ( Amer) Est GFR (Non-Af Amer) Random Glucose Calcium Ferritin Total Bilirubin AST ALT Alkaline Phosphatase Total Protein Albumin Globulin Albumin/Globulin Ratio Vitamin B12 Folate Heparin-induced Plt Ab Negative 02/12/18 02/12/18 06:01 06:01 WBC RBC Hgb Hct MCV MCH MCHC RDW Plt Count MPV Neut % (Auto) Lymph % (Auto) [place] % (Auto) Eos % (Auto) Baso % (Auto) Neut # (Auto) Lymph # (Auto) [place] # (Auto) Eos # (Auto) Baso # (Auto) Retic Count Fibrinogen 263 Puncture Site pCO2 pO2 HCO3 ABG pH ABG Total CO2 ABG O2 Saturation ABG Base Excess ABG Hemoglobin ABG Carboxyhemoglobin POC ABG HHb (Measured) ABG Methemoglobin Yrn Test A-a O2 Difference Respiratory Index Hgb O2 Saturation Vent Mode Mechanical Rate FiO2 Tidal Volume PEEP Sodium 136 Potassium 4.0 Chloride 99 Carbon Dioxide 24 Anion Gap 17 BUN 52 H Creatinine 5.6 H Est GFR ( Amer) 9 Est GFR (Non-Af Amer) 7 Random Glucose 245 H Calcium 8.5 L Ferritin 908.0 Total Bilirubin 2.2 H AST 41 H D ALT 32 Alkaline Phosphatase 271 H Total Protein 7.7 Albumin 3.0 L Globulin 4.7 H Albumin/Globulin Ratio 0.6 L Vitamin B12 > 1000 H Folate > 20.0 Heparin-induced Plt Ab Review of Systems - Review of Systems Systems not reviewed;Unavailable: Intubated Assessment/Plan - Assessment and Plan (Free Text) Assessment: 72 y/o female with PMHx of DM, HTN, ESRD on HD, h/o osteomyelitits presented to [facility] with AMS. IN ICU for evaluation and treatment of AMS. 02/09: Patient was noted to have bradycardia and Cardiac Arrest. Was intubated. Plan: Neuro GCS: 11T Sedation: None Head CT (02/06): Shows chronic microvascular ischemic change, mild generalized volume loss. Punctate hypodensity in the left basal ganglia may represent a prominent perivascular space versus punctate lacunar infarct. Sinus mucosal disease. Consider MRI Brain MRI (02/05): Limited exam due to excessive motion artifacts throughout all sequences. No mass effect, intracranial hemorrhage or acute/subacute brain infarction identified. Age-related neuro degenerative findings are appreciated as discussed above. Repeat MRI is available as clinically required the patient is able to properly position. Head CT (02/09): No Acute intracranial pathology, No significant interval change. Cardio: A: HTN, Hypotension Pressors: Dopamine PRN ECHO shows normal EF and Grade II pseudonormal relaxation pattern Cardiology on Consult, Recs Appreciated Continue Coreg 25 PO Q12H, ASA supp, Hyralazine, Losartan 100 Daily, Lovaza 2gm BID, Norvasc. Pulm: A: Hypoxic Res. failure CXR (02/11/18): No infiltrate. ET tube tip 1.7 cm above tracheal maira. Consider withdrawn slightly. Otherwise unremarkable. Intubated on Mechanical Vent. PRVC Mode - 50%,5 PEEP, 16RR, 500 TV. Will plan to wean. DuoNeb Q6H CPAP Trial Today, then possible extubation. GI: A: Constipation Lactulose PRN, Colace 100 DEMETRIUS Renal A: ESRD, Anemia, Hypothyroidism HD - MWF Per Vascular Surgery LUE shunt is okay to use for dialysis. Cont. Procrit, Drisdol, Heme/Onc A: Anemia (Improving), Thrombycytomenia (Improving) 02/11: Unit of Blood 02/10: 10 Units of Plts. ID A: Bacteremia (Staph Aureus) Afebrile, No Leukocytosis Cont. Vancomycin 1gm (M,W, F) Cont. Zosyn 2.25gm Q8H IVP. Endo: A: DM, Vitamin D Def. Hypothyrodism ISS, BGM q6H Ergocalciferol 50,000 IU Q7days. Cont. Levothyroxine 200mcg PO Proph Protonix Heparin Patient discussed with ICU Attending Leo Larson, PGY- 1 <Jake Morse S - Last Filed: 02/12/18 17:55> CCU Objective - Vital Signs / Intake & Output Vital Signs (Last 4 hours): Vital Signs Temp Pulse Pulse Resp BP BP Pulse Ox 02/12/18 17:45 96.5 F L 58 L 15 114/44 L 100 02/12/18 17:32 57 L 15 114/44 L 98 02/12/18 17:30 59 L 16 109/49 L 100 02/12/18 17:17 59 L 13 109/48 L 98 02/12/18 17:03 58 L 12 113/48 L 100 02/12/18 17:00 58 L 58 L 9 L 113/48 L 100 02/12/18 16:48 60 14 120/44 L 100 02/12/18 16:33 61 16 144/55 L 100 02/12/18 16:30 61 18 139/54 L 100 02/12/18 16:18 61 11 L 139/54 L 100 02/12/18 16:04 62 12 130/57 L 100 02/12/18 16:00 98.4 F 61 60 19 115/52 L 100 02/12/18 15:48 60 13 115/52 L 99 02/12/18 15:42 59 L 103/49 L 02/12/18 15:33 56 L 14 103/49 L 100 02/12/18 15:30 57 L 18 103/49 L 100 02/12/18 15:17 56 L 14 106/42 L 96 02/12/18 15:02 56 L 21 111/44 L 99 02/12/18 15:00 56 L 57 L 16 111/44 L 100 02/12/18 14:47 57 L 16 118/45 L 97 02/12/18 14:45 96.7 F L 55 L 55 L 15 118/45 L 118/45 L 100 02/12/18 14:03 58 L 17 116/42 L 97 02/12/18 14:00 59 L 17 100 Intake and Output (Last 8hrs): Intake & Output 02/12/18 02/12/18 02/12/18 06:59 14:59 22:59 Intake Total 484.2 359.1 99.5 Output Total 0 0 Balance 484.2 359.1 99.5 Weight 158 lb Intake: IV 100 5 Intake, IV Amount 64.2 39.1 14.5 Right Proximal Port 64.2 39.1 14.5 Femoral Tube Feeding 320 320 80 Output: Urine 0 0 Urine, Voided 0 0 Other: # Bowel Movements 0 0 1 - Medications Active Medications: Active Medications Generic Name Dose Route Start Last Admin Trade Name Freq PRN Reason Stop Dose Admin Acetaminophen 650 mg 02/05/18 12:44 02/05/18 16:18 Tylenol 325mg Tab PO 650 mg Q6 PRN Administration Pain, moderate (4-7) Albuterol/Ipratropium 3 ml 02/11/18 08:00 02/12/18 13:04 Duoneb 3 Mg/0.5 Mg (3 Ml) Ud INH 3 ml RQ6 DEMETRIUS Administration Bacitracin 0 gm 02/05/18 10:00 02/12/18 09:12 Bacitracin TOP 1 applic DAILY DEMETRIUS Administration Benzocaine/Menthol 1 naomi 02/04/18 18:53 Cepacol Sore Throat PO Q2 PRN Sore Throat Docusate Sodium 100 mg 02/05/18 10:00 02/12/18 10:02 Colace PO Not Given DAILY DEMETRIUS Epoetin Yvon 10,000 unit 02/05/18 09:00 02/12/18 16:50 Procrit IV 10,000 unit MWF DEMETRIUS Administration Ergocalciferol 1 cap 02/04/18 19:00 Drisdol 50,000 Intl Units Cap PO QD7 DEMETRIUS Piperacillin Sod/Tazobactam Sod 2.25 gm in 50 mls @ 100 mls/hr 02/07/18 21:30 02/12/18 12:58 Zosyn 2.25 Gm Iv Premix IVPB 100 mls/hr Q8H DEMETRIUS Administration Protocol Dopamine HCl/Dextrose 400 mg in 250 mls @ 5.375 mls/hr 02/12/18 15:33 16:00 Dopamine 400mg/250ml D5w IV 2 mcg/kg/min .Q24H PRN 5.375 mls/hr TITRATE PER MD ORDER Titration Protocol 2 MCG/KG/MIN Gentamicin Sulfate 240 mg/ 106 mls @ 100 mls/hr 02/12/18 16:56 Sodium Chloride IVPB 02/12/18 17:59 ONCE ONE Protocol Lactulose 20 gm 02/04/18 18:53 Enulose PO DAILY PRN constipation Levothyroxine Sodium 200 mcg 02/05/18 06:30 02/12/18 05:38 Synthroid PO 200 mcg DAILY@0630 DEMETRIUS Administration Multivitamins/Vitamin C 5 ml 02/09/18 10:00 02/12/18 09:12 Multi-Delyn Liquid PO 5 ml DAILY DEMETRIUS Administration Pantoprazole Sodium 40 mg 02/04/18 22:00 02/11/18 21:58 Protonix Ec Tab PO 40 mg HS DEMETRIUS Administration Thiamine HCl 200 mg 02/09/18 10:00 02/12/18 09:12 Vitamin B1 Inj IV 200 mg Q8H DEMETRIUS Administration - Patient Studies Lab Studies: Microbiology Studies 02/10/18 21:10 Blood Culture - Preliminary Blood-During Dialysis Gram Positive Cocci Gram Stain - Final 02/09/18 11:30 S.aureus & Coag-Neg Staph PNA FISH - Final Blood-Venous Blood Culture - Preliminary Staphylococcus Aureus Gram Stain - Final 02/09/18 14:11 Blood Culture - Preliminary Blood-Venous Staphylococcus Aureus Gram Stain - Final 02/10/18 21:30 S.aureus & Coag-Neg Staph PNA FISH - Final Blood-During Dialysis Blood Culture - Preliminary Staphylococcus Aureus Gram Stain - Final Lab Studies 02/12/18 02/12/18 02/12/18 Range/Units 06:01 06:01 06:01 WBC 7.9 (4.8-10.8) K/uL RBC 2.49 L (3.80-5.20) Mil/uL Hgb 8.1 L (11.0-16.0) g/dL Hct 24.0 L (34.0-47.0) % MCV 96.3 (81.0-99.0) fL MCH 32.7 H (27.0-31.0) pg MCHC 33.9 (33.0-37.0) g/dL RDW 19.3 H (11.5-14.5) % Plt Count 44 L (130-400) K/uL MPV 12.2 H (7.2-11.7) fL Neut % (Auto) 73.1 (50.0-75.0) % Lymph % (Auto) 15.9 L (20.0-40.0) % [place] % (Auto) 9.0 (0.0-10.0) % Eos % (Auto) 1.4 (0.0-4.0) % Baso % (Auto) 0.6 (0.0-2.0) % Neut # (Auto) 5.8 (1.8-7.0) K/uL Lymph # (Auto) 1.3 (1.0-4.3) K/uL [place] # (Auto) 0.7 (0.0-0.8) K/uL Eos # (Auto) 0.1 (0.0-0.7) K/uL Baso # (Auto) 0.0 (0.0-0.2) K/uL Retic Count 3.3 H (0.5-1.5) % Fibrinogen 263 (200-400) mg/dL Puncture Site pCO2 (35-45) mm/Hg pO2 (80-100) mm/Hg HCO3 (21-28) mmol/L ABG pH (7.35-7.45) ABG Total CO2 (22-28) mmol/L ABG O2 Saturation (95-98) % ABG Base Excess (-2.0-3.0) mmol/L ABG Hemoglobin (11.7-17.4) g/dL ABG Carboxyhemoglobin (0.5-1.5) % POC ABG HHb (Measured) (0.0-5.0) % ABG Methemoglobin (0.0-3.0) % Yrn Test A-a O2 Difference mm/Hg Respiratory Index Hgb O2 Saturation (95.0-98.0) % Vent Mode Mechanical Rate FiO2 % Tidal Volume PEEP Sodium 136 (132-148) mmol/L Potassium 4.0 (3.6-5.2) mmol/L Chloride 99 (98-107) mmol/L Carbon Dioxide 24 (22-30) mmol/L Anion Gap 17 (10-20) BUN 52 H (7-17) mg/dL Creatinine 5.6 H (0.7-1.2) mg/dL Est GFR ( Amer) 9 Est GFR (Non-Af Amer) 7 Random Glucose 245 H (65-105) mg/dL Calcium 8.5 L (8.6-10.4) mg/dl Ferritin 908.0 ng/mL Total Bilirubin 2.2 H (0.2-1.3) mg/dL AST 41 H D (14-36) U/L ALT 32 (9-52) U/L Alkaline Phosphatase 271 H (38-126) U/L Total Protein 7.7 (6.3-8.3) g/dL Albumin 3.0 L (3.5-5.0) g/dL Globulin 4.7 H (2.2-3.9) gm/dL Albumin/Globulin Ratio 0.6 L (1.0-2.1) Vitamin B12 > 1000 H (239-931) pg/mL Folate > 20.0 ng/mL Heparin-induced Plt Ab (Negative) 02/12/18 02/10/18 Range/Units 05:21 07:34 WBC (4.8-10.8) K/uL RBC (3.80-5.20) Mil/uL Hgb (11.0-16.0) g/dL Hct (34.0-47.0) % MCV (81.0-99.0) fL MCH (27.0-31.0) pg MCHC (33.0-37.0) g/dL RDW (11.5-14.5) % Plt Count (130-400) K/uL MPV (7.2-11.7) fL Neut % (Auto) (50.0-75.0) % Lymph % (Auto) (20.0-40.0) % [place] % (Auto) (0.0-10.0) % Eos % (Auto) (0.0-4.0) % Baso % (Auto) (0.0-2.0) % Neut # (Auto) (1.8-7.0) K/uL Lymph # (Auto) (1.0-4.3) K/uL [place] # (Auto) (0.0-0.8) K/uL Eos # (Auto) (0.0-0.7) K/uL Baso # (Auto) (0.0-0.2) K/uL Retic Count (0.5-1.5) % Fibrinogen (200-400) mg/dL Puncture Site Rb pCO2 40 (35-45) mm/Hg pO2 111 H (80-100) mm/Hg HCO3 26.5 (21-28) mmol/L ABG pH 7.43 (7.35-7.45) ABG Total CO2 27.7 (22-28) mmol/L ABG O2 Saturation 98.9 H (95-98) % ABG Base Excess 2.0 (-2.0-3.0) mmol/L ABG Hemoglobin 6.9 L (11.7-17.4) g/dL ABG Carboxyhemoglobin 2.0 H (0.5-1.5) % POC ABG HHb (Measured) 1.1 (0.0-5.0) % ABG Methemoglobin 0.8 (0.0-3.0) % Yrn Test Na A-a O2 Difference 196.0 mm/Hg Respiratory Index 1.8 Hgb O2 Saturation 96.2 (95.0-98.0) % Vent Mode Prvc Mechanical Rate 16 FiO2 50.0 % Tidal Volume 500 PEEP 5 Sodium (132-148) mmol/L Potassium (3.6-5.2) mmol/L Chloride (98-107) mmol/L Carbon Dioxide (22-30) mmol/L Anion Gap (10-20) BUN (7-17) mg/dL Creatinine (0.7-1.2) mg/dL Est GFR ( Amer) Est GFR (Non-Af Amer) Random Glucose (65-105) mg/dL Calcium (8.6-10.4) mg/dl Ferritin ng/mL Total Bilirubin (0.2-1.3) mg/dL AST (14-36) U/L ALT (9-52) U/L Alkaline Phosphatase (38-126) U/L Total Protein (6.3-8.3) g/dL Albumin (3.5-5.0) g/dL Globulin (2.2-3.9) gm/dL Albumin/Globulin Ratio (1.0-2.1) Vitamin B12 (239-931) pg/mL Folate ng/mL Heparin-induced Plt Ab Negative (Negative) Laboratory Results - last 24 hr 02/10/18 02/12/18 02/12/18 07:34 05:21 06:01 WBC 7.9 RBC 2.49 L Hgb 8.1 L Hct 24.0 L MCV 96.3 MCH 32.7 H MCHC 33.9 RDW 19.3 H Plt Count 44 L MPV 12.2 H Neut % (Auto) 73.1 Lymph % (Auto) 15.9 L [place] % (Auto) 9.0 Eos % (Auto) 1.4 Baso % (Auto) 0.6 Neut # (Auto) 5.8 Lymph # (Auto) 1.3 [place] # (Auto) 0.7 Eos # (Auto) 0.1 Baso # (Auto) 0.0 Retic Count 3.3 H Fibrinogen Puncture Site Rb pCO2 40 pO2 111 H HCO3 26.5 ABG pH 7.43 ABG Total CO2 27.7 ABG O2 Saturation 98.9 H ABG Base Excess 2.0 ABG Hemoglobin 6.9 L ABG Carboxyhemoglobin 2.0 H POC ABG HHb (Measured) 1.1 ABG Methemoglobin 0.8 Yrn Test Na A-a O2 Difference 196.0 Respiratory Index 1.8 Hgb O2 Saturation 96.2 Vent Mode Prvc Mechanical Rate 16 FiO2 50.0 Tidal Volume 500 PEEP 5 Sodium Potassium Chloride Carbon Dioxide Anion Gap BUN Creatinine Est GFR ( Amer) Est GFR (Non-Af Amer) Random Glucose Calcium Ferritin Total Bilirubin AST ALT Alkaline Phosphatase Total Protein Albumin Globulin Albumin/Globulin Ratio Vitamin B12 Folate Heparin-induced Plt Ab Negative 02/12/18 02/12/18 06:01 06:01 WBC RBC Hgb Hct MCV MCH MCHC RDW Plt Count MPV Neut % (Auto) Lymph % (Auto) [place] % (Auto) Eos % (Auto) Baso % (Auto) Neut # (Auto) Lymph # (Auto) [place] # (Auto) Eos # (Auto) Baso # (Auto) Retic Count Fibrinogen 263 Puncture Site pCO2 pO2 HCO3 ABG pH ABG Total CO2 ABG O2 Saturation ABG Base Excess ABG Hemoglobin ABG Carboxyhemoglobin POC ABG HHb (Measured) ABG Methemoglobin Yrn Test A-a O2 Difference Respiratory Index Hgb O2 Saturation Vent Mode Mechanical Rate FiO2 Tidal Volume PEEP Sodium 136 Potassium 4.0 Chloride 99 Carbon Dioxide 24 Anion Gap 17 BUN 52 H Creatinine 5.6 H Est GFR ( Amer) 9 Est GFR (Non-Af Amer) 7 Random Glucose 245 H Calcium 8.5 L Ferritin 908.0 Total Bilirubin 2.2 H AST 41 H D ALT 32 Alkaline Phosphatase 271 H Total Protein 7.7 Albumin 3.0 L Globulin 4.7 H Albumin/Globulin Ratio 0.6 L Vitamin B12 > 1000 H Folate > 20.0 Heparin-induced Plt Ab Assessment/Plan (1) Staphylococcus aureus bacteremia Current Visit: Yes Status: Acute (2) Dyspnea Current Visit: Yes Status: Acute (3) Altered mental status Current Visit: Yes Status: Acute (4) ESRD (end stage renal disease) on dialysis Current Visit: Yes Status: Acute Attending/Attestation - Attestation I have personally seen and examined this patient.: Yes I have fully participated in the care of the patient.: Yes I have reviewed all pertinent clinical information: Yes Notes (Text): 02/12/18 17:54 patient seen and examined in the intensive care unit. Tolerating CPAP Getting hemodialysis Being treated for staph bacteremia
--- NOTE | 2018-02-12 16:26 | CP.PCM.PN ---
Subjective - Date & Time of Evaluation Date of Evaluation: 02/12/18 Time of Evaluation: 09:00 - Subjective Subjective: seen on HD iv rx in progress NAD still intubated Objective - Vital Signs/Intake and Output Vital Signs (last 24 hours): Temp Pulse Resp BP Pulse Ox 97.4 F L 59 L 14 103/49 L 96 02/12/18 12:00 02/12/18 15:42 02/12/18 15:17 02/12/18 15:42 02/12/18 15:17 Intake and Output: 02/12/18 02/12/18 06:59 18:59 Intake Total 774.9 403.7 Output Total 0 0 Balance 774.9 403.7 - Medications Medications: Current Medications Acetaminophen (Tylenol 325mg Tab) 650 mg PO Q6 PRN PRN Reason: Pain, moderate (4-7) Last Admin: 02/05/18 16:18 Dose: 650 mg Albuterol/Ipratropium (Duoneb 3 Mg/0.5 Mg (3 Ml) Ud) 3 ml INH RQ6 [facility] Last Admin: 02/12/18 13:04 Dose: 3 ml Bacitracin (Bacitracin) 0 gm TOP DAILY [facility] Last Admin: 02/12/18 09:12 Dose: 1 applic Benzocaine/Menthol (Cepacol Sore Throat) 1 naomi PO Q2 PRN PRN Reason: Sore Throat Docusate Sodium (Colace) 100 mg PO DAILY [facility] Last Admin: 02/12/18 10:02 Dose: Not Given Epoetin Yvon (Procrit) 10,000 unit IV MWF [facility] Last Admin: 02/10/18 22:15 Dose: 10,000 unit Ergocalciferol (Drisdol 50,000 Intl Units Cap) 1 cap PO QD7 [facility] Piperacillin Sod/Tazobactam Sod (Zosyn 2.25 Gm Iv Premix) 2.25 gm in 50 mls @ 100 mls/hr IVPB Q8H [facility] PRN Reason: Protocol Last Admin: 02/12/18 12:58 Dose: 100 mls/hr Dopamine HCl/Dextrose (Dopamine 400mg/250ml D5w) 400 mg in 250 mls @ 5.375 mls/ hr IV .Q24H PRN; Protocol; 2 MCG/KG/MIN PRN Reason: TITRATE PER MD ORDER Last Admin: 02/12/18 15:42 Dose: 4 mcg/kg/min, 10.75 mls/hr Lactulose (Enulose) 20 gm PO DAILY PRN PRN Reason: constipation Levothyroxine Sodium (Synthroid) 200 mcg PO DAILY@0630 [facility] Last Admin: 02/12/18 05:38 Dose: 200 mcg Multivitamins/Vitamin C (Multi-Delyn Liquid) 5 ml PO DAILY [facility] Last Admin: 02/12/18 09:12 Dose: 5 ml Pantoprazole Sodium (Protonix Ec Tab) 40 mg PO HS [facility] Last Admin: 02/11/18 21:58 Dose: 40 mg Thiamine HCl (Vitamin B1 Inj) 200 mg IV Q8H [facility] Last Admin: 02/12/18 09:12 Dose: 200 mg - Labs Labs: 02/12/18 06:01 02/12/18 06:01 PT 14.1 SECONDS (9.7-12.2) H 02/04/18 15:52 INR 1.3 02/04/18 15:52 APTT 34 SECONDS (21-34) 02/04/18 15:52 - Constitutional Appears: Non-toxic, Chronically Ill - Head Exam Head Exam: NORMOCEPHALIC - Eye Exam Eye Exam: PERRL - ENT Exam ENT Exam: Mucous Membranes Dry - Neck Exam Neck Exam: absent: Lymphadenopathy - Respiratory Exam Respiratory Exam: Decreased Breath Sounds - Cardiovascular Exam Cardiovascular Exam: REGULAR RHYTHM - GI/Abdominal Exam GI & Abdominal Exam: Distended, Soft - Rectal Exam Rectal Exam: Deferred - Exam Exam: NORMAL INSPECTION - Extremities Exam Extremities Exam: Pedal Edema - Back Exam Back Exam: absent: CVA tenderness (L), CVA tenderness (R) - Neurological Exam Neurological Exam: Alert, Awake, Oriented x3 - Psychiatric Exam Psychiatric exam: Normal Mood - Skin Skin Exam: Dry Assessment and Plan (1) Altered mental status Status: Acute (2) Dyspnea Status: Acute (3) ESRD (end stage renal disease) on dialysis Status: Acute (4) Lacunar infarction Status: Acute (5) MRSA bacteremia Status: Acute (6) Sepsis Status: Acute (7) Sepsis Status: Acute (8) Staphylococcus aureus bacteremia Status: Acute (9) Toxic metabolic encephalopathy Status: Acute
[2018-02-12] MEDS: Epoetin Alfa 10,000 unit/ml Dialysis IV SCH (16:50)
[2018-02-12] MEDS ORDERED: Gentamicin 240 MG in Sodium Chloride 0.9% 100 ML IVPB ONE (16:56)
--- NOTE | 2018-02-12 17:30 | CP.PCM.PN ---
Subjective - Date & Time of Evaluation Date of Evaluation: 02/12/18 Time of Evaluation: 13:00 - Subjective Subjective: clinically same Objective - Vital Signs/Intake and Output Vital Signs (last 24 hours): Temp Pulse Resp BP Pulse Ox 98.4 F 58 L 19 113/48 L 100 02/12/18 16:00 02/12/18 17:00 02/12/18 17:00 02/12/18 17:00 02/12/18 17:00 Intake and Output: 02/12/18 02/12/18 06:59 18:59 Intake Total 774.9 453.3 Output Total 0 0 Balance 774.9 453.3 - Medications Medications: Current Medications Acetaminophen (Tylenol 325mg Tab) 650 mg PO Q6 PRN PRN Reason: Pain, moderate (4-7) Last Admin: 02/05/18 16:18 Dose: 650 mg Albuterol/Ipratropium (Duoneb 3 Mg/0.5 Mg (3 Ml) Ud) 3 ml INH RQ6 [facility] Last Admin: 02/12/18 13:04 Dose: 3 ml Bacitracin (Bacitracin) 0 gm TOP DAILY [facility] Last Admin: 02/12/18 09:12 Dose: 1 applic Benzocaine/Menthol (Cepacol Sore Throat) 1 naomi PO Q2 PRN PRN Reason: Sore Throat Docusate Sodium (Colace) 100 mg PO DAILY [facility] Last Admin: 02/12/18 10:02 Dose: Not Given Epoetin Yvon (Procrit) 10,000 unit IV MWF [facility] Last Admin: 02/12/18 16:50 Dose: 10,000 unit Ergocalciferol (Drisdol 50,000 Intl Units Cap) 1 cap PO QD7 [facility] Piperacillin Sod/Tazobactam Sod (Zosyn 2.25 Gm Iv Premix) 2.25 gm in 50 mls @ 100 mls/hr IVPB Q8H [facility] PRN Reason: Protocol Last Admin: 02/12/18 12:58 Dose: 100 mls/hr Dopamine HCl/Dextrose (Dopamine 400mg/250ml D5w) 400 mg in 250 mls @ 5.375 mls/ hr IV .Q24H PRN; Protocol; 2 MCG/KG/MIN PRN Reason: TITRATE PER MD ORDER Last Titration: 02/12/18 16:00 Dose: 2 mcg/kg/min, 5.375 mls/hr Gentamicin Sulfate 240 mg/ (Sodium Chloride) 106 mls @ 100 mls/hr IVPB ONCE ONE PRN Reason: Protocol Stop: 02/12/18 17:59 Lactulose (Enulose) 20 gm PO DAILY PRN PRN Reason: constipation Levothyroxine Sodium (Synthroid) 200 mcg PO DAILY@0630 [facility] Last Admin: 02/12/18 05:38 Dose: 200 mcg Multivitamins/Vitamin C (Multi-Delyn Liquid) 5 ml PO DAILY [facility] Last Admin: 02/12/18 09:12 Dose: 5 ml Pantoprazole Sodium (Protonix Ec Tab) 40 mg PO HS [facility] Last Admin: 02/11/18 21:58 Dose: 40 mg Thiamine HCl (Vitamin B1 Inj) 200 mg IV Q8H [facility] Last Admin: 02/12/18 09:12 Dose: 200 mg - Labs Labs: 02/12/18 06:01 02/12/18 06:01 PT 14.1 SECONDS (9.7-12.2) H 02/04/18 15:52 INR 1.3 02/04/18 15:52 APTT 34 SECONDS (21-34) 02/04/18 15:52 - Constitutional Appears: Well - Head Exam Head Exam: ATRAUMATIC, NORMAL INSPECTION, NORMOCEPHALIC - Eye Exam Eye Exam: EOMI, Normal appearance, PERRL Pupil Exam: NORMAL ACCOMODATION, PERRL - ENT Exam ENT Exam: Mucous Membranes Moist, Normal Exam - Neck Exam Neck Exam: Full ROM, Normal Inspection. absent: Lymphadenopathy - Respiratory Exam Respiratory Exam: Decreased Breath Sounds - Cardiovascular Exam Cardiovascular Exam: REGULAR RHYTHM, +S1, +S2 - GI/Abdominal Exam GI & Abdominal Exam: Soft, Diminished Bowel Sounds - Rectal Exam Rectal Exam: Deferred Assessment and Plan (1) Altered mental status Status: Acute (2) ESRD (end stage renal disease) on dialysis Status: Acute (3) Gastritis Status: Acute (4) Musculoskeletal pain Status: Acute (5) Rib contusion Status: Acute (6) Toxic metabolic encephalopathy Status: Acute
[2018-02-12] MEDS: Vancomycin 1 gm/NS 200 ml 1 GM/200 ML BAG IVPB SCH (18:25)
[2018-02-13] MEDS: Albuterol-Ipratrop 3 mg / 0.5 (3 ml) UD INH SCH ×4 (01:03→20:00)
[2018-02-13] MEDS: Thiamine 100 mg/ml Inj IV SCH ×3 (02:00→17:21)
--- NOTE | 2018-02-13 05:14 | CP.PCM.PN ---
Subjective - Date & Time of Evaluation Date of Evaluation: 02/13/18 Time of Evaluation: 05:14 - Subjective Subjective: Ms. Dorsey was seen and examined at the bedside in ICU. She remains on mechanical ventilator on PRVC mode. She is able to tolerate CPAP trial for one hour. She had periods of apnea which prompted the staff to changed the mechanical vent settings to PRVC. She spontaneously moves opens her eyes in response to both verbal and tactile stimuli. She is able to follow simple commands such as opening her mouth, moving all her extremities. She has episodes of restlessness with bilateral upper hand mittens. Vasopressor is titrated off. She has bilateral SCD. Her blood cultures resulted positive. There was no untoward events overnight. Objective - Vital Signs/Intake and Output Vital Signs (last 24 hours): Temp Pulse Resp BP Pulse Ox 98.7 F 57 L 15 127/46 L 100 02/13/18 00:00 02/13/18 05:01 02/13/18 05:01 02/13/18 05:01 02/13/18 05:01 Intake and Output: 02/12/18 02/13/18 18:59 06:59 Intake Total 503.9 787.5 Output Total 0 Balance 503.9 787.5 - Medications Medications: Current Medications Acetaminophen (Tylenol 325mg Tab) 650 mg PO Q6 PRN PRN Reason: Pain, moderate (4-7) Last Admin: 02/05/18 16:18 Dose: 650 mg Albuterol/Ipratropium (Duoneb 3 Mg/0.5 Mg (3 Ml) Ud) 3 ml INH RQ6 [facility] Last Admin: 02/13/18 01:03 Dose: 3 ml Bacitracin (Bacitracin) 0 gm TOP DAILY [facility] Last Admin: 02/12/18 09:12 Dose: 1 applic Benzocaine/Menthol (Cepacol Sore Throat) 1 naomi PO Q2 PRN PRN Reason: Sore Throat Docusate Sodium (Colace) 100 mg PO DAILY [facility] Last Admin: 02/12/18 10:02 Dose: Not Given Epoetin Yvon (Procrit) 10,000 unit IV MWF [facility] Last Admin: 02/12/18 16:50 Dose: 10,000 unit Ergocalciferol (Drisdol 50,000 Intl Units Cap) 1 cap PO QD7 [facility] Piperacillin Sod/Tazobactam Sod (Zosyn 2.25 Gm Iv Premix) 2.25 gm in 50 mls @ 100 mls/hr IVPB Q8H [facility] PRN Reason: Protocol Last Admin: 02/12/18 22:09 Dose: 100 mls/hr Dopamine HCl/Dextrose (Dopamine 400mg/250ml D5w) 400 mg in 250 mls @ 5.375 mls/ hr IV .Q24H PRN; Protocol; 2 MCG/KG/MIN PRN Reason: TITRATE PER MD ORDER Last Titration: 02/12/18 21:50 Dose: 0 mcg/kg/min, 0 mls/hr Lactulose (Enulose) 20 gm PO DAILY PRN PRN Reason: constipation Levothyroxine Sodium (Synthroid) 200 mcg PO DAILY@0630 [facility] Last Admin: 02/12/18 05:38 Dose: 200 mcg Multivitamins/Vitamin C (Multi-Delyn Liquid) 5 ml PO DAILY [facility] Last Admin: 02/12/18 09:12 Dose: 5 ml Pantoprazole Sodium (Protonix Inj) 40 mg IVP DAILY [facility] Last Admin: 02/12/18 22:10 Dose: 40 mg Thiamine HCl (Vitamin B1 Inj) 200 mg IV Q8H [facility] Last Admin: 02/12/18 18:26 Dose: 200 mg - Labs Labs: 02/12/18 06:01 02/12/18 06:01 PT 14.1 SECONDS (9.7-12.2) H 02/04/18 15:52 INR 1.3 02/04/18 15:52 APTT 34 SECONDS (21-34) 02/04/18 15:52 - Constitutional Appears: No Acute Distress - Head Exam Head Exam: NORMAL INSPECTION - Eye Exam Pupil Exam: PERRL Additional comments: 3 mm, sluggish - Neurological Exam Neurological Exam: Awake Neuro motor strength exam: Left Upper Extremity: 4, Right Upper Extremity: 4, Left Lower Extremity: 4, Right Lower Extremity: 4 Additional comments: Awake, follows commands with episode of restlessness, sensation is intact. Assessment and Plan (1) Toxic metabolic encephalopathy Assessment & Plan: Case discussed with DR. Gutierres, continue all current medical regimen. Recommend to treat any underlying infection and electrolyte abnormalities. Neurology is signing off since the patient's issues is more infection issues not neurological. Status: Acute
[2018-02-13 05:35] LABS: ABG ALLEN TEST POS; ARTERIAL BLOOD GAS HCO3 30.7 mmol/L (21-28); ARTERIAL BLOOD GAS O2 SAT 99.1 % (95-98); ARTERIAL BLOOD GAS PCO2 32 mm/Hg (35-45); ARTERIAL BLOOD GAS PH 7.57 (7.35-7.45); ARTERIAL BLOOD GAS PO2 120 mm/Hg (80-100); ARTERIAL BLOOD GAS TCO2 30.3 mmol/L (22-28)
[2018-02-13] MEDS: Levothyroxine 200 MCG TAB PO SCH (05:39)
[2018-02-13] MEDS: Piperacill/Tazo 2.25gm in Dex 2.25 GM/50 ML BAG IVPB SCH ×2 (05:39→14:00)
[2018-02-13 06:43] LABS: BASO % 0.6 % (0.0-2.0); EOS # 0.1 K/uL (0.0-0.7); HEMOGLOBIN 7.5 g/dL (11.0-16.0); LYMPH # 1.3 K/uL (1.0-4.3); LYMPH % 17.6 % (20.0-40.0); MEAN CELL VOLUME 96.8 fL (81.0-99.0); MEAN CORPUSCULAR HEMOGLOBIN 33.5 pg (27.0-31.0); MEAN CORPUSCULAR HGB CONC 34.6 g/dL (33.0-37.0); MONO # 0.7 K/uL (0.0-0.8); MONO % 9.5 % (0.0-10.0); NEUT # 5.3 K/uL (1.8-7.0); NEUT % 71.3 % (50.0-75.0); NRBC % 0.4 % (0.0-2.0); RBC 2.25 Mil/uL (3.80-5.20); RED CELL DISTRIBUTION WIDTH 19.7 % (11.5-14.5); WHITE BLOOD COUNT 7.4 K/uL (4.8-10.8)
[2018-02-13 06:52] LABS: ALB/GLOB RATIO 0.6 (1.0-2.1); ALBUMIN 2.8 g/dL (3.5-5.0); CALCIUM 8.5 mg/dl (8.6-10.4)
[2018-02-13] MEDS: Bacitracin Ointment 30 GM TUBE TOP SCH (09:15)
[2018-02-13] MEDS: Multiple Vitamins Oral Solution PO SCH (09:16)
--- NOTE | 2018-02-13 09:41 | RAD ---
HISTORY: intubated COMPARISON: Chest x-ray 02/11/2018 TECHNIQUE: Chest one view . FINDINGS: LUNGS: No focal consolidation is seen. Endotracheal tube tip is above the maira. PLEURA: Small left pleural effusion. CARDIOVASCULAR: Heart size is within normal limits. OSSEOUS STRUCTURES: Stable widening right acromioclavicular joint. Degenerative changes noted of the spine. Mild hypertrophic degenerative changes noted of the bilateral acromioclavicular joints. VISUALIZED UPPER ABDOMEN: There is an enteric feeding tube with tip extending below the diaphragm and excluded from the confines of the image. OTHER FINDINGS: None. IMPRESSION: Small left pleural effusion.
--- NOTE | 2018-02-13 12:12 | CP.PCM.PN ---
Subjective - Date & Time of Evaluation Date of Evaluation: 02/13/18 Time of Evaluation: 08:00 - Subjective Subjective: patient seen and examined Remains intubated tolerating CPAP Afebrile Culture positive for staph bacteremia Objective - Vital Signs/Intake and Output Vital Signs (last 24 hours): Temp Pulse Resp BP Pulse Ox 97.4 F L 60 17 124/49 L 98 02/13/18 08:00 02/13/18 10:00 02/13/18 10:00 02/13/18 09:58 02/13/18 10:00 Intake and Output: 02/13/18 02/13/18 06:59 18:59 Intake Total 917.5 180 Balance 917.5 180 - Medications Medications: Current Medications Acetaminophen (Tylenol 325mg Tab) 650 mg PO Q6 PRN PRN Reason: Pain, moderate (4-7) Last Admin: 02/05/18 16:18 Dose: 650 mg Albuterol/Ipratropium (Duoneb 3 Mg/0.5 Mg (3 Ml) Ud) 3 ml INH RQ6 [facility] Last Admin: 02/13/18 07:15 Dose: 3 ml Bacitracin (Bacitracin) 0 gm TOP DAILY [facility] Last Admin: 02/13/18 09:15 Dose: 1 applic Benzocaine/Menthol (Cepacol Sore Throat) 1 naomi PO Q2 PRN PRN Reason: Sore Throat Docusate Sodium (Colace) 100 mg PO DAILY [facility] Last Admin: 02/13/18 09:16 Dose: 100 mg Epoetin Yvon (Procrit) 10,000 unit IV MWF [facility] Last Admin: 02/12/18 16:50 Dose: 10,000 unit Ergocalciferol (Drisdol 50,000 Intl Units Cap) 1 cap PO QD7 [facility] Piperacillin Sod/Tazobactam Sod (Zosyn 2.25 Gm Iv Premix) 2.25 gm in 50 mls @ 100 mls/hr IVPB Q8H [facility] PRN Reason: Protocol Last Admin: 02/13/18 05:39 Dose: 100 mls/hr Dopamine HCl/Dextrose (Dopamine 400mg/250ml D5w) 400 mg in 250 mls @ 5.375 mls/ hr IV .Q24H PRN; Protocol; 2 MCG/KG/MIN PRN Reason: TITRATE PER MD ORDER Last Titration: 02/12/18 21:50 Dose: 0 mcg/kg/min, 0 mls/hr Lactulose (Enulose) 20 gm PO DAILY PRN PRN Reason: constipation Levothyroxine Sodium (Synthroid) 200 mcg PO DAILY@0630 [facility] Last Admin: 02/13/18 05:39 Dose: 200 mcg Multivitamins/Vitamin C (Multi-Delyn Liquid) 5 ml PO DAILY [facility] Last Admin: 02/13/18 09:16 Dose: 5 ml Pantoprazole Sodium (Protonix Inj) 40 mg IVP DAILY [facility] Last Admin: 02/13/18 09:17 Dose: 40 mg Thiamine HCl (Vitamin B1 Inj) 200 mg IV Q8H [facility] Last Admin: 02/13/18 09:17 Dose: 200 mg - Labs Labs: 02/13/18 06:28 02/13/18 06:28 PT 14.1 SECONDS (9.7-12.2) H 02/04/18 15:52 INR 1.3 02/04/18 15:52 APTT 34 SECONDS (21-34) 02/04/18 15:52 - Head Exam Head Exam: ATRAUMATIC, NORMOCEPHALIC - ENT Exam ENT Exam: Mucous Membranes Moist - Neck Exam Neck Exam: Normal Inspection - Respiratory Exam Respiratory Exam: Clear to Ausculation Bilateral - Cardiovascular Exam Cardiovascular Exam: REGULAR RHYTHM - GI/Abdominal Exam GI & Abdominal Exam: Soft, Normal Bowel Sounds Assessment and Plan (1) Staphylococcus aureus bacteremia Assessment & Plan: Cultures still positive for staph Consider to remove left arm shunt/fistula Continue IV antibiotics Continue weaning Status: Acute (2) Dyspnea Status: Acute (3) Altered mental status Status: Acute (4) ESRD (end stage renal disease) on dialysis Status: Acute
[2018-02-13] MEDS: (Novolin R) Insulin Human Regular 100 units/ml vial SC SCH ×3 (12:48→23:24)
[2018-02-13 14:10] LABS: ABG ALLEN TEST POS; ARTERIAL BLOOD GAS HCO3 29.1 mmol/L (21-28); ARTERIAL BLOOD GAS HEMOGLOBIN 8.3 g/dL (11.7-17.4); ARTERIAL BLOOD GAS O2 SAT 98.1 % (95-98); ARTERIAL BLOOD GAS PCO2 38 mm/Hg (35-45); ARTERIAL BLOOD GAS PH 7.49 (7.35-7.45); ARTERIAL BLOOD GAS PO2 101 mm/Hg (80-100); ARTERIAL BLOOD GAS TCO2 30.2 mmol/L (22-28)
[2018-02-13] MEDS ORDERED: (Novolin R) Insulin Human Regular 100 units/ml vial SC SCH (16:30)
--- NOTE | 2018-02-13 16:55 | CP.PCM.PN ---
Subjective - Date & Time of Evaluation Date of Evaluation: 02/13/18 Time of Evaluation: 08:00 - Subjective Subjective: persistent bacteremia with MSSA consistent with endovascular source echo done was neg for vegetation but may need LUIZ unclear if AV fistula is the source switched to Nafcillin / Genta prognosis remains poor Objective - Vital Signs/Intake and Output Vital Signs (last 24 hours): Temp Pulse Resp BP Pulse Ox 97.4 F L 72 13 134/50 L 95 02/13/18 08:00 02/13/18 15:00 02/13/18 15:00 02/13/18 14:58 02/13/18 15:00 Intake and Output: 02/13/18 02/13/18 06:59 18:59 Intake Total 917.5 180 Balance 917.5 180 - Medications Medications: Current Medications Acetaminophen (Tylenol 325mg Tab) 650 mg PO Q6 PRN PRN Reason: Pain, moderate (4-7) Last Admin: 02/05/18 16:18 Dose: 650 mg Albuterol/Ipratropium (Duoneb 3 Mg/0.5 Mg (3 Ml) Ud) 3 ml INH RQ6 [facility] Last Admin: 02/13/18 13:42 Dose: 3 ml Bacitracin (Bacitracin) 0 gm TOP DAILY [facility] Last Admin: 02/13/18 09:15 Dose: 1 applic Benzocaine/Menthol (Cepacol Sore Throat) 1 naomi PO Q2 PRN PRN Reason: Sore Throat Docusate Sodium (Colace) 100 mg PO DAILY [facility] Last Admin: 02/13/18 09:16 Dose: 100 mg Epoetin Yvon (Procrit) 10,000 unit IV MWF [facility] Last Admin: 02/12/18 16:50 Dose: 10,000 unit Ergocalciferol (Drisdol 50,000 Intl Units Cap) 1 cap PO QD7 [facility] Dopamine HCl/Dextrose (Dopamine 400mg/250ml D5w) 400 mg in 250 mls @ 5.375 mls/ hr IV .Q24H PRN; Protocol; 2 MCG/KG/MIN PRN Reason: TITRATE PER MD ORDER Last Titration: 02/12/18 21:50 Dose: 0 mcg/kg/min, 0 mls/hr Nafcillin Sodium 2 gm/ Sodium (Chloride) 250 mls @ 250 mls/hr IVPB Q6H [facility] PRN Reason: Protocol Gentamicin Sulfate 80 mg/ (Sodium Chloride) 102 mls @ 100 mls/hr IVPB MWF [facility] PRN Reason: Protocol Insulin Human Regular (Novolin R) 0 unit SC Q6H [facility] PRN Reason: Protocol Last Admin: 02/13/18 12:48 Dose: 3 unit Lactulose (Enulose) 20 gm PO DAILY PRN PRN Reason: constipation Levothyroxine Sodium (Synthroid) 200 mcg PO DAILY@0630 [facility] Last Admin: 02/13/18 05:39 Dose: 200 mcg Multivitamins/Vitamin C (Multi-Delyn Liquid) 5 ml PO DAILY [facility] Last Admin: 02/13/18 09:16 Dose: 5 ml Pantoprazole Sodium (Protonix Inj) 40 mg IVP DAILY [facility] Last Admin: 02/13/18 09:17 Dose: 40 mg Thiamine HCl (Vitamin B1 Inj) 200 mg IV Q8H [facility] Last Admin: 02/13/18 09:17 Dose: 200 mg - Labs Labs: 02/13/18 06:28 02/13/18 06:28 PT 14.1 SECONDS (9.7-12.2) H 02/04/18 15:52 INR 1.3 02/04/18 15:52 APTT 34 SECONDS (21-34) 02/04/18 15:52 - Constitutional Appears: Confused, Chronically Ill - Head Exam Head Exam: NORMOCEPHALIC - Eye Exam Eye Exam: absent: Scleral icterus - ENT Exam ENT Exam: Mucous Membranes Dry - Neck Exam Neck Exam: absent: Lymphadenopathy - Respiratory Exam Respiratory Exam: Decreased Breath Sounds - Cardiovascular Exam Cardiovascular Exam: REGULAR RHYTHM - GI/Abdominal Exam GI & Abdominal Exam: Distended - Rectal Exam Rectal Exam: Deferred - Exam Exam: NORMAL INSPECTION - Extremities Exam Extremities Exam: absent: Pedal Edema - Back Exam Back Exam: absent: CVA tenderness (L), CVA tenderness (R) - Neurological Exam Neurological Exam: Altered - Psychiatric Exam Psychiatric exam: Depressed - Skin Skin Exam: Dry Assessment and Plan (1) Altered mental status Status: Acute (2) Dyspnea Status: Acute (3) ESRD (end stage renal disease) on dialysis Status: Acute (4) Lacunar infarction Status: Acute (5) MRSA bacteremia Status: Acute (6) Sepsis Status: Acute (7) Sepsis Status: Acute (8) Staphylococcus aureus bacteremia Status: Acute (9) Toxic metabolic encephalopathy Status: Acute - Assessment and Plan (Free Text) Assessment: persistent bacteremia with MSSA consistent with endovascular source echo done was neg for vegetation but may need LUIZ unclear if AV fistula is the source switched to Nafcillin / Genta prognosis remains poor
--- NOTE | 2018-02-13 19:23 | CP.CCUPN ---
<Leo Larson - Last Filed: 02/13/18 19:19> CCU Subjective - Physician Review Subjective (Free Text): Patient seen and examined at bedside. Extubated today. No complaints. 02/13/18 19:20 CCU Objective - Vital Signs / Intake & Output Vital Signs (Last 4 hours): Vital Signs Pulse Resp BP Pulse Ox 02/13/18 19:00 57 L 17 02/13/18 18:58 58 L 18 121/46 L 02/13/18 18:00 59 L 18 02/13/18 17:59 59 L 16 127/40 L 02/13/18 17:00 60 15 96 02/13/18 16:58 59 L 18 128/48 L 93 L 02/13/18 16:00 63 22 95 02/13/18 15:59 64 11 L 142/54 L 94 L Intake and Output (Last 8hrs): Intake & Output 02/13/18 02/13/18 02/13/18 06:59 14:59 22:59 Intake Total 370 430 40 Balance 370 430 40 Weight 158 lb Intake: Intake, IV Amount 50 50 Right Distal Port Femoral 50 Right Proximal Port 50 Femoral Tube Feeding 320 320 40 Other 60 Other: # Bowel Movements 1 1 - Physical Exam Head: Positive for: Atraumatic, Normocephalic Pupils: Positive for: PERRL Mouth: Positive for: Dry Respiratory/Chest: Positive for: Rales (BiBasilar). Negative for: Clear to Auscultation Cardiovascular: Positive for: Regular Rate and Rhythm, Normal S1, S2 Abdomen: Positive for: Normal Bowel Sounds. Negative for: Distention, Guarding Lower Extremity: Positive for: Normal Inspection Skin: Positive for: Warm, Dry, Other (Onchomycosis B/L) Psychiatric: Positive for: Alert. Negative for: Oriented x 3 - Medications Active Medications: Active Medications Generic Name Dose Route Start Last Admin Trade Name Freq PRN Reason Stop Dose Admin Acetaminophen 650 mg 02/05/18 12:44 02/05/18 16:18 Tylenol 325mg Tab PO 650 mg Q6 PRN Administration Pain, moderate (4-7) Albuterol/Ipratropium 3 ml 02/11/18 08:00 02/13/18 13:42 Duoneb 3 Mg/0.5 Mg (3 Ml) Ud INH 3 ml RQ6 [facility] Administration Bacitracin 0 gm 02/05/18 10:00 02/13/18 09:15 Bacitracin TOP 1 applic DAILY [facility] Administration Benzocaine/Menthol 1 naomi 02/04/18 18:53 Cepacol Sore Throat PO Q2 PRN Sore Throat Docusate Sodium 100 mg 02/05/18 10:00 02/13/18 09:16 Colace PO 100 mg DAILY [facility] Administration Epoetin Yvon 10,000 unit 02/05/18 09:00 02/12/18 16:50 Proc[place] 10,000 unit [facility] Ergocalciferol 1 cap 02/04/18 19:00 Drisdol 50,000 Intl Units Cap PO QD7 [facility] Dopamine HCl/Dextrose 400 mg in 250 mls @ 5.375 mls/hr 02/12/18 15:33 21:50 Dopamine 400mg/250ml D5w IV 0 mcg/kg/min .Q24H PRN 0 mls/hr TITRATE PER MD ORDER Titration Protocol 2 MCG/KG/MIN Nafcillin Sodium 2 gm/ Sodium 250 mls @ 250 mls/hr 02/13/18 17:00 02/13/18 17 :21 Chloride IVPB 250 mls/hr Q6H [facility] Administration Protocol Gentamicin Sulfate 80 mg/ 102 mls @ 100 mls/hr 02/14/18 09:00 Sodium Chloride IVPB [facility] [place] Insulin Human Regular 0 unit 02/13/18 12:00 02/13/18 17:20 Novolin R SC 3 unit Q6H [facility] Administration Protocol Lactulose 20 gm 02/04/18 18:53 Enulose PO DAILY PRN constipation Levothyroxine Sodium 200 mcg 02/05/18 06:30 02/13/18 05:39 Synthroid PO 200 mcg DAILY@0630 [facility] Administration Multivitamins/Vitamin C 5 ml 02/09/18 10:00 02/13/18 09:16 Multi-Delyn Liquid PO 5 ml DAILY [facility] Administration Pantoprazole Sodium 40 mg 02/12/18 22:04 02/13/18 09:17 Protonix Inj IVP 40 mg DAILY [facility] Administration Thiamine HCl 200 mg 02/09/18 10:00 02/13/18 17:21 Vitamin B1 Inj IV 200 mg Q8H [facility] Administration - Patient Studies Lab Studies: Microbiology Studies 02/12/18 Unknown Blood Culture - Preliminary Blood-During Dialysis Gram Positive Cocci Gram Stain - Final 02/12/18 17:19 Blood Culture - Preliminary Blood-During Dialysis Gram Positive Cocci Gram Stain - Final 02/12/18 04:00 S.aureus & Coag-Neg Staph PNA FISH - Preliminary Blood Blood Culture - Preliminary Gram Positive Cocci Gram Stain - Final 02/10/18 21:30 S.aureus & Coag-Neg Staph PNA FISH - Final Blood-During Dialysis Blood Culture - Final Staphylococcus Aureus Gram Stain - Final 02/12/18 04:00 Blood Culture - Preliminary Blood NO GROWTH AFTER 24 HOURS 02/09/18 11:30 S.aureus & Coag-Neg Staph PNA FISH - Final Blood-Venous Blood Culture - Final Staphylococcus Aureus Gram Stain - Final 02/09/18 14:11 Blood Culture - Final Blood-Venous Staphylococcus Aureus Gram Stain - Final Lab Studies 02/13/18 02/13/18 02/13/18 Range/Units 17:14 12:19 11:29 WBC (4.8-10.8) K/uL RBC (3.80-5.20) Mil/uL Hgb (11.0-16.0) g/dL Hct (34.0-47.0) % MCV (81.0-99.0) fL MCH (27.0-31.0) pg MCHC (33.0-37.0) g/dL RDW (11.5-14.5) % Plt Count (130-400) K/uL MPV (7.2-11.7) fL Neut % (Auto) (50.0-75.0) % Lymph % (Auto) (20.0-40.0) % [place] % (Auto) (0.0-10.0) % Eos % (Auto) (0.0-4.0) % Baso % (Auto) (0.0-2.0) % Neut # (Auto) (1.8-7.0) K/uL Lymph # (Auto) (1.0-4.3) K/uL [place] # (Auto) (0.0-0.8) K/uL Eos # (Auto) (0.0-0.7) K/uL Baso # (Auto) (0.0-0.2) K/uL Puncture Site Rr pCO2 38 (35-45) mm/Hg pO2 101 H (80-100) mm/Hg HCO3 29.1 H (21-28) mmol/L ABG pH 7.49 H (7.35-7.45) ABG Total CO2 30.2 H (22-28) mmol/L ABG O2 Saturation 98.1 H (95-98) % ABG Base Excess 5.3 H (-2.0-3.0) mmol/L ABG Hemoglobin 8.3 L (11.7-17.4) g/dL ABG Carboxyhemoglobin 1.5 (0.5-1.5) % POC ABG HHb (Measured) 1.9 (0.0-5.0) % ABG Methemoglobin 0.8 (0.0-3.0) % Yrn Test Pos ABG Potassium (3.6-5.2) mmol/L A-a O2 Difference 208.0 mm/Hg Respiratory Index 2.1 Hgb O2 Saturation 95.8 (95.0-98.0) % Sodium (132-148) mmol/l Chloride (98-107) mmol/L Glucose (65-105) mg/dl Lactate (0.7-2.1) mmol/L Vent Mode Cpap Mechanical Rate FiO2 50.0 % Tidal Volume PEEP Pressure Support 10 CPAP 5 Potassium (3.6-5.2) mmol/L Carbon Dioxide (22-30) mmol/L Anion Gap (10-20) BUN (7-17) mg/dL Creatinine (0.7-1.2) mg/dL Est GFR ( Amer) Est GFR (Non-Af Amer) POC Glucose (mg/dL) 205 H 237 H (65-110) mg/dL Random Glucose (65-105) mg/dL Calcium (8.6-10.4) mg/dl Phosphorus (2.5-4.5) mg/dL Magnesium (1.6-2.3) mg/dL Total Bilirubin (0.2-1.3) mg/dL AST (14-36) U/L ALT (9-52) U/L Alkaline Phosphatase (38-126) U/L Total Protein (6.3-8.3) g/dL Albumin (3.5-5.0) g/dL Globulin (2.2-3.9) gm/dL Albumin/Globulin Ratio (1.0-2.1) Arterial Blood Potassium (3.6-5.2) mmol/L Blood Type Antibody Screen Antibody Identification 02/13/18 02/13/18 02/13/18 Range/Units 06:28 06:28 06:01 WBC 7.4 (4.8-10.8) K/uL RBC 2.25 L (3.80-5.20) Mil/uL Hgb 7.5 L (11.0-16.0) g/dL Hct 21.8 L (34.0-47.0) % MCV 96.8 (81.0-99.0) fL MCH 33.5 H (27.0-31.0) pg MCHC 34.6 (33.0-37.0) g/dL RDW 19.7 H (11.5-14.5) % Plt Count 49 L (130-400) K/uL MPV 12.0 H (7.2-11.7) fL Neut % (Auto) 71.3 (50.0-75.0) % Lymph % (Auto) 17.6 L (20.0-40.0) % [place] % (Auto) 9.5 (0.0-10.0) % Eos % (Auto) 1.0 (0.0-4.0) % Baso % (Auto) 0.6 (0.0-2.0) % Neut # (Auto) 5.3 (1.8-7.0) K/uL Lymph # (Auto) 1.3 (1.0-4.3) K/uL [place] # (Auto) 0.7 (0.0-0.8) K/uL Eos # (Auto) 0.1 (0.0-0.7) K/uL Baso # (Auto) 0.0 (0.0-0.2) K/uL Puncture Site pCO2 (35-45) mm/Hg pO2 (80-100) mm/Hg HCO3 (21-28) mmol/L ABG pH (7.35-7.45) ABG Total CO2 (22-28) mmol/L ABG O2 Saturation (95-98) % ABG Base Excess (-2.0-3.0) mmol/L ABG Hemoglobin (11.7-17.4) g/dL ABG Carboxyhemoglobin (0.5-1.5) % POC ABG HHb (Measured) (0.0-5.0) % ABG Methemoglobin (0.0-3.0) % Yrn Test ABG Potassium (3.6-5.2) mmol/L A-a O2 Difference mm/Hg Respiratory Index Hgb O2 Saturation (95.0-98.0) % Sodium 138 (132-148) mmol/l Chloride 99 (98-107) mmol/L Glucose (65-105) mg/dl Lactate (0.7-2.1) mmol/L Vent Mode Mechanical Rate FiO2 % Tidal Volume PEEP Pressure Support CPAP Potassium 3.9 (3.6-5.2) mmol/L Carbon Dioxide 28 (22-30) mmol/L Anion Gap 14 (10-20) BUN 30 H (7-17) mg/dL Creatinine 3.9 H (0.7-1.2) mg/dL Est GFR ( Amer) 14 Est GFR (Non-Af Amer) 11 POC Glucose (mg/dL) 160 H (65-110) mg/dL Random Glucose 142 H (65-105) mg/dL Calcium 8.5 L (8.6-10.4) mg/dl Phosphorus 4.1 (2.5-4.5) mg/dL Magnesium 2.2 (1.6-2.3) mg/dL Total Bilirubin 1.7 H (0.2-1.3) mg/dL AST 30 (14-36) U/L ALT 27 (9-52) U/L Alkaline Phosphatase 253 H (38-126) U/L Total Protein 7.4 (6.3-8.3) g/dL Albumin 2.8 L (3.5-5.0) g/dL Globulin 4.6 H (2.2-3.9) gm/dL Albumin/Globulin Ratio 0.6 L (1.0-2.1) Arterial Blood Potassium (3.6-5.2) mmol/L Blood Type Antibody Screen Antibody Identification 02/13/18 02/10/18 Range/Units 05:17 11:03 WBC (4.8-10.8) K/uL RBC (3.80-5.20) Mil/uL Hgb (11.0-16.0) g/dL Hct (34.0-47.0) % MCV (81.0-99.0) fL MCH (27.0-31.0) pg MCHC (33.0-37.0) g/dL RDW (11.5-14.5) % Plt Count (130-400) K/uL MPV (7.2-11.7) fL Neut % (Auto) (50.0-75.0) % Lymph % (Auto) (20.0-40.0) % [place] % (Auto) (0.0-10.0) % Eos % (Auto) (0.0-4.0) % Baso % (Auto) (0.0-2.0) % Neut # (Auto) (1.8-7.0) K/uL Lymph # (Auto) (1.0-4.3) K/uL [place] # (Auto) (0.0-0.8) K/uL Eos # (Auto) (0.0-0.7) K/uL Baso # (Auto) (0.0-0.2) K/uL Puncture Site Rr pCO2 32 L (35-45) mm/Hg pO2 120 H (80-100) mm/Hg HCO3 30.7 H (21-28) mmol/L ABG pH 7.57 H (7.35-7.45) ABG Total CO2 30.3 H (22-28) mmol/L ABG O2 Saturation 99.1 H (95-98) % ABG Base Excess 7.4 H (-2.0-3.0) mmol/L ABG Hemoglobin (11.7-17.4) g/dL ABG Carboxyhemoglobin (0.5-1.5) % POC ABG HHb (Measured) (0.0-5.0) % ABG Methemoglobin (0.0-3.0) % Yrn Test Pos ABG Potassium 3.7 (3.6-5.2) mmol/L A-a O2 Difference 197.0 mm/Hg Respiratory Index 1.6 Hgb O2 Saturation (95.0-98.0) % Sodium 137.0 (132-148) mmol/l Chloride 104.0 (98-107) mmol/L Glucose 158 H (65-105) mg/dl Lactate 1.2 (0.7-2.1) mmol/L Vent Mode Prvc Mechanical Rate 16 FiO2 50.0 % Tidal Volume 500 PEEP 5 Pressure Support CPAP Potassium (3.6-5.2) mmol/L Carbon Dioxide (22-30) mmol/L Anion Gap (10-20) BUN (7-17) mg/dL Creatinine (0.7-1.2) mg/dL Est GFR ( Amer) Est GFR (Non-Af Amer) POC Glucose (mg/dL) (65-110) mg/dL Random Glucose (65-105) mg/dL Calcium (8.6-10.4) mg/dl Phosphorus (2.5-4.5) mg/dL Magnesium (1.6-2.3) mg/dL Total Bilirubin (0.2-1.3) mg/dL AST (14-36) U/L ALT (9-52) U/L Alkaline Phosphatase (38-126) U/L Total Protein (6.3-8.3) g/dL Albumin (3.5-5.0) g/dL Globulin (2.2-3.9) gm/dL Albumin/Globulin Ratio (1.0-2.1) Arterial Blood Potassium 3.7 (3.6-5.2) mmol/L Blood Type B POSITIVE Antibody Screen Positive Antibody Identification Cancelled Laboratory Results - last 24 hr 02/10/18 02/13/18 02/13/18 11:03 05:17 06:01 WBC RBC Hgb Hct MCV MCH MCHC RDW Plt Count MPV Neut % (Auto) Lymph % (Auto) [place] % (Auto) Eos % (Auto) Baso % (Auto) Neut # (Auto) Lymph # (Auto) [place] # (Auto) Eos # (Auto) Baso # (Auto) Puncture Site Rr pCO2 32 L pO2 120 H HCO3 30.7 H ABG pH 7.57 H ABG Total CO2 30.3 H ABG O2 Saturation 99.1 H ABG Base Excess 7.4 H ABG Hemoglobin ABG Carboxyhemoglobin POC ABG HHb (Measured) ABG Methemoglobin Yrn Test Pos ABG Potassium 3.7 A-a O2 Difference 197.0 Respiratory Index 1.6 Hgb O2 Saturation Sodium 137.0 Chloride 104.0 Glucose 158 H Lactate 1.2 Vent Mode Prvc Mechanical Rate 16 FiO2 50.0 Tidal Volume 500 PEEP 5 Pressure Support CPAP Potassium Carbon Dioxide Anion Gap BUN Creatinine Est GFR ( Amer) Est GFR (Non-Af Amer) POC Glucose (mg/dL) 160 H Random Glucose Calcium Phosphorus Magnesium Total Bilirubin AST ALT Alkaline Phosphatase Total Protein Albumin Globulin Albumin/Globulin Ratio Arterial Blood Potassium 3.7 Blood Type B POSITIVE Antibody Screen Positive Antibody Identification Cancelled 02/13/18 02/13/18 02/13/18 06:28 06:28 11:29 WBC 7.4 RBC 2.25 L Hgb 7.5 L Hct 21.8 L MCV 96.8 MCH 33.5 H MCHC 34.6 RDW 19.7 H Plt Count 49 L MPV 12.0 H Neut % (Auto) 71.3 Lymph % (Auto) 17.6 L [place] % (Auto) 9.5 Eos % (Auto) 1.0 Baso % (Auto) 0.6 Neut # (Auto) 5.3 Lymph # (Auto) 1.3 [place] # (Auto) 0.7 Eos # (Auto) 0.1 Baso # (Auto) 0.0 Puncture Site pCO2 pO2 HCO3 ABG pH ABG Total CO2 ABG O2 Saturation ABG Base Excess ABG Hemoglobin ABG Carboxyhemoglobin POC ABG HHb (Measured) ABG Methemoglobin Yrn Test ABG Potassium A-a O2 Difference Respiratory Index Hgb O2 Saturation Sodium 138 Chloride 99 Glucose Lactate Vent Mode Mechanical Rate FiO2 Tidal Volume PEEP Pressure Support CPAP Potassium 3.9 Carbon Dioxide 28 Anion Gap 14 BUN 30 H Creatinine 3.9 H Est GFR ( Amer) 14 Est GFR (Non-Af Amer) 11 POC Glucose (mg/dL) 237 H Random Glucose 142 H Calcium 8.5 L Phosphorus 4.1 Magnesium 2.2 Total Bilirubin 1.7 H AST 30 ALT 27 Alkaline Phosphatase 253 H Total Protein 7.4 Albumin 2.8 L Globulin 4.6 H Albumin/Globulin Ratio 0.6 L Arterial Blood Potassium Blood Type Antibody Screen Antibody Identification 02/13/18 02/13/18 12:19 17:14 WBC RBC Hgb Hct MCV MCH MCHC RDW Plt Count MPV Neut % (Auto) Lymph % (Auto) [place] % (Auto) Eos % (Auto) Baso % (Auto) Neut # (Auto) Lymph # (Auto) [place] # (Auto) Eos # (Auto) Baso # (Auto) Puncture Site Rr pCO2 38 pO2 101 H HCO3 29.1 H ABG pH 7.49 H ABG Total CO2 30.2 H ABG O2 Saturation 98.1 H ABG Base Excess 5.3 H ABG Hemoglobin 8.3 L ABG Carboxyhemoglobin 1.5 POC ABG HHb (Measured) 1.9 ABG Methemoglobin 0.8 Yrn Test Pos ABG Potassium A-a O2 Difference 208.0 Respiratory Index 2.1 Hgb O2 Saturation 95.8 Sodium Chloride Glucose Lactate Vent Mode Cpap Mechanical Rate FiO2 50.0 Tidal Volume PEEP Pressure Support 10 CPAP 5 Potassium Carbon Dioxide Anion Gap BUN Creatinine Est GFR ( Amer) Est GFR (Non-Af Amer) POC Glucose (mg/dL) 205 H Random Glucose Calcium Phosphorus Magnesium Total Bilirubin AST ALT Alkaline Phosphatase Total Protein Albumin Globulin Albumin/Globulin Ratio Arterial Blood Potassium Blood Type Antibody Screen Antibody Identification Fingerstick Blood Sugar Results: 205 Review of Systems - Review of Systems Review of Systems: No Fevers, chills, chest pain, SOB, abdominal pain, changes in bowel habits - Constitutional Constitutional: absent: Fever, Chills Assessment/Plan - Assessment and Plan (Free Text) Assessment: 72 y/o female with PMHx of DM, HTN, ESRD on HD, h/o osteomyelitits presented to [facility] with AMS. IN ICU for evaluation and treatment of AMS. 02/09: Patient was noted to have bradycardia and Cardiac Arrest. Was intubated. 02/13: Extubated. Plan: GCS: 11T Sedation: None Head CT (02/06): Shows chronic microvascular ischemic change, mild generalized volume loss. Punctate hypodensity in the left basal ganglia may represent a prominent perivascular space versus punctate lacunar infarct. Sinus mucosal disease. Consider MRI Brain MRI (02/05): Limited exam due to excessive motion artifacts throughout all sequences. No mass effect, intracranial hemorrhage or acute/subacute brain infarction identified. Age-related neuro degenerative findings are appreciated as discussed above. Repeat MRI is available as clinically required the patient is able to properly position. Head CT (02/09): No Acute intracranial pathology, No significant interval change. Cardio: A: HTN, Hypotension Pressors: Dopamine PRN ECHO shows normal EF and Grade II pseudonormal relaxation pattern Cardiology on Consult, Recs Appreciated Continue Coreg 25 PO Q12H, ASA supp, Hyralazine, Losartan 100 Daily, Lovaza 2gm BID, Norvasc. Pulm: A: Hypoxic Res. failure (Resolved) CXR (02/11/18): No infiltrate. ET tube tip 1.7 cm above tracheal maira. Consider withdrawn slightly. Otherwise unremarkable. DuoNeb Q6H Extubated. Resting comfortably. GI: A: Constipation Lactulose PRN, Colace 100 DEMETRIUS Renal A: ESRD, Anemia, Hypothyroidism HD - MWF Per Vascular Surgery LUE shunt is okay to use for dialysis. Cont. Procrit, Drisdol, Heme/Onc A: Anemia (Improving), Thrombycytomenia (Improving) 02/11: Unit of Blood 02/10: 10 Units of Plts. ID A: Bacteremia (Staph Aureus) Afebrile, No Leukocytosis Cont. Vancomycin 1gm (M,W, F) Cont. Zosyn 2.25gm Q8H IVP. 1 Negative Blood Culture Endo: A: DM, Vitamin D Def. Hypothyrodism ISS, BGM q6H Ergocalciferol 50,000 IU Q7days. Cont. Levothyroxine 200mcg PO Proph Protonix Heparin Patient discussed with ICU Attending Leo Larson, PGY- 1 <Mathieu Purcell M - Last Filed: 02/13/18 19:24> CCU Objective - Vital Signs / Intake & Output Vital Signs (Last 4 hours): Vital Signs Temp Pulse Resp BP Pulse Ox 02/13/18 19:00 57 L 17 02/13/18 18:58 58 L 18 121/46 L 02/13/18 18:00 59 L 18 02/13/18 17:59 59 L 16 127/40 L 02/13/18 17:00 60 15 96 02/13/18 16:58 59 L 18 128/48 L 93 L 02/13/18 16:00 98.8 F 63 22 95 02/13/18 15:59 64 11 L 142/54 L 94 L Intake and Output (Last 8hrs): Intake & Output 02/13/18 02/13/18 02/13/18 06:59 14:59 22:59 Intake Total 370 430 80 Balance 370 430 80 Weight 158 lb Intake: Intake, IV Amount 50 50 Right Distal Port Femoral 50 Right Proximal Port 50 Femoral Tube Feeding 320 320 80 Other 60 Other: # Bowel Movements 1 1 - Medications Active Medications: Active Medications Generic Name Dose Route Start Last Admin Trade Name Freq PRN Reason Stop Dose Admin Acetaminophen 650 mg 02/05/18 12:44 02/05/18 16:18 Tylenol 325mg Tab PO 650 mg Q6 PRN Administration Pain, moderate (4-7) Albuterol/Ipratropium 3 ml 02/11/18 08:00 02/13/18 13:42 Duoneb 3 Mg/0.5 Mg (3 Ml) Ud INH 3 ml RQ6 [facility] Administration Bacitracin 0 gm 02/05/18 10:00 02/13/18 09:15 Bacitracin TOP 1 applic DAILY [facility] Administration Benzocaine/Menthol 1 naomi 02/04/18 18:53 Cepacol Sore Throat PO Q2 PRN Sore Throat Docusate Sodium 100 mg 02/05/18 10:00 02/13/18 09:16 Colace PO 100 mg DAILY [facility] Administration Epoetin Yvon 10,000 unit 02/05/18 09:00 02/12/18 16:50 Procrit IV 10,000 unit [facility] [place] Ergocalciferol 1 cap 02/04/18 19:00 Drisdol 50,000 Intl Units Cap PO QD7 [facility] Dopamine HCl/Dextrose 400 mg in 250 mls @ 5.375 mls/hr 02/12/18 15:33 21:50 Dopamine 400mg/250ml D5w IV 0 mcg/kg/min .Q24H PRN 0 mls/hr TITRATE PER MD ORDER Titration Protocol 2 MCG/KG/MIN Nafcillin Sodium 2 gm/ Sodium 250 mls @ 250 mls/hr 02/13/18 17:00 02/13/18 17 :21 Chloride IVPB 250 mls/hr Q6H [facility] Administration Protocol Gentamicin Sulfate 80 mg/ 102 mls @ 100 mls/hr 02/14/18 09:00 Sodium Chloride IVPB [facility] [place] Insulin Human Regular 0 unit 02/13/18 12:00 02/13/18 17:20 Novolin R SC 3 unit Q6H [facility] Administration Protocol Lactulose 20 gm 02/04/18 18:53 Enulose PO DAILY PRN constipation Levothyroxine Sodium 200 mcg 02/05/18 06:30 02/13/18 05:39 Synthroid PO 200 mcg DAILY@0630 [facility] Administration Multivitamins/Vitamin C 5 ml 02/09/18 10:00 02/13/18 09:16 Multi-Delyn Liquid PO 5 ml DAILY [facility] Administration Pantoprazole Sodium 40 mg 02/12/18 22:04 02/13/18 09:17 Protonix Inj IVP 40 mg DAILY [facility] Administration Thiamine HCl 200 mg 02/09/18 10:00 02/13/18 17:21 Vitamin B1 Inj IV 200 mg Q8H [facility] Administration - Patient Studies Lab Studies: Microbiology Studies 02/12/18 Unknown Blood Culture - Preliminary Blood-During Dialysis Gram Positive Cocci Gram Stain - Final 02/12/18 17:19 Blood Culture - Preliminary Blood-During Dialysis Gram Positive Cocci Gram Stain - Final 02/12/18 04:00 S.aureus & Coag-Neg Staph PNA FISH - Preliminary Blood Blood Culture - Preliminary Gram Positive Cocci Gram Stain - Final 02/10/18 21:30 S.aureus & Coag-Neg Staph PNA FISH - Final Blood-During Dialysis Blood Culture - Final Staphylococcus Aureus Gram Stain - Final 02/12/18 04:00 Blood Culture - Preliminary Blood NO GROWTH AFTER 24 HOURS 02/09/18 11:30 S.aureus & Coag-Neg Staph PNA FISH - Final Blood-Venous Blood Culture - Final Staphylococcus Aureus Gram Stain - Final 02/09/18 14:11 Blood Culture - Final Blood-Venous Staphylococcus Aureus Gram Stain - Final Lab Studies 02/13/18 02/13/18 02/13/18 Range/Units 17:14 12:19 11:29 WBC (4.8-10.8) K/uL RBC (3.80-5.20) Mil/uL Hgb (11.0-16.0) g/dL Hct (34.0-47.0) % MCV (81.0-99.0) fL MCH (27.0-31.0) pg MCHC (33.0-37.0) g/dL RDW (11.5-14.5) % Plt Count (130-400) K/uL MPV (7.2-11.7) fL Neut % (Auto) (50.0-75.0) % Lymph % (Auto) (20.0-40.0) % [place] % (Auto) (0.0-10.0) % Eos % (Auto) (0.0-4.0) % Baso % (Auto) (0.0-2.0) % Neut # (Auto) (1.8-7.0) K/uL Lymph # (Auto) (1.0-4.3) K/uL [place] # (Auto) (0.0-0.8) K/uL Eos # (Auto) (0.0-0.7) K/uL Baso # (Auto) (0.0-0.2) K/uL Puncture Site Rr pCO2 38 (35-45) mm/Hg pO2 101 H (80-100) mm/Hg HCO3 29.1 H (21-28) mmol/L ABG pH 7.49 H (7.35-7.45) ABG Total CO2 30.2 H (22-28) mmol/L ABG O2 Saturation 98.1 H (95-98) % ABG Base Excess 5.3 H (-2.0-3.0) mmol/L ABG Hemoglobin 8.3 L (11.7-17.4) g/dL ABG Carboxyhemoglobin 1.5 (0.5-1.5) % POC ABG HHb (Measured) 1.9 (0.0-5.0) % ABG Methemoglobin 0.8 (0.0-3.0) % Yrn Test Pos ABG Potassium (3.6-5.2) mmol/L A-a O2 Difference 208.0 mm/Hg Respiratory Index 2.1 Hgb O2 Saturation 95.8 (95.0-98.0) % Sodium (132-148) mmol/l Chloride (98-107) mmol/L Glucose (65-105) mg/dl Lactate (0.7-2.1) mmol/L Vent Mode Cpap Mechanical Rate FiO2 50.0 % Tidal Volume PEEP Pressure Support 10 CPAP 5 Potassium (3.6-5.2) mmol/L Carbon Dioxide (22-30) mmol/L Anion Gap (10-20) BUN (7-17) mg/dL Creatinine (0.7-1.2) mg/dL Est GFR ( Amer) Est GFR (Non-Af Amer) POC Glucose (mg/dL) 205 H 237 H (65-110) mg/dL Random Glucose (65-105) mg/dL Calcium (8.6-10.4) mg/dl Phosphorus (2.5-4.5) mg/dL Magnesium (1.6-2.3) mg/dL Total Bilirubin (0.2-1.3) mg/dL AST (14-36) U/L ALT (9-52) U/L Alkaline Phosphatase (38-126) U/L Total Protein (6.3-8.3) g/dL Albumin (3.5-5.0) g/dL Globulin (2.2-3.9) gm/dL Albumin/Globulin Ratio (1.0-2.1) Arterial Blood Potassium (3.6-5.2) mmol/L Blood Type Antibody Screen Antibody Identification 02/13/18 02/13/18 02/13/18 Range/Units 06:28 06:28 06:01 WBC 7.4 (4.8-10.8) K/uL RBC 2.25 L (3.80-5.20) Mil/uL Hgb 7.5 L (11.0-16.0) g/dL Hct 21.8 L (34.0-47.0) % MCV 96.8 (81.0-99.0) fL MCH 33.5 H (27.0-31.0) pg MCHC 34.6 (33.0-37.0) g/dL RDW 19.7 H (11.5-14.5) % Plt Count 49 L (130-400) K/uL MPV 12.0 H (7.2-11.7) fL Neut % (Auto) 71.3 (50.0-75.0) % Lymph % (Auto) 17.6 L (20.0-40.0) % [place] % (Auto) 9.5 (0.0-10.0) % Eos % (Auto) 1.0 (0.0-4.0) % Baso % (Auto) 0.6 (0.0-2.0) % Neut # (Auto) 5.3 (1.8-7.0) K/uL Lymph # (Auto) 1.3 (1.0-4.3) K/uL [place] # (Auto) 0.7 (0.0-0.8) K/uL Eos # (Auto) 0.1 (0.0-0.7) K/uL Baso # (Auto) 0.0 (0.0-0.2) K/uL Puncture Site pCO2 (35-45) mm/Hg pO2 (80-100) mm/Hg HCO3 (21-28) mmol/L ABG pH (7.35-7.45) ABG Total CO2 (22-28) mmol/L ABG O2 Saturation (95-98) % ABG Base Excess (-2.0-3.0) mmol/L ABG Hemoglobin (11.7-17.4) g/dL ABG Carboxyhemoglobin (0.5-1.5) % POC ABG HHb (Measured) (0.0-5.0) % ABG Methemoglobin (0.0-3.0) % Yrn Test ABG Potassium (3.6-5.2) mmol/L A-a O2 Difference mm/Hg Respiratory Index Hgb O2 Saturation (95.0-98.0) % Sodium 138 (132-148) mmol/l Chloride 99 (98-107) mmol/L Glucose (65-105) mg/dl Lactate (0.7-2.1) mmol/L Vent Mode Mechanical Rate FiO2 % Tidal Volume PEEP Pressure Support CPAP Potassium 3.9 (3.6-5.2) mmol/L Carbon Dioxide 28 (22-30) mmol/L Anion Gap 14 (10-20) BUN 30 H (7-17) mg/dL Creatinine 3.9 H (0.7-1.2) mg/dL Est GFR ( Amer) 14 Est GFR (Non-Af Amer) 11 POC Glucose (mg/dL) 160 H (65-110) mg/dL Random Glucose 142 H (65-105) mg/dL Calcium 8.5 L (8.6-10.4) mg/dl Phosphorus 4.1 (2.5-4.5) mg/dL Magnesium 2.2 (1.6-2.3) mg/dL Total Bilirubin 1.7 H (0.2-1.3) mg/dL AST 30 (14-36) U/L ALT 27 (9-52) U/L Alkaline Phosphatase 253 H (38-126) U/L Total Protein 7.4 (6.3-8.3) g/dL Albumin 2.8 L (3.5-5.0) g/dL Globulin 4.6 H (2.2-3.9) gm/dL Albumin/Globulin Ratio 0.6 L (1.0-2.1) Arterial Blood Potassium (3.6-5.2) mmol/L Blood Type Antibody Screen Antibody Identification 02/13/18 02/10/18 Range/Units 05:17 11:03 WBC (4.8-10.8) K/uL RBC (3.80-5.20) Mil/uL Hgb (11.0-16.0) g/dL Hct (34.0-47.0) % MCV (81.0-99.0) fL MCH (27.0-31.0) pg MCHC (33.0-37.0) g/dL RDW (11.5-14.5) % Plt Count (130-400) K/uL MPV (7.2-11.7) fL Neut % (Auto) (50.0-75.0) % Lymph % (Auto) (20.0-40.0) % [place] % (Auto) (0.0-10.0) % Eos % (Auto) (0.0-4.0) % Baso % (Auto) (0.0-2.0) % Neut # (Auto) (1.8-7.0) K/uL Lymph # (Auto) (1.0-4.3) K/uL [place] # (Auto) (0.0-0.8) K/uL Eos # (Auto) (0.0-0.7) K/uL Baso # (Auto) (0.0-0.2) K/uL Puncture Site Rr pCO2 32 L (35-45) mm/Hg pO2 120 H (80-100) mm/Hg HCO3 30.7 H (21-28) mmol/L ABG pH 7.57 H (7.35-7.45) ABG Total CO2 30.3 H (22-28) mmol/L ABG O2 Saturation 99.1 H (95-98) % ABG Base Excess 7.4 H (-2.0-3.0) mmol/L ABG Hemoglobin (11.7-17.4) g/dL ABG Carboxyhemoglobin (0.5-1.5) % POC ABG HHb (Measured) (0.0-5.0) % ABG Methemoglobin (0.0-3.0) % Yrn Test Pos ABG Potassium 3.7 (3.6-5.2) mmol/L A-a O2 Difference 197.0 mm/Hg Respiratory Index 1.6 Hgb O2 Saturation (95.0-98.0) % Sodium 137.0 (132-148) mmol/l Chloride 104.0 (98-107) mmol/L Glucose 158 H (65-105) mg/dl Lactate 1.2 (0.7-2.1) mmol/L Vent Mode Prvc Mechanical Rate 16 FiO2 50.0 % Tidal Volume 500 PEEP 5 Pressure Support CPAP Potassium (3.6-5.2) mmol/L Carbon Dioxide (22-30) mmol/L Anion Gap (10-20) BUN (7-17) mg/dL Creatinine (0.7-1.2) mg/dL Est GFR ( Amer) Est GFR (Non-Af Amer) POC Glucose (mg/dL) (65-110) mg/dL Random Glucose (65-105) mg/dL Calcium (8.6-10.4) mg/dl Phosphorus (2.5-4.5) mg/dL Magnesium (1.6-2.3) mg/dL Total Bilirubin (0.2-1.3) mg/dL AST (14-36) U/L ALT (9-52) U/L Alkaline Phosphatase (38-126) U/L Total Protein (6.3-8.3) g/dL Albumin (3.5-5.0) g/dL Globulin (2.2-3.9) gm/dL Albumin/Globulin Ratio (1.0-2.1) Arterial Blood Potassium 3.7 (3.6-5.2) mmol/L Blood Type B POSITIVE Antibody Screen Positive Antibody Identification Cancelled Laboratory Results - last 24 hr 02/10/18 02/13/18 02/13/18 11:03 05:17 06:01 WBC RBC Hgb Hct MCV MCH MCHC RDW Plt Count MPV Neut % (Auto) Lymph % (Auto) [place] % (Auto) Eos % (Auto) Baso % (Auto) Neut # (Auto) Lymph # (Auto) [place] # (Auto) Eos # (Auto) Baso # (Auto) Puncture Site Rr pCO2 32 L pO2 120 H HCO3 30.7 H ABG pH 7.57 H ABG Total CO2 30.3 H ABG O2 Saturation 99.1 H ABG Base Excess 7.4 H ABG Hemoglobin ABG Carboxyhemoglobin POC ABG HHb (Measured) ABG Methemoglobin Yrn Test Pos ABG Potassium 3.7 A-a O2 Difference 197.0 Respiratory Index 1.6 Hgb O2 Saturation Sodium 137.0 Chloride 104.0 Glucose 158 H Lactate 1.2 Vent Mode Prvc Mechanical Rate 16 FiO2 50.0 Tidal Volume 500 PEEP 5 Pressure Support CPAP Potassium Carbon Dioxide Anion Gap BUN Creatinine Est GFR ( Amer) Est GFR (Non-Af Amer) POC Glucose (mg/dL) 160 H Random Glucose Calcium Phosphorus Magnesium Total Bilirubin AST ALT Alkaline Phosphatase Total Protein Albumin Globulin Albumin/Globulin Ratio Arterial Blood Potassium 3.7 Blood Type B POSITIVE Antibody Screen Positive Antibody Identification Cancelled 02/13/18 02/13/18 02/13/18 06:28 06:28 11:29 WBC 7.4 RBC 2.25 L Hgb 7.5 L Hct 21.8 L MCV 96.8 MCH 33.5 H MCHC 34.6 RDW 19.7 H Plt Count 49 L MPV 12.0 H Neut % (Auto) 71.3 Lymph % (Auto) 17.6 L [place] % (Auto) 9.5 Eos % (Auto) 1.0 Baso % (Auto) 0.6 Neut # (Auto) 5.3 Lymph # (Auto) 1.3 [place] # (Auto) 0.7 Eos # (Auto) 0.1 Baso # (Auto) 0.0 Puncture Site pCO2 pO2 HCO3 ABG pH ABG Total CO2 ABG O2 Saturation ABG Base Excess ABG Hemoglobin ABG Carboxyhemoglobin POC ABG HHb (Measured) ABG Methemoglobin Yrn Test ABG Potassium A-a O2 Difference Respiratory Index Hgb O2 Saturation Sodium 138 Chloride 99 Glucose Lactate Vent Mode Mechanical Rate FiO2 Tidal Volume PEEP Pressure Support CPAP Potassium 3.9 Carbon Dioxide 28 Anion Gap 14 BUN 30 H Creatinine 3.9 H Est GFR ( Amer) 14 Est GFR (Non-Af Amer) 11 POC Glucose (mg/dL) 237 H Random Glucose 142 H Calcium 8.5 L Phosphorus 4.1 Magnesium 2.2 Total Bilirubin 1.7 H AST 30 ALT 27 Alkaline Phosphatase 253 H Total Protein 7.4 Albumin 2.8 L Globulin 4.6 H Albumin/Globulin Ratio 0.6 L Arterial Blood Potassium Blood Type Antibody Screen Antibody Identification 02/13/18 02/13/18 12:19 17:14 WBC RBC Hgb Hct MCV MCH MCHC RDW Plt Count MPV Neut % (Auto) Lymph % (Auto) [place] % (Auto) Eos % (Auto) Baso % (Auto) Neut # (Auto) Lymph # (Auto) [place] # (Auto) Eos # (Auto) Baso # (Auto) Puncture Site Rr pCO2 38 pO2 101 H HCO3 29.1 H ABG pH 7.49 H ABG Total CO2 30.2 H ABG O2 Saturation 98.1 H ABG Base Excess 5.3 H ABG Hemoglobin 8.3 L ABG Carboxyhemoglobin 1.5 POC ABG HHb (Measured) 1.9 ABG Methemoglobin 0.8 Yrn Test Pos ABG Potassium A-a O2 Difference 208.0 Respiratory Index 2.1 Hgb O2 Saturation 95.8 Sodium Chloride Glucose Lactate Vent Mode Cpap Mechanical Rate FiO2 50.0 Tidal Volume PEEP Pressure Support 10 CPAP 5 Potassium Carbon Dioxide Anion Gap BUN Creatinine Est GFR ( Amer) Est GFR (Non-Af Amer) POC Glucose (mg/dL) 205 H Random Glucose Calcium Phosphorus Magnesium Total Bilirubin AST ALT Alkaline Phosphatase Total Protein Albumin Globulin Albumin/Globulin Ratio Arterial Blood Potassium Blood Type Antibody Screen Antibody Identification Attending/Attestation - Attestation I have personally seen and examined this patient.: Yes I have fully participated in the care of the patient.: Yes I have reviewed all pertinent clinical information: Yes Notes (Text): 02/13/18 19:23 Today: January The Patient was seen and examined at the bedside, Medical records reviewed, and management issues were discussed and formulated with the house staff. I have reviewed all the relevant clinical, laboratory, hemodynamic, radiographic data and medications Events reviewed Pain issues, skin care, head of the bed elevation, glycemic control were addressed. Agree with above resident's assessment and treatment plans of care as transcribed in Dr. Rajan note.
--- NOTE | 2018-02-13 21:14 | CP.PCM.PN ---
Subjective - Date & Time of Evaluation Date of Evaluation: 02/13/18 Time of Evaluation: 11:40 - Subjective Subjective: clinically same Objective - Vital Signs/Intake and Output Vital Signs (last 24 hours): Temp Pulse Resp BP Pulse Ox 97.8 F 56 L 18 108/42 L 96 02/13/18 20:00 02/13/18 19:59 02/13/18 19:59 02/13/18 19:59 02/13/18 17:00 Intake and Output: 02/13/18 02/14/18 18:59 06:59 Intake Total 760 30 Balance 760 30 - Medications Medications: Current Medications Acetaminophen (Tylenol 325mg Tab) 650 mg PO Q6 PRN PRN Reason: Pain, moderate (4-7) Last Admin: 02/05/18 16:18 Dose: 650 mg Albuterol/Ipratropium (Duoneb 3 Mg/0.5 Mg (3 Ml) Ud) 3 ml INH RQ6 [facility] Last Admin: 02/13/18 20:00 Dose: 3 ml Bacitracin (Bacitracin) 0 gm TOP DAILY [facility] Last Admin: 02/13/18 09:15 Dose: 1 applic Benzocaine/Menthol (Cepacol Sore Throat) 1 naomi PO Q2 PRN PRN Reason: Sore Throat Docusate Sodium (Colace) 100 mg PO DAILY [facility] Last Admin: 02/13/18 09:16 Dose: 100 mg Epoetin Yvon (Procrit) 10,000 unit IV MWF [facility] Last Admin: 02/12/18 16:50 Dose: 10,000 unit Ergocalciferol (Drisdol 50,000 Intl Units Cap) 1 cap PO QD7 [facility] Dopamine HCl/Dextrose (Dopamine 400mg/250ml D5w) 400 mg in 250 mls @ 5.375 mls/ hr IV .Q24H PRN; Protocol; 2 MCG/KG/MIN PRN Reason: TITRATE PER MD ORDER Last Titration: 02/12/18 21:50 Dose: 0 mcg/kg/min, 0 mls/hr Nafcillin Sodium 2 gm/ Sodium (Chloride) 250 mls @ 250 mls/hr IVPB Q6H [facility] PRN Reason: Protocol Last Admin: 02/13/18 17:21 Dose: 250 mls/hr Gentamicin Sulfate 80 mg/ (Sodium Chloride) 102 mls @ 100 mls/hr IVPB MWF [facility] PRN Reason: Protocol Insulin Human Regular (Novolin R) 0 unit SC Q6H [facility] PRN Reason: Protocol Last Admin: 02/13/18 17:20 Dose: 3 unit Lactulose (Enulose) 20 gm PO DAILY PRN PRN Reason: constipation Levothyroxine Sodium (Synthroid) 200 mcg PO DAILY@0630 [facility] Last Admin: 02/13/18 05:39 Dose: 200 mcg Multivitamins/Vitamin C (Multi-Delyn Liquid) 5 ml PO DAILY [facility] Last Admin: 02/13/18 09:16 Dose: 5 ml Pantoprazole Sodium (Protonix Inj) 40 mg IVP DAILY [facility] Last Admin: 02/13/18 09:17 Dose: 40 mg Thiamine HCl (Vitamin B1 Inj) 200 mg IV Q8H [facility] Last Admin: 02/13/18 17:21 Dose: 200 mg - Labs Labs: 02/13/18 06:28 02/13/18 06:28 PT 14.1 SECONDS (9.7-12.2) H 02/04/18 15:52 INR 1.3 02/04/18 15:52 APTT 34 SECONDS (21-34) 02/04/18 15:52 - Constitutional Appears: Well - Head Exam Head Exam: ATRAUMATIC, NORMAL INSPECTION, NORMOCEPHALIC - Eye Exam Eye Exam: EOMI, Normal appearance, PERRL Pupil Exam: NORMAL ACCOMODATION, PERRL - ENT Exam ENT Exam: Mucous Membranes Moist, Normal Exam - Neck Exam Neck Exam: Full ROM, Normal Inspection. absent: Lymphadenopathy - Respiratory Exam Respiratory Exam: Decreased Breath Sounds - Cardiovascular Exam Cardiovascular Exam: REGULAR RHYTHM, +S1, +S2 - GI/Abdominal Exam GI & Abdominal Exam: Soft, Diminished Bowel Sounds - Rectal Exam Rectal Exam: Deferred Assessment and Plan (1) Altered mental status Status: Acute (2) ESRD (end stage renal disease) on dialysis Status: Acute (3) Gastritis Status: Acute (4) Musculoskeletal pain Status: Acute (5) Rib contusion Status: Acute (6) Toxic metabolic encephalopathy Status: Acute
[2018-02-14] MEDS: Albuterol-Ipratrop 3 mg / 0.5 (3 ml) UD INH SCH ×4 (01:46→20:03)
[2018-02-14] MEDS: Thiamine 100 mg/ml Inj IV SCH ×3 (02:00→17:39)
[2018-02-14] MEDS: (Novolin R) Insulin Human Regular 100 units/ml vial SC SCH ×4 (05:36→21:36)
[2018-02-14 06:15] LABS: BASO # 0.1 K/uL (0.0-0.2); EOS # 0.1 K/uL (0.0-0.7); EOS % 1.6 % (0.0-4.0); HEMOGLOBIN 7.9 g/dL (11.0-16.0); LYMPH # 1.4 K/uL (1.0-4.3); LYMPH % 23.1 % (20.0-40.0); MEAN CELL VOLUME 98.3 fL (81.0-99.0); MEAN CORPUSCULAR HEMOGLOBIN 33.3 pg (27.0-31.0); MEAN CORPUSCULAR HGB CONC 33.9 g/dL (33.0-37.0); MEAN PLATELET VOLUME 11.9 fL (7.2-11.7); MONO # 0.6 K/uL (0.0-0.8); MONO % 9.3 % (0.0-10.0); NEUT # 3.9 K/uL (1.8-7.0); NRBC % 0.3 % (0.0-2.0); RBC 2.37 Mil/uL (3.80-5.20); RED CELL DISTRIBUTION WIDTH 19.2 % (11.5-14.5)
[2018-02-14 06:28] LABS: ALB/GLOB RATIO 0.5 (1.0-2.1); ALBUMIN 2.3 g/dL (3.5-5.0); CALCIUM 8.6 mg/dl (8.6-10.4)
[2018-02-14] MEDS: Levothyroxine 200 MCG TAB PO SCH (07:11)
[2018-02-14] MEDS: Multiple Vitamins Oral Solution PO SCH (09:08)
[2018-02-14] MEDS: Bacitracin Ointment 30 GM TUBE TOP SCH (09:09)
[2018-02-14] MEDS: Epoetin Alfa 10,000 unit/ml Dialysis IV SCH (16:39)
--- NOTE | 2018-02-14 17:11 | CP.PCM.PN ---
Subjective - Date & Time of Evaluation Date of Evaluation: 02/14/18 Time of Evaluation: 07:00 - Subjective Subjective: remains bacteremic highly suggestive of endovascular source consider LUIZ and surgical re-eval of fistula poor prognosis Objective - Vital Signs/Intake and Output Vital Signs (last 24 hours): Temp Pulse Resp BP Pulse Ox 97.5 F L 60 19 131/51 L 97 02/14/18 15:00 02/14/18 16:30 02/14/18 16:30 02/14/18 16:30 02/14/18 16:30 Intake and Output: 02/14/18 02/14/18 06:59 18:59 Intake Total 780 730 Balance 780 730 - Medications Medications: Current Medications Acetaminophen (Tylenol 325mg Tab) 650 mg PO Q6 PRN PRN Reason: Pain, moderate (4-7) Last Admin: 02/14/18 04:44 Dose: 650 mg Albuterol/Ipratropium (Duoneb 3 Mg/0.5 Mg (3 Ml) Ud) 3 ml INH RQ6 [facility] Last Admin: 02/14/18 13:56 Dose: 3 ml Bacitracin (Bacitracin) 0 gm TOP DAILY [facility] Last Admin: 02/14/18 09:09 Dose: 1 applic Benzocaine/Menthol (Cepacol Sore Throat) 1 naomi PO Q2 PRN PRN Reason: Sore Throat Last Admin: 02/13/18 22:03 Dose: 1 naomi Docusate Sodium (Colace) 100 mg PO DAILY [facility] Last Admin: 02/14/18 09:13 Dose: Not Given Epoetin Yvon (Procrit) 10,000 unit IV MWF [facility] Last Admin: 02/14/18 16:39 Dose: 10,000 unit Ergocalciferol (Drisdol 50,000 Intl Units Cap) 1 cap PO QD7 [facility] Nafcillin Sodium 2 gm/ Sodium (Chloride) 250 mls @ 250 mls/hr IVPB Q6H [facility] PRN Reason: Protocol Last Admin: 02/14/18 11:07 Dose: 250 mls/hr Gentamicin Sulfate 80 mg/ (Sodium Chloride) 102 mls @ 100 mls/hr IVPB MWF [facility] PRN Reason: Protocol Insulin Human Regular (Novolin R) 0 unit SC ACHS [facility] PRN Reason: Protocol Lactulose (Enulose) 20 gm PO DAILY PRN PRN Reason: constipation Levothyroxine Sodium (Synthroid) 200 mcg PO DAILY@0630 [facility] Last Admin: 02/14/18 07:11 Dose: 200 mcg Multivitamins/Vitamin C (Multi-Delyn Liquid) 5 ml PO DAILY [facility] Last Admin: 02/14/18 09:08 Dose: 5 ml Pantoprazole Sodium (Protonix Ec Tab) 40 mg PO DAILY [facility] Thiamine HCl (Vitamin B1 Inj) 200 mg IV Q8H [facility] Last Admin: 02/14/18 09:08 Dose: 200 mg - Labs Labs: 02/14/18 05:53 02/14/18 05:55 PT 14.1 SECONDS (9.7-12.2) H 02/04/18 15:52 INR 1.3 02/04/18 15:52 APTT 34 SECONDS (21-34) 02/04/18 15:52 - Constitutional Appears: Toxic - Head Exam Head Exam: NORMOCEPHALIC - Eye Exam Eye Exam: absent: Scleral icterus - ENT Exam ENT Exam: Mucous Membranes Dry - Neck Exam Neck Exam: absent: Lymphadenopathy - Respiratory Exam Respiratory Exam: Decreased Breath Sounds - Cardiovascular Exam Cardiovascular Exam: REGULAR RHYTHM - GI/Abdominal Exam GI & Abdominal Exam: Distended - Rectal Exam Rectal Exam: Deferred - Exam Exam: NORMAL INSPECTION - Extremities Exam Extremities Exam: absent: Pedal Edema - Back Exam Back Exam: absent: CVA tenderness (L), CVA tenderness (R) - Neurological Exam Neurological Exam: Altered Assessment and Plan (1) Altered mental status Status: Acute (2) Dyspnea Status: Acute (3) ESRD (end stage renal disease) on dialysis Status: Acute (4) Lacunar infarction Status: Acute (5) MRSA bacteremia Status: Acute (6) Sepsis Status: Acute (7) Sepsis Status: Acute (8) Staphylococcus aureus bacteremia Status: Acute (9) Toxic metabolic encephalopathy Status: Acute - Assessment and Plan (Free Text) Assessment: remains bacteremic highly suggestive of endovascular source consider LUIZ and surgical re-eval of fistula poor prognosis
--- NOTE | 2018-02-14 17:25 | CP.CCUPN ---
<Leo Larson - Last Filed: 02/14/18 17:23> CCU Subjective - Physician Review Subjective (Free Text): Patient seen and examined at bedside. Extubated yesterday. No complaints. Denies any fevers, chills, SOB, chest pain, abdominal pain, or changes in bowel habits. Patient states she is hungry. CCU Objective - Vital Signs / Intake & Output Vital Signs (Last 4 hours): Vital Signs Temp Pulse Pulse Resp BP BP Pulse Ox 02/14/18 16:30 60 19 131/51 L 97 02/14/18 16:00 60 15 114/75 99 02/14/18 15:30 57 L 16 124/46 L 98 02/14/18 15:15 56 L 18 134/77 98 02/14/18 15:00 97.5 F L 56 L 56 L 15 134/64 134/64 100 02/14/18 14:58 57 L 14 134/64 97 02/14/18 14:20 58 L 17 108/59 L 95 02/14/18 14:00 56 L 14 100 Intake and Output (Last 8hrs): Intake & Output 02/14/18 02/14/18 02/14/18 06:59 14:59 22:59 Intake Total 470 730 Balance 470 730 Weight 158 lb 1.143 oz 161 lb Intake: Intake, IV Amount 250 250 Right Proximal Port 250 250 Femoral Oral 220 480 Other: # Bowel Movements 0 0 0 - Physical Exam Head: Positive for: Atraumatic, Normocephalic Pupils: Positive for: PERRL Mouth: Positive for: Dry Respiratory/Chest: Positive for: Rales (BiBasilar). Negative for: Clear to Auscultation Cardiovascular: Positive for: Regular Rate and Rhythm, Normal S1, S2 Abdomen: Positive for: Normal Bowel Sounds. Negative for: Distention, Guarding Lower Extremity: Positive for: Normal Inspection Skin: Positive for: Warm, Dry, Other (Onchomycosis B/L) Psychiatric: Positive for: Alert. Negative for: Oriented x 3 - Medications Active Medications: Active Medications Generic Name Dose Route Start Last Admin Trade Name Freq PRN Reason Stop Dose Admin Acetaminophen 650 mg 02/05/18 12:44 02/14/18 04:44 Tylenol 325mg Tab PO 650 mg Q6 PRN Administration Pain, moderate (4-7) Albuterol/Ipratropium 3 ml 02/11/18 08:00 02/14/18 13:56 Duoneb 3 Mg/0.5 Mg (3 Ml) Ud INH 3 ml RQ6 DEMETRIUS Administration Bacitracin 0 gm 02/05/18 10:00 02/14/18 09:09 Bacitracin TOP 1 applic DAILY DEMETRIUS Administration Benzocaine/Menthol 1 naomi 02/04/18 18:53 02/13/18 22:03 Cepacol Sore Throat PO 1 naomi Q2 PRN Administration Sore Throat Docusate Sodium 100 mg 02/05/18 10:00 02/14/18 09:13 Colace PO Not Given DAILY COUNT INCLUDES THE [facility] Epoetin Yvon 10,000 unit 02/05/18 09:00 02/14/18 16:39 Procrit IV 10,000 unit [place] Administration Ergocalciferol 1 cap 02/04/18 19:00 Drisdol 50,000 Intl Units Cap PO QD7 COUNT INCLUDES THE [facility] Nafcillin Sodium 2 gm/ Sodium 250 mls @ 250 mls/hr 02/13/18 17:00 02/14/18 11 :07 Chloride IVPB 250 mls/hr Q6H COUNT INCLUDES THE [facility] Administration Protocol Gentamicin Sulfate 80 mg/ 102 mls @ 100 mls/hr 02/14/18 09:00 Sodium Chloride IVPB F COUNT INCLUDES THE [facility] Protocol Insulin Human Regular 0 unit 02/14/18 16:30 Novolin R SC ACHS COUNT INCLUDES THE [facility] Protocol Lactulose 20 gm 02/04/18 18:53 Enulose PO DAILY PRN constipation Levothyroxine Sodium 200 mcg 02/05/18 06:30 02/14/18 07:11 Synthroid PO 200 mcg DAILY@0630 COUNT INCLUDES THE [facility] Administration Multivitamins/Vitamin C 5 ml 02/09/18 10:00 02/14/18 09:08 Multi-Delyn Liquid PO 5 ml DAILY DEMETRIUS Administration Pantoprazole Sodium 40 mg 02/15/18 10:00 Protonix Ec Tab PO DAILY COUNT INCLUDES THE [facility] Thiamine HCl 200 mg 02/09/18 10:00 02/14/18 09:08 Vitamin B1 Inj IV 200 mg Q8H DEMETRIUS Administration - Patient Studies Lab Studies: Microbiology Studies 02/10/18 21:10 Blood Culture - Final Blood-During Dialysis Staphylococcus Aureus Gram Stain - Final 02/12/18 04:00 Blood Culture - Preliminary Blood NO GROWTH AFTER 48 HOURS 02/12/18 04:00 S.aureus & Coag-Neg Staph PNA FISH - Final Blood Blood Culture - Preliminary Staphylococcus Aureus Gram Stain - Final 02/12/18 17:19 S.aureus & Coag-Neg Staph PNA FISH - Final Blood-During Dialysis Blood Culture - Preliminary Staphylococcus Aureus Gram Stain - Final 02/12/18 Unknown Blood Culture - Preliminary Blood-During Dialysis Staphylococcus Aureus Gram Stain - Final Lab Studies 02/14/18 02/14/18 02/14/18 Range/Units 16:15 11:55 11:20 WBC (4.8-10.8) K/uL RBC (3.80-5.20) Mil/uL Hgb (11.0-16.0) g/dL Hct (34.0-47.0) % MCV (81.0-99.0) fL MCH (27.0-31.0) pg MCHC (33.0-37.0) g/dL RDW (11.5-14.5) % Plt Count (130-400) K/uL MPV (7.2-11.7) fL Neut % (Auto) (50.0-75.0) % Lymph % (Auto) (20.0-40.0) % Robeson % (Auto) (0.0-10.0) % Eos % (Auto) (0.0-4.0) % Baso % (Auto) (0.0-2.0) % Neut # (Auto) (1.8-7.0) K/uL Lymph # (Auto) (1.0-4.3) K/uL Robeson # (Auto) (0.0-0.8) K/uL Eos # (Auto) (0.0-0.7) K/uL Baso # (Auto) (0.0-0.2) K/uL Sodium (132-148) mmol/L Potassium (3.6-5.2) mmol/L Chloride (98-107) mmol/L Carbon Dioxide (22-30) mmol/L Anion Gap (10-20) BUN (7-17) mg/dL Creatinine (0.7-1.2) mg/dL Est GFR ( Amer) Est GFR (Non-Af Amer) POC Glucose (mg/dL) 158 H 184 H (65-110) mg/dL Random Glucose (65-105) mg/dL Calcium (8.6-10.4) mg/dl Phosphorus (2.5-4.5) mg/dL Magnesium (1.6-2.3) mg/dL Total Bilirubin (0.2-1.3) mg/dL AST (14-36) U/L ALT (9-52) U/L Alkaline Phosphatase (38-126) U/L Total Protein (6.3-8.3) g/dL Albumin (3.5-5.0) g/dL Globulin (2.2-3.9) gm/dL Albumin/Globulin Ratio (1.0-2.1) Ethanolamine Random Vancomycin 30.8 ug/mL Toxicology Panel (()) Methyl Alcohol Level Isopropanol Acetone Level 02/14/18 02/14/18 02/14/18 Range/Units 05:55 05:53 05:32 WBC 6.0 (4.8-10.8) K/uL RBC 2.37 L (3.80-5.20) Mil/uL Hgb 7.9 L (11.0-16.0) g/dL Hct 23.3 L (34.0-47.0) % MCV 98.3 (81.0-99.0) fL MCH 33.3 H (27.0-31.0) pg MCHC 33.9 (33.0-37.0) g/dL RDW 19.2 H (11.5-14.5) % Plt Count 60 L (130-400) K/uL MPV 11.9 H (7.2-11.7) fL Neut % (Auto) 65.0 (50.0-75.0) % Lymph % (Auto) 23.1 (20.0-40.0) % Robeson % (Auto) 9.3 (0.0-10.0) % Eos % (Auto) 1.6 (0.0-4.0) % Baso % (Auto) 1.0 (0.0-2.0) % Neut # (Auto) 3.9 (1.8-7.0) K/uL Lymph # (Auto) 1.4 (1.0-4.3) K/uL Robeson # (Auto) 0.6 (0.0-0.8) K/uL Eos # (Auto) 0.1 (0.0-0.7) K/uL Baso # (Auto) 0.1 (0.0-0.2) K/uL Sodium 140 (132-148) mmol/L Potassium 4.1 (3.6-5.2) mmol/L Chloride 100 (98-107) mmol/L Carbon Dioxide 27 (22-30) mmol/L Anion Gap 17 (10-20) BUN 45 H (7-17) mg/dL Creatinine 5.3 H (0.7-1.2) mg/dL Est GFR ( Amer) 10 Est GFR (Non-Af Amer) 8 POC Glucose (mg/dL) 120 H (65-110) mg/dL Random Glucose 115 H (65-105) mg/dL Calcium 8.6 (8.6-10.4) mg/dl Phosphorus 6.0 H (2.5-4.5) mg/dL Magnesium 2.4 H (1.6-2.3) mg/dL Total Bilirubin 3.6 H (0.2-1.3) mg/dL AST 28 (14-36) U/L ALT 25 (9-52) U/L Alkaline Phosphatase 224 H (38-126) U/L Total Protein 6.7 (6.3-8.3) g/dL Albumin 2.3 L (3.5-5.0) g/dL Globulin 4.3 H (2.2-3.9) gm/dL Albumin/Globulin Ratio 0.5 L (1.0-2.1) Ethanolamine Random Vancomycin ug/mL Toxicology Panel (()) Methyl Alcohol Level Isopropanol Acetone Level 02/13/18 02/07/18 Range/Units 23:23 06:02 WBC (4.8-10.8) K/uL RBC (3.80-5.20) Mil/uL Hgb (11.0-16.0) g/dL Hct (34.0-47.0) % MCV (81.0-99.0) fL MCH (27.0-31.0) pg MCHC (33.0-37.0) g/dL RDW (11.5-14.5) % Plt Count (130-400) K/uL MPV (7.2-11.7) fL Neut % (Auto) (50.0-75.0) % Lymph % (Auto) (20.0-40.0) % Robeson % (Auto) (0.0-10.0) % Eos % (Auto) (0.0-4.0) % Baso % (Auto) (0.0-2.0) % Neut # (Auto) (1.8-7.0) K/uL Lymph # (Auto) (1.0-4.3) K/uL Robeson # (Auto) (0.0-0.8) K/uL Eos # (Auto) (0.0-0.7) K/uL Baso # (Auto) (0.0-0.2) K/uL Sodium (132-148) mmol/L Potassium (3.6-5.2) mmol/L Chloride (98-107) mmol/L Carbon Dioxide (22-30) mmol/L Anion Gap (10-20) BUN (7-17) mg/dL Creatinine (0.7-1.2) mg/dL Est GFR ( Amer) Est GFR (Non-Af Amer) POC Glucose (mg/dL) 112 H (65-110) mg/dL Random Glucose (65-105) mg/dL Calcium (8.6-10.4) mg/dl Phosphorus (2.5-4.5) mg/dL Magnesium (1.6-2.3) mg/dL Total Bilirubin (0.2-1.3) mg/dL AST (14-36) U/L ALT (9-52) U/L Alkaline Phosphatase (38-126) U/L Total Protein (6.3-8.3) g/dL Albumin (3.5-5.0) g/dL Globulin (2.2-3.9) gm/dL Albumin/Globulin Ratio (1.0-2.1) Ethanolamine None detected Random Vancomycin ug/mL Toxicology Panel see note (()) Methyl Alcohol Level None detected Isopropanol None detected Acetone Level None detected Laboratory Results - last 24 hr 02/07/18 02/13/18 02/14/18 06:02 23:23 05:32 WBC RBC Hgb Hct MCV MCH MCHC RDW Plt Count MPV Neut % (Auto) Lymph % (Auto) Robeson % (Auto) Eos % (Auto) Baso % (Auto) Neut # (Auto) Lymph # (Auto) Robeson # (Auto) Eos # (Auto) Baso # (Auto) Sodium Potassium Chloride Carbon Dioxide Anion Gap BUN Creatinine Est GFR ( Amer) Est GFR (Non-Af Amer) POC Glucose (mg/dL) 112 H 120 H Random Glucose Calcium Phosphorus Magnesium Total Bilirubin AST ALT Alkaline Phosphatase Total Protein Albumin Globulin Albumin/Globulin Ratio Ethanolamine None detected Random Vancomycin Toxicology Panel see note Methyl Alcohol Level None detected Isopropanol None detected Acetone Level None detected 02/14/18 02/14/18 02/14/18 05:53 05:55 11:20 WBC 6.0 RBC 2.37 L Hgb 7.9 L Hct 23.3 L MCV 98.3 MCH 33.3 H MCHC 33.9 RDW 19.2 H Plt Count 60 L MPV 11.9 H Neut % (Auto) 65.0 Lymph % (Auto) 23.1 Robeson % (Auto) 9.3 Eos % (Auto) 1.6 Baso % (Auto) 1.0 Neut # (Auto) 3.9 Lymph # (Auto) 1.4 Robeson # (Auto) 0.6 Eos # (Auto) 0.1 Baso # (Auto) 0.1 Sodium 140 Potassium 4.1 Chloride 100 Carbon Dioxide 27 Anion Gap 17 BUN 45 H Creatinine 5.3 H Est GFR ( Amer) 10 Est GFR (Non-Af Amer) 8 POC Glucose (mg/dL) Random Glucose 115 H Calcium 8.6 Phosphorus 6.0 H Magnesium 2.4 H Total Bilirubin 3.6 H AST 28 ALT 25 Alkaline Phosphatase 224 H Total Protein 6.7 Albumin 2.3 L Globulin 4.3 H Albumin/Globulin Ratio 0.5 L Ethanolamine Random Vancomycin 30.8 Toxicology Panel Methyl Alcohol Level Isopropanol Acetone Level 02/14/18 02/14/18 11:55 16:15 WBC RBC Hgb Hct MCV MCH MCHC RDW Plt Count MPV Neut % (Auto) Lymph % (Auto) Robeson % (Auto) Eos % (Auto) Baso % (Auto) Neut # (Auto) Lymph # (Auto) Robeson # (Auto) Eos # (Auto) Baso # (Auto) Sodium Potassium Chloride Carbon Dioxide Anion Gap BUN Creatinine Est GFR ( Amer) Est GFR (Non-Af Amer) POC Glucose (mg/dL) 184 H 158 H Random Glucose Calcium Phosphorus Magnesium Total Bilirubin AST ALT Alkaline Phosphatase Total Protein Albumin Globulin Albumin/Globulin Ratio Ethanolamine Random Vancomycin Toxicology Panel Methyl Alcohol Level Isopropanol Acetone Level Fingerstick Blood Sugar Results: 184 Review of Systems - Review of Systems Review of Systems: Please see subjective Critical Care Progress Note - Nutrition Nutrition: Nutrition Category Date Time Status Pureed [Dysphagia/Modified Consistency Diet] [DIET] Diets 02/14/18 Breakfast Active Assessment/Plan - Assessment and Plan (Free Text) Assessment: 72 y/o female with PMHx of DM, HTN, ESRD on HD, h/o osteomyelitits presented to [facility] with AMS. IN ICU for evaluation and treatment of AMS. 02/09: Patient was noted to have bradycardia and Cardiac Arrest. Was intubated. 02/13: Extubated. Plan: GCS: 15 Sedation: None Head CT (02/06): Shows chronic microvascular ischemic change, mild generalized volume loss. Punctate hypodensity in the left basal ganglia may represent a prominent perivascular space versus punctate lacunar infarct. Sinus mucosal disease. Consider MRI Brain MRI (02/05): Limited exam due to excessive motion artifacts throughout all sequences. No mass effect, intracranial hemorrhage or acute/subacute brain infarction identified. Age-related neuro degenerative findings are appreciated as discussed above. Repeat MRI is available as clinically required the patient is able to properly position. Head CT (02/09): No Acute intracranial pathology, No significant interval change. Cardio: A: HTN, Hypotension (Resolved) Pressors: None ECHO shows normal EF and Grade II pseudonormal relaxation pattern Cardiology on Consult, Recs Appreciated Continue Coreg 25 PO Q12H, ASA supp, Hyralazine, Losartan 100 Daily, Lovaza 2gm BID, Norvasc. Pulm: A: Hypoxic Res. failure (Resolved) CXR (02/11/18): No infiltrate. ET tube tip 1.7 cm above tracheal maira. Consider withdrawn slightly. Otherwise unremarkable. DuoNeb Q6H Extubated. Resting comfortably. GI: A: Constipation Lactulose PRN, Colace 100 DEMETRIUS Renal A: ESRD, Anemia, Hypothyroidism HD - MWF Per Vascular Surgery LUE shunt is okay to use for dialysis. Cont. Procrit, Drisdol, Heme/Onc A: Anemia (Improving), Thrombycytomenia (Improving) 02/11: Unit of Blood 02/10: 10 Units of Plts. ID A: Bacteremia (Staph Aureus) Afebrile, No Leukocytosis Nafcillin 2g MWF per ID 1 Negative Blood Culture Endo: A: DM, Vitamin D Def. Hypothyrodism ISS, BGM ACHS Ergocalciferol 50,000 IU Q7days. Cont. Levothyroxine 200mcg PO Proph Protonix Heparin Diet: Puree Patient discussed with ICU Attending Leo Larson, PGY- 1 <Ludwig Toledo M - Last Filed: 02/15/18 15:19> CCU Objective - Vital Signs / Intake & Output Vital Signs (Last 4 hours): Vital Signs Temp Pulse Resp BP Pulse Ox 02/15/18 14:00 71 17 02/15/18 13:00 72 16 99 02/15/18 12:56 73 12 112/54 L 02/15/18 12:00 98.6 F 71 17 02/15/18 11:56 72 18 126/46 L Intake and Output (Last 8hrs): Intake & Output 02/15/18 02/15/18 02/15/18 06:59 14:59 22:59 Intake Total 750 350 Output Total 0 0 Balance 750 350 Intake: Intake, IV Amount 500 250 Right Forearm 250 250 Right Internal Jugular 250 Oral 250 100 Output: Urine 0 0 Urine, Voided 0 0 Other: # Bowel Movements 0 - Medications Active Medications: Active Medications Generic Name Dose Route Start Last Admin Trade Name Freq PRN Reason Stop Dose Admin Acetaminophen 650 mg 02/05/18 12:44 02/15/18 06:07 Tylenol 325mg Tab PO 650 mg Q6 PRN Administration Pain, moderate (4-7) Albuterol/Ipratropium 3 ml 02/11/18 08:00 02/15/18 13:52 Duoneb 3 Mg/0.5 Mg (3 Ml) Ud INH 3 ml RQ6 DEMETRIUS Administration Bacitracin 0 gm 02/05/18 10:00 02/15/18 10:41 Bacitracin TOP 1 applic DAILY DEMETRIUS Administration Benzocaine/Menthol 1 naomi 02/04/18 18:53 02/13/18 22:03 Cepacol Sore Throat PO 1 naomi Q2 PRN Administration Sore Throat Docusate Sodium 100 mg 02/05/18 10:00 02/15/18 10:31 Colace PO Not Given DAILY COUNT INCLUDES THE [facility] Emollient Ointment 1 gm 02/15/18 12:35 02/15/18 14:06 Vaseline Oint EXT 1 gm Q8 PRN Administration Dry skin Epoetin Yvon 10,000 unit 02/05/18 09:00 02/14/18 16:39 Procrit IV 10,000 unit MWF COUNT INCLUDES THE [facility] Administration Ergocalciferol 1 cap 02/04/18 19:00 Drisdol 50,000 Intl Units Cap PO QD7 COUNT INCLUDES THE [facility] Nafcillin Sodium 2 gm/ Sodium 250 mls @ 250 mls/hr 02/13/18 17:00 02/15/18 10 :35 Chloride IVPB 250 mls/hr Q6H COUNT INCLUDES THE [facility] Administration Protocol Gentamicin Sulfate 80 mg/ 102 mls @ 100 mls/hr 02/14/18 09:00 02/14/18 17:38 Sodium Chloride IVPB 100 mls/hr MWF COUNT INCLUDES THE [facility] Administration Protocol Insulin Human Regular 0 unit 02/14/18 16:30 02/15/18 12:55 Novolin R SC 2 unit ACHS COUNT INCLUDES THE [facility] Administration Protocol Lactulose 20 gm 02/04/18 18:53 Enulose PO DAILY PRN constipation Levothyroxine Sodium 200 mcg 02/16/18 06:30 Synthroid PO DAILY@0630 COUNT INCLUDES THE [facility] Multivitamins/Vitamin C 5 ml 02/09/18 10:00 02/15/18 10:35 Multi-Delyn Liquid PO 5 ml DAILY DEMETRIUS Administration Pantoprazole Sodium 40 mg 02/15/18 10:00 02/15/18 10:35 Protonix Ec Tab PO 40 mg DAILY COUNT INCLUDES THE [facility] Administration Thiamine HCl 200 mg 02/09/18 10:00 02/15/18 10:35 Vitamin B1 Inj IV 200 mg Q8H DEMETRIUS Administration - Patient Studies Lab Studies: Microbiology Studies 02/12/18 17:19 S.aureus & Coag-Neg Staph PNA FISH - Final Blood-During Dialysis Blood Culture - Final Staphylococcus Aureus Gram Stain - Final 02/12/18 Unknown Blood Culture - Final Blood-During Dialysis Staphylococcus Aureus Gram Stain - Final 02/12/18 04:00 S.aureus & Coag-Neg Staph PNA FISH - Final Blood Blood Culture - Final Staphylococcus Aureus Gram Stain - Final 02/12/18 04:00 Blood Culture - Preliminary Blood NO GROWTH AFTER 3 DAYS 02/10/18 21:10 Blood Culture - Final Blood-During Dialysis Staphylococcus Aureus Gram Stain - Final Lab Studies 02/15/18 02/15/18 02/15/18 Range/Units 14:14 11:28 07:52 WBC (4.8-10.8) K/uL RBC (3.80-5.20) Mil/uL Hgb (11.0-16.0) g/dL Hct (34.0-47.0) % MCV (81.0-99.0) fL MCH (27.0-31.0) pg MCHC (33.0-37.0) g/dL RDW (11.5-14.5) % Plt Count (130-400) K/uL MPV (7.2-11.7) fL Neut % (Auto) (50.0-75.0) % Lymph % (Auto) (20.0-40.0) % Robeson % (Auto) (0.0-10.0) % Eos % (Auto) (0.0-4.0) % Baso % (Auto) (0.0-2.0) % Neut # (Auto) (1.8-7.0) K/uL Lymph # (Auto) (1.0-4.3) K/uL Robeson # (Auto) (0.0-0.8) K/uL Eos # (Auto) (0.0-0.7) K/uL Baso # (Auto) (0.0-0.2) K/uL Sodium (132-148) mmol/L Potassium (3.6-5.2) mmol/L Chloride (98-107) mmol/L Carbon Dioxide (22-30) mmol/L Anion Gap (10-20) BUN (7-17) mg/dL Creatinine (0.7-1.2) mg/dL Est GFR ( Amer) Est GFR (Non-Af Amer) POC Glucose (mg/dL) 159 H 110 (65-110) mg/dL Random Glucose (65-105) mg/dL Calcium (8.6-10.4) mg/dl Total Bilirubin (0.2-1.3) mg/dL AST (14-36) U/L ALT (9-52) U/L Alkaline Phosphatase (38-126) U/L Total Protein (6.3-8.3) g/dL Albumin (3.5-5.0) g/dL Globulin (2.2-3.9) gm/dL Albumin/Globulin Ratio (1.0-2.1) UF Heparin Interp (Negative) Ethanolamine Methyl Alcohol Level Isopropanol Acetone Level ЕКАТЕРИНА UFH Low Dose 0.1 % Release ЕКАТЕРИНА UFH Low Dose 0.5 % Release ЕКАТЕРИНА UFH High Dose 100 % Release Blood Type B POSITIVE 02/15/18 02/15/18 02/14/18 Range/Units 06:18 06:16 21:03 WBC 5.6 (4.8-10.8) K/uL RBC 2.30 L (3.80-5.20) Mil/uL Hgb 7.8 L (11.0-16.0) g/dL Hct 22.5 L (34.0-47.0) % MCV 98.1 (81.0-99.0) fL MCH 33.8 H (27.0-31.0) pg MCHC 34.5 (33.0-37.0) g/dL RDW 20.9 H (11.5-14.5) % Plt Count 84 L D (130-400) K/uL MPV 12.1 H (7.2-11.7) fL Neut % (Auto) 65.1 (50.0-75.0) % Lymph % (Auto) 22.2 (20.0-40.0) % Robeson % (Auto) 10.2 H (0.0-10.0) % Eos % (Auto) 1.6 (0.0-4.0) % Baso % (Auto) 0.9 (0.0-2.0) % Neut # (Auto) 3.7 (1.8-7.0) K/uL Lymph # (Auto) 1.2 (1.0-4.3) K/uL Robeson # (Auto) 0.6 (0.0-0.8) K/uL Eos # (Auto) 0.1 (0.0-0.7) K/uL Baso # (Auto) 0.1 (0.0-0.2) K/uL Sodium 139 (132-148) mmol/L Potassium 3.8 (3.6-5.2) mmol/L Chloride 100 (98-107) mmol/L Carbon Dioxide 27 (22-30) mmol/L Anion Gap 16 (10-20) BUN 26 H (7-17) mg/dL Creatinine 3.6 H (0.7-1.2) mg/dL Est GFR ( Amer) 15 Est GFR (Non-Af Amer) 12 POC Glucose (mg/dL) 134 H (65-110) mg/dL Random Glucose 86 (65-105) mg/dL Calcium 8.2 L (8.6-10.4) mg/dl Total Bilirubin 4.3 H (0.2-1.3) mg/dL AST 31 (14-36) U/L ALT 14 (9-52) U/L Alkaline Phosphatase 171 H D (38-126) U/L Total Protein 6.8 (6.3-8.3) g/dL Albumin 2.4 L (3.5-5.0) g/dL Globulin 4.4 H (2.2-3.9) gm/dL Albumin/Globulin Ratio 0.5 L (1.0-2.1) UF Heparin Interp (Negative) Ethanolamine Methyl Alcohol Level Isopropanol Acetone Level ЕКАТЕРИНА UFH Low Dose 0.1 % Release ЕКАТЕРИНА UFH Low Dose 0.5 % Release ЕКАТЕРИНА UFH High Dose 100 % Release Blood Type 02/14/18 02/12/18 02/09/18 Range/Units 16:15 06:01 06:35 WBC (4.8-10.8) K/uL RBC (3.80-5.20) Mil/uL Hgb (11.0-16.0) g/dL Hct (34.0-47.0) % MCV (81.0-99.0) fL MCH (27.0-31.0) pg MCHC (33.0-37.0) g/dL RDW (11.5-14.5) % Plt Count (130-400) K/uL MPV (7.2-11.7) fL Neut % (Auto) (50.0-75.0) % Lymph % (Auto) (20.0-40.0) % Robeson % (Auto) (0.0-10.0) % Eos % (Auto) (0.0-4.0) % Baso % (Auto) (0.0-2.0) % Neut # (Auto) (1.8-7.0) K/uL Lymph # (Auto) (1.0-4.3) K/uL Robeson # (Auto) (0.0-0.8) K/uL Eos # (Auto) (0.0-0.7) K/uL Baso # (Auto) (0.0-0.2) K/uL Sodium (132-148) mmol/L Potassium (3.6-5.2) mmol/L Chloride (98-107) mmol/L Carbon Dioxide (22-30) mmol/L Anion Gap (10-20) BUN (7-17) mg/dL Creatinine (0.7-1.2) mg/dL Est GFR ( Amer) Est GFR (Non-Af Amer) POC Glucose (mg/dL) 158 H (65-110) mg/dL Random Glucose (65-105) mg/dL Calcium (8.6-10.4) mg/dl Total Bilirubin (0.2-1.3) mg/dL AST (14-36) U/L ALT (9-52) U/L Alkaline Phosphatase (38-126) U/L Total Protein (6.3-8.3) g/dL Albumin (3.5-5.0) g/dL Globulin (2.2-3.9) gm/dL Albumin/Globulin Ratio (1.0-2.1) UF Heparin Interp Negative (Negative) Ethanolamine None detected Methyl Alcohol Level None detected Isopropanol None detected Acetone Level None detected ЕКАТЕРИНА UFH Low Dose 0.1 0 % Release ЕКАТЕРИНА UFH Low Dose 0.5 0 % Release ЕКАТЕРИНА UFH High Dose 100 0 % Release Blood Type Laboratory Results - last 24 hr 02/09/18 02/12/18 02/14/18 06:35 06:01 16:15 WBC RBC Hgb Hct MCV MCH MCHC RDW Plt Count MPV Neut % (Auto) Lymph % (Auto) Rob[place] % (Auto) Eos % (Auto) Baso % (Auto) Neut # (Auto) Lymph # (Auto) Robeson # (Auto) Eos # (Auto) Baso # (Auto) Sodium Potassium Chloride Carbon Dioxide Anion Gap BUN Creatinine Est GFR ( Amer) Est GFR (Non-Af Amer) POC Glucose (mg/dL) 158 H Random Glucose Calcium Total Bilirubin AST ALT Alkaline Phosphatase Total Protein Albumin Globulin Albumin/Globulin Ratio UF Heparin Interp Negative Ethanolamine None detected Methyl Alcohol Level None detected Isopropanol None detected Acetone Level None detected ЕКАТЕРИНА UFH Low Dose 0.1 0 ЕКАТЕРИНА UFH Low Dose 0.5 0 ЕКАТЕРИНА UFH High Dose 100 0 Blood Type 02/14/18 02/15/18 02/15/18 21:03 06:16 06:18 WBC 5.6 RBC 2.30 L Hgb 7.8 L Hct 22.5 L MCV 98.1 MCH 33.8 H MCHC 34.5 RDW 20.9 H Plt Count 84 L D MPV 12.1 H Neut % (Auto) 65.1 Lymph % (Auto) 22.2 Robeson % (Auto) 10.2 H Eos % (Auto) 1.6 Baso % (Auto) 0.9 Neut # (Auto) 3.7 Lymph # (Auto) 1.2 Robeson # (Auto) 0.6 Eos # (Auto) 0.1 Baso # (Auto) 0.1 Sodium 139 Potassium 3.8 Chloride 100 Carbon Dioxide 27 Anion Gap 16 BUN 26 H Creatinine 3.6 H Est GFR ( Amer) 15 Est GFR (Non-Af Amer) 12 POC Glucose (mg/dL) 134 H Random Glucose 86 Calcium 8.2 L Total Bilirubin 4.3 H AST 31 ALT 14 Alkaline Phosphatase 171 H D Total Protein 6.8 Albumin 2.4 L Globulin 4.4 H Albumin/Globulin Ratio 0.5 L UF Heparin Interp Ethanolamine Methyl Alcohol Level Isopropanol Acetone Level ЕКАТЕРИНА UFH Low Dose 0.1 ЕКАТЕРИНА UFH Low Dose 0.5 ЕКАТЕРИНА UFH High Dose 100 Blood Type 02/15/18 02/15/18 02/15/18 07:52 11:28 14:14 WBC RBC Hgb Hct MCV MCH MCHC RDW Plt Count MPV Neut % (Auto) Lymph % (Auto) Robeson % (Auto) Eos % (Auto) Baso % (Auto) Neut # (Auto) Lymph # (Auto) Robeson # (Auto) Eos # (Auto) Baso # (Auto) Sodium Potassium Chloride Carbon Dioxide Anion Gap BUN Creatinine Est GFR ( Amer) Est GFR (Non-Af Amer) POC Glucose (mg/dL) 110 159 H Random Glucose Calcium Total Bilirubin AST ALT Alkaline Phosphatase Total Protein Albumin Globulin Albumin/Globulin Ratio UF Heparin Interp Ethanolamine Methyl Alcohol Level Isopropanol Acetone Level ЕКАТЕРИНА UFH Low Dose 0.1 ЕКАТЕРИНА UFH Low Dose 0.5 ЕКАТЕРИНА UFH High Dose 100 Blood Type B POSITIVE Critical Care Progress Note - Nutrition Nutrition: Nutrition Category Date Time Status Consistent Carbohydrate [DIET] Diets 02/15/18 Dinner Active Assessment/Plan - Assessment and Plan (Free Text) Plan: Above resident note reviewed and verified. Patient awake alert communicating. Patient admitted to ICU for AMS which resolved -no signs of respiratory failure -continue abx as per ID -repeat Blood culture -thrombocytopenia: continue to monitor possible 2nd PCN class, check HIT, avoid heparin -obtain US upper and lower extremitites and TTE/LUIZ r/o endocarditis -continue to monitor -pt/ot -advance diet - Date & Time Date: 02/14/18 Time: 19:19
--- NOTE | 2018-02-14 18:21 | CP.PCM.PN ---
Subjective - Date & Time of Evaluation Date of Evaluation: 02/14/18 Time of Evaluation: 12:40 - Subjective Subjective: clinically same Objective - Vital Signs/Intake and Output Vital Signs (last 24 hours): Temp Pulse Resp BP Pulse Ox 97.5 F L 58 L 16 127/69 100 02/14/18 16:00 02/14/18 17:43 02/14/18 17:43 02/14/18 17:43 02/14/18 17:43 Intake and Output: 02/14/18 02/14/18 06:59 18:59 Intake Total 780 1100 Balance 780 1100 - Medications Medications: Current Medications Acetaminophen (Tylenol 325mg Tab) 650 mg PO Q6 PRN PRN Reason: Pain, moderate (4-7) Last Admin: 02/14/18 04:44 Dose: 650 mg Albuterol/Ipratropium (Duoneb 3 Mg/0.5 Mg (3 Ml) Ud) 3 ml INH RQ6 [facility] Last Admin: 02/14/18 13:56 Dose: 3 ml Bacitracin (Bacitracin) 0 gm TOP DAILY [facility] Last Admin: 02/14/18 09:09 Dose: 1 applic Benzocaine/Menthol (Cepacol Sore Throat) 1 naomi PO Q2 PRN PRN Reason: Sore Throat Last Admin: 02/13/18 22:03 Dose: 1 naomi Docusate Sodium (Colace) 100 mg PO DAILY [facility] Last Admin: 02/14/18 09:13 Dose: Not Given Epoetin Yvon (Procrit) 10,000 unit IV MWF [facility] Last Admin: 02/14/18 16:39 Dose: 10,000 unit Ergocalciferol (Drisdol 50,000 Intl Units Cap) 1 cap PO QD7 [facility] Nafcillin Sodium 2 gm/ Sodium (Chloride) 250 mls @ 250 mls/hr IVPB Q6H [facility] PRN Reason: Protocol Last Admin: 02/14/18 17:38 Dose: 250 mls/hr Gentamicin Sulfate 80 mg/ (Sodium Chloride) 102 mls @ 100 mls/hr IVPB MWF [facility] PRN Reason: Protocol Last Admin: 02/14/18 17:38 Dose: 100 mls/hr Insulin Human Regular (Novolin R) 0 unit SC ACHS [facility] PRN Reason: Protocol Last Admin: 02/14/18 17:37 Dose: 2 unit Lactulose (Enulose) 20 gm PO DAILY PRN PRN Reason: constipation Levothyroxine Sodium (Synthroid) 200 mcg PO DAILY@0630 [facility] Last Admin: 02/14/18 07:11 Dose: 200 mcg Multivitamins/Vitamin C (Multi-Delyn Liquid) 5 ml PO DAILY [facility] Last Admin: 02/14/18 09:08 Dose: 5 ml Pantoprazole Sodium (Protonix Ec Tab) 40 mg PO DAILY [facility] Thiamine HCl (Vitamin B1 Inj) 200 mg IV Q8H [facility] Last Admin: 02/14/18 17:39 Dose: 200 mg - Labs Labs: 02/14/18 05:53 02/14/18 05:55 PT 14.1 SECONDS (9.7-12.2) H 02/04/18 15:52 INR 1.3 02/04/18 15:52 APTT 34 SECONDS (21-34) 02/04/18 15:52 - Constitutional Appears: Well - Head Exam Head Exam: ATRAUMATIC, NORMAL INSPECTION, NORMOCEPHALIC - Eye Exam Eye Exam: EOMI, Normal appearance, PERRL Pupil Exam: NORMAL ACCOMODATION, PERRL - ENT Exam ENT Exam: Mucous Membranes Moist, Normal Exam - Neck Exam Neck Exam: Full ROM, Normal Inspection. absent: Lymphadenopathy - Respiratory Exam Respiratory Exam: Decreased Breath Sounds - Cardiovascular Exam Cardiovascular Exam: REGULAR RHYTHM, +S1, +S2 - GI/Abdominal Exam GI & Abdominal Exam: Soft, Diminished Bowel Sounds - Rectal Exam Rectal Exam: Deferred Assessment and Plan (1) Altered mental status Status: Acute (2) ESRD (end stage renal disease) on dialysis Status: Acute (3) Gastritis Status: Acute (4) Musculoskeletal pain Status: Acute (5) Rib contusion Status: Acute (6) Toxic metabolic encephalopathy Status: Acute
--- NOTE | 2018-02-14 21:23 | CP.PCM.PN ---
Subjective - Date & Time of Evaluation Date of Evaluation: 02/12/18 Time of Evaluation: 14:00 - Subjective Subjective: Vented Objective - Vital Signs/Intake and Output Vital Signs (last 24 hours): Temp Pulse Resp BP Pulse Ox 98.4 F 63 17 144/55 L 99 02/14/18 20:00 02/14/18 20:00 02/14/18 20:00 02/14/18 19:57 02/14/18 20:00 Intake and Output: 02/14/18 02/15/18 18:59 06:59 Intake Total 1320 Output Total 0 Balance 1320 0 - Medications Medications: Current Medications Acetaminophen (Tylenol 325mg Tab) 650 mg PO Q6 PRN PRN Reason: Pain, moderate (4-7) Last Admin: 02/14/18 04:44 Dose: 650 mg Albuterol/Ipratropium (Duoneb 3 Mg/0.5 Mg (3 Ml) Ud) 3 ml INH RQ6 [facility] Last Admin: 02/14/18 20:03 Dose: 3 ml Bacitracin (Bacitracin) 0 gm TOP DAILY [facility] Last Admin: 02/14/18 09:09 Dose: 1 applic Benzocaine/Menthol (Cepacol Sore Throat) 1 naomi PO Q2 PRN PRN Reason: Sore Throat Last Admin: 02/13/18 22:03 Dose: 1 naomi Docusate Sodium (Colace) 100 mg PO DAILY [facility] Last Admin: 02/14/18 09:13 Dose: Not Given Epoetin Yvon (Procrit) 10,000 unit IV MWF [facility] Last Admin: 02/14/18 16:39 Dose: 10,000 unit Ergocalciferol (Drisdol 50,000 Intl Units Cap) 1 cap PO QD7 [facility] Nafcillin Sodium 2 gm/ Sodium (Chloride) 250 mls @ 250 mls/hr IVPB Q6H [facility] PRN Reason: Protocol Last Admin: 02/14/18 17:38 Dose: 250 mls/hr Gentamicin Sulfate 80 mg/ (Sodium Chloride) 102 mls @ 100 mls/hr IVPB MWF [facility] PRN Reason: Protocol Last Admin: 02/14/18 17:38 Dose: 100 mls/hr Insulin Human Regular (Novolin R) 0 unit SC ACHS [facility] PRN Reason: Protocol Last Admin: 02/14/18 17:37 Dose: 2 unit Lactulose (Enulose) 20 gm PO DAILY PRN PRN Reason: constipation Levothyroxine Sodium (Synthroid) 200 mcg PO DAILY@0630 [facility] Last Admin: 02/14/18 07:11 Dose: 200 mcg Multivitamins/Vitamin C (Multi-Delyn Liquid) 5 ml PO DAILY [facility] Last Admin: 02/14/18 09:08 Dose: 5 ml Pantoprazole Sodium (Protonix Ec Tab) 40 mg PO DAILY [facility] Thiamine HCl (Vitamin B1 Inj) 200 mg IV Q8H [facility] Last Admin: 02/14/18 17:39 Dose: 200 mg - Labs Labs: 02/14/18 05:53 02/14/18 05:55 PT 14.1 SECONDS (9.7-12.2) H 02/04/18 15:52 INR 1.3 02/04/18 15:52 APTT 34 SECONDS (21-34) 02/04/18 15:52 - Head Exam Head Exam: ATRAUMATIC - Eye Exam Eye Exam: Normal appearance - ENT Exam ENT Exam: Mucous Membranes Dry - Respiratory Exam Respiratory Exam: NORMAL BREATHING PATTERN - Cardiovascular Exam Cardiovascular Exam: +S1, +S2 - GI/Abdominal Exam GI & Abdominal Exam: Normal Bowel Sounds Assessment and Plan (1) Thrombocytopenia Assessment & Plan: improved suspect sepsis related Status: Acute (2) Anemia Assessment & Plan: likely chronic disease and anemia of CKD will check retic count, b12, folate, ferritin to further characterize Status: Acute (3) Coagulopathy Assessment & Plan: likely nutritional component Status: Acute
--- NOTE | 2018-02-14 21:25 | CP.PCM.PN ---
Subjective - Date & Time of Evaluation Date of Evaluation: 02/13/18 Time of Evaluation: 16:00 - Subjective Subjective: Vented Objective - Vital Signs/Intake and Output Vital Signs (last 24 hours): Temp Pulse Resp BP Pulse Ox 98.4 F 63 17 144/55 L 99 02/14/18 20:00 02/14/18 20:00 02/14/18 20:00 02/14/18 19:57 02/14/18 20:00 Intake and Output: 02/14/18 02/15/18 18:59 06:59 Intake Total 1320 Output Total 0 Balance 1320 0 - Medications Medications: Current Medications Acetaminophen (Tylenol 325mg Tab) 650 mg PO Q6 PRN PRN Reason: Pain, moderate (4-7) Last Admin: 02/14/18 04:44 Dose: 650 mg Albuterol/Ipratropium (Duoneb 3 Mg/0.5 Mg (3 Ml) Ud) 3 ml INH RQ6 [facility] Last Admin: 02/14/18 20:03 Dose: 3 ml Bacitracin (Bacitracin) 0 gm TOP DAILY [facility] Last Admin: 02/14/18 09:09 Dose: 1 applic Benzocaine/Menthol (Cepacol Sore Throat) 1 naomi PO Q2 PRN PRN Reason: Sore Throat Last Admin: 02/13/18 22:03 Dose: 1 naomi Docusate Sodium (Colace) 100 mg PO DAILY [facility] Last Admin: 02/14/18 09:13 Dose: Not Given Epoetin Yvon (Procrit) 10,000 unit IV MWF [facility] Last Admin: 02/14/18 16:39 Dose: 10,000 unit Ergocalciferol (Drisdol 50,000 Intl Units Cap) 1 cap PO QD7 [facility] Nafcillin Sodium 2 gm/ Sodium (Chloride) 250 mls @ 250 mls/hr IVPB Q6H [facility] PRN Reason: Protocol Last Admin: 02/14/18 17:38 Dose: 250 mls/hr Gentamicin Sulfate 80 mg/ (Sodium Chloride) 102 mls @ 100 mls/hr IVPB MWF [facility] PRN Reason: Protocol Last Admin: 02/14/18 17:38 Dose: 100 mls/hr Insulin Human Regular (Novolin R) 0 unit SC ACHS [facility] PRN Reason: Protocol Last Admin: 02/14/18 17:37 Dose: 2 unit Lactulose (Enulose) 20 gm PO DAILY PRN PRN Reason: constipation Levothyroxine Sodium (Synthroid) 200 mcg PO DAILY@0630 [facility] Last Admin: 02/14/18 07:11 Dose: 200 mcg Multivitamins/Vitamin C (Multi-Delyn Liquid) 5 ml PO DAILY [facility] Last Admin: 02/14/18 09:08 Dose: 5 ml Pantoprazole Sodium (Protonix Ec Tab) 40 mg PO DAILY [facility] Thiamine HCl (Vitamin B1 Inj) 200 mg IV Q8H [facility] Last Admin: 02/14/18 17:39 Dose: 200 mg - Labs Labs: 02/14/18 05:53 02/14/18 05:55 PT 14.1 SECONDS (9.7-12.2) H 02/04/18 15:52 INR 1.3 02/04/18 15:52 APTT 34 SECONDS (21-34) 02/04/18 15:52 - Head Exam Head Exam: ATRAUMATIC - Eye Exam Eye Exam: Normal appearance - ENT Exam ENT Exam: Mucous Membranes Dry - Respiratory Exam Respiratory Exam: NORMAL BREATHING PATTERN - Cardiovascular Exam Cardiovascular Exam: +S1, +S2 - GI/Abdominal Exam GI & Abdominal Exam: Normal Bowel Sounds Assessment and Plan (1) Thrombocytopenia Assessment & Plan: improved suspect sepsis related Status: Acute (2) Anemia Assessment & Plan: chronic disease and anemia of CKD Status: Acute (3) Coagulopathy Assessment & Plan: nutritional Status: Acute
--- NOTE | 2018-02-14 21:26 | CP.PCM.PN ---
Subjective - Date & Time of Evaluation Date of Evaluation: 02/14/18 Time of Evaluation: 19:00 - Subjective Subjective: Extubated, awake Objective - Vital Signs/Intake and Output Vital Signs (last 24 hours): Temp Pulse Resp BP Pulse Ox 98.4 F 63 17 144/55 L 99 02/14/18 20:00 02/14/18 20:00 02/14/18 20:00 02/14/18 19:57 02/14/18 20:00 Intake and Output: 02/14/18 02/15/18 18:59 06:59 Intake Total 1320 Output Total 0 Balance 1320 0 - Medications Medications: Current Medications Acetaminophen (Tylenol 325mg Tab) 650 mg PO Q6 PRN PRN Reason: Pain, moderate (4-7) Last Admin: 02/14/18 04:44 Dose: 650 mg Albuterol/Ipratropium (Duoneb 3 Mg/0.5 Mg (3 Ml) Ud) 3 ml INH RQ6 [facility] Last Admin: 02/14/18 20:03 Dose: 3 ml Bacitracin (Bacitracin) 0 gm TOP DAILY [facility] Last Admin: 02/14/18 09:09 Dose: 1 applic Benzocaine/Menthol (Cepacol Sore Throat) 1 naomi PO Q2 PRN PRN Reason: Sore Throat Last Admin: 02/13/18 22:03 Dose: 1 naomi Docusate Sodium (Colace) 100 mg PO DAILY [facility] Last Admin: 02/14/18 09:13 Dose: Not Given Epoetin Yvon (Procrit) 10,000 unit IV MWF [facility] Last Admin: 02/14/18 16:39 Dose: 10,000 unit Ergocalciferol (Drisdol 50,000 Intl Units Cap) 1 cap PO QD7 [facility] Nafcillin Sodium 2 gm/ Sodium (Chloride) 250 mls @ 250 mls/hr IVPB Q6H [facility] PRN Reason: Protocol Last Admin: 02/14/18 17:38 Dose: 250 mls/hr Gentamicin Sulfate 80 mg/ (Sodium Chloride) 102 mls @ 100 mls/hr IVPB MWF [facility] PRN Reason: Protocol Last Admin: 02/14/18 17:38 Dose: 100 mls/hr Insulin Human Regular (Novolin R) 0 unit SC ACHS [facility] PRN Reason: Protocol Last Admin: 02/14/18 17:37 Dose: 2 unit Lactulose (Enulose) 20 gm PO DAILY PRN PRN Reason: constipation Levothyroxine Sodium (Synthroid) 200 mcg PO DAILY@0630 [facility] Last Admin: 02/14/18 07:11 Dose: 200 mcg Multivitamins/Vitamin C (Multi-Delyn Liquid) 5 ml PO DAILY [facility] Last Admin: 02/14/18 09:08 Dose: 5 ml Pantoprazole Sodium (Protonix Ec Tab) 40 mg PO DAILY [facility] Thiamine HCl (Vitamin B1 Inj) 200 mg IV Q8H [facility] Last Admin: 02/14/18 17:39 Dose: 200 mg - Labs Labs: 02/14/18 05:53 02/14/18 05:55 PT 14.1 SECONDS (9.7-12.2) H 02/04/18 15:52 INR 1.3 02/04/18 15:52 APTT 34 SECONDS (21-34) 02/04/18 15:52 - Head Exam Head Exam: ATRAUMATIC - Eye Exam Eye Exam: Normal appearance - ENT Exam ENT Exam: Mucous Membranes Dry - Respiratory Exam Respiratory Exam: NORMAL BREATHING PATTERN - Cardiovascular Exam Cardiovascular Exam: +S1, +S2 - GI/Abdominal Exam GI & Abdominal Exam: Normal Bowel Sounds Assessment and Plan (1) Thrombocytopenia Assessment & Plan: improved suspect sepsis related Status: Acute (2) Anemia Assessment & Plan: chronic disease and anemia of CKD Status: Acute (3) Coagulopathy Assessment & Plan: nutritional Status: Acute
[2018-02-15] MEDS: Albuterol-Ipratrop 3 mg / 0.5 (3 ml) UD INH SCH ×4 (01:04→20:12)
[2018-02-15] MEDS: Thiamine 100 mg/ml Inj IV SCH ×3 (02:23→17:33)
--- NOTE | 2018-02-15 02:33 | CARD ---
APPROVED REPORT EXAM: LIMITED Two-dimensional and M-mode echocardiogram with color Doppler. Other Information Quality : GoodRhythm : INDICATION Infection:Rule out subacute bacterial endocarditis <Conclusion> Normal LV systolic function. Mild MR No definite vegetetation seen. Consider other modalities if clinically indicated.
[2018-02-15] MEDS: Levothyroxine 200 MCG TAB PO SCH (05:58)
[2018-02-15 06:31] LABS: BASO # 0.1 K/uL (0.0-0.2); BASO % 0.9 % (0.0-2.0); EOS # 0.1 K/uL (0.0-0.7); EOS % 1.6 % (0.0-4.0); HEMOGLOBIN 7.8 g/dL (11.0-16.0); LYMPH # 1.2 K/uL (1.0-4.3); LYMPH % 22.2 % (20.0-40.0); MEAN CELL VOLUME 98.1 fL (81.0-99.0); MEAN CORPUSCULAR HEMOGLOBIN 33.8 pg (27.0-31.0); MEAN CORPUSCULAR HGB CONC 34.5 g/dL (33.0-37.0); MEAN PLATELET VOLUME 12.1 fL (7.2-11.7); MONO # 0.6 K/uL (0.0-0.8); MONO % 10.2 % (0.0-10.0); NEUT # 3.7 K/uL (1.8-7.0); NEUT % 65.1 % (50.0-75.0); NRBC % 0.7 % (0.0-2.0); RBC 2.3 Mil/uL (3.80-5.20); RED CELL DISTRIBUTION WIDTH 20.9 % (11.5-14.5); WHITE BLOOD COUNT 5.6 K/uL (4.8-10.8)
[2018-02-15 06:38] LABS: ALB/GLOB RATIO 0.5 (1.0-2.1); ALBUMIN 2.4 g/dL (3.5-5.0); CALCIUM 8.2 mg/dl (8.6-10.4)
--- NOTE | 2018-02-15 07:54 | CP.PCM.CON ---
History of Present Illness - History of Present Illness History of Present Illness: I was asked to see patient by Dr Toledo. Patient admitted with altered mental status. currently undergoing EEG. Review of Systems - Review of Systems Systems not reviewed;Unavailable: Altered Mental Status Past Patient History - Past Medical History & Family History Past Medical History?: Yes - Past Social History Smoking Status: Unknown If Ever Smoked - CARDIAC Hx Congestive Heart Failure: Yes Hx Hypertension: Yes - PULMONARY Hx Respiratory Disorders: No - NEUROLOGICAL Hx Neurological Disorder: No - HEENT Hx HEENT Problems: No - RENAL Hx Chronic Kidney Disease: Yes Type of Dialysis Access: Lt subclavian HD cath Date of Last Dialysis Treatment: 02/03/18 - ENDOCRINE/METABOLIC Hx Endocrine Disorders: Yes Hx Hypothyroidism: Yes - HEMATOLOGICAL/ONCOLOGICAL Hx Blood Disorders: No - INTEGUMENTARY Hx Dermatological Problems: No - MUSCULOSKELETAL/RHEUMATOLOGICAL Hx Musculoskeletal Disorders: Yes Hx Falls: Yes - GASTROINTESTINAL Hx Gastrointestinal Disorders: Yes Hx Gastritis: Yes - GENITOURINARY/GYNECOLOGICAL Hx Genitourinary Disorders: No - PSYCHIATRIC Hx Psychophysiologic Disorder: No Hx Substance Use: No - SURGICAL HISTORY Hx Surgeries: Yes Hx Cholecystectomy: Yes - ANESTHESIA Hx Anesthesia: Yes Hx Anesthesia Reactions: No Hx Malignant Hyperthermia: No Has any member of the family had a problem w/ anesthesia?: No Meds Allergies/Adverse Reactions: Allergies Allergy/AdvReac Type Severity Reaction Status Date / Time lorazepam [From Ativan] AdvReac SHORTNESS Verified 02/06/18 09:42 OF BREATH - Medications Medications: Current Medications Acetaminophen (Tylenol 325mg Tab) 650 mg PO Q6 PRN PRN Reason: Pain, moderate (4-7) Last Admin: 02/15/18 06:07 Dose: 650 mg Albuterol/Ipratropium (Duoneb 3 Mg/0.5 Mg (3 Ml) Ud) 3 ml INH RQ6 [facility] Last Admin: 02/15/18 07:26 Dose: 3 ml Bacitracin (Bacitracin) 0 gm TOP DAILY [facility] Last Admin: 02/14/18 09:09 Dose: 1 applic Benzocaine/Menthol (Cepacol Sore Throat) 1 naomi PO Q2 PRN PRN Reason: Sore Throat Last Admin: 02/13/18 22:03 Dose: 1 naomi Docusate Sodium (Colace) 100 mg PO DAILY [facility] Last Admin: 02/14/18 09:13 Dose: Not Given Epoetin Yvon (Procrit) 10,000 unit IV MWF [facility] Last Admin: 02/14/18 16:39 Dose: 10,000 unit Ergocalciferol (Drisdol 50,000 Intl Units Cap) 1 cap PO QD7 [facility] Nafcillin Sodium 2 gm/ Sodium (Chloride) 250 mls @ 250 mls/hr IVPB Q6H [facility] PRN Reason: Protocol Last Admin: 02/15/18 04:32 Dose: 250 mls/hr Gentamicin Sulfate 80 mg/ (Sodium Chloride) 102 mls @ 100 mls/hr IVPB MWF [facility] PRN Reason: Protocol Last Admin: 02/14/18 17:38 Dose: 100 mls/hr Insulin Human Regular (Novolin R) 0 unit SC ACHS [facility] PRN Reason: Protocol Last Admin: 02/14/18 21:36 Dose: Not Given Lactulose (Enulose) 20 gm PO DAILY PRN PRN Reason: constipation Levothyroxine Sodium (Synthroid) 200 mcg PO DAILY@0630 [facility] Last Admin: 02/15/18 05:58 Dose: 200 mcg Multivitamins/Vitamin C (Multi-Delyn Liquid) 5 ml PO DAILY [facility] Last Admin: 02/14/18 09:08 Dose: 5 ml Pantoprazole Sodium (Protonix Ec Tab) 40 mg PO DAILY [facility] Thiamine HCl (Vitamin B1 Inj) 200 mg IV Q8H [facility] Last Admin: 02/15/18 02:23 Dose: 200 mg Physical Exam - Constitutional Appears: Toxic - Head Exam Head Exam: NORMAL INSPECTION - Eye Exam Eye Exam: Normal appearance - ENT Exam ENT Exam: Mucous Membranes Dry - Neck Exam Neck exam: Positive for: Normal Inspection - Respiratory Exam Respiratory Exam: Decreased Breath Sounds - Cardiovascular Exam Cardiovascular Exam: REGULAR RHYTHM - GI/Abdominal Exam GI & Abdominal Exam: Normal Bowel Sounds - Rectal Exam Rectal Exam: Deferred - Extremities Exam Extremities exam: Negative for: pedal edema - Back Exam Back exam: NORMAL INSPECTION - Skin Skin Exam: Normal Color Results - Vital Signs Recent Vital Signs: Last Vital Signs Temp 98.7 F 02/15/18 04:00 Pulse 65 02/15/18 06:00 Resp 10 L 02/15/18 06:00 BP 113/47 L 02/15/18 05:57 Pulse Ox 100 02/15/18 06:00 - Labs Result Diagrams: 02/15/18 06:18 02/15/18 06:16 Labs: Laboratory Results - last 24 hr 02/09/18 02/12/18 02/14/18 06:35 06:01 11:20 WBC RBC Hgb Hct MCV MCH MCHC RDW Plt Count MPV Neut % (Auto) Lymph % (Auto) [place] % (Auto) Eos % (Auto) Baso % (Auto) Neut # (Auto) Lymph # (Auto) [place] # (Auto) Eos # (Auto) Baso # (Auto) Sodium Potassium Chloride Carbon Dioxide Anion Gap BUN Creatinine Est GFR ( Amer) Est GFR (Non-Af Amer) POC Glucose (mg/dL) Random Glucose Calcium Total Bilirubin AST ALT Alkaline Phosphatase Total Protein Albumin Globulin Albumin/Globulin Ratio UF Heparin Interp Negative Ethanolamine None detected Random Vancomycin 30.8 Methyl Alcohol Level None detected Isopropanol None detected Acetone Level None detected ЕКАТЕРИНА UFH Low Dose 0.1 0 ЕКАТЕРИНА UFH Low Dose 0.5 0 ЕКАТЕРИНА UFH High Dose 100 0 02/14/18 02/14/18 02/14/18 11:55 16:15 21:03 WBC RBC Hgb Hct MCV MCH MCHC RDW Plt Count MPV Neut % (Auto) Lymph % (Auto) [place] % (Auto) Eos % (Auto) Baso % (Auto) Neut # (Auto) Lymph # (Auto) [place] # (Auto) Eos # (Auto) Baso # (Auto) Sodium Potassium Chloride Carbon Dioxide Anion Gap BUN Creatinine Est GFR ( Amer) Est GFR (Non-Af Amer) POC Glucose (mg/dL) 184 H 158 H 134 H Random Glucose Calcium Total Bilirubin AST ALT Alkaline Phosphatase Total Protein Albumin Globulin Albumin/Globulin Ratio UF Heparin Interp Ethanolamine Random Vancomycin Methyl Alcohol Level Isopropanol Acetone Level ЕКАТЕРИНА UFH Low Dose 0.1 ЕКАТЕРИНА UFH Low Dose 0.5 ЕКАТЕРИНА UFH High Dose 100 02/15/18 02/15/18 06:16 06:18 WBC 5.6 RBC 2.30 L Hgb 7.8 L Hct 22.5 L MCV 98.1 MCH 33.8 H MCHC 34.5 RDW 20.9 H Plt Count 84 L D MPV 12.1 H Neut % (Auto) 65.1 Lymph % (Auto) 22.2 [place] % (Auto) 10.2 H Eos % (Auto) 1.6 Baso % (Auto) 0.9 Neut # (Auto) 3.7 Lymph # (Auto) 1.2 [place] # (Auto) 0.6 Eos # (Auto) 0.1 Baso # (Auto) 0.1 Sodium 139 Potassium 3.8 Chloride 100 Carbon Dioxide 27 Anion Gap 16 BUN 26 H Creatinine 3.6 H Est GFR ( Amer) 15 Est GFR (Non-Af Amer) 12 POC Glucose (mg/dL) Random Glucose 86 Calcium 8.2 L Total Bilirubin 4.3 H AST 31 ALT 14 Alkaline Phosphatase 171 H D Total Protein 6.8 Albumin 2.4 L Globulin 4.4 H Albumin/Globulin Ratio 0.5 L UF Heparin Interp Ethanolamine Random Vancomycin Methyl Alcohol Level Isopropanol Acetone Level ЕКАТЕРИНА UFH Low Dose 0.1 ЕКАТЕРИНА UFH Low Dose 0.5 ЕКАТЕРИНА UFH High Dose 100 - EKG Data EKG Interpreted by: Myself Assessment & Plan (1) Altered mental status Assessment and Plan: will assess after EEG Status: Acute (2) Sepsis Assessment and Plan: check echocardiogram. on antibiotics Status: Acute
--- NOTE | 2018-02-15 08:12 | CP.PCM.PN ---
Subjective - Date & Time of Evaluation Date of Evaluation: 02/15/18 Time of Evaluation: 08:10 - Subjective Subjective: patient is more awake Objective - Vital Signs/Intake and Output Vital Signs (last 24 hours): Temp Pulse Resp BP Pulse Ox 98.7 F 65 10 L 113/47 L 100 02/15/18 04:00 02/15/18 06:00 02/15/18 06:00 02/15/18 05:57 02/15/18 06:00 Intake and Output: 02/15/18 02/15/18 06:59 18:59 Intake Total 750 Output Total 0 Balance 750 - Medications Medications: Current Medications Acetaminophen (Tylenol 325mg Tab) 650 mg PO Q6 PRN PRN Reason: Pain, moderate (4-7) Last Admin: 02/15/18 06:07 Dose: 650 mg Albuterol/Ipratropium (Duoneb 3 Mg/0.5 Mg (3 Ml) Ud) 3 ml INH RQ6 [facility] Last Admin: 02/15/18 07:26 Dose: 3 ml Bacitracin (Bacitracin) 0 gm TOP DAILY [facility] Last Admin: 02/14/18 09:09 Dose: 1 applic Benzocaine/Menthol (Cepacol Sore Throat) 1 naomi PO Q2 PRN PRN Reason: Sore Throat Last Admin: 02/13/18 22:03 Dose: 1 naomi Docusate Sodium (Colace) 100 mg PO DAILY [facility] Last Admin: 02/14/18 09:13 Dose: Not Given Epoetin Yvon (Procrit) 10,000 unit IV MWF [facility] Last Admin: 02/14/18 16:39 Dose: 10,000 unit Ergocalciferol (Drisdol 50,000 Intl Units Cap) 1 cap PO QD7 [facility] Nafcillin Sodium 2 gm/ Sodium (Chloride) 250 mls @ 250 mls/hr IVPB Q6H [facility] PRN Reason: Protocol Last Admin: 02/15/18 04:32 Dose: 250 mls/hr Gentamicin Sulfate 80 mg/ (Sodium Chloride) 102 mls @ 100 mls/hr IVPB MWF [facility] PRN Reason: Protocol Last Admin: 02/14/18 17:38 Dose: 100 mls/hr Insulin Human Regular (Novolin R) 0 unit SC ACHS [facility] PRN Reason: Protocol Last Admin: 02/14/18 21:36 Dose: Not Given Lactulose (Enulose) 20 gm PO DAILY PRN PRN Reason: constipation Levothyroxine Sodium (Synthroid) 200 mcg PO DAILY@0630 [facility] Last Admin: 02/15/18 05:58 Dose: 200 mcg Multivitamins/Vitamin C (Multi-Delyn Liquid) 5 ml PO DAILY [facility] Last Admin: 02/14/18 09:08 Dose: 5 ml Pantoprazole Sodium (Protonix Ec Tab) 40 mg PO DAILY [facility] Thiamine HCl (Vitamin B1 Inj) 200 mg IV Q8H [facility] Last Admin: 02/15/18 02:23 Dose: 200 mg - Labs Labs: 02/15/18 06:18 02/15/18 06:16 PT 14.1 SECONDS (9.7-12.2) H 02/04/18 15:52 INR 1.3 02/04/18 15:52 APTT 34 SECONDS (21-34) 02/04/18 15:52 - Constitutional Appears: Non-toxic - Head Exam Head Exam: NORMAL INSPECTION - Eye Exam Eye Exam: Normal appearance - ENT Exam ENT Exam: Mucous Membranes Moist - Neck Exam Neck Exam: Full ROM - Respiratory Exam Respiratory Exam: Decreased Breath Sounds - Cardiovascular Exam Cardiovascular Exam: REGULAR RHYTHM - GI/Abdominal Exam GI & Abdominal Exam: Normal Bowel Sounds - Rectal Exam Rectal Exam: Deferred - Extremities Exam Extremities Exam: absent: Pedal Edema - Back Exam Back Exam: NORMAL INSPECTION - Neurological Exam Neurological Exam: Alert - Psychiatric Exam Psychiatric exam: Flat Affect - Skin Skin Exam: Normal Color Assessment and Plan (1) Altered mental status Assessment & Plan: improved Status: Acute (2) Sepsis Assessment & Plan: recommendation for LUIZ by Dr sanders. will reassess platelet count. Status: Acute
[2018-02-15] MEDS: (Novolin R) Insulin Human Regular 100 units/ml vial SC SCH ×4 (08:42→22:00)
[2018-02-15] MEDS: Pantoprazole 40 mg EC Tab PO SCH (10:35)
[2018-02-15] MEDS: Multiple Vitamins Oral Solution PO SCH (10:35)
[2018-02-15] MEDS: Bacitracin Ointment 30 GM TUBE TOP SCH (10:41)
--- NOTE | 2018-02-15 12:16 | CP.PCM.PN ---
Subjective - Date & Time of Evaluation Date of Evaluation: 02/15/18 Time of Evaluation: 12:16 - Subjective Subjective: Pulmonary Follow up Covering Dr. Morse The patient was Seen/interviewed and examined by me at the bedside, Events reviewed Extubated yesterday. Mental status continue improving Awake, comfortable, NAD No Vasopressors No complaints, Denies SOB, chest pain, abdominal pain, or changes in bowel habits. Objective - Vital Signs/Intake and Output Vital Signs (last 24 hours): Temp Pulse Resp BP Pulse Ox 98.2 F 72 17 121/34 L 90 L 02/15/18 08:00 02/15/18 11:00 02/15/18 11:00 02/15/18 10:58 02/15/18 09:03 Intake and Output: 02/15/18 02/15/18 06:59 18:59 Intake Total 750 100 Output Total 0 0 Balance 750 100 - Medications Medications: Current Medications Acetaminophen (Tylenol 325mg Tab) 650 mg PO Q6 PRN PRN Reason: Pain, moderate (4-7) Last Admin: 02/15/18 06:07 Dose: 650 mg Albuterol/Ipratropium (Duoneb 3 Mg/0.5 Mg (3 Ml) Ud) 3 ml INH RQ6 [facility] Last Admin: 02/15/18 07:26 Dose: 3 ml Bacitracin (Bacitracin) 0 gm TOP DAILY [facility] Last Admin: 02/15/18 10:41 Dose: 1 applic Benzocaine/Menthol (Cepacol Sore Throat) 1 naomi PO Q2 PRN PRN Reason: Sore Throat Last Admin: 02/13/18 22:03 Dose: 1 naomi Docusate Sodium (Colace) 100 mg PO DAILY [facility] Last Admin: 02/15/18 10:31 Dose: Not Given Epoetin Yvon (Procrit) 10,000 unit IV MWF [facility] Last Admin: 02/14/18 16:39 Dose: 10,000 unit Ergocalciferol (Drisdol 50,000 Intl Units Cap) 1 cap PO QD7 [facility] Nafcillin Sodium 2 gm/ Sodium (Chloride) 250 mls @ 250 mls/hr IVPB Q6H [facility] PRN Reason: Protocol Last Admin: 02/15/18 10:35 Dose: 250 mls/hr Gentamicin Sulfate 80 mg/ (Sodium Chloride) 102 mls @ 100 mls/hr IVPB MWF [facility] PRN Reason: Protocol Last Admin: 02/14/18 17:38 Dose: 100 mls/hr Insulin Human Regular (Novolin R) 0 unit SC ACHS [facility] PRN Reason: Protocol Last Admin: 02/15/18 08:42 Dose: Not Given Lactulose (Enulose) 20 gm PO DAILY PRN PRN Reason: constipation Levothyroxine Sodium (Synthroid) 200 mcg PO DAILY@0630 [facility] Last Admin: 02/15/18 05:58 Dose: 200 mcg Multivitamins/Vitamin C (Multi-Delyn Liquid) 5 ml PO DAILY [facility] Last Admin: 02/15/18 10:35 Dose: 5 ml Pantoprazole Sodium (Protonix Ec Tab) 40 mg PO DAILY [facility] Last Admin: 02/15/18 10:35 Dose: 40 mg Thiamine HCl (Vitamin B1 Inj) 200 mg IV Q8H [facility] Last Admin: 02/15/18 10:35 Dose: 200 mg - Labs Labs: 02/15/18 06:18 02/15/18 06:16 PT 14.1 SECONDS (9.7-12.2) H 02/04/18 15:52 INR 1.3 02/04/18 15:52 APTT 34 SECONDS (21-34) 02/04/18 15:52 - Constitutional Appears: Well, Non-toxic, No Acute Distress - Head Exam Head Exam: ATRAUMATIC, NORMAL INSPECTION - Eye Exam Eye Exam: EOMI, Normal appearance. absent: Conjunctival injection - ENT Exam ENT Exam: Mucous Membranes Moist - Neck Exam Neck Exam: Normal Inspection. absent: Tenderness - Respiratory Exam Respiratory Exam: Decreased Breath Sounds, Rales (BiBasilar). absent: Accessory Muscle Use, Chest Wall Tenderness, Rhonchi, Wheezes, Respiratory Distress - Cardiovascular Exam Cardiovascular Exam: REGULAR RHYTHM, RRR, +S1, +S2. absent: JVD - GI/Abdominal Exam GI & Abdominal Exam: Distended, Soft, Normal Bowel Sounds. absent: Firm, Guarding, Rigid, Tenderness - Extremities Exam Extremities Exam: Full ROM, Normal Capillary Refill. absent: Calf Tenderness, Joint Swelling, Pedal Edema Assessment and Plan (1) Acute respiratory failure Status: Acute (2) Altered mental status Status: Acute (3) ESRD (end stage renal disease) on dialysis Status: Acute (4) Sepsis Status: Acute (5) Staphylococcus aureus bacteremia Status: Acute (6) Toxic metabolic encephalopathy Status: Acute - Assessment and Plan (Free Text) Assessment: Successfully Extubated Improved mental status No complaints. Continue current managements. Supplemental Oxygen Neuro checks HD as per Renal Antibiotics as per ID Aggressive pulmonary toilet Maintain aspiration precautions HOB maintained at 30 degrees GI/DVT PPX BG control Code Status: Full code
[2018-02-15] MEDS: Petrolatum Oint Foilpak (5 gm) EXT PRN (14:06)
--- NOTE | 2018-02-15 15:26 | CP.PCM.PN ---
Subjective - Date & Time of Evaluation Date of Evaluation: 02/15/18 Time of Evaluation: 14:05 - Subjective Subjective: Patient hungry would like to eat Objective - Vital Signs/Intake and Output Vital Signs (last 24 hours): Temp Pulse Resp BP Pulse Ox 98.6 F 71 17 112/54 L 99 02/15/18 12:00 02/15/18 14:00 02/15/18 14:00 02/15/18 12:56 02/15/18 13:00 Intake and Output: 02/15/18 02/15/18 06:59 18:59 Intake Total 750 350 Output Total 0 0 Balance 750 350 - Medications Medications: Current Medications Acetaminophen (Tylenol 325mg Tab) 650 mg PO Q6 PRN PRN Reason: Pain, moderate (4-7) Last Admin: 02/15/18 06:07 Dose: 650 mg Albuterol/Ipratropium (Duoneb 3 Mg/0.5 Mg (3 Ml) Ud) 3 ml INH RQ6 [facility] Last Admin: 02/15/18 13:52 Dose: 3 ml Bacitracin (Bacitracin) 0 gm TOP DAILY [facility] Last Admin: 02/15/18 10:41 Dose: 1 applic Benzocaine/Menthol (Cepacol Sore Throat) 1 naomi PO Q2 PRN PRN Reason: Sore Throat Last Admin: 02/13/18 22:03 Dose: 1 naomi Docusate Sodium (Colace) 100 mg PO DAILY [facility] Last Admin: 02/15/18 10:31 Dose: Not Given Emollient Ointment (Vaseline Oint) 1 gm EXT Q8 PRN PRN Reason: Dry skin Last Admin: 02/15/18 14:06 Dose: 1 gm Epoetin Yvon (Procrit) 10,000 unit IV MWF [facility] Last Admin: 02/14/18 16:39 Dose: 10,000 unit Ergocalciferol (Drisdol 50,000 Intl Units Cap) 1 cap PO QD7 [facility] Nafcillin Sodium 2 gm/ Sodium (Chloride) 250 mls @ 250 mls/hr IVPB Q6H [facility] PRN Reason: Protocol Last Admin: 02/15/18 10:35 Dose: 250 mls/hr Gentamicin Sulfate 80 mg/ (Sodium Chloride) 102 mls @ 100 mls/hr IVPB MWF [facility] PRN Reason: Protocol Last Admin: 02/14/18 17:38 Dose: 100 mls/hr Insulin Human Regular (Novolin R) 0 unit SC ACHS [facility] PRN Reason: Protocol Last Admin: 02/15/18 12:55 Dose: 2 unit Lactulose (Enulose) 20 gm PO DAILY PRN PRN Reason: constipation Levothyroxine Sodium (Synthroid) 200 mcg PO DAILY@0630 [facility] Multivitamins/Vitamin C (Multi-Delyn Liquid) 5 ml PO DAILY [facility] Last Admin: 02/15/18 10:35 Dose: 5 ml Pantoprazole Sodium (Protonix Ec Tab) 40 mg PO DAILY [facility] Last Admin: 02/15/18 10:35 Dose: 40 mg Thiamine HCl (Vitamin B1 Inj) 200 mg IV Q8H [facility] Last Admin: 02/15/18 10:35 Dose: 200 mg - Labs Labs: 02/15/18 06:18 02/15/18 06:16 PT 14.1 SECONDS (9.7-12.2) H 02/04/18 15:52 INR 1.3 02/04/18 15:52 APTT 34 SECONDS (21-34) 02/04/18 15:52 - Constitutional Appears: Non-toxic - Head Exam Head Exam: ATRAUMATIC, NORMAL INSPECTION - Eye Exam Eye Exam: Normal appearance - ENT Exam ENT Exam: Mucous Membranes Moist - Respiratory Exam Respiratory Exam: Clear to Ausculation Bilateral, NORMAL BREATHING PATTERN - Cardiovascular Exam Cardiovascular Exam: +S1, +S2, Murmur - GI/Abdominal Exam GI & Abdominal Exam: Normal Bowel Sounds - Neurological Exam Neurological Exam: Alert, Awake Assessment and Plan - Assessment and Plan (Free Text) Assessment: 72 y/o female with PMHx of DM, HTN, ESRD on HD, h/o osteomyelitits presented to [facility] with AMS. IN ICU for evaluation and treatment of AMS. 02/09: Patient was noted to have bradycardia and Cardiac Arrest. Was intubated. 02/13: Extubated. Sepsis: GPC/staph bacteremia: continue abx as per ID, LUIZ pending, repeat Blood culture, left AV fistula site to be evaluated by vascular -AMS: resolved avoid sedating medicatoins -Chronic diastolic heart failure:Continue as per cardiology--> Coreg 25 PO Q12H , ASA supp, Hyralazine, Losartan 100 Daily, Lovaza 2gm BID, Norvasc. -hypoxic respiratrory failrue: resolved, avoid fluid overloaded states -tolerating oral diet -ESRD on HD -Thrombocytopenia: improving, hold heparin check HIT, continue to monitor, Vascular dopplers pending -continue dvt/pud ppx: scds/prpotonix (switch to pepcid) ISS Patient remains hemodynamically stable PT/OT, activity oob to chair as tolerated
--- NOTE | 2018-02-15 15:50 | CP.PCM.PN ---
Subjective - Date & Time of Evaluation Date of Evaluation: 02/15/18 Time of Evaluation: 12:00 - Subjective Subjective: clinically same Objective - Vital Signs/Intake and Output Vital Signs (last 24 hours): Temp Pulse Resp BP Pulse Ox 98.6 F 69 17 121/51 L 99 02/15/18 12:00 02/15/18 15:00 02/15/18 15:00 02/15/18 14:57 02/15/18 15:00 Intake and Output: 02/15/18 02/15/18 06:59 18:59 Intake Total 750 350 Output Total 0 0 Balance 750 350 - Medications Medications: Current Medications Acetaminophen (Tylenol 325mg Tab) 650 mg PO Q6 PRN PRN Reason: Pain, moderate (4-7) Last Admin: 02/15/18 06:07 Dose: 650 mg Albuterol/Ipratropium (Duoneb 3 Mg/0.5 Mg (3 Ml) Ud) 3 ml INH RQ6 [facility] Last Admin: 02/15/18 13:52 Dose: 3 ml Bacitracin (Bacitracin) 0 gm TOP DAILY [facility] Last Admin: 02/15/18 10:41 Dose: 1 applic Benzocaine/Menthol (Cepacol Sore Throat) 1 naomi PO Q2 PRN PRN Reason: Sore Throat Last Admin: 02/13/18 22:03 Dose: 1 naomi Docusate Sodium (Colace) 100 mg PO DAILY [facility] Last Admin: 02/15/18 10:31 Dose: Not Given Emollient Ointment (Vaseline Oint) 1 gm EXT Q8 PRN PRN Reason: Dry skin Last Admin: 02/15/18 14:06 Dose: 1 gm Epoetin Yvon (Procrit) 10,000 unit IV MWF [facility] Last Admin: 02/14/18 16:39 Dose: 10,000 unit Ergocalciferol (Drisdol 50,000 Intl Units Cap) 1 cap PO QD7 [facility] Nafcillin Sodium 2 gm/ Sodium (Chloride) 250 mls @ 250 mls/hr IVPB Q6H [facility] PRN Reason: Protocol Last Admin: 02/15/18 10:35 Dose: 250 mls/hr Gentamicin Sulfate 80 mg/ (Sodium Chloride) 102 mls @ 100 mls/hr IVPB MWF [facility] PRN Reason: Protocol Last Admin: 02/14/18 17:38 Dose: 100 mls/hr Insulin Human Regular (Novolin R) 0 unit SC ACHS [facility] PRN Reason: Protocol Last Admin: 02/15/18 12:55 Dose: 2 unit Lactulose (Enulose) 20 gm PO DAILY PRN PRN Reason: constipation Levothyroxine Sodium (Synthroid) 200 mcg PO DAILY@0630 [facility] Multivitamins/Vitamin C (Multi-Delyn Liquid) 5 ml PO DAILY [facility] Last Admin: 02/15/18 10:35 Dose: 5 ml Pantoprazole Sodium (Protonix Ec Tab) 40 mg PO DAILY [facility] Last Admin: 02/15/18 10:35 Dose: 40 mg Thiamine HCl (Vitamin B1 Inj) 200 mg IV Q8H [facility] Last Admin: 02/15/18 10:35 Dose: 200 mg - Labs Labs: 02/15/18 06:18 02/15/18 06:16 PT 14.1 SECONDS (9.7-12.2) H 02/04/18 15:52 INR 1.3 02/04/18 15:52 APTT 34 SECONDS (21-34) 02/04/18 15:52 - Constitutional Appears: Well - Head Exam Head Exam: ATRAUMATIC, NORMAL INSPECTION, NORMOCEPHALIC - Eye Exam Eye Exam: EOMI, Normal appearance, PERRL Pupil Exam: NORMAL ACCOMODATION, PERRL - ENT Exam ENT Exam: Mucous Membranes Moist, Normal Exam - Neck Exam Neck Exam: Full ROM, Normal Inspection. absent: Lymphadenopathy - Respiratory Exam Respiratory Exam: Decreased Breath Sounds - Cardiovascular Exam Cardiovascular Exam: REGULAR RHYTHM, +S1, +S2 - GI/Abdominal Exam GI & Abdominal Exam: Soft, Diminished Bowel Sounds - Rectal Exam Rectal Exam: Deferred Assessment and Plan (1) Altered mental status Status: Acute (2) ESRD (end stage renal disease) on dialysis Status: Acute (3) Gastritis Status: Acute (4) Musculoskeletal pain Status: Acute (5) Rib contusion Status: Acute (6) Toxic metabolic encephalopathy Status: Acute
[2018-02-16] MEDS: Albuterol-Ipratrop 3 mg / 0.5 (3 ml) UD INH SCH ×2 (01:56→07:26)
[2018-02-16] MEDS: Thiamine 100 mg/ml Inj IV SCH ×3 (02:26→18:02)
[2018-02-16] MEDS: Levothyroxine 100 MCG TAB PO SCH (05:45)
[2018-02-16 06:33] LABS: BASO # 0.1 K/uL (0.0-0.2); BASO % 1.4 % (0.0-2.0); EOS # 0.1 K/uL (0.0-0.7); EOS % 1.6 % (0.0-4.0); HEMOGLOBIN 8.4 g/dL (11.0-16.0); LYMPH # 1.3 K/uL (1.0-4.3); LYMPH % 20.3 % (20.0-40.0); MEAN CELL VOLUME 98.4 fL (81.0-99.0); MEAN CORPUSCULAR HGB CONC 33.5 g/dL (33.0-37.0); MONO # 0.6 K/uL (0.0-0.8); MONO % 9.9 % (0.0-10.0); NEUT # 4.3 K/uL (1.8-7.0); NEUT % 66.8 % (50.0-75.0); NRBC % 0.5 % (0.0-2.0); RBC 2.54 Mil/uL (3.80-5.20); RED CELL DISTRIBUTION WIDTH 20.2 % (11.5-14.5); WHITE BLOOD COUNT 6.4 K/uL (4.8-10.8)
[2018-02-16 06:49] LABS: ALB/GLOB RATIO 0.6 (1.0-2.1); ALBUMIN 2.9 g/dL (3.5-5.0); CALCIUM 8.2 mg/dl (8.6-10.4)
[2018-02-16] MEDS: (Novolin R) Insulin Human Regular 100 units/ml vial SC SCH ×4 (08:26→21:23)
[2018-02-16] MEDS ORDERED: DiphenhydrAMINE 50 mg/ml Inj IVP STA (09:27)
[2018-02-16] MEDS: Multiple Vitamins Oral Solution PO SCH (09:40)
[2018-02-16] MEDS: Pantoprazole 40 mg EC Tab PO SCH (09:40)
[2018-02-16] MEDS: Bacitracin Ointment 30 GM TUBE TOP SCH (09:44)
--- NOTE | 2018-02-16 15:01 | CP.PCM.PN ---
Subjective - Date & Time of Evaluation Date of Evaluation: 02/16/18 Time of Evaluation: 14:54 - Subjective Subjective: patient has no complaints Objective - Vital Signs/Intake and Output Vital Signs (last 24 hours): Temp Pulse Resp BP Pulse Ox 98.5 F 70 19 168/65 H 96 02/16/18 12:00 02/16/18 14:00 02/16/18 14:00 02/16/18 13:56 02/16/18 14:00 Intake and Output: 02/16/18 02/16/18 06:59 18:59 Intake Total 700 300 Output Total 0 0 Balance 700 300 - Medications Medications: Current Medications Acetaminophen (Tylenol 325mg Tab) 650 mg PO Q6 PRN PRN Reason: Pain, moderate (4-7) Last Admin: 02/15/18 06:07 Dose: 650 mg Bacitracin (Bacitracin) 0 gm TOP DAILY [facility] Last Admin: 02/16/18 09:44 Dose: 1 applic Benzocaine/Menthol (Cepacol Sore Throat) 1 naomi PO Q2 PRN PRN Reason: Sore Throat Last Admin: 02/13/18 22:03 Dose: 1 naomi Docusate Sodium (Colace) 100 mg PO DAILY [facility] Last Admin: 02/16/18 09:32 Dose: Not Given Emollient Ointment (Vaseline Oint) 1 gm EXT Q8 PRN PRN Reason: Dry skin Last Admin: 02/15/18 14:06 Dose: 1 gm Epoetin Yvon (Procrit) 10,000 unit IV MWF [facility] Last Admin: 02/14/18 16:39 Dose: 10,000 unit Ergocalciferol (Drisdol 50,000 Intl Units Cap) 1 cap PO QD7 [facility] Nafcillin Sodium 2 gm/ Sodium (Chloride) 250 mls @ 250 mls/hr IVPB Q6H [facility] PRN Reason: Protocol Last Admin: 02/16/18 12:01 Dose: 250 mls/hr Gentamicin Sulfate 80 mg/ (Sodium Chloride) 102 mls @ 100 mls/hr IVPB MWF [facility] PRN Reason: Protocol Last Admin: 02/14/18 17:38 Dose: 100 mls/hr Insulin Human Regular (Novolin R) 0 unit SC ACHS [facility] PRN Reason: Protocol Last Admin: 02/16/18 12:00 Dose: 2 unit Lactulose (Enulose) 20 gm PO DAILY PRN PRN Reason: constipation Levothyroxine Sodium (Synthroid) 200 mcg PO DAILY@0630 [facility] Last Admin: 02/16/18 05:45 Dose: 200 mcg Loratadine (Claritin) 10 mg PO DAILY [facility] Last Admin: 02/16/18 09:40 Dose: 10 mg Multivitamins/Vitamin C (Multi-Delyn Liquid) 5 ml PO DAILY [facility] Last Admin: 02/16/18 09:40 Dose: 5 ml Pantoprazole Sodium (Protonix Ec Tab) 40 mg PO DAILY [facility] Last Admin: 02/16/18 09:40 Dose: 40 mg Thiamine HCl (Vitamin B1 Inj) 200 mg IV Q8H [facility] Last Admin: 02/16/18 09:40 Dose: 200 mg Ursodiol (Actigall) 300 mg PO BID [facility] Last Admin: 02/16/18 09:40 Dose: 300 mg - Labs Labs: 02/16/18 06:22 02/16/18 06:19 PT 14.1 SECONDS (9.7-12.2) H 02/04/18 15:52 INR 1.3 02/04/18 15:52 APTT 34 SECONDS (21-34) 02/04/18 15:52 - Head Exam Head Exam: ATRAUMATIC, NORMAL INSPECTION - Eye Exam Pupil Exam: PERRL - Respiratory Exam Respiratory Exam: Clear to Ausculation Bilateral, NORMAL BREATHING PATTERN - Cardiovascular Exam Cardiovascular Exam: REGULAR RHYTHM, +S1, +S2, Murmur - GI/Abdominal Exam GI & Abdominal Exam: Normal Bowel Sounds - Extremities Exam Extremities Exam: Normal Inspection Assessment and Plan - Assessment and Plan (Free Text) Assessment: 72 y/o female with PMHx of DM, HTN, ESRD on HD, h/o osteomyelitits presented to [facility] with AMS. IN ICU for evaluation and treatment of AMS. 02/09: Patient was noted to have bradycardia and Cardiac Arrest. Was intubated. 02/13: Extubated. Sepsis: GPC/staph bacteremia: continue abx as per ID, LUIZ pending, repeat Blood culture, left AV fistula site to be evaluated by vascular -AMS: resolved avoid sedating medicatoins -Chronic diastolic heart failure:Continue as per cardiology--> Coreg 25 PO Q12H , ASA supp, Hyralazine, Losartan 100 Daily, Lovaza 2gm BID, Norvasc. -hypoxic respiratrory failrue: resolved, avoid fluid overloaded states -tolerating oral diet -ESRD on HD -Thrombocytopenia: improving, continue to monitor -continue dvt/pud ppx: scds/prpotonix (switch to pepcid) ISS Patient remains hemodynamically stable PT/OT, activity oob to chair as tolerated
--- NOTE | 2018-02-16 17:02 | CP.PCM.PN ---
Subjective - Date & Time of Evaluation Date of Evaluation: 02/16/18 Time of Evaluation: 09:00 - Subjective Subjective: cultures neg x 1 day s/p removal of temp catheter denies fever extubated weak bedridden Objective - Vital Signs/Intake and Output Vital Signs (last 24 hours): Temp Pulse Resp BP Pulse Ox 98.3 F 63 17 153/54 H 100 02/16/18 16:00 02/16/18 16:00 02/16/18 15:00 02/16/18 15:57 02/16/18 16:00 Intake and Output: 02/16/18 02/16/18 06:59 18:59 Intake Total 700 300 Output Total 0 0 Balance 700 300 - Medications Medications: Current Medications Acetaminophen (Tylenol 325mg Tab) 650 mg PO Q6 PRN PRN Reason: Pain, moderate (4-7) Last Admin: 02/15/18 06:07 Dose: 650 mg Bacitracin (Bacitracin) 0 gm TOP DAILY [facility] Last Admin: 02/16/18 09:44 Dose: 1 applic Benzocaine/Menthol (Cepacol Sore Throat) 1 naomi PO Q2 PRN PRN Reason: Sore Throat Last Admin: 02/13/18 22:03 Dose: 1 naomi Docusate Sodium (Colace) 100 mg PO DAILY [facility] Last Admin: 02/16/18 09:32 Dose: Not Given Emollient Ointment (Vaseline Oint) 1 gm EXT Q8 PRN PRN Reason: Dry skin Last Admin: 02/15/18 14:06 Dose: 1 gm Epoetin Yvon (Procrit) 10,000 unit IV [facility] Last Admin: 02/14/18 16:39 Dose: 10,000 unit Ergocalciferol (Drisdol 50,000 Intl Units Cap) 1 cap PO QD7 [facility] Nafcillin Sodium 2 gm/ Sodium (Chloride) 250 mls @ 250 mls/hr IVPB Q6H [facility] PRN Reason: Protocol Last Admin: 02/16/18 12:01 Dose: 250 mls/hr Gentamicin Sulfate 80 mg/ (Sodium Chloride) 102 mls @ 100 mls/hr IVPB MWF [facility] PRN Reason: Protocol Last Admin: 02/14/18 17:38 Dose: 100 mls/hr Insulin Human Regular (Novolin R) 0 unit SC ACHS [facility] PRN Reason: Protocol Last Admin: 02/16/18 16:42 Dose: Not Given Lactulose (Enulose) 20 gm PO DAILY PRN PRN Reason: constipation Levothyroxine Sodium (Synthroid) 200 mcg PO DAILY@0630 [facility] Last Admin: 02/16/18 05:45 Dose: 200 mcg Loratadine (Claritin) 10 mg PO DAILY [facility] Last Admin: 02/16/18 09:40 Dose: 10 mg Multivitamins/Vitamin C (Multi-Delyn Liquid) 5 ml PO DAILY [facility] Last Admin: 02/16/18 09:40 Dose: 5 ml Pantoprazole Sodium (Protonix Ec Tab) 40 mg PO DAILY [facility] Last Admin: 02/16/18 09:40 Dose: 40 mg Thiamine HCl (Vitamin B1 Inj) 200 mg IV Q8H [facility] Last Admin: 02/16/18 09:40 Dose: 200 mg Ursodiol (Actigall) 300 mg PO BID [facility] Last Admin: 02/16/18 09:40 Dose: 300 mg - Labs Labs: 02/16/18 06:22 02/16/18 06:19 PT 14.1 SECONDS (9.7-12.2) H 02/04/18 15:52 INR 1.3 02/04/18 15:52 APTT 34 SECONDS (21-34) 02/04/18 15:52 - Constitutional Appears: Non-toxic, Chronically Ill - Head Exam Head Exam: NORMOCEPHALIC - Eye Exam Eye Exam: PERRL. absent: Scleral icterus - ENT Exam ENT Exam: Mucous Membranes Dry - Neck Exam Neck Exam: absent: Lymphadenopathy - Respiratory Exam Respiratory Exam: Decreased Breath Sounds - Cardiovascular Exam Cardiovascular Exam: REGULAR RHYTHM, +S1, +S2 - GI/Abdominal Exam GI & Abdominal Exam: Distended - Rectal Exam Rectal Exam: Deferred - Exam Exam: NORMAL INSPECTION - Extremities Exam Extremities Exam: Pedal Edema - Back Exam Back Exam: absent: CVA tenderness (L), CVA tenderness (R) - Neurological Exam Neurological Exam: Alert, Awake Assessment and Plan (1) Altered mental status Status: Acute (2) Dyspnea Status: Acute (3) ESRD (end stage renal disease) on dialysis Status: Acute (4) Lacunar infarction Status: Acute (5) Sepsis Status: Acute (6) Sepsis Status: Acute (7) Staphylococcus aureus bacteremia Status: Acute (8) Toxic metabolic encephalopathy Status: Acute - Assessment and Plan (Free Text) Assessment: MSSA bacteremia sepsis temp catheter removed Cardio on board possible LUIZ Plan: cont Naf/ Gent
--- NOTE | 2018-02-16 17:04 | US ---
HISTORY: increase in t. ben COMPARISON: Abdomen pelvis CT UE without contrast 11/09/2016. TECHNIQUE: Sonographic evaluation of the abdomen. FINDINGS: LIVER: Measures 15.5 cm. Borderline nodular peripheral margins are compatible with a prior CT demonstrating cirrhotic liver pattern. No mass. No intrahepatic bile duct dilatation. GALLBLADDER: Status postcholecystectomy. COMMON BILE DUCT: Measures 5.1 mm. No stones. No dilatation. PANCREAS: The tail of the pancreas is obscured by overlying bowel gas with remainder unremarkable. RIGHT KIDNEY: Measures 7.4cm. An atrophic echogenic kidney is appreciate without hydronephrosis or definite mass evident grossly. No definite urolithiasis. LEFT KIDNEY: Measures 6.7cm. Echogenic atrophic kidney without hydronephrosis, definite urolithiasis appreciated or definite mass predate appreciated. SPLEEN: Normal in size and contour, measuring 9.9 cm. No mass. AORTA: No aneurysmal dilatation. IVC: Unremarkable. OTHER FINDINGS: None. IMPRESSION: 1. Cirrhotic liver pattern reiterated. No definite intrahepatic biliary dilatation appreciable however. Prior cholecystectomy. Normal CBD caliber. No choledocholithiasis. 2. Markedly atrophic bilateral kidneys. No obstructive uropathy bilaterally. 3. Partial imaging of pancreas.
--- NOTE | 2018-02-16 18:13 | CP.PCM.PN ---
Subjective - Date & Time of Evaluation Date of Evaluation: 02/16/18 Time of Evaluation: 13:00 - Subjective Subjective: clinically same Objective - Vital Signs/Intake and Output Vital Signs (last 24 hours): Temp Pulse Resp BP Pulse Ox 98.3 F 67 13 171/82 H 100 02/16/18 16:00 02/16/18 17:00 02/16/18 17:00 02/16/18 16:56 02/16/18 17:00 Intake and Output: 02/16/18 02/16/18 06:59 18:59 Intake Total 700 300 Output Total 0 0 Balance 700 300 - Medications Medications: Current Medications Acetaminophen (Tylenol 325mg Tab) 650 mg PO Q6 PRN PRN Reason: Pain, moderate (4-7) Last Admin: 02/15/18 06:07 Dose: 650 mg Bacitracin (Bacitracin) 0 gm TOP DAILY [facility] Last Admin: 02/16/18 09:44 Dose: 1 applic Benzocaine/Menthol (Cepacol Sore Throat) 1 naomi PO Q2 PRN PRN Reason: Sore Throat Last Admin: 02/13/18 22:03 Dose: 1 naomi Docusate Sodium (Colace) 100 mg PO DAILY [facility] Last Admin: 02/16/18 09:32 Dose: Not Given Emollient Ointment (Vaseline Oint) 1 gm EXT Q8 PRN PRN Reason: Dry skin Last Admin: 02/15/18 14:06 Dose: 1 gm Epoetin Yvon (Procrit) 10,000 unit IV MWF [facility] Last Admin: 02/14/18 16:39 Dose: 10,000 unit Ergocalciferol (Drisdol 50,000 Intl Units Cap) 1 cap PO QD7 [facility] Nafcillin Sodium 2 gm/ Sodium (Chloride) 250 mls @ 250 mls/hr IVPB Q6H [facility] PRN Reason: Protocol Last Admin: 02/16/18 18:02 Dose: 250 mls/hr Gentamicin Sulfate 80 mg/ (Sodium Chloride) 102 mls @ 100 mls/hr IVPB MWF [facility] PRN Reason: Protocol Last Admin: 02/14/18 17:38 Dose: 100 mls/hr Insulin Human Regular (Novolin R) 0 unit SC ACHS [facility] PRN Reason: Protocol Last Admin: 05/27/18 16:42 Dose: Not Given Lactulose (Enulose) 20 gm PO DAILY PRN PRN Reason: constipation Levothyroxine Sodium (Synthroid) 200 mcg PO DAILY@0630 [facility] Last Admin: 02/16/18 05:45 Dose: 200 mcg Loratadine (Claritin) 10 mg PO DAILY [facility] Last Admin: 02/16/18 09:40 Dose: 10 mg Multivitamins/Vitamin C (Multi-Delyn Liquid) 5 ml PO DAILY [facility] Last Admin: 02/16/18 09:40 Dose: 5 ml Pantoprazole Sodium (Protonix Ec Tab) 40 mg PO DAILY [facility] Last Admin: 02/16/18 09:40 Dose: 40 mg Thiamine HCl (Vitamin B1 Inj) 200 mg IV Q8H [facility] Last Admin: 02/16/18 18:02 Dose: 200 mg Ursodiol (Actigall) 300 mg PO BID [facility] Last Admin: 02/16/18 18:02 Dose: 300 mg - Labs Labs: 02/16/18 06:22 02/16/18 06:19 PT 14.1 SECONDS (9.7-12.2) H 02/04/18 15:52 INR 1.3 02/04/18 15:52 APTT 34 SECONDS (21-34) 02/04/18 15:52 - Constitutional Appears: Well - Head Exam Head Exam: ATRAUMATIC, NORMAL INSPECTION, NORMOCEPHALIC - Eye Exam Eye Exam: EOMI, Normal appearance, PERRL Pupil Exam: NORMAL ACCOMODATION, PERRL - ENT Exam ENT Exam: Mucous Membranes Moist, Normal Exam - Neck Exam Neck Exam: Full ROM, Normal Inspection. absent: Lymphadenopathy - Respiratory Exam Respiratory Exam: Decreased Breath Sounds - Cardiovascular Exam Cardiovascular Exam: REGULAR RHYTHM, +S1, +S2 - GI/Abdominal Exam GI & Abdominal Exam: Soft, Diminished Bowel Sounds - Rectal Exam Rectal Exam: Deferred Assessment and Plan (1) Altered mental status Status: Acute (2) ESRD (end stage renal disease) on dialysis Status: Acute (3) Gastritis Status: Acute (4) Musculoskeletal pain Status: Acute (5) Rib contusion Status: Acute (6) Toxic metabolic encephalopathy Status: Acute
[2018-02-16] MEDS ORDERED: Oxycodone/Acetaminophen 5/325 mg Tab PO ONE (21:30)
--- NOTE | 2018-02-16 21:47 | CP.PCM.PN ---
Subjective - Date & Time of Evaluation Date of Evaluation: 02/16/18 Time of Evaluation: 21:47 - Subjective Subjective: Pulmonary Follow up Covering Dr. Morse The patient was Seen/interviewed and examined by me at the bedside, Events reviewed Extubated 02/14 Mental status continue improving Awake, comfortable, NAD No Vasopressors No complaints, Denies SOB, chest pain, abdominal pain, or changes in bowel habits. Scheduled for HD tomorrow Objective - Vital Signs/Intake and Output Vital Signs (last 24 hours): Temp Pulse Resp BP Pulse Ox 98.4 F 63 18 150/49 L 94 L 02/16/18 20:00 02/16/18 21:00 02/16/18 21:00 02/16/18 20:58 02/16/18 21:00 Intake and Output: 02/16/18 02/17/18 18:59 06:59 Intake Total 550 50 Output Total 0 Balance 550 50 - Medications Medications: Current Medications Acetaminophen (Tylenol 325mg Tab) 650 mg PO Q6 PRN PRN Reason: Pain, moderate (4-7) Last Admin: 02/15/18 06:07 Dose: 650 mg Bacitracin (Bacitracin) 0 gm TOP DAILY [facility] Last Admin: 02/16/18 09:44 Dose: 1 applic Benzocaine/Menthol (Cepacol Sore Throat) 1 naomi PO Q2 PRN PRN Reason: Sore Throat Last Admin: 02/13/18 22:03 Dose: 1 naomi Docusate Sodium (Colace) 100 mg PO DAILY [facility] Last Admin: 02/16/18 09:32 Dose: Not Given Emollient Ointment (Vaseline Oint) 1 gm EXT Q8 PRN PRN Reason: Dry skin Last Admin: 02/15/18 14:06 Dose: 1 gm Epoetin Yvon (Procrit) 10,000 unit IV MWF [facility] Last Admin: 02/14/18 16:39 Dose: 10,000 unit Ergocalciferol (Drisdol 50,000 Intl Units Cap) 1 cap PO QD7 [facility] Nafcillin Sodium 2 gm/ Sodium (Chloride) 250 mls @ 250 mls/hr IVPB Q6H [facility] PRN Reason: Protocol Last Admin: 02/16/18 18:02 Dose: 250 mls/hr Gentamicin Sulfate 80 mg/ (Sodium Chloride) 102 mls @ 100 mls/hr IVPB MWF [facility] PRN Reason: Protocol Last Admin: 02/14/18 17:38 Dose: 100 mls/hr Insulin Human Regular (Novolin R) 0 unit SC ACHS [facility] PRN Reason: Protocol Last Admin: 02/16/18 21:23 Dose: Not Given Lactulose (Enulose) 20 gm PO DAILY PRN PRN Reason: constipation Levothyroxine Sodium (Synthroid) 200 mcg PO DAILY@0630 [facility] Last Admin: 02/16/18 05:45 Dose: 200 mcg Loratadine (Claritin) 10 mg PO DAILY [facility] Last Admin: 02/16/18 09:40 Dose: 10 mg Multivitamins/Vitamin C (Multi-Delyn Liquid) 5 ml PO DAILY [facility] Last Admin: 02/16/18 09:40 Dose: 5 ml Pantoprazole Sodium (Protonix Ec Tab) 40 mg PO DAILY [facility] Last Admin: 02/16/18 09:40 Dose: 40 mg Thiamine HCl (Vitamin B1 Inj) 200 mg IV Q8H [facility] Last Admin: 02/16/18 18:02 Dose: 200 mg Ursodiol (Actigall) 300 mg PO BID [facility] Last Admin: 02/16/18 18:02 Dose: 300 mg - Labs Labs: 02/16/18 06:22 02/16/18 06:19 PT 14.1 SECONDS (9.7-12.2) H 02/04/18 15:52 INR 1.3 02/04/18 15:52 APTT 34 SECONDS (21-34) 02/04/18 15:52 - Head Exam Head Exam: ATRAUMATIC, NORMAL INSPECTION, NORMOCEPHALIC - Eye Exam Pupil Exam: NORMAL ACCOMODATION, PERRL - ENT Exam ENT Exam: Mucous Membranes Dry - Neck Exam Neck Exam: Full ROM, Normal Inspection. absent: Lymphadenopathy, Meningismus - Respiratory Exam Respiratory Exam: Decreased Breath Sounds, Rales, Rhonchi. absent: Accessory Muscle Use, Chest Wall Tenderness, Clear to Ausculation Bilateral, Wheezes, Respiratory Distress - Cardiovascular Exam Cardiovascular Exam: REGULAR RHYTHM, RRR, +S1, +S2. absent: JVD - GI/Abdominal Exam GI & Abdominal Exam: Distended, Soft, Normal Bowel Sounds. absent: Firm, Guarding, Rigid - Extremities Exam Extremities Exam: Normal Capillary Refill, Normal Inspection. absent: Calf Tenderness, Full ROM, Joint Swelling, Pedal Edema - Back Exam Back Exam: absent: CVA tenderness (L), CVA tenderness (R) - Neurological Exam Neurological Exam: Alert, Awake, Motor Sensory Deficit, Oriented x3 Assessment and Plan (1) Acute respiratory failure Status: Acute (2) Altered mental status Status: Acute (3) ESRD (end stage renal disease) on dialysis Status: Acute (4) MRSA bacteremia Status: Acute (5) Sepsis Status: Acute (6) Staphylococcus aureus bacteremia Status: Acute (7) Toxic metabolic encephalopathy Status: Acute - Assessment and Plan (Free Text) Assessment: Successfully Extubated Improved mental status No complaints. Continue current managements. Supplemental Oxygen Neuro checks HD as per Renal Antibiotics as per ID Aggressive pulmonary toilet Maintain aspiration precautions HOB maintained at 30 degrees GI/DVT PPX BS control Code Status: Full code
[2018-02-17] MEDS: Thiamine 100 mg/ml Inj IV SCH ×3 (01:53→17:11)
[2018-02-17] MEDS: Levothyroxine 100 MCG TAB PO SCH (05:42)
[2018-02-17 06:31] LABS: BASO # 0.1 K/uL (0.0-0.2); BASO % 1.1 % (0.0-2.0); EOS # 0.2 K/uL (0.0-0.7); EOS % 2.8 % (0.0-4.0); HEMOGLOBIN 8.1 g/dL (11.0-16.0); LYMPH # 1.3 K/uL (1.0-4.3); LYMPH % 22.6 % (20.0-40.0); MEAN CELL VOLUME 98.4 fL (81.0-99.0); MEAN CORPUSCULAR HGB CONC 33.5 g/dL (33.0-37.0); MEAN PLATELET VOLUME 10.1 fL (7.2-11.7); MONO # 0.5 K/uL (0.0-0.8); MONO % 9.6 % (0.0-10.0); NEUT # 3.6 K/uL (1.8-7.0); NEUT % 63.9 % (50.0-75.0); NRBC % 0.5 % (0.0-2.0); RBC 2.47 Mil/uL (3.80-5.20); RED CELL DISTRIBUTION WIDTH 21.2 % (11.5-14.5); WHITE BLOOD COUNT 5.7 K/uL (4.8-10.8)
[2018-02-17 06:59] LABS: ALB/GLOB RATIO 0.6 (1.0-2.1); ALBUMIN 2.7 g/dL (3.5-5.0); CALCIUM 8.3 mg/dl (8.6-10.4)
[2018-02-17] MEDS: (Novolin R) Insulin Human Regular 100 units/ml vial SC SCH ×4 (08:38→23:09)
[2018-02-17] MEDS: Petrolatum Oint Foilpak (5 gm) EXT PRN (09:36)
[2018-02-17] MEDS: Multiple Vitamins Oral Solution PO SCH (09:37)
[2018-02-17] MEDS: Pantoprazole 40 mg EC Tab PO SCH (09:37)
[2018-02-17] MEDS: Bacitracin Ointment 30 GM TUBE TOP SCH (09:38)
[2018-02-17] MEDS: Epoetin Alfa 10,000 unit/ml Dialysis IV SCH (10:04)
--- NOTE | 2018-02-17 13:11 | CP.PCM.PN ---
Subjective - Date & Time of Evaluation Date of Evaluation: 02/15/18 Time of Evaluation: 16:00 - Subjective Subjective: Feeling better Objective - Vital Signs/Intake and Output Vital Signs (last 24 hours): Temp Pulse Resp BP Pulse Ox 97.7 F 72 12 134/56 L 95 02/17/18 12:30 02/17/18 13:00 02/17/18 13:00 02/17/18 12:53 02/17/18 13:00 Intake and Output: 02/17/18 02/17/18 06:59 18:59 Intake Total 650 360 Output Total 0 Balance 650 360 - Medications Medications: Current Medications Acetaminophen (Tylenol 325mg Tab) 650 mg PO Q6 PRN PRN Reason: Pain, moderate (4-7) Last Admin: 02/17/18 11:25 Dose: 650 mg Bacitracin (Bacitracin) 0 gm TOP DAILY [facility] Last Admin: 02/17/18 09:38 Dose: 1 applic Benzocaine/Menthol (Cepacol Sore Throat) 1 naomi PO Q2 PRN PRN Reason: Sore Throat Last Admin: 02/13/18 22:03 Dose: 1 naomi Docusate Sodium (Colace) 100 mg PO DAILY [facility] Last Admin: 02/17/18 09:26 Dose: Not Given Emollient Ointment (Vaseline Oint) 1 gm EXT Q8 PRN PRN Reason: Dry skin Last Admin: 02/17/18 09:36 Dose: 1 gm Epoetin Yvon (Procrit) 10,000 unit IV MWF [facility] Last Admin: 02/17/18 10:04 Dose: 10,000 unit Ergocalciferol (Drisdol 50,000 Intl Units Cap) 1 cap PO QD7 [facility] Nafcillin Sodium 2 gm/ Sodium (Chloride) 250 mls @ 250 mls/hr IVPB Q6H [facility] PRN Reason: Protocol Last Admin: 02/17/18 11:26 Dose: 250 mls/hr Gentamicin Sulfate 80 mg/ (Sodium Chloride) 102 mls @ 100 mls/hr IVPB MWF [facility] PRN Reason: Protocol Last Admin: 02/14/18 17:38 Dose: 100 mls/hr Insulin Human Regular (Novolin R) 0 unit SC ACHS [facility] PRN Reason: Protocol Last Admin: 02/17/18 11:27 Dose: Not Given Lactulose (Enulose) 20 gm PO DAILY PRN PRN Reason: constipation Levothyroxine Sodium (Synthroid) 200 mcg PO DAILY@0630 [facility] Last Admin: 02/17/18 05:42 Dose: 200 mcg Loratadine (Claritin) 10 mg PO DAILY [facility] Last Admin: 02/17/18 09:37 Dose: 10 mg Multivitamins/Vitamin C (Multi-Delyn Liquid) 5 ml PO DAILY [facility] Last Admin: 02/17/18 09:37 Dose: 5 ml Pantoprazole Sodium (Protonix Ec Tab) 40 mg PO DAILY [facility] Last Admin: 02/17/18 09:37 Dose: 40 mg Thiamine HCl (Vitamin B1 Inj) 200 mg IV Q8H [facility] Last Admin: 02/17/18 09:36 Dose: 200 mg Ursodiol (Actigall) 300 mg PO BID [facility] Last Admin: 02/17/18 09:37 Dose: 300 mg - Labs Labs: 02/17/18 06:26 02/17/18 06:26 PT 14.1 SECONDS (9.7-12.2) H 02/04/18 15:52 INR 1.3 02/04/18 15:52 APTT 34 SECONDS (21-34) 02/04/18 15:52 - Head Exam Head Exam: ATRAUMATIC - Eye Exam Eye Exam: Normal appearance - ENT Exam ENT Exam: Mucous Membranes Dry - Respiratory Exam Respiratory Exam: NORMAL BREATHING PATTERN - Cardiovascular Exam Cardiovascular Exam: +S1, +S2 - GI/Abdominal Exam GI & Abdominal Exam: Normal Bowel Sounds Assessment and Plan (1) Thrombocytopenia Assessment & Plan: improving sepsis related Status: Acute (2) Anemia Assessment & Plan: chronic disease and renal disease transfusion support Status: Acute (3) Coagulopathy Assessment & Plan: nutritional ?liver disease Status: Acute
--- NOTE | 2018-02-17 13:14 | CP.PCM.PN ---
Subjective - Date & Time of Evaluation Date of Evaluation: 02/16/18 Time of Evaluation: 13:00 - Subjective Subjective: No complaints. Objective - Vital Signs/Intake and Output Vital Signs (last 24 hours): Temp Pulse Resp BP Pulse Ox 97.7 F 72 12 134/56 L 95 02/17/18 12:30 02/17/18 13:00 02/17/18 13:00 02/17/18 12:53 02/17/18 13:00 Intake and Output: 02/17/18 02/17/18 06:59 18:59 Intake Total 650 360 Output Total 0 Balance 650 360 - Medications Medications: Current Medications Acetaminophen (Tylenol 325mg Tab) 650 mg PO Q6 PRN PRN Reason: Pain, moderate (4-7) Last Admin: 02/17/18 11:25 Dose: 650 mg Bacitracin (Bacitracin) 0 gm TOP DAILY [facility] Last Admin: 02/17/18 09:38 Dose: 1 applic Benzocaine/Menthol (Cepacol Sore Throat) 1 naomi PO Q2 PRN PRN Reason: Sore Throat Last Admin: 02/13/18 22:03 Dose: 1 naomi Docusate Sodium (Colace) 100 mg PO DAILY [facility] Last Admin: 02/17/18 09:26 Dose: Not Given Emollient Ointment (Vaseline Oint) 1 gm EXT Q8 PRN PRN Reason: Dry skin Last Admin: 02/17/18 09:36 Dose: 1 gm Epoetin Yvon (Procrit) 10,000 unit IV MWF [facility] Last Admin: 02/17/18 10:04 Dose: 10,000 unit Ergocalciferol (Drisdol 50,000 Intl Units Cap) 1 cap PO QD7 [facility] Nafcillin Sodium 2 gm/ Sodium (Chloride) 250 mls @ 250 mls/hr IVPB Q6H [facility] PRN Reason: Protocol Last Admin: 02/17/18 11:26 Dose: 250 mls/hr Gentamicin Sulfate 80 mg/ (Sodium Chloride) 102 mls @ 100 mls/hr IVPB MWF [facility] PRN Reason: Protocol Last Admin: 02/14/18 17:38 Dose: 100 mls/hr Insulin Human Regular (Novolin R) 0 unit SC ACHS [facility] [place] PRN Reason: Protocol Last Admin: 02/17/18 11:27 Dose: Not Given Lactulose (Enulose) 20 gm PO DAILY PRN PRN Reason: constipation Levothyroxine Sodium (Synthroid) 200 mcg PO DAILY@0630 [facility] Last Admin: 02/17/18 05:42 Dose: 200 mcg Loratadine (Claritin) 10 mg PO DAILY [facility] [place] Last Admin: 02/17/18 09:37 Dose: 10 mg Multivitamins/Vitamin C (Multi-Delyn Liquid) 5 ml PO DAILY [facility] Last Admin: 02/17/18 09:37 Dose: 5 ml Pantoprazole Sodium (Protonix Ec Tab) 40 mg PO DAILY [facility] Last Admin: 02/17/18 09:37 Dose: 40 mg Thiamine HCl (Vitamin B1 Inj) 200 mg IV Q8H [facility] Last Admin: 02/17/18 09:36 Dose: 200 mg Ursodiol (Actigall) 300 mg PO BID [facility] Last Admin: 02/17/18 09:37 Dose: 300 mg - Labs Labs: 02/17/18 06:26 02/17/18 06:26 PT 14.1 SECONDS (9.7-12.2) H 02/04/18 15:52 INR 1.3 02/04/18 15:52 APTT 34 SECONDS (21-34) 02/04/18 15:52 - Head Exam Head Exam: ATRAUMATIC - Eye Exam Eye Exam: Normal appearance - ENT Exam ENT Exam: Mucous Membranes Dry - Respiratory Exam Respiratory Exam: NORMAL BREATHING PATTERN - Cardiovascular Exam Cardiovascular Exam: +S1, +S2 - GI/Abdominal Exam GI & Abdominal Exam: Normal Bowel Sounds Assessment and Plan (1) Thrombocytopenia Assessment & Plan: improving sepsis related Status: Acute (2) Anemia Assessment & Plan: chronic disease and renal disease Status: Acute (3) Coagulopathy Assessment & Plan: nutritional ? liver disease Status: Acute
--- NOTE | 2018-02-17 13:40 | CP.CCUPN ---
CCU Subjective - Physician Review Events Since Last Encounter (Free Text): 02/17/18 13:38 Patient is comfortable. Not in any distress. Receiving hemodialysis Eating well. No nausea, no vomiting CCU Objective - Vital Signs / Intake & Output Vital Signs (Last 4 hours): Vital Signs Temp Pulse Pulse Resp BP BP Pulse Ox 02/17/18 13:00 72 12 95 02/17/18 12:53 71 16 134/56 L 97 02/17/18 12:49 69 12 131/65 100 02/17/18 12:34 69 16 143/65 99 02/17/18 12:30 97.7 F 71 12 144/53 L 100 02/17/18 12:20 93 H 16 144/43 L 94 L 02/17/18 12:04 70 17 128/77 97 02/17/18 12:00 97.0 F L 71 16 157/44 H 98 02/17/18 11:49 70 16 157/44 H 94 L 02/17/18 11:40 70 18 160/68 H 99 02/17/18 11:39 70 13 137/114 H 98 02/17/18 11:30 160/68 H 02/17/18 11:19 71 11 L 134/75 02/17/18 11:09 71 16 150/61 02/17/18 11:07 71 14 02/17/18 11:00 69 12 150/61 02/17/18 10:50 69 16 148/64 02/17/18 10:37 70 20 155/59 H 02/17/18 10:35 69 16 222/195 H 02/17/18 10:30 153/59 H 02/17/18 10:22 69 16 165/63 H 02/17/18 10:20 72 13 134/115 H 02/17/18 10:15 165/63 H 02/17/18 10:06 68 11 L 158/77 H 02/17/18 10:00 69 14 158/77 H 100 02/17/18 09:52 70 18 159/64 H 98 02/17/18 09:50 68 11 L 212/174 H 95 02/17/18 09:45 159/64 H Intake and Output (Last 8hrs): Intake & Output 02/16/18 02/17/18 02/17/18 22:59 06:59 14:59 Intake Total 300 600 360 Output Total 0 Balance 300 600 360 Intake: Intake, IV Amount 250 500 Right Forearm 250 500 Oral 50 100 360 Output: Urine 0 Urine, Voided 0 Other: # Bowel Movements 1 1 1 - Physical Exam Narrative Physical Exam (Free Text): 02/17/18 13:39 In examination: Vital signs stable, chest good air entry bilaterally regular heart sounds nontender abdomen. pedal edema bilaterally noted. 02/17/18 13:39 Head: Positive for: Atraumatic, Normocephalic Pupils: Positive for: PERRL Mouth: Positive for: Dry Respiratory/Chest: Positive for: Rales (BiBasilar). Negative for: Clear to Auscultation Cardiovascular: Positive for: Regular Rate and Rhythm, Normal S1, S2 Abdomen: Positive for: Normal Bowel Sounds. Negative for: Distention, Guarding Lower Extremity: Positive for: Normal Inspection Skin: Positive for: Warm, Dry, Other (Onchomycosis B/L) Psychiatric: Positive for: Alert. Negative for: Oriented x 3 - Medications Active Medications: Active Medications Generic Name Dose Route Start Last Admin Trade Name Freq PRN Reason Stop Dose Admin Acetaminophen 650 mg 02/05/18 12:44 02/17/18 11:25 Tylenol 325mg Tab PO 650 mg Q6 PRN Administration Pain, moderate (4-7) Bacitracin 0 gm 02/05/18 10:00 02/17/18 09:38 Bacitracin TOP 1 applic DAILY [facility] Administration Benzocaine/Menthol 1 naomi 02/04/18 18:53 02/13/18 22:03 Cepacol Sore Throat PO 1 naomi Q2 PRN Administration Sore Throat Docusate Sodium 100 mg 02/05/18 10:00 02/17/18 09:26 Colace PO Not Given DAILY [facility] Emollient Ointment 1 gm 02/15/18 12:35 02/17/18 09:36 Vaseline Oint EXT 1 gm Q8 PRN Administration Dry skin Epoetin Yvon 10,000 unit 02/05/18 09:00 02/17/18 10:04 Procrit IV 10,000 unit MWF [facility] Administration Ergocalciferol 1 cap 02/04/18 19:00 Drisdol 50,000 Intl Units Cap PO QD7 [facility] Nafcillin Sodium 2 gm/ Sodium 250 mls @ 250 mls/hr 02/13/18 17:00 02/17/18 11 :26 Chloride IVPB 250 mls/hr Q6H [facility] Administration Protocol Gentamicin Sulfate 80 mg/ 102 mls @ 100 mls/hr 02/14/18 09:00 02/17/18 13:06 Sodium Chloride IVPB 100 mls/hr MWF [facility] Administration Protocol Insulin Human Regular 0 unit 02/14/18 16:30 02/17/18 11:27 Novolin R SC Not Given ACHS [facility] Protocol Lactulose 20 gm 02/04/18 18:53 Enulose PO DAILY PRN constipation Levothyroxine Sodium 200 mcg 02/16/18 06:30 02/17/18 05:42 Synthroid PO 200 mcg DAILY@0630 [facility] Administration Loratadine 10 mg 02/16/18 10:00 02/17/18 09:37 Claritin PO 10 mg DAILY [facility] Administration Multivitamins/Vitamin C 5 ml 02/09/18 10:00 02/17/18 09:37 Multi-Delyn Liquid PO 5 ml DAILY [facility] Administration Pantoprazole Sodium 40 mg 02/15/18 10:00 02/17/18 09:37 Protonix Ec Tab PO 40 mg DAILY [facility] Administration Thiamine HCl 200 mg 02/09/18 10:00 02/17/18 09:36 Vitamin B1 Inj IV 200 mg Q8H [facility] Administration Ursodiol 300 mg 02/16/18 10:00 02/17/18 09:37 Actigall PO 300 mg BID [facility] Administration - Patient Studies Lab Studies: Microbiology Studies 02/12/18 04:00 Blood Culture - Final Blood Staphylococcus Aureus Gram Stain - Final 02/14/18 18:09 Blood Culture - Final Blood-During Dialysis Staphylococcus Aureus Gram Stain - Final 02/14/18 18:09 S.aureus & Coag-Neg Staph PNA FISH - Final Blood-During Dialysis Blood Culture - Final Staphylococcus Aureus Gram Stain - Final 02/15/18 15:30 Blood Culture - Preliminary Blood-Venous NO GROWTH AFTER 24 HOURS 02/15/18 16:00 Blood Culture - Preliminary Blood-Venous NO GROWTH AFTER 24 HOURS Lab Studies 02/17/18 02/17/18 02/17/18 Range/Units 11:22 07:33 06:26 WBC (4.8-10.8) K/uL RBC (3.80-5.20) Mil/uL Hgb (11.0-16.0) g/dL Hct (34.0-47.0) % MCV (81.0-99.0) fL MCH (27.0-31.0) pg MCHC (33.0-37.0) g/dL RDW (11.5-14.5) % Plt Count (130-400) K/uL MPV (7.2-11.7) fL Neut % (Auto) (50.0-75.0) % Lymph % (Auto) (20.0-40.0) % [place] % (Auto) (0.0-10.0) % Eos % (Auto) (0.0-4.0) % Baso % (Auto) (0.0-2.0) % Neut # (Auto) (1.8-7.0) K/uL Lymph # (Auto) (1.0-4.3) K/uL [place] # (Auto) (0.0-0.8) K/uL Eos # (Auto) (0.0-0.7) K/uL Baso # (Auto) (0.0-0.2) K/uL Sodium 138 (132-148) mmol/L Potassium 4.1 (3.6-5.2) mmol/L Chloride 101 (98-107) mmol/L Carbon Dioxide 23 (22-30) mmol/L Anion Gap 18 (10-20) BUN 39 H (7-17) mg/dL Creatinine 6.7 H (0.7-1.2) mg/dL Est GFR ( Amer) 7 Est GFR (Non-Af Amer) 6 POC Glucose (mg/dL) 140 H 77 (65-110) mg/dL Random Glucose 67 (65-105) mg/dL Calcium 8.3 L (8.6-10.4) mg/dl Phosphorus 8.1 H (2.5-4.5) mg/dL Magnesium 2.4 H (1.6-2.3) mg/dL Total Bilirubin 4.9 H (0.2-1.3) mg/dL AST 22 (14-36) U/L ALT 20 (9-52) U/L Alkaline Phosphatase 147 H (38-126) U/L Total Protein 7.3 (6.3-8.3) g/dL Albumin 2.7 L (3.5-5.0) g/dL Globulin 4.6 H (2.2-3.9) gm/dL Albumin/Globulin Ratio 0.6 L (1.0-2.1) Toxicology Panel 02/17/18 02/16/18 02/16/18 Range/Units 06:26 21:04 16:33 WBC 5.7 (4.8-10.8) K/uL RBC 2.47 L (3.80-5.20) Mil/uL Hgb 8.1 L (11.0-16.0) g/dL Hct 24.3 L (34.0-47.0) % MCV 98.4 (81.0-99.0) fL MCH 33.0 H (27.0-31.0) pg MCHC 33.5 (33.0-37.0) g/dL RDW 21.2 H (11.5-14.5) % Plt Count 132 (130-400) K/uL MPV 10.1 (7.2-11.7) fL Neut % (Auto) 63.9 (50.0-75.0) % Lymph % (Auto) 22.6 (20.0-40.0) % [place] % (Auto) 9.6 (0.0-10.0) % Eos % (Auto) 2.8 (0.0-4.0) % Baso % (Auto) 1.1 (0.0-2.0) % Neut # (Auto) 3.6 (1.8-7.0) K/uL Lymph # (Auto) 1.3 (1.0-4.3) K/uL [place] # (Auto) 0.5 (0.0-0.8) K/uL Eos # (Auto) 0.2 (0.0-0.7) K/uL Baso # (Auto) 0.1 (0.0-0.2) K/uL Sodium (132-148) mmol/L Potassium (3.6-5.2) mmol/L Chloride (98-107) mmol/L Carbon Dioxide (22-30) mmol/L Anion Gap (10-20) BUN (7-17) mg/dL Creatinine (0.7-1.2) mg/dL Est GFR ( Amer) Est GFR (Non-Af Amer) POC Glucose (mg/dL) 180 H 106 (65-110) mg/dL Random Glucose (65-105) mg/dL Calcium (8.6-10.4) mg/dl Phosphorus (2.5-4.5) mg/dL Magnesium (1.6-2.3) mg/dL Total Bilirubin (0.2-1.3) mg/dL AST (14-36) U/L ALT (9-52) U/L Alkaline Phosphatase (38-126) U/L Total Protein (6.3-8.3) g/dL Albumin (3.5-5.0) g/dL Globulin (2.2-3.9) gm/dL Albumin/Globulin Ratio (1.0-2.1) Toxicology Panel 02/09/18 Range/Units 06:35 WBC (4.8-10.8) K/uL RBC (3.80-5.20) Mil/uL Hgb (11.0-16.0) g/dL Hct (34.0-47.0) % MCV (81.0-99.0) fL MCH (27.0-31.0) pg MCHC (33.0-37.0) g/dL RDW (11.5-14.5) % Plt Count (130-400) K/uL MPV (7.2-11.7) fL Neut % (Auto) (50.0-75.0) % Lymph % (Auto) (20.0-40.0) % [place] % (Auto) (0.0-10.0) % Eos % (Auto) (0.0-4.0) % Baso % (Auto) (0.0-2.0) % Neut # (Auto) (1.8-7.0) K/uL Lymph # (Auto) (1.0-4.3) K/uL [place] # (Auto) (0.0-0.8) K/uL Eos # (Auto) (0.0-0.7) K/uL Baso # (Auto) (0.0-0.2) K/uL Sodium (132-148) mmol/L Potassium (3.6-5.2) mmol/L Chloride (98-107) mmol/L Carbon Dioxide (22-30) mmol/L Anion Gap (10-20) BUN (7-17) mg/dL Creatinine (0.7-1.2) mg/dL Est GFR ( Amer) Est GFR (Non-Af Amer) POC Glucose (mg/dL) (65-110) mg/dL Random Glucose (65-105) mg/dL Calcium (8.6-10.4) mg/dl Phosphorus (2.5-4.5) mg/dL Magnesium (1.6-2.3) mg/dL Total Bilirubin (0.2-1.3) mg/dL AST (14-36) U/L ALT (9-52) U/L Alkaline Phosphatase (38-126) U/L Total Protein (6.3-8.3) g/dL Albumin (3.5-5.0) g/dL Globulin (2.2-3.9) gm/dL Albumin/Globulin Ratio (1.0-2.1) Toxicology Panel see note Laboratory Results - last 24 hr 02/09/18 02/16/18 02/16/18 06:35 16:33 21:04 WBC RBC Hgb Hct MCV MCH MCHC RDW Plt Count MPV Neut % (Auto) Lymph % (Auto) [place] % (Auto) Eos % (Auto) Baso % (Auto) Neut # (Auto) Lymph # (Auto) [place] # (Auto) Eos # (Auto) Baso # (Auto) Sodium Potassium Chloride Carbon Dioxide Anion Gap BUN Creatinine Est GFR ( Amer) Est GFR (Non-Af Amer) POC Glucose (mg/dL) 106 180 H Random Glucose Calcium Phosphorus Magnesium Total Bilirubin AST ALT Alkaline Phosphatase Total Protein Albumin Globulin Albumin/Globulin Ratio Toxicology Panel see note 02/17/18 02/17/18 02/17/18 06:26 06:26 07:33 WBC 5.7 RBC 2.47 L Hgb 8.1 L Hct 24.3 L MCV 98.4 MCH 33.0 H MCHC 33.5 RDW 21.2 H Plt Count 132 MPV 10.1 Neut % (Auto) 63.9 Lymph % (Auto) 22.6 [place] % (Auto) 9.6 Eos % (Auto) 2.8 Baso % (Auto) 1.1 Neut # (Auto) 3.6 Lymph # (Auto) 1.3 [place] # (Auto) 0.5 Eos # (Auto) 0.2 Baso # (Auto) 0.1 Sodium 138 Potassium 4.1 Chloride 101 Carbon Dioxide 23 Anion Gap 18 BUN 39 H Creatinine 6.7 H Est GFR ( Amer) 7 Est GFR (Non-Af Amer) 6 POC Glucose (mg/dL) 77 Random Glucose 67 Calcium 8.3 L Phosphorus 8.1 H Magnesium 2.4 H Total Bilirubin 4.9 H AST 22 ALT 20 Alkaline Phosphatase 147 H Total Protein 7.3 Albumin 2.7 L Globulin 4.6 H Albumin/Globulin Ratio 0.6 L Toxicology Panel 02/17/18 11:22 WBC RBC Hgb Hct MCV MCH MCHC RDW Plt Count MPV Neut % (Auto) Lymph % (Auto) [place] % (Auto) Eos % (Auto) Baso % (Auto) Neut # (Auto) Lymph # (Auto) [place] # (Auto) Eos # (Auto) Baso # (Auto) Sodium Potassium Chloride Carbon Dioxide Anion Gap BUN Creatinine Est GFR ( Amer) Est GFR (Non-Af Amer) POC Glucose (mg/dL) 140 H Random Glucose Calcium Phosphorus Magnesium Total Bilirubin AST ALT Alkaline Phosphatase Total Protein Albumin Globulin Albumin/Globulin Ratio Toxicology Panel Fingerstick Blood Sugar Results: 140 Critical Care Progress Note - Nutrition Nutrition: Nutrition Category Date Time Status Consistent Carbohydrate [DIET] Diets 02/15/18 Dinner Active Assessment/Plan (1) Altered mental status Assessment and plan: Patient admitted initially with altered mental status secondary to sepsis. Gram-positive cocci media, staph infection. Recent blood culture is negative. Currently on antibiotic. We will continue to currently treat with antibiotic. ID follow-up. Clinical stable for transfer to floor Current Visit: Yes Status: Acute
--- NOTE | 2018-02-17 14:29 | CP.PCM.PN ---
Subjective - Date & Time of Evaluation Date of Evaluation: 02/17/18 Time of Evaluation: 13:20 - Subjective Subjective: clinically same Objective - Vital Signs/Intake and Output Vital Signs (last 24 hours): Temp Pulse Resp BP Pulse Ox 97.7 F 72 12 134/56 L 95 02/17/18 12:30 02/17/18 13:00 02/17/18 13:00 02/17/18 12:53 02/17/18 13:00 Intake and Output: 02/17/18 02/17/18 06:59 18:59 Intake Total 650 360 Output Total 0 Balance 650 360 - Medications Medications: Current Medications Acetaminophen (Tylenol 325mg Tab) 650 mg PO Q6 PRN PRN Reason: Pain, moderate (4-7) Last Admin: 02/17/18 11:25 Dose: 650 mg Bacitracin (Bacitracin) 0 gm TOP DAILY [facility] Last Admin: 02/17/18 09:38 Dose: 1 applic Benzocaine/Menthol (Cepacol Sore Throat) 1 naomi PO Q2 PRN PRN Reason: Sore Throat Last Admin: 02/13/18 22:03 Dose: 1 naomi Docusate Sodium (Colace) 100 mg PO DAILY [facility] Last Admin: 02/17/18 09:26 Dose: Not Given Emollient Ointment (Vaseline Oint) 1 gm EXT Q8 PRN PRN Reason: Dry skin Last Admin: 02/17/18 09:36 Dose: 1 gm Epoetin Yvon (Procrit) 10,000 unit IV MWF [facility] Last Admin: 02/17/18 10:04 Dose: 10,000 unit Ergocalciferol (Drisdol 50,000 Intl Units Cap) 1 cap PO QD7 [facility] Nafcillin Sodium 2 gm/ Sodium (Chloride) 250 mls @ 250 mls/hr IVPB Q6H [facility] PRN Reason: Protocol Last Admin: 02/17/18 11:26 Dose: 250 mls/hr Gentamicin Sulfate 80 mg/ (Sodium Chloride) 102 mls @ 100 mls/hr IVPB MWF [facility] PRN Reason: Protocol Last Admin: 02/17/18 13:06 Dose: 100 mls/hr Insulin Human Regular (Novolin R) 0 unit SC ACHS [facility] PRN Reason: Protocol Last Admin: 02/17/18 11:27 Dose: Not Given Lactulose (Enulose) 20 gm PO DAILY PRN PRN Reason: constipation Levothyroxine Sodium (Synthroid) 200 mcg PO DAILY@0630 [facility] Last Admin: 02/17/18 05:42 Dose: 200 mcg Loratadine (Claritin) 10 mg PO DAILY [facility] Last Admin: 02/17/18 09:37 Dose: 10 mg Multivitamins/Vitamin C (Multi-Delyn Liquid) 5 ml PO DAILY [facility] Last Admin: 02/17/18 09:37 Dose: 5 ml Pantoprazole Sodium (Protonix Ec Tab) 40 mg PO DAILY [facility] Last Admin: 02/17/18 09:37 Dose: 40 mg Thiamine HCl (Vitamin B1 Inj) 200 mg IV Q8H [facility] Last Admin: 02/17/18 09:36 Dose: 200 mg Ursodiol (Actigall) 300 mg PO BID [facility] Last Admin: 02/17/18 09:37 Dose: 300 mg - Labs Labs: 02/17/18 06:26 02/17/18 06:26 PT 14.1 SECONDS (9.7-12.2) H 02/04/18 15:52 INR 1.3 02/04/18 15:52 APTT 34 SECONDS (21-34) 02/04/18 15:52 - Constitutional Appears: Well - Head Exam Head Exam: ATRAUMATIC, NORMAL INSPECTION, NORMOCEPHALIC - Eye Exam Eye Exam: EOMI, Normal appearance, PERRL Pupil Exam: NORMAL ACCOMODATION, PERRL - ENT Exam ENT Exam: Mucous Membranes Moist, Normal Exam - Neck Exam Neck Exam: Full ROM, Normal Inspection. absent: Lymphadenopathy - Respiratory Exam Respiratory Exam: Decreased Breath Sounds - Cardiovascular Exam Cardiovascular Exam: REGULAR RHYTHM, +S1, +S2 - GI/Abdominal Exam GI & Abdominal Exam: Soft, Diminished Bowel Sounds - Rectal Exam Rectal Exam: Deferred Assessment and Plan (1) Altered mental status Status: Acute (2) ESRD (end stage renal disease) on dialysis Status: Acute (3) Gastritis Status: Acute (4) Musculoskeletal pain Status: Acute (5) Rib contusion Status: Acute (6) Toxic metabolic encephalopathy Status: Acute - Assessment and Plan (Free Text) Plan: iv nafcillin insulin IV gentamicin Thiamine Continue same Follow-up with the ID Dialysis As ordered
[2018-02-18] MEDS: Thiamine 100 mg/ml Inj IV SCH ×3 (02:45→19:01)
[2018-02-18] MEDS: Levothyroxine 100 MCG TAB PO SCH (05:38)
[2018-02-18] MEDS: (Novolin R) Insulin Human Regular 100 units/ml vial SC SCH ×4 (07:57→22:32)
[2018-02-18] MEDS: Pantoprazole 40 mg EC Tab PO SCH (10:48)
[2018-02-18] MEDS: Multiple Vitamins Oral Solution PO SCH (10:50)
[2018-02-18] MEDS: Bacitracin Ointment 30 GM TUBE TOP SCH (11:00)
--- NOTE | 2018-02-18 11:02 | CP.PCM.PN ---
Subjective - Date & Time of Evaluation Date of Evaluation: 02/18/18 Time of Evaluation: 08:00 - Subjective Subjective: BLOOD C/S NEG X 48H CONT IV RX Objective - Vital Signs/Intake and Output Vital Signs (last 24 hours): Temp Pulse Resp BP Pulse Ox 97.4 F L 74 20 158/59 H 98 02/18/18 09:02 02/18/18 09:02 02/18/18 09:02 02/18/18 09:02 02/18/18 09:02 Intake and Output: 02/18/18 02/18/18 06:59 18:59 Intake Total 700 Output Total 0 Balance 700 - Medications Medications: Current Medications Acetaminophen (Tylenol 325mg Tab) 650 mg PO Q6 PRN PRN Reason: Pain, moderate (4-7) Last Admin: 02/17/18 11:25 Dose: 650 mg Bacitracin (Bacitracin) 0 gm TOP DAILY [facility] Last Admin: 02/17/18 09:38 Dose: 1 applic Benzocaine/Menthol (Cepacol Sore Throat) 1 naomi PO Q2 PRN PRN Reason: Sore Throat Last Admin: 02/13/18 22:03 Dose: 1 naomi Docusate Sodium (Colace) 100 mg PO DAILY [facility] Last Admin: 02/18/18 10:48 Dose: 100 mg Emollient Ointment (Vaseline Oint) 1 gm EXT Q8 PRN PRN Reason: Dry skin Last Admin: 02/17/18 09:36 Dose: 1 gm Epoetin Yvon (Procrit) 10,000 unit IV MWF [facility] Last Admin: 02/17/18 10:04 Dose: 10,000 unit Ergocalciferol (Drisdol 50,000 Intl Units Cap) 1 cap PO QD7 [facility] Nafcillin Sodium 2 gm/ Sodium (Chloride) 250 mls @ 250 mls/hr IVPB Q6H [facility] PRN Reason: Protocol Last Admin: 02/18/18 05:20 Dose: 250 mls/hr Gentamicin Sulfate 80 mg/ (Sodium Chloride) 102 mls @ 100 mls/hr IVPB MWF [facility] PRN Reason: Protocol Last Admin: 02/17/18 13:06 Dose: 100 mls/hr Insulin Human Regular (Novolin R) 0 unit SC ACHS [facility] PRN Reason: Protocol Last Admin: 02/18/18 07:57 Dose: Not Given Lactulose (Enulose) 20 gm PO DAILY PRN PRN Reason: constipation Levothyroxine Sodium (Synthroid) 200 mcg PO DAILY@0630 [facility] Last Admin: 02/18/18 05:38 Dose: 200 mcg Loratadine (Claritin) 10 mg PO DAILY [facility] Last Admin: 02/18/18 10:48 Dose: 10 mg Multivitamins/Vitamin C (Multi-Delyn Liquid) 5 ml PO DAILY [facility] Last Admin: 02/18/18 10:50 Dose: 5 ml Pantoprazole Sodium (Protonix Ec Tab) 40 mg PO DAILY [facility] Last Admin: 02/18/18 10:48 Dose: 40 mg Thiamine HCl (Vitamin B1 Inj) 200 mg IV Q8H [facility] Last Admin: 02/18/18 10:42 Dose: 200 mg Ursodiol (Actigall) 300 mg PO BID [facility] Last Admin: 02/18/18 10:48 Dose: 300 mg - Labs Labs: 02/17/18 06:26 02/17/18 06:26 PT 14.1 SECONDS (9.7-12.2) H 02/04/18 15:52 INR 1.3 02/04/18 15:52 APTT 34 SECONDS (21-34) 02/04/18 15:52 - Constitutional Appears: No Acute Distress, Chronically Ill - Head Exam Head Exam: NORMOCEPHALIC - Eye Exam Eye Exam: absent: Scleral icterus - Neck Exam Neck Exam: absent: Lymphadenopathy - Respiratory Exam Respiratory Exam: Decreased Breath Sounds - Cardiovascular Exam Cardiovascular Exam: REGULAR RHYTHM - GI/Abdominal Exam GI & Abdominal Exam: Distended - Rectal Exam Rectal Exam: Deferred - Exam Exam: NORMAL INSPECTION Assessment and Plan (1) Altered mental status Status: Acute (2) Dyspnea Status: Acute (3) ESRD (end stage renal disease) on dialysis Status: Acute (4) Lacunar infarction Status: Acute (5) Sepsis Status: Acute (6) Sepsis Status: Acute (7) Staphylococcus aureus bacteremia Status: Acute (8) Toxic metabolic encephalopathy Status: Acute
--- NOTE | 2018-02-18 15:19 | CP.PCM.PN ---
Subjective - Date & Time of Evaluation Date of Evaluation: 02/18/18 Time of Evaluation: 10:00 - Subjective Subjective: clinically same Objective - Vital Signs/Intake and Output Vital Signs (last 24 hours): Temp Pulse Resp BP Pulse Ox 97.4 F L 74 20 158/59 H 98 02/18/18 09:02 02/18/18 13:38 02/18/18 09:02 02/18/18 09:02 02/18/18 09:02 Intake and Output: 02/18/18 02/18/18 06:59 18:59 Intake Total 700 Output Total 0 Balance 700 - Medications Medications: Current Medications Acetaminophen (Tylenol 325mg Tab) 650 mg PO Q6 PRN PRN Reason: Pain, moderate (4-7) Last Admin: 02/17/18 11:25 Dose: 650 mg Bacitracin (Bacitracin) 0 gm TOP DAILY [facility] Last Admin: 02/18/18 11:00 Dose: 1 applic Benzocaine/Menthol (Cepacol Sore Throat) 1 naomi PO Q2 PRN PRN Reason: Sore Throat Last Admin: 02/13/18 22:03 Dose: 1 naomi Docusate Sodium (Colace) 100 mg PO DAILY [facility] Last Admin: 02/18/18 10:48 Dose: 100 mg Emollient Ointment (Vaseline Oint) 1 gm EXT Q8 PRN PRN Reason: Dry skin Last Admin: 02/17/18 09:36 Dose: 1 gm Epoetin Yvon (Procrit) 10,000 unit IV MWF [facility] Last Admin: 02/17/18 10:04 Dose: 10,000 unit Ergocalciferol (Drisdol 50,000 Intl Units Cap) 1 cap PO QD7 [facility] Nafcillin Sodium 2 gm/ Sodium (Chloride) 250 mls @ 250 mls/hr IVPB Q6H [facility] PRN Reason: Protocol Last Admin: 02/18/18 12:07 Dose: 250 mls/hr Gentamicin Sulfate 80 mg/ (Sodium Chloride) 102 mls @ 100 mls/hr IVPB MWF [facility] PRN Reason: Protocol Last Admin: 02/17/18 13:06 Dose: 100 mls/hr Insulin Human Regular (Novolin R) 0 unit SC ACHS [facility] PRN Reason: Protocol Last Admin: 02/18/18 12:07 Dose: Not Given Lactulose (Enulose) 20 gm PO DAILY PRN PRN Reason: constipation Levothyroxine Sodium (Synthroid) 200 mcg PO DAILY@0630 [facility] Last Admin: 02/18/18 05:38 Dose: 200 mcg Loratadine (Claritin) 10 mg PO DAILY [facility] Last Admin: 02/18/18 10:48 Dose: 10 mg Multivitamins/Vitamin C (Multi-Delyn Liquid) 5 ml PO DAILY [facility] Last Admin: 02/18/18 10:50 Dose: 5 ml Pantoprazole Sodium (Protonix Ec Tab) 40 mg PO DAILY [facility] Last Admin: 02/18/18 10:48 Dose: 40 mg Thiamine HCl (Vitamin B1 Inj) 200 mg IV Q8H [facility] Last Admin: 02/18/18 10:42 Dose: 200 mg Ursodiol (Actigall) 300 mg PO BID [facility] Last Admin: 02/18/18 10:48 Dose: 300 mg - Labs Labs: 02/17/18 06:26 02/17/18 06:26 PT 14.1 SECONDS (9.7-12.2) H 02/04/18 15:52 INR 1.3 02/04/18 15:52 APTT 34 SECONDS (21-34) 02/04/18 15:52 - Constitutional Appears: Well - Head Exam Head Exam: ATRAUMATIC, NORMAL INSPECTION, NORMOCEPHALIC - Eye Exam Eye Exam: EOMI, Normal appearance, PERRL Pupil Exam: NORMAL ACCOMODATION, PERRL - ENT Exam ENT Exam: Mucous Membranes Moist, Normal Exam - Neck Exam Neck Exam: Full ROM, Normal Inspection. absent: Lymphadenopathy - Respiratory Exam Respiratory Exam: Decreased Breath Sounds - Cardiovascular Exam Cardiovascular Exam: REGULAR RHYTHM, +S1, +S2 - GI/Abdominal Exam GI & Abdominal Exam: Soft, Diminished Bowel Sounds - Rectal Exam Rectal Exam: Deferred Assessment and Plan (1) Altered mental status Status: Acute (2) ESRD (end stage renal disease) on dialysis Status: Acute (3) Gastritis Status: Acute (4) Musculoskeletal pain Status: Acute (5) Rib contusion Status: Acute (6) Toxic metabolic encephalopathy Status: Acute
--- NOTE | 2018-02-18 15:21 | CP.PCM.PN ---
Subjective - Date & Time of Evaluation Date of Evaluation: 02/18/18 Time of Evaluation: 12:30 - Subjective Subjective: Patient seen and examined at beside today. Patient resting comfortably in bed in no acute distress. Patient was downgraded from ICU and transferred to telemetry this morning. Patient is complaining of aches all over. Patient states she still has difficulty breathing. Assessment/Plan: 1. Acute Respiratory Failure, Resolved - Episode of Cardiac Arrest and Intubation on 02/09 - Extubated on 02/14 - Downgraded from ICU 02/18 - Stable from a pulmonary standpoint 2. Bacteremia, resolved - 02/14 Blood cx: Positive for Staph Aureus - Repeat blood cultures negative from 02/15 - WBC 02/17: 5.7 - On Gentamicin, Nafcillin - Follow ID recommendations 3. End-Stage Renal Disease on dialysis - Management per primary team Objective - Vital Signs/Intake and Output Vital Signs (last 24 hours): Temp Pulse Resp BP Pulse Ox 97.4 F L 74 20 158/59 H 98 02/18/18 09:02 02/18/18 13:38 02/18/18 09:02 02/18/18 09:02 02/18/18 09:02 Intake and Output: 02/18/18 02/18/18 06:59 18:59 Intake Total 700 Output Total 0 Balance 700 - Medications Medications: Current Medications Acetaminophen (Tylenol 325mg Tab) 650 mg PO Q6 PRN PRN Reason: Pain, moderate (4-7) Last Admin: 02/17/18 11:25 Dose: 650 mg Bacitracin (Bacitracin) 0 gm TOP DAILY [facility] Last Admin: 02/18/18 11:00 Dose: 1 applic Benzocaine/Menthol (Cepacol Sore Throat) 1 naomi PO Q2 PRN PRN Reason: Sore Throat Last Admin: 02/13/18 22:03 Dose: 1 naomi Docusate Sodium (Colace) 100 mg PO DAILY [facility] Last Admin: 02/18/18 10:48 Dose: 100 mg Emollient Ointment (Vaseline Oint) 1 gm EXT Q8 PRN PRN Reason: Dry skin Last Admin: 02/17/18 09:36 Dose: 1 gm Epoetin Yvon (Procrit) 10,000 unit IV MWF [facility] Last Admin: 02/17/18 10:04 Dose: 10,000 unit Ergocalciferol (Drisdol 50,000 Intl Units Cap) 1 cap PO QD7 [facility] Nafcillin Sodium 2 gm/ Sodium (Chloride) 250 mls @ 250 mls/hr IVPB Q6H [facility] PRN Reason: Protocol Last Admin: 02/18/18 12:07 Dose: 250 mls/hr Gentamicin Sulfate 80 mg/ (Sodium Chloride) 102 mls @ 100 mls/hr IVPB MWF [facility] PRN Reason: Protocol Last Admin: 02/17/18 13:06 Dose: 100 mls/hr Insulin Human Regular (Novolin R) 0 unit SC ACHS [facility] PRN Reason: Protocol Last Admin: 02/18/18 12:07 Dose: Not Given Lactulose (Enulose) 20 gm PO DAILY PRN PRN Reason: constipation Levothyroxine Sodium (Synthroid) 200 mcg PO DAILY@0630 [facility] Last Admin: 02/18/18 05:38 Dose: 200 mcg Loratadine (Claritin) 10 mg PO DAILY [facility] Last Admin: 02/18/18 10:48 Dose: 10 mg Multivitamins/Vitamin C (Multi-Delyn Liquid) 5 ml PO DAILY [facility] Last Admin: 02/18/18 10:50 Dose: 5 ml Pantoprazole Sodium (Protonix Ec Tab) 40 mg PO DAILY [facility] Last Admin: 02/18/18 10:48 Dose: 40 mg Thiamine HCl (Vitamin B1 Inj) 200 mg IV Q8H [facility] Last Admin: 02/18/18 10:42 Dose: 200 mg Ursodiol (Actigall) 300 mg PO BID [facility] Last Admin: 02/18/18 10:48 Dose: 300 mg - Labs Labs: 02/17/18 06:26 02/17/18 06:26 PT 14.1 SECONDS (9.7-12.2) H 02/04/18 15:52 INR 1.3 02/04/18 15:52 APTT 34 SECONDS (21-34) 02/04/18 15:52 Assessment and Plan (1) Staphylococcus aureus bacteremia Status: Acute (2) Dyspnea Status: Acute (3) Altered mental status Status: Acute (4) ESRD (end stage renal disease) on dialysis Status: Acute
--- NOTE | 2018-02-18 19:17 | CP.PCM.PN ---
Subjective - Date & Time of Evaluation Date of Evaluation: 02/18/18 Time of Evaluation: 13:20 - Subjective Subjective: Appears comfortable. Objective - Vital Signs/Intake and Output Vital Signs (last 24 hours): Temp Pulse Resp BP Pulse Ox 97.4 F L 74 20 158/59 H 98 02/18/18 09:02 02/18/18 13:38 02/18/18 09:02 02/18/18 09:02 02/18/18 09:02 - Medications Medications: Current Medications Acetaminophen (Tylenol 325mg Tab) 650 mg PO Q6 PRN PRN Reason: Pain, moderate (4-7) Last Admin: 02/17/18 11:25 Dose: 650 mg Bacitracin (Bacitracin) 0 gm TOP DAILY [facility] Last Admin: 02/18/18 11:00 Dose: 1 applic Benzocaine/Menthol (Cepacol Sore Throat) 1 naomi PO Q2 PRN PRN Reason: Sore Throat Last Admin: 02/13/18 22:03 Dose: 1 naomi Docusate Sodium (Colace) 100 mg PO DAILY [facility] Last Admin: 02/18/18 10:48 Dose: 100 mg Emollient Ointment (Vaseline Oint) 1 gm EXT Q8 PRN PRN Reason: Dry skin Last Admin: 02/17/18 09:36 Dose: 1 gm Epoetin Yvon (Procrit) 10,000 unit IV MWF [facility] Last Admin: 02/17/18 10:04 Dose: 10,000 unit Ergocalciferol (Drisdol 50,000 Intl Units Cap) 1 cap PO QD7 [facility] Nafcillin Sodium 2 gm/ Sodium (Chloride) 250 mls @ 250 mls/hr IVPB Q6H [facility] PRN Reason: Protocol Last Admin: 02/18/18 17:14 Dose: 250 mls/hr Gentamicin Sulfate 80 mg/ (Sodium Chloride) 102 mls @ 100 mls/hr IVPB MWF [facility] PRN Reason: Protocol Last Admin: 02/17/18 13:06 Dose: 100 mls/hr Insulin Human Regular (Novolin R) 0 unit SC ACHS [facility] PRN Reason: Protocol Last Admin: 02/18/18 16:45 Dose: Not Given Lactulose (Enulose) 20 gm PO DAILY PRN PRN Reason: constipation Levothyroxine Sodium (Synthroid) 200 mcg PO DAILY@0630 [facility] Last Admin: 02/18/18 05:38 Dose: 200 mcg Loratadine (Claritin) 10 mg PO DAILY [facility] Last Admin: 02/18/18 10:48 Dose: 10 mg Multivitamins/Vitamin C (Multi-Delyn Liquid) 5 ml PO DAILY [facility] Last Admin: 02/18/18 10:50 Dose: 5 ml Pantoprazole Sodium (Protonix Ec Tab) 40 mg PO DAILY [facility] Last Admin: 02/18/18 10:48 Dose: 40 mg Thiamine HCl (Vitamin B1 Inj) 200 mg IV Q8H [facility] Last Admin: 02/18/18 19:01 Dose: 200 mg Ursodiol (Actigall) 300 mg PO BID [facility] Last Admin: 02/18/18 19:01 Dose: 300 mg - Labs Labs: 02/17/18 06:26 02/17/18 06:26 PT 14.1 SECONDS (9.7-12.2) H 02/04/18 15:52 INR 1.3 02/04/18 15:52 APTT 34 SECONDS (21-34) 02/04/18 15:52 - Head Exam Head Exam: ATRAUMATIC - Eye Exam Eye Exam: Normal appearance - ENT Exam ENT Exam: Mucous Membranes Dry - Respiratory Exam Respiratory Exam: NORMAL BREATHING PATTERN - Cardiovascular Exam Cardiovascular Exam: +S1, +S2 - GI/Abdominal Exam GI & Abdominal Exam: Normal Bowel Sounds Assessment and Plan (1) Thrombocytopenia Assessment & Plan: resolving secondary to sepsis Status: Acute (2) Anemia Assessment & Plan: anemia of chronic disease Status: Acute (3) Coagulopathy Assessment & Plan: nutritional Status: Acute
[2018-02-18 21:49] LABS: HEMOGLOBIN 7.8 g/dL (11.0-16.0); MEAN CELL VOLUME 98.3 fL (81.0-99.0); MEAN CORPUSCULAR HGB CONC 33.5 g/dL (33.0-37.0); MEAN PLATELET VOLUME 9.3 fL (7.2-11.7); RBC 2.36 Mil/uL (3.80-5.20); WHITE BLOOD COUNT 5.3 K/uL (4.8-10.8)
[2018-02-18 21:57] LABS: INR 1.3
[2018-02-18 22:06] LABS: ALB/GLOB RATIO 0.6 (1.0-2.1); ALBUMIN 2.4 g/dL (3.5-5.0); CALCIUM 8.2 mg/dl (8.6-10.4)
--- NOTE | 2018-02-19 00:40 | CP.PCM.PN ---
Subjective - Date & Time of Evaluation Date of Evaluation: 02/19/18 Time of Evaluation: 00:35 - Subjective Subjective: Progress note. Rapid response called evening of 02/18/2018. Pt was bleeding from site of AV fistula. Pt is irish speaking only. Sx resident paged. Pt's arm was elevated. Venous access was obtained through jugular. Pt's bleeding was controlled with light pressure. Labs sent. Type and cross sent. May need transfusion prn VSS A/P 1. Bleeding from AV fistula site. -CBC -PT/INR -type and cross match -bleeding precautions -light pressure applied -palpable thrill positive Objective - Vital Signs/Intake and Output Vital Signs (last 24 hours): Temp Pulse Resp BP Pulse Ox 98.5 F 80 20 136/61 100 02/18/18 23:15 02/18/18 23:15 02/18/18 23:15 02/18/18 23:15 02/18/18 23:15 Intake and Output: 02/18/18 02/19/18 18:59 06:59 Intake Total 400 Balance 400 - Medications Medications: Current Medications Acetaminophen (Tylenol 325mg Tab) 650 mg PO Q6 PRN PRN Reason: Pain, moderate (4-7) Last Admin: 02/17/18 11:25 Dose: 650 mg Bacitracin (Bacitracin) 0 gm TOP DAILY [facility] Last Admin: 02/18/18 11:00 Dose: 1 applic Benzocaine/Menthol (Cepacol Sore Throat) 1 naomi PO Q2 PRN PRN Reason: Sore Throat Last Admin: 02/13/18 22:03 Dose: 1 naomi Docusate Sodium (Colace) 100 mg PO DAILY [facility] Last Admin: 02/18/18 10:48 Dose: 100 mg Emollient Ointment (Vaseline Oint) 1 gm EXT Q8 PRN PRN Reason: Dry skin Last Admin: 02/17/18 09:36 Dose: 1 gm Epoetin Yvon (Procrit) 10,000 unit IV MWF [facility] Last Admin: 02/17/18 10:04 Dose: 10,000 unit Ergocalciferol (Drisdol 50,000 Intl Units Cap) 1 cap PO QD7 [facility] Nafcillin Sodium 2 gm/ Sodium (Chloride) 250 mls @ 250 mls/hr IVPB Q6H [facility] PRN Reason: Protocol Last Admin: 02/18/18 22:32 Dose: 250 mls/hr Gentamicin Sulfate 80 mg/ (Sodium Chloride) 102 mls @ 100 mls/hr IVPB MWF [facility] PRN Reason: Protocol Last Admin: 02/17/18 13:06 Dose: 100 mls/hr Insulin Human Regular (Novolin R) 0 unit SC ACHS [facility] PRN Reason: Protocol Last Admin: 02/18/18 22:32 Dose: 2 unit Lactulose (Enulose) 20 gm PO DAILY PRN PRN Reason: constipation Levothyroxine Sodium (Synthroid) 200 mcg PO DAILY@0630 [facility] Last Admin: 02/18/18 05:38 Dose: 200 mcg Loratadine (Claritin) 10 mg PO DAILY [facility] Last Admin: 02/18/18 10:48 Dose: 10 mg Multivitamins/Vitamin C (Multi-Delyn Liquid) 5 ml PO DAILY [facility] Last Admin: 02/18/18 10:50 Dose: 5 ml Pantoprazole Sodium (Protonix Ec Tab) 40 mg PO DAILY [facility] Last Admin: 02/18/18 10:48 Dose: 40 mg Thiamine HCl (Vitamin B1 Inj) 200 mg IV Q8H [facility] Last Admin: 02/18/18 19:01 Dose: 200 mg Ursodiol (Actigall) 300 mg PO BID [facility] Last Admin: 02/18/18 19:01 Dose: 300 mg - Labs Labs: 02/18/18 21:45 02/18/18 21:45 PT 14.0 SECONDS (9.7-12.2) H 02/18/18 21:45 INR 1.3 02/18/18 21:45 APTT 35 SECONDS (21-34) H 02/18/18 21:45 - Constitutional Appears: Chronically Ill - Head Exam Head Exam: ATRAUMATIC, NORMAL INSPECTION, NORMOCEPHALIC - Eye Exam Eye Exam: EOMI - ENT Exam ENT Exam: Mucous Membranes Moist - Neck Exam Neck Exam: Full ROM, Normal Inspection - Respiratory Exam Respiratory Exam: absent: Respiratory Distress - Cardiovascular Exam Cardiovascular Exam: +S1, +S2 - GI/Abdominal Exam GI & Abdominal Exam: Soft, Normal Bowel Sounds. absent: Tenderness - Extremities Exam Extremities Exam: absent: Full ROM, Normal Inspection - Neurological Exam Neurological Exam: Altered - Psychiatric Exam Psychiatric exam: Flat Affect - Skin Skin Exam: Dry, Intact, Normal Color, Warm Assessment and Plan - Assessment and Plan (Free Text) Assessment: -surgery resident notified -pt hemodynamically stable -bleeding under control -transfusions prn -bleeding precautions -bleeding controlled after only light pressure applied -new dressing applied discussed with Dr. Christian
[2018-02-19] MEDS: Thiamine 100 mg/ml Inj IV SCH ×3 (02:07→19:10)
[2018-02-19] MEDS: Levothyroxine 100 MCG TAB PO SCH (06:26)
[2018-02-19] MEDS: (Novolin R) Insulin Human Regular 100 units/ml vial SC SCH ×4 (07:59→22:36)
[2018-02-19] MEDS: Bacitracin Ointment 30 GM TUBE TOP SCH (10:00)
[2018-02-19] MEDS: Multiple Vitamins Oral Solution PO SCH (10:00)
[2018-02-19] MEDS: Pantoprazole 40 mg EC Tab PO SCH (10:00)
[2018-02-19 10:05] LABS: BASO # 0.1 K/uL (0.0-0.2); BASO % 1.3 % (0.0-2.0); EOS # 0.2 K/uL (0.0-0.7); EOS % 4.3 % (0.0-4.0); HEMOGLOBIN 7.9 g/dL (11.0-16.0); LYMPH % 20.8 % (20.0-40.0); MEAN CORPUSCULAR HEMOGLOBIN 32.9 pg (27.0-31.0); MEAN CORPUSCULAR HGB CONC 34.5 g/dL (33.0-37.0); MEAN PLATELET VOLUME 9.1 fL (7.2-11.7); MONO # 0.5 K/uL (0.0-0.8); MONO % 10.2 % (0.0-10.0); NEUT # 2.9 K/uL (1.8-7.0); NEUT % 63.4 % (50.0-75.0); NRBC % 0.3 % (0.0-2.0); RBC 2.39 Mil/uL (3.80-5.20); RED CELL DISTRIBUTION WIDTH 19.1 % (11.5-14.5); WHITE BLOOD COUNT 4.6 K/uL (4.8-10.8)
[2018-02-19 10:13] LABS: MEAN CELL VOLUME 95.5 fL (81.0-99.0)
[2018-02-19 10:24] LABS: ALB/GLOB RATIO 0.5 (1.0-2.1); ALBUMIN 2.1 g/dL (3.5-5.0)
[2018-02-19] MEDS: Epoetin Alfa 10,000 unit/ml Dialysis IV SCH (10:29)
--- NOTE | 2018-02-19 13:02 | CP.PCM.PN ---
Subjective - Date & Time of Evaluation Date of Evaluation: 02/19/18 Time of Evaluation: 12:30 - Subjective Subjective: Had bleeding from AV fistula Objective - Vital Signs/Intake and Output Vital Signs (last 24 hours): Temp Pulse Resp BP Pulse Ox 97.4 F L 70 18 135/66 99 02/19/18 10:04 02/19/18 09:40 02/19/18 09:40 02/19/18 11:40 02/19/18 09:40 Intake and Output: 02/19/18 02/19/18 06:59 18:59 Intake Total 1350 Balance 1350 - Medications Medications: Current Medications Acetaminophen (Tylenol 325mg Tab) 650 mg PO Q6 PRN PRN Reason: Pain, moderate (4-7) Last Admin: 02/19/18 10:04 Dose: 650 mg Bacitracin (Bacitracin) 0 gm TOP DAILY [facility] Last Admin: 02/18/18 11:00 Dose: 1 applic Benzocaine/Menthol (Cepacol Sore Throat) 1 naomi PO Q2 PRN PRN Reason: Sore Throat Last Admin: 02/13/18 22:03 Dose: 1 naomi Docusate Sodium (Colace) 100 mg PO DAILY [facility] Last Admin: 02/18/18 10:48 Dose: 100 mg Emollient Ointment (Vaseline Oint) 1 gm EXT Q8 PRN PRN Reason: Dry skin Last Admin: 02/17/18 09:36 Dose: 1 gm Epoetin Yvon (Procrit) 10,000 unit IV MWF [facility] Last Admin: 02/19/18 10:29 Dose: 10,000 unit Ergocalciferol (Drisdol 50,000 Intl Units Cap) 1 cap PO QD7 [facility] Nafcillin Sodium 2 gm/ Sodium (Chloride) 250 mls @ 250 mls/hr IVPB Q6H [facility] PRN Reason: Protocol Last Admin: 02/19/18 05:58 Dose: 250 mls/hr Gentamicin Sulfate 80 mg/ (Sodium Chloride) 102 mls @ 100 mls/hr IVPB MWF [facility] PRN Reason: Protocol Last Admin: 02/19/18 08:20 Dose: 100 mls/hr Insulin Human Regular (Novolin R) 0 unit SC ACHS [facility] PRN Reason: Protocol Last Admin: 02/19/18 07:59 Dose: Not Given Lactulose (Enulose) 20 gm PO DAILY PRN PRN Reason: constipation Levothyroxine Sodium (Synthroid) 200 mcg PO DAILY@0630 [facility] Last Admin: 02/19/18 06:26 Dose: 200 mcg Loratadine (Claritin) 10 mg PO DAILY [facility] Last Admin: 02/18/18 10:48 Dose: 10 mg Multivitamins/Vitamin C (Multi-Delyn Liquid) 5 ml PO DAILY [facility] Last Admin: 02/18/18 10:50 Dose: 5 ml Pantoprazole Sodium (Protonix Ec Tab) 40 mg PO DAILY [facility] Last Admin: 02/18/18 10:48 Dose: 40 mg Thiamine HCl (Vitamin B1 Inj) 200 mg IV Q8H [facility] Last Admin: 02/19/18 02:07 Dose: 200 mg Ursodiol (Actigall) 300 mg PO BID [facility] Last Admin: 02/18/18 19:01 Dose: 300 mg - Labs Labs: 02/19/18 09:56 02/19/18 09:56 PT 14.0 SECONDS (9.7-12.2) H 02/18/18 21:45 INR 1.3 02/18/18 21:45 APTT 35 SECONDS (21-34) H 02/18/18 21:45 - Head Exam Head Exam: ATRAUMATIC - Eye Exam Eye Exam: Normal appearance - ENT Exam ENT Exam: Mucous Membranes Dry - Respiratory Exam Respiratory Exam: NORMAL BREATHING PATTERN - Cardiovascular Exam Cardiovascular Exam: +S1, +S2 - GI/Abdominal Exam GI & Abdominal Exam: Normal Bowel Sounds Assessment and Plan (1) Anemia Assessment & Plan: anemia of chronic disease and renal disease on EPO transfusion support PRN Status: Acute (2) Coagulopathy Assessment & Plan: nutritional Status: Acute
--- NOTE | 2018-02-19 14:33 | CP.PCM.CON ---
History of Present Illness - History of Present Illness History of Present Illness: Vascular Surgery Consult Note For Dr. Ramirez (covering for Dr. Barahona This is a 72F with a PMH of ESRD on HD, HTN, DM the vascular service was previously consulted due to an infected permacath on 02/10 at that time the patients fistula was examined under ultrasound and determined to be usable. The permacath placed at an outside facility was removed. Since that time patient had received dialysis without issue. Since that time the patient has been thrombocytopenic. The patient last received dialysis on the , however yesterday night 02/18 the patient was found to be bleeding from her upper extremity from the skin overlying her fistula. The bleeding was promptly controlled with limb elevation and a small amount of pressure. PMH: See Above PSH: permacath, LUE AVF ALL: Lorazepam Review of Systems - Review of Systems All systems: reviewed and no additional remarkable complaints except - Hematologic/Lymphatic Hematologic: Easy Bleeding Past Patient History - Past Medical History & Family History Past Medical History?: Yes - Past Social History Smoking Status: Unknown If Ever Smoked - CARDIAC Hx Congestive Heart Failure: Yes Hx Hypertension: Yes - PULMONARY Hx Respiratory Disorders: No - NEUROLOGICAL Hx Neurological Disorder: No - HEENT Hx HEENT Problems: No - RENAL Hx Chronic Kidney Disease: Yes Type of Dialysis Access: Lt subclavian HD cath Date of Last Dialysis Treatment: 02/03/18 - ENDOCRINE/METABOLIC Hx Endocrine Disorders: Yes Hx Hypothyroidism: Yes - HEMATOLOGICAL/ONCOLOGICAL Hx Blood Disorders: No - INTEGUMENTARY Hx Dermatological Problems: No - MUSCULOSKELETAL/RHEUMATOLOGICAL Hx Musculoskeletal Disorders: Yes Hx Falls: Yes - GASTROINTESTINAL Hx Gastrointestinal Disorders: Yes Hx Gastritis: Yes - GENITOURINARY/GYNECOLOGICAL Hx Genitourinary Disorders: No - PSYCHIATRIC Hx Psychophysiologic Disorder: No Hx Substance Use: No - SURGICAL HISTORY Hx Surgeries: Yes Hx Cholecystectomy: Yes - ANESTHESIA Hx Anesthesia: Yes Hx Anesthesia Reactions: No Hx Malignant Hyperthermia: No Has any member of the family had a problem w/ anesthesia?: No Meds Allergies/Adverse Reactions: Allergies Allergy/AdvReac Type Severity Reaction Status Date / Time lorazepam [From Ativan] AdvReac SHORTNESS Verified 02/06/18 09:42 OF BREATH - Medications Medications: Current Medications Acetaminophen (Tylenol 325mg Tab) 650 mg PO Q6 PRN PRN Reason: Pain, moderate (4-7) Last Admin: 02/19/18 10:04 Dose: 650 mg Bacitracin (Bacitracin) 0 gm TOP DAILY [facility] Last Admin: 02/18/18 11:00 Dose: 1 applic Benzocaine/Menthol (Cepacol Sore Throat) 1 naomi PO Q2 PRN PRN Reason: Sore Throat Last Admin: 02/13/18 22:03 Dose: 1 naomi Docusate Sodium (Colace) 100 mg PO DAILY [facility] Last Admin: 02/18/18 10:48 Dose: 100 mg Emollient Ointment (Vaseline Oint) 1 gm EXT Q8 PRN PRN Reason: Dry skin Last Admin: 02/17/18 09:36 Dose: 1 gm Epoetin Yvon (Procrit) 10,000 unit IV MWF [facility] Last Admin: 02/19/18 10:29 Dose: 10,000 unit Ergocalciferol (Drisdol 50,000 Intl Units Cap) 1 cap PO QD7 [facility] Nafcillin Sodium 2 gm/ Sodium (Chloride) 250 mls @ 250 mls/hr IVPB Q6H [facility] PRN Reason: Protocol Last Admin: 02/19/18 05:58 Dose: 250 mls/hr Gentamicin Sulfate 80 mg/ (Sodium Chloride) 102 mls @ 100 mls/hr IVPB MWF [facility] PRN Reason: Protocol Last Admin: 02/19/18 08:20 Dose: 100 mls/hr Insulin Human Regular (Novolin R) 0 unit SC ACHS [facility] PRN Reason: Protocol Last Admin: 02/19/18 07:59 Dose: Not Given Lactulose (Enulose) 20 gm PO DAILY PRN PRN Reason: constipation Levothyroxine Sodium (Synthroid) 200 mcg PO DAILY@0630 [facility] Last Admin: 02/19/18 06:26 Dose: 200 mcg Loratadine (Claritin) 10 mg PO DAILY [facility] Last Admin: 02/18/18 10:48 Dose: 10 mg Multivitamins/Vitamin C (Multi-Delyn Liquid) 5 ml PO DAILY [facility] Last Admin: 02/18/18 10:50 Dose: 5 ml Pantoprazole Sodium (Protonix Ec Tab) 40 mg PO DAILY [facility] Last Admin: 02/18/18 10:48 Dose: 40 mg Thiamine HCl (Vitamin B1 Inj) 200 mg IV Q8H [facility] Last Admin: 02/19/18 02:07 Dose: 200 mg Ursodiol (Actigall) 300 mg PO BID [facility] Last Admin: 02/18/18 19:01 Dose: 300 mg Physical Exam - Constitutional Appears: Non-toxic, No Acute Distress - Head Exam Head Exam: ATRAUMATIC, NORMOCEPHALIC - ENT Exam ENT Exam: Mucous Membranes Moist - Respiratory Exam Respiratory Exam: NORMAL BREATHING PATTERN - Cardiovascular Exam Cardiovascular Exam: +S1, +S2 - GI/Abdominal Exam GI & Abdominal Exam: Soft. absent: Distended, Rigid - Neurological Exam Neurological exam: Alert, Oriented x3 - Psychiatric Exam Psychiatric exam: Normal Affect, Normal Mood - Skin Skin Exam: Dry, Intact Results - Vital Signs Recent Vital Signs: Last Vital Signs Temp 97.9 F 02/19/18 12:40 Pulse 72 02/19/18 12:40 Resp 18 02/19/18 12:40 BP 101/57 L 02/19/18 12:40 Pulse Ox 97 02/19/18 12:40 - Labs Result Diagrams: 02/19/18 09:56 02/19/18 09:56 Labs: Laboratory Results - last 24 hr 02/18/18 02/18/18 02/18/18 16:25 21:02 21:45 WBC 5.3 RBC 2.36 L Hgb 7.8 L Hct 23.2 L MCV 98.3 MCH 33.0 H MCHC 33.5 RDW 21.0 H Plt Count 174 MPV 9.3 Neut % (Auto) Lymph % (Auto) Treasure % (Auto) Eos % (Auto) Baso % (Auto) Neut # (Auto) Lymph # (Auto) Treasure # (Auto) Eos # (Auto) Baso # (Auto) PT INR APTT Sodium Potassium Chloride Carbon Dioxide Anion Gap BUN Creatinine Est GFR ( Amer) Est GFR (Non-Af Amer) POC Glucose (mg/dL) 136 H 186 H Random Glucose Calcium Total Bilirubin AST ALT Alkaline Phosphatase Total Protein Albumin Globulin Albumin/Globulin Ratio Blood Type Antibody Screen Antibody Identification 02/18/18 02/18/18 02/18/18 21:45 21:45 21:45 WBC RBC Hgb Hct MCV MCH MCHC RDW Plt Count MPV Neut % (Auto) Lymph % (Auto) Treasure % (Auto) Eos % (Auto) Baso % (Auto) Neut # (Auto) Lymph # (Auto) Treasure # (Auto) Eos # (Auto) Baso # (Auto) PT 14.0 H INR 1.3 APTT 35 H Sodium 139 Potassium 4.4 Chloride 100 Carbon Dioxide 26 Anion Gap 17 BUN 31 H Creatinine 5.3 H Est GFR ( Amer) 10 Est GFR (Non-Af Amer) 8 POC Glucose (mg/dL) Random Glucose 155 H Calcium 8.2 L Total Bilirubin 4.9 H AST 31 ALT 13 Alkaline Phosphatase 138 H Total Protein 6.7 Albumin 2.4 L Globulin 4.3 H Albumin/Globulin Ratio 0.6 L Blood Type B POSITIVE Antibody Screen Positive Antibody Identification Anti E 02/19/18 02/19/18 02/19/18 02:09 06:46 06:48 WBC RBC Hgb Hct MCV MCH MCHC RDW Plt Count MPV Neut % (Auto) Lymph % (Auto) Treasure % (Auto) Eos % (Auto) Baso % (Auto) Neut # (Auto) Lymph # (Auto) Treasure # (Auto) Eos # (Auto) Baso # (Auto) PT INR APTT Sodium Potassium Chloride Carbon Dioxide Anion Gap BUN Creatinine Est GFR ( Amer) Est GFR (Non-Af Amer) POC Glucose (mg/dL) 120 H 65 68 Random Glucose Calcium Total Bilirubin AST ALT Alkaline Phosphatase Total Protein Albumin Globulin Albumin/Globulin Ratio Blood Type Antibody Screen Antibody Identification 02/19/18 02/19/18 02/19/18 07:08 09:56 09:56 WBC 4.6 L RBC 2.39 L Hgb 7.9 L Hct 22.8 L MCV 95.5 D MCH 32.9 H MCHC 34.5 RDW 19.1 H Plt Count 142 MPV 9.1 Neut % (Auto) 63.4 Lymph % (Auto) 20.8 Treasure % (Auto) 10.2 H Eos % (Auto) 4.3 H Baso % (Auto) 1.3 Neut # (Auto) 2.9 Lymph # (Auto) 1.0 Treasure # (Auto) 0.5 Eos # (Auto) 0.2 Baso # (Auto) 0.1 PT INR APTT Sodium 140 Potassium 3.8 Chloride 103 Carbon Dioxide 25 Anion Gap 16 BUN 31 H Creatinine 5.9 H Est GFR ( Amer) 8 Est GFR (Non-Af Amer) 7 POC Glucose (mg/dL) 76 Random Glucose 159 H Calcium 8.0 L Total Bilirubin 4.7 H AST 23 ALT 20 Alkaline Phosphatase 119 Total Protein 6.1 L Albumin 2.1 L Globulin 4.0 H Albumin/Globulin Ratio 0.5 L Blood Type Antibody Screen Antibody Identification 02/19/18 10:48 WBC RBC Hgb Hct MCV MCH MCHC RDW Plt Count MPV Neut % (Auto) Lymph % (Auto) Treasure % (Auto) Eos % (Auto) Baso % (Auto) Neut # (Auto) Lymph # (Auto) Treasure # (Auto) Eos # (Auto) Baso # (Auto) PT INR APTT Sodium Potassium Chloride Carbon Dioxide Anion Gap BUN Creatinine Est GFR ( Amer) Est GFR (Non-Af Amer) POC Glucose (mg/dL) 110 Random Glucose Calcium Total Bilirubin AST ALT Alkaline Phosphatase Total Protein Albumin Globulin Albumin/Globulin Ratio Blood Type Antibody Screen Antibody Identification Assessment & Plan - Assessment and Plan (Free Text) Assessment: This is a 72F with ESRD with spontaneous bleeding from her fistula Continue to dialyze from catheter Monitor fistula sight if bleeding resumes apply pressure Further recs per Dr. James Johansen PGY2
--- NOTE | 2018-02-19 15:31 | CP.PCM.PN ---
Subjective - Date & Time of Evaluation Date of Evaluation: 02/19/18 Time of Evaluation: 09:00 - Subjective Subjective: afrb nad Objective - Vital Signs/Intake and Output Vital Signs (last 24 hours): Temp Pulse Resp BP Pulse Ox 97.9 F 72 18 101/57 L 97 02/19/18 12:40 02/19/18 12:40 02/19/18 12:40 02/19/18 12:40 02/19/18 12:40 Intake and Output: 02/19/18 02/19/18 06:59 18:59 Intake Total 1350 Balance 1350 - Medications Medications: Current Medications Acetaminophen (Tylenol 325mg Tab) 650 mg PO Q6 PRN PRN Reason: Pain, moderate (4-7) Last Admin: 02/19/18 10:04 Dose: 650 mg Bacitracin (Bacitracin) 0 gm TOP DAILY [facility] Last Admin: 02/19/18 10:00 Dose: Not Given Benzocaine/Menthol (Cepacol Sore Throat) 1 naomi PO Q2 PRN PRN Reason: Sore Throat Last Admin: 02/13/18 22:03 Dose: 1 naomi Docusate Sodium (Colace) 100 mg PO DAILY [facility] Last Admin: 02/19/18 10:00 Dose: Not Given Emollient Ointment (Vaseline Oint) 1 gm EXT Q8 PRN PRN Reason: Dry skin Last Admin: 02/17/18 09:36 Dose: 1 gm Epoetin Yvon (Procrit) 10,000 unit IV MWF [facility] Last Admin: 02/19/18 10:29 Dose: 10,000 unit Ergocalciferol (Drisdol 50,000 Intl Units Cap) 1 cap PO QD7 [facility] Nafcillin Sodium 2 gm/ Sodium (Chloride) 250 mls @ 250 mls/hr IVPB Q6H [facility] PRN Reason: Protocol Last Admin: 02/19/18 11:00 Dose: Not Given Gentamicin Sulfate 80 mg/ (Sodium Chloride) 102 mls @ 100 mls/hr IVPB MWF [facility] PRN Reason: Protocol Last Admin: 02/19/18 08:20 Dose: 100 mls/hr Insulin Human Regular (Novolin R) 0 unit SC ACHS [facility] PRN Reason: Protocol Last Admin: 02/19/18 12:16 Dose: Not Given Lactulose (Enulose) 20 gm PO DAILY PRN PRN Reason: constipation Levothyroxine Sodium (Synthroid) 200 mcg PO DAILY@0630 [facility] Last Admin: 02/19/18 06:26 Dose: 200 mcg Loratadine (Claritin) 10 mg PO DAILY [facility] Last Admin: 02/19/18 10:00 Dose: Not Given Multivitamins/Vitamin C (Multi-Delyn Liquid) 5 ml PO DAILY [facility] Last Admin: 02/19/18 10:00 Dose: Not Given Pantoprazole Sodium (Protonix Ec Tab) 40 mg PO DAILY [facility] Last Admin: 02/19/18 10:00 Dose: Not Given Thiamine HCl (Vitamin B1 Inj) 200 mg IV Q8H [facility] Last Admin: 02/19/18 10:00 Dose: Not Given Ursodiol (Actigall) 300 mg PO BID [facility] Last Admin: 02/19/18 10:00 Dose: Not Given - Labs Labs: 02/19/18 09:56 02/19/18 09:56 PT 14.0 SECONDS (9.7-12.2) H 02/18/18 21:45 INR 1.3 02/18/18 21:45 APTT 35 SECONDS (21-34) H 02/18/18 21:45 - Constitutional Appears: Non-toxic, Chronically Ill - Head Exam Head Exam: NORMOCEPHALIC - Eye Exam Eye Exam: Normal appearance - ENT Exam ENT Exam: Mucous Membranes Dry - Neck Exam Neck Exam: absent: Lymphadenopathy - Respiratory Exam Respiratory Exam: Decreased Breath Sounds - Cardiovascular Exam Cardiovascular Exam: REGULAR RHYTHM - GI/Abdominal Exam GI & Abdominal Exam: Distended, Soft - Rectal Exam Rectal Exam: Deferred - Exam Exam: NORMAL INSPECTION Assessment and Plan (1) Altered mental status Status: Acute (2) Dyspnea Status: Acute (3) ESRD (end stage renal disease) on dialysis Status: Acute (4) Lacunar infarction Status: Acute (5) Sepsis Status: Acute (6) Sepsis Status: Acute (7) Staphylococcus aureus bacteremia Status: Acute (8) Toxic metabolic encephalopathy Status: Acute - Assessment and Plan (Free Text) Assessment: 72F with a PMH of ESRD on HD, HTN, DM admitted with an infected permacath on at that time the patients fistula was examined under ultrasound and determined to be usable. The permacath placed at an outside facility was removed. yesterday night 5/29 the patient was found to be bleeding from her upper extremity from the skin overlying her fistula. The bleeding was promptly controlled with limb elevation and a small amount of pressure. bacteremia persisted after permacath removed LUIZ would be helpful but pt may need 6 weeks IV rx empirically in view of above
--- NOTE | 2018-02-19 19:03 | CP.PCM.PN ---
Subjective - Date & Time of Evaluation Date of Evaluation: 02/19/18 Time of Evaluation: 10:40 - Subjective Subjective: clinically same Objective - Vital Signs/Intake and Output Vital Signs (last 24 hours): Temp Pulse Resp BP Pulse Ox 98.3 F 78 20 145/49 L 100 02/19/18 15:55 02/19/18 15:55 02/19/18 15:55 02/19/18 15:55 02/19/18 15:55 - Medications Medications: Current Medications Acetaminophen (Tylenol 325mg Tab) 650 mg PO Q6 PRN PRN Reason: Pain, moderate (4-7) Last Admin: 02/19/18 10:04 Dose: 650 mg Bacitracin (Bacitracin) 0 gm TOP DAILY [facility] Last Admin: 02/19/18 10:00 Dose: Not Given Benzocaine/Menthol (Cepacol Sore Throat) 1 naomi PO Q2 PRN PRN Reason: Sore Throat Last Admin: 02/13/18 22:03 Dose: 1 naomi Docusate Sodium (Colace) 100 mg PO DAILY [facility] Last Admin: 02/19/18 10:00 Dose: Not Given Emollient Ointment (Vaseline Oint) 1 gm EXT Q8 PRN PRN Reason: Dry skin Last Admin: 02/17/18 09:36 Dose: 1 gm Epoetin Yvon (Procrit) 10,000 unit IV MWF [facility] Last Admin: 02/19/18 10:29 Dose: 10,000 unit Ergocalciferol (Drisdol 50,000 Intl Units Cap) 1 cap PO QD7 [facility] Nafcillin Sodium 2 gm/ Sodium (Chloride) 250 mls @ 250 mls/hr IVPB Q6H [facility] PRN Reason: Protocol Last Admin: 02/19/18 17:39 Dose: 250 mls/hr Gentamicin Sulfate 80 mg/ (Sodium Chloride) 102 mls @ 100 mls/hr IVPB MWF [facility] PRN Reason: Protocol Last Admin: 02/19/18 08:20 Dose: 100 mls/hr Insulin Human Regular (Novolin R) 0 unit SC ACHS [facility] PRN Reason: Protocol Last Admin: 02/19/18 12:16 Dose: Not Given Lactulose (Enulose) 20 gm PO DAILY PRN PRN Reason: constipation Levothyroxine Sodium (Synthroid) 200 mcg PO DAILY@0630 [facility] Last Admin: 02/19/18 06:26 Dose: 200 mcg Loratadine (Claritin) 10 mg PO DAILY [facility] Last Admin: 02/19/18 10:00 Dose: Not Given Multivitamins/Vitamin C (Multi-Delyn Liquid) 5 ml PO DAILY [facility] Last Admin: 02/19/18 10:00 Dose: Not Given Pantoprazole Sodium (Protonix Ec Tab) 40 mg PO DAILY [facility] Last Admin: 02/19/18 10:00 Dose: Not Given Thiamine HCl (Vitamin B1 Inj) 200 mg IV Q8H [facility] Last Admin: 02/19/18 10:00 Dose: Not Given Ursodiol (Actigall) 300 mg PO BID [facility] Last Admin: 02/19/18 10:00 Dose: Not Given - Labs Labs: 02/19/18 09:56 02/19/18 09:56 PT 14.0 SECONDS (9.7-12.2) H 02/18/18 21:45 INR 1.3 02/18/18 21:45 APTT 35 SECONDS (21-34) H 02/18/18 21:45 - Constitutional Appears: Well - Head Exam Head Exam: ATRAUMATIC, NORMAL INSPECTION, NORMOCEPHALIC - Eye Exam Eye Exam: EOMI, Normal appearance, PERRL Pupil Exam: NORMAL ACCOMODATION, PERRL - ENT Exam ENT Exam: Mucous Membranes Moist, Normal Exam - Neck Exam Neck Exam: Full ROM, Normal Inspection. absent: Lymphadenopathy - Respiratory Exam Respiratory Exam: Decreased Breath Sounds - Cardiovascular Exam Cardiovascular Exam: REGULAR RHYTHM, +S1, +S2 - GI/Abdominal Exam GI & Abdominal Exam: Soft, Diminished Bowel Sounds - Rectal Exam Rectal Exam: Deferred Assessment and Plan (1) Altered mental status Status: Acute (2) ESRD (end stage renal disease) on dialysis Status: Acute (3) Gastritis Status: Acute (4) Musculoskeletal pain Status: Acute (5) Rib contusion Status: Acute (6) Toxic metabolic encephalopathy Status: Acute
[2018-02-20] MEDS: Thiamine 100 mg/ml Inj IV SCH ×2 (01:23→11:30)
[2018-02-20] MEDS: Levothyroxine 100 MCG TAB PO SCH (06:00)
[2018-02-20] MEDS ORDERED: Dextrose 50% SYRINGE Inj (50 ml) IV STA (06:44)
[2018-02-20] MEDS: (Novolin R) Insulin Human Regular 100 units/ml vial SC SCH ×2 (07:37→11:35)
[2018-02-20 08:23] VITALS: BP 151/63; RESP 18; TEMP 98.4; O2SAT 98
[2018-02-20] MEDS ORDERED: Lidocaine 4% (Laryng-O-Jet) Kit MM ONE (08:25)
--- NOTE | 2018-02-20 08:48 | CP.PCM.PN ---
Subjective - Date & Time of Evaluation Date of Evaluation: 02/19/18 Time of Evaluation: 16:20 - Subjective Subjective: DISCUSSED D/C PLAN WITH ATTENDING AND CONSULTS. I DISCUSSED THE NEED FOR LUIZ WITH DR. DUNN, WHO IS STILL RECOMMENDING IT TO BE DONE. NOTIFIED DR. LONGORIA , WELL THE REPEAT PLATELETS, AND HE WILL DO LUIZ IN THE MORNING; ORDERS FOR NPO AFTER MIDNIGHT ENTERED BY ME. PER DR. DUNN, NO NEED FOR A PICC LINE; WE WILL CONTINUE ANCEF 2 GM IV WITH EACH HD SESSION X6 WEEKS (START ON SATURDAY, AND LAST DOSE TO BE GIVEN ON 04/04/18). WILL DISCUSS WITH CM AND SW IN THE MORNING FOR ARRANGEMENTS FOR D/C AND ABX TREATMENT WITH HD. NO FURTHER ORDERS. Objective - Vital Signs/Intake and Output Vital Signs (last 24 hours): Temp Pulse Resp BP Pulse Ox 98.4 F 71 18 151/63 H 98 02/20/18 07:45 02/20/18 08:31 02/20/18 07:45 02/20/18 07:45 02/20/18 07:45 Intake and Output: 02/20/18 02/20/18 06:59 18:59 Intake Total 725 Balance 725 - Medications Medications: Current Medications Acetaminophen (Tylenol 325mg Tab) 650 mg PO Q6 PRN PRN Reason: Pain, moderate (4-7) Last Admin: 02/19/18 10:04 Dose: 650 mg Bacitracin (Bacitracin) 0 gm TOP DAILY [facility] Last Admin: 02/19/18 10:00 Dose: Not Given Benzocaine/Menthol (Cepacol Sore Throat) 1 naomi PO Q2 PRN PRN Reason: Sore Throat Last Admin: 02/13/18 22:03 Dose: 1 naomi Docusate Sodium (Colace) 100 mg PO DAILY [facility] Last Admin: 02/19/18 10:00 Dose: Not Given Emollient Ointment (Vaseline Oint) 1 gm EXT Q8 PRN PRN Reason: Dry skin Last Admin: 02/17/18 09:36 Dose: 1 gm Epoetin Yvon (Procrit) 10,000 unit IV MWF [facility] Last Admin: 02/19/18 10:29 Dose: 10,000 unit Ergocalciferol (Drisdol 50,000 Intl Units Cap) 1 cap PO QD7 [facility] Nafcillin Sodium 2 gm/ Sodium (Chloride) 250 mls @ 250 mls/hr IVPB Q6H [facility] PRN Reason: Protocol Last Admin: 02/20/18 04:30 Dose: 250 mls/hr Gentamicin Sulfate 80 mg/ (Sodium Chloride) 102 mls @ 100 mls/hr IVPB MWF [facility] PRN Reason: Protocol Last Admin: 02/19/18 08:20 Dose: 100 mls/hr Insulin Human Regular (Novolin R) 0 unit SC ACHS [facility] PRN Reason: Protocol Last Admin: 02/20/18 07:37 Dose: Not Given Lactulose (Enulose) 20 gm PO DAILY PRN PRN Reason: constipation Levothyroxine Sodium (Synthroid) 200 mcg PO DAILY@0630 [facility] Last Admin: 02/20/18 06:00 Dose: Not Given Loratadine (Claritin) 10 mg PO DAILY [facility] Last Admin: 02/19/18 10:00 Dose: Not Given Multivitamins/Vitamin C (Multi-Delyn Liquid) 5 ml PO DAILY [facility] Last Admin: 02/19/18 10:00 Dose: Not Given Pantoprazole Sodium (Protonix Ec Tab) 40 mg PO DAILY [facility] Last Admin: 02/19/18 10:00 Dose: Not Given Thiamine HCl (Vitamin B1 Inj) 200 mg IV Q8H [facility] Last Admin: 02/20/18 01:23 Dose: 200 mg Ursodiol (Actigall) 300 mg PO BID [facility] Last Admin: 02/19/18 19:00 Dose: 300 mg - Labs Labs: 02/19/18 09:56 02/19/18 09:56 PT 14.0 SECONDS (9.7-12.2) H 02/18/18 21:45 INR 1.3 02/18/18 21:45 APTT 35 SECONDS (21-34) H 02/18/18 21:45
[2018-02-20] MEDS ORDERED: Propofol 10 mg/ml Inj (20 ML) ONE ×2 (09:24)
--- NOTE | 2018-02-20 10:02 | CP.PCM.PN ---
Subjective - Date & Time of Evaluation Date of Evaluation: 02/20/18 Time of Evaluation: 09:45 - Subjective Subjective: LUIZ perfomred. No evidence of endocarditis Objective - Vital Signs/Intake and Output Vital Signs (last 24 hours): Temp Pulse Resp BP Pulse Ox 98.4 F 71 18 151/63 H 98 02/20/18 07:45 02/20/18 08:31 02/20/18 07:45 02/20/18 07:45 02/20/18 07:45 Intake and Output: 02/20/18 02/20/18 06:59 18:59 Intake Total 725 Balance 725 - Medications Medications: Current Medications Acetaminophen (Tylenol 325mg Tab) 650 mg PO Q6 PRN PRN Reason: Pain, moderate (4-7) Last Admin: 02/19/18 10:04 Dose: 650 mg Bacitracin (Bacitracin) 0 gm TOP DAILY [facility] Last Admin: 02/19/18 10:00 Dose: Not Given Benzocaine/Menthol (Cepacol Sore Throat) 1 naomi PO Q2 PRN PRN Reason: Sore Throat Last Admin: 02/13/18 22:03 Dose: 1 naomi Docusate Sodium (Colace) 100 mg PO DAILY [facility] Last Admin: 02/19/18 10:00 Dose: Not Given Emollient Ointment (Vaseline Oint) 1 gm EXT Q8 PRN PRN Reason: Dry skin Last Admin: 02/17/18 09:36 Dose: 1 gm Epoetin Yvon (Procrit) 10,000 unit IV MWF [facility] Last Admin: 02/19/18 10:29 Dose: 10,000 unit Ergocalciferol (Drisdol 50,000 Intl Units Cap) 1 cap PO QD7 [facility] Nafcillin Sodium 2 gm/ Sodium (Chloride) 250 mls @ 250 mls/hr IVPB Q6H [facility] PRN Reason: Protocol Last Admin: 02/20/18 04:30 Dose: 250 mls/hr Gentamicin Sulfate 80 mg/ (Sodium Chloride) 102 mls @ 100 mls/hr IVPB MWF [facility] PRN Reason: Protocol Last Admin: 02/19/18 08:20 Dose: 100 mls/hr Insulin Human Regular (Novolin R) 0 unit SC ACHS [facility] PRN Reason: Protocol Last Admin: 02/20/18 07:37 Dose: Not Given Lactulose (Enulose) 20 gm PO DAILY PRN PRN Reason: constipation Levothyroxine Sodium (Synthroid) 200 mcg PO DAILY@0630 [facility] Last Admin: 02/20/18 06:00 Dose: Not Given Loratadine (Claritin) 10 mg PO DAILY [facility] Last Admin: 02/19/18 10:00 Dose: Not Given Multivitamins/Vitamin C (Multi-Delyn Liquid) 5 ml PO DAILY [facility] Last Admin: 02/19/18 10:00 Dose: Not Given Pantoprazole Sodium (Protonix Ec Tab) 40 mg PO DAILY [facility] Last Admin: 02/19/18 10:00 Dose: Not Given Thiamine HCl (Vitamin B1 Inj) 200 mg IV Q8H [facility] Last Admin: 02/20/18 01:23 Dose: 200 mg Ursodiol (Actigall) 300 mg PO BID [facility] Last Admin: 02/19/18 19:00 Dose: 300 mg - Labs Labs: 02/19/18 09:56 02/19/18 09:56 PT 14.0 SECONDS (9.7-12.2) H 02/18/18 21:45 INR 1.3 02/18/18 21:45 APTT 35 SECONDS (21-34) H 02/18/18 21:45 Assessment and Plan (1) Altered mental status Status: Acute (2) Sepsis Status: Acute
[2018-02-20] MEDS: Pantoprazole 40 mg EC Tab PO SCH (11:29)
[2018-02-20] MEDS: Bacitracin Ointment 30 GM TUBE TOP SCH (11:30)
[2018-02-20] MEDS: Multiple Vitamins Oral Solution PO SCH (11:35)
[2018-02-20 14:32] VITALS: PULSE 85
== END 2018-02-20 15:31 | DRG 314 ==
LOC: C.ER 14:50 → C.9E 17:28 → C.9I 02-05 07:24 → OBSVTOIN 02-06 14:04 → C.6T 02-18 03:41 → C.9I 02-18 05:45 → C.6T 02-18 07:07
PROVIDERS: ADMIT Internal Medicine Nephrology; ATTEND Internal Medicine Nephrology
PROC: 5A1D70Z Performance of Urinary Filtration, Intermittent, Less than 6 Hours Per Day (ICD-10-PCS; 2018-02-05)
PROC: 5A09457 Assistance with Respiratory Ventilation, 24-96 Consecutive Hours, Continuous Positive Airway Pressure (ICD-10-PCS; principal; 2018-02-07)
PROC: 5A1955Z Respiratory Ventilation, Greater than 96 Consecutive Hours (ICD-10-PCS; 2018-02-09)
PROC: 0BH17EZ Insertion of Endotracheal Airway into Trachea, Via Natural or Artificial Opening (ICD-10-PCS; 2018-02-09)
PROC: 3E033XZ Introduction of Vasopressor into Peripheral Vein, Percutaneous Approach (ICD-10-PCS; 2018-02-09)
PROC: 02HV33Z Insertion of Infusion Device into Superior Vena Cava, Percutaneous Approach (ICD-10-PCS; 2018-02-09)
PROC: 30233R1 Transfusion of Nonautologous Platelets into Peripheral Vein, Percutaneous Approach (ICD-10-PCS; 2018-02-11)
PROC: B24BZZ4 Ultrasonography of Heart with Aorta, Transesophageal (ICD-10-PCS; 2018-02-20)
DX: T82.7XXA Infection and inflammatory reaction due to other cardiac and vascular devices, implants and grafts, initial encounter (principal); J96.01 Acute respiratory failure with hypoxia; N18.6 End stage renal disease; I46.9 Cardiac arrest, cause unspecified; A41.02 Sepsis due to Methicillin resistant Staphylococcus aureus; R65.21 Severe sepsis with septic shock; G93.41 Metabolic encephalopathy; I13.2 Hypertensive heart and chronic kidney disease with heart failure and with stage 5 chronic kidney disease, or end stage renal disease; I50.32 Chronic diastolic (congestive) heart failure; D68.9 Coagulation defect, unspecified; F03.90 Unspecified dementia, unspecified severity, without behavioral disturbance, psychotic disturbance, mood disturbance, and anxiety; E55.9 Vitamin D deficiency, unspecified; E11.22 Type 2 diabetes mellitus with diabetic chronic kidney disease; Y84.1 Kidney dialysis as the cause of abnormal reaction of the patient, or of later complication, without mention of misadventure at the time of the procedure; E03.9 Hypothyroidism, unspecified; T82.838A Hemorrhage due to vascular prosthetic devices, implants and grafts, initial encounter; Y83.2 Surgical operation with anastomosis, bypass or graft as the cause of abnormal reaction of the patient, or of later complication, without mention of misadventure at the time of the procedure; D63.1 Anemia in chronic kidney disease; D69.6 Thrombocytopenia, unspecified; Z99.2 Dependence on renal dialysis

== ENCOUNTER 2018-02-21 20:47 | Emergency (ER) | payer MEDICARE, MEDICAID ==
[2018-02-21 20:50] VITALS: BMI 33.9
--- NOTE | 2018-02-21 21:42 | C.PDOC ---
History Of Present Illness 72 year old female presents to the emergency department after being sent here by [facility]. Patient reports persistent bleeding of left arm AV fistula since dialysis today. Time Seen by Provider: 02/21/18 21:37 Chief Complaint (Nursing): Vascular Access Device Problem History Per: Patient History/Exam Limitations: no limitations Onset/Duration Of Symptoms: Hrs Current Symptoms Are (Timing): Gone Past Medical History Reviewed: Historical Data, Nursing Documentation, Vital Signs Vital Signs: Last Vital Signs Temp 98.9 F 02/22/18 00:03 Pulse 79 02/21/18 23:58 Resp 20 02/21/18 23:58 BP 159/66 H 02/21/18 23:58 Pulse Ox 100 02/21/18 23:58 - Medical History PMH: Back Problems, CHF, Diabetes, Gastritis, HTN, Hypothyroidism, End Stage Renal Disease, Chronic Kidney Disease Surgical History: Cholecystectomy - [facility] (02/06/18) ASSISTANCE WITH RESPIRATORY VENTILATION, 24-96 HRS, CPAP (02/06/18) CORONAR ARTERIOGR-2 CATH (05/28/13) HEMODIALYSIS (05/28/13) INSERTION OF ENDOTRACHEAL AIRWAY INTO TRACHEA, VIA OPENING (02/06/18) INSERTION OF INFUSION DEV INTO SUP VENA CAVA, PERC APPROACH (02/06/18) INTRODUCTION OF VASOPRESSOR INTO PERIPH VEIN, PERC APPROACH (02/06/18) LEFT HEART CARDIAC CATH (05/28/13) LT HEART ANGIOCARDIOGRAM (05/28/13) PACKED CELL TRANSFUSION (05/28/13) RESPIRATORY VENTILATION, GREATER THAN 96 CONSECUTIVE HOURS (02/06/18) TRANSFUSE NONAUT PLATELETS IN PERIPH VEIN, PERC (02/06/18) ULTRASONOGRAPHY OF HEART WITH AORTA, TRANSESOPHAGEAL (02/06/18) VENOUS CATHETERIZATION FOR RENAL DIALYSIS (05/28/13) Family History: States: No Known Family Hx - Social History Hx Tobacco Use: No Hx Alcohol Use: No Hx Substance Use: No - Immunization History Hx Tetanus Toxoid Vaccination: Yes Hx Influenza Vaccination: Yes Hx Pneumococcal Vaccination: Yes Review Of Systems Except As Marked, All Systems Reviewed And Found Negative. Skin: Positive for: Other (bleeding from left arm AV fistula) Physical Exam - Physical Exam Appears: Non-toxic, No Acute Distress Skin: Warm, Dry Head: Atraumatic, Normacephalic Eye(s): bilateral: Normal Inspection Neck: Normal ROM, Supple Chest: Symmetrical Cardiovascular: Rhythm Regular, No Murmur Respiratory: Normal Breath Sounds Extremity: Normal ROM, Other (left upper arm with snug dressing, no bleeding) Extremity: Bilateral: Atraumatic, Normal Color And Temperature Neurological/Psych: Oriented x3 ED Course And Treatment O2 Sat by Pulse Oximetry: 91 (RA) Pulse Ox Interpretation: Abnormal Medical Decision Making Medical Decision Making: L AV fistula oozing after HD today controlled with pressure bandage w/u deferred, PMD agreed Dr. Lisa Toledo return to [facility]. Disposition Doctor Will See Patient In The: Office Counseled Patient/Family Regarding: Studies Performed, Diagnosis - Disposition Referrals: Sonny Toledo MD [Staff Provider] - Disposition: OTHER INSTITUTION Disposition Time: 21:53 Condition: GOOD Additional Instructions: keep pressure bandage in place to control bleeding as needed. Instructions: Arteriovenous Fistula for Dialysis (DC) Forms: [employer] ([place]wana) - Clinical Impression Clinical Impression: Hemorrhage of arteriovenous fistula - Scribe Statement The provider has reviewed the documentation as recorded by the Scribe (Jose Juan Byrnes) Provider Attestation: All medical record entries made by the Scribe were at my direction and personally dictated by me. I have reviewed the chart and agree that the record accurately reflects my personal performance of the history, physical exam, medical decision making, and the department course for this patient. I have also personally directed, reviewed, and agree with the discharge instructions and disposition.
[2018-02-22 00:01] VITALS: BP 159/66; PULSE 79; RESP 20
[2018-02-22 00:03] VITALS: TEMP 98.9
[2018-02-22 00:55] VITALS: O2SAT 91
== END 2018-02-22 00:03 | disposition designated cancer center or children's hospital (05) ==
LOC: C.ER 20:47
DX: T82.838A Hemorrhage due to vascular prosthetic devices, implants and grafts, initial encounter (principal); Y84.1 Kidney dialysis as the cause of abnormal reaction of the patient, or of later complication, without mention of misadventure at the time of the procedure